=== PATIENT | female | born 1955 | race Caucasian/White ===

== ENCOUNTER 2020-02-01 14:54 | Outpatient (CLI) | payer MEDICARE, BC, SELFPAY | END 2020-02-01 14:55 | disposition home or self-care (01) | LOC: ONCMED 14:57 | PROVIDERS: Visit Provider Internal Medicine Medical Oncology | DX: Z45.2 Encounter for adjustment and management of vascular access device (principal) | CPT/HCPCS: 96523 ==

== ENCOUNTER 2020-03-21 14:15 | Outpatient (CLI) | payer MEDICARE, BC, SELFPAY | END 2020-03-21 14:16 | disposition home or self-care (01) | LOC: ONCMED 14:16 | PROVIDERS: Visit Provider Internal Medicine Medical Oncology | DX: Z45.2 Encounter for adjustment and management of vascular access device (principal); C50.112 Malignant neoplasm of central portion of left female breast; C77.0 Secondary and unspecified malignant neoplasm of lymph nodes of head, face and neck | CPT/HCPCS: 96523 ==

== ENCOUNTER 2020-06-12 13:30 | Outpatient (CLI) | payer MEDICARE, BC, SELFPAY ==
[2020-06-12] MEDS: alteplase 1 mg/mL SDV 2 mL 2 MG IV (15:53)
== END 2020-06-12 13:31 | disposition home or self-care (01) ==
LOC: ONCMED 13:34
PROVIDERS: Visit Provider Internal Medicine Medical Oncology
DX: C50.112 Malignant neoplasm of central portion of left female breast (principal); Z17.0 Estrogen receptor positive status [ER+]; C77.0 Secondary and unspecified malignant neoplasm of lymph nodes of head, face and neck; Z86.718 Personal history of other venous thrombosis and embolism
CPT/HCPCS: 36593; 96374; J2997

== ENCOUNTER 2020-07-25 12:31 | Outpatient (CLI) | payer MEDICARE, BC, SELFPAY ==
--- NOTE | 2020-07-26 06:59 | ONC FU_ITS ---
Dr. Oconnell Patient Follow-Up Note Patient: Татьяна Morris Unit #: [id number]: [id number] Dicatated By: Salvador Oconnell M.D.Date of Visit:Jul 25, 2020 Onc Med Follow-up/Prog Note Chief Complaint: Breast cancer. History of Present Illness: This is a 65 year-old woman with grade 3 infiltrating ductal carcinoma of the left breast, ER positive/IA negative and HER-2/mary positive, by clinical evaluation stage IIB (T2, N1, M0) at initial diagnosis in October 2016. She had subsequent progression to stage IV (M1), with biopsy-proven recurrence in left supraclavicular lymph nodes. She had presented in September 2016 with palpable mass in the left breast. Mammogram showed a 2.7 cm mass in the deep central portion of the left breast with questionable left axillary lymphadenopathy. Ultrasound confirmed a 2.8 cm breast mass with involved axillary lymph nodes. Biopsy of the breast mass showed grade 3 infiltrating ductal carcinoma which was ER positive/IA negative and HER-2/mary positive. Left axillary lymph node biopsy also was positive. She was then given neoadjuvant chemotherapy with 6 cycles of TCH-P from November 2016 through January 2017. 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 She underwent bilateral mastectomy with left axillary lymph node dissection on 04/01/2017. Pathology showed residual tumor in the breast measuring 0.3 cm and involvement in 1/13 lymph nodes. She was given postoperative chest wall radiation, and she then began adjuvant hormonal therapy with letrozole in July 2017. In October 2018 she was noted to have a left supraclavicular lymph node, and a subsequent PET/CT showed a large left axillary and supraclavicular lymphadenopathy. There was no evidence of other metastatic disease. Excisional biopsy of the left subclavicular lymph node showed metastatic breast cancer, ER/IA negative and HER-2/mary positive. In November 2018 she began further chemotherapy with 4 cycles of dose dense Adriamycin/cyclophosphamide followed by q3 week Taxol/Herceptin. In March 2019, following completion of her 4th cycle of Taxol/Herceptin, she began treatment with single agent Herceptin for 1 year. Her restaging PET/CT on 03/09/2019 showed decrease in size and resolution of FDG activity of the left supraclavicular and left axillary lymph nodes. There was no evidence of metabolically active disease on that study. She was seen here initially in July 2019, as she was planning to relocate to this area from [place]. However, she did opt to continue her treatment with single agent Herceptin in [place]. She completed her full year of treatment in April 2020. She has no medical illnesses other than the breast cancer. Her baseline DEXA scan in 2016 reportedly showed evidence of osteopenia. Her only other surgery was a cholecystectomy in 1971. She is a nonsmoker. She is seen for a follow-up visit. She has been feeling good generally. She has had improvement in her energy/activity tolerance, and she is continuing to get stronger. Her ECOG score is 1. Her appetite is good. Her weight is stable. She has not had fever, night sweats, or hot flashes. She occasionally wakes up feeling warm. She has no shortness of breath, cough, or chest pain. She still occasionally has nausea. Her acid reflux is not too bad. Her bowel function is been okay, though it has changed somewhat. She has no complaints. She has no significant joint or bone pain. 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 Medications: Prochlorperazine Maleate 1 Tablet (of 10 mg) Oral PRN, Zofran 1 Tablet (of 8 mg) Oral PRN Allergies: sulfa Review of Systems: Constitutional - Her energy/activity tolerance have improved, and she says she is getting stronger. Appetite is good and weight is stable. No fever, night sweats, or hot flashes. She occasionally wakes up feeling warm. ECOG score is 1, ENMT - She has sinus symptoms associated with seasonal allergies. No mouth sores. No sore throat or difficulty swallowing, Hematologic/Lymphatic - No abnormal bruising or bleeding, Respiratory - No shortness of breath. No cough. No pleuritic pain or hemoptysis, Cardiovascular - No angina pain. No palpitations, Gastrointestinal - She still has occasional nausea. Her acid reflux is not too bad. Bowel function has changed somewhat but is okay. No blood in the stool or black stools, Genitourinary (F) - No dysuria or hematuria. No urinary frequency. No urgency or incontinence, Musculoskeletal - No significant joint or bone pain, Integumentary - No skin rash, Neurologic - No headache or dizziness. She has residual neuropathy in her fingers and toes, Psychiatric - No anxiety or depression. No insomnia. Vital Signs: Performed on Jul 25, 2020 12:42 Height - 64.00 in Weight - 170.4 lbs (HIGH) BSA - 1.83 sq.m BMI - 29.25 Temperature - 98.4 F Pulse - 93 /min Respiration - 22 /min BP - 137/74 mm(hg) O2 Sat - 96 % Pain - 0 Physical Examination: Constitutional - She looks good generally, Eyes - Sclerae nonicteric. Conjunctivae clear, ENMT - No lesions noted in the oral cavity, Hematologic/Lymphatic - No cervical or clavicular adenopathy, Respiratory - Lungs are clear with good air movement bilaterally, Cardiovascular - Heart rhythm is regular. There is no murmur, gallop, or rub noted, Breasts - There are no chest wall lesions noted. There is no axillary adenopathy, Abdomen - Soft. Liver and spleen are not enlarged. There is no abdominal mass or ascites noted and there is no inguinal adenopathy, Extremities - No edema. Dorsalis pedis pulses are palpable bilaterally, Integumentary - No rashes. No suspicious skin lesions noted, Neurologic - No focal neurologic deficits noted. Lab/Imaging: Test performed on May 01, 2020 08:30 Glucose 99 mg/dL BUN 10 mg/dL Creatinine 0.70 mg/dL Cr Clearance (Est) 93.93 mL/min Sodium 139 mmol/L Potassium 3.7 mmol/L Chloride 107 mmol/L CO2 23 mmol/L Calcium 9.8 mg/dL Protein, Total 7.3 g/dL Albumin 4.4 g/dL Bilirubin, Total 0.6 mg/dL Alkaline Phosphatase 90 IU/L AST (SGOT) 28 IU/L ALT (SGPT) 25 IU/L WBC 6.0 10^9/L RBC 4.67 10^12/L HGB 14.5 g/dL HCT 43.0 % MCV 92.1 fl MCH 31.0 pg MCHC 33.7 g/dL RDW 12.4 % Platelet Count 394 10^9/L MPV 10.5 fL Neutrophils (Gran) 3.2 10^9/L Lymphocytes 1.9 10^9/L Monocytes 0.7 10^9/L Eosinophils 0.2 10^9/L Basophils 0.1 10^9/L Manual Lymphocytes 31.3 % Manual Monocytes 10.8 % Manual Eosinophils 3.2 % Manual Basophils 1.2 % Impression: 1. Patient with grade 3 infiltrating ductal carcinoma of the left breast, ER positive/IA negative and HER-2/mary positive at initial diagnosis in October 2018. By clinical evaluation her disease was stage IIB (T2, N1, M0). 2. Her treatment included neoadjuvant chemotherapy with 6 cycles of TCH-P followed by bilateral mastectomy/left axillary lymph node dissection and postop chest wall radiation. 3. She began adjuvant hormonal therapy with letrozole in July 2017. 4. In October 2018 she had progression to stage IV (M1) with FDG avid left supraclavicular and left axillary lymph nodes by PET/CT and with biopsy-proven left supraclavicular lymph node involvement, deemed unresectable. Pathology showed metastatic breast cancer, ER/IA negative and HER-2/mary postive. 5. She was then given further chemotherapy with 4 cycles of dose dense Adriamycin/cyclophosphamide followed by 4 cycles of q3 week Taxol/Herceptin, completed in March 2019. 6. Restaging PET/CT on 03/09/2019 showed no evidence of metabolically active metastatic disease. She then began treatment with single agent Herceptin. As of April 2020 she had completed a full year of treatment. She has been showing gradual improvement in her performance status since completing treatment. Overall, she appears to be doing well clinically, thus far with no evidence of recurrence of the breast cancer. Plan: She will continue on observation/expectant management. She will come in for monthly port flushes. She will be scheduled for a follow-up visit in 3 months. Signed By: Salvador Oconnell M.D. <<Signature on File>>
== END 2020-07-25 12:32 | disposition home or self-care (01) ==
PROVIDERS: Visit Provider Internal Medicine Medical Oncology
DX: Z08 Encounter for follow-up examination after completed treatment for malignant neoplasm (principal); Z85.3 Personal history of malignant neoplasm of breast; Z45.2 Encounter for adjustment and management of vascular access device; Z92.22 Personal history of monoclonal drug therapy; Z92.23 Personal history of estrogen therapy; Z92.3 Personal history of irradiation; Z90.13 Acquired absence of bilateral breasts and nipples
CPT/HCPCS: 96523; G0463

== ENCOUNTER → 2020-08-20 12:21 | Outpatient (BNVA) | payer MEDICARE, BC, SELFPAY | PROVIDERS: PCP Family Medicine; Visit Provider Surgery | DX: Z20.828 Contact with and (suspected) exposure to other viral communicable diseases (principal) | CPT/HCPCS: 87635 ==

== ENCOUNTER 2020-08-23 07:29 | Day surgery (SDC) | payer MEDICARE, BC, SELFPAY ==
[2020-08-21 12:00] VITALS: BMI 28.3
[2020-08-23 07:43] VITALS: BP 116/77; PULSE 91; RESP 18; TEMP 36.1; O2SAT 97
[2020-08-23] MEDS: sodium chloride 0.9% 1,000 ML 30 ML IV (08:14)
--- NOTE | 2020-08-23 08:15 | ANES.PREANE2 ---
Pre-Anesthetic Assessment Pre-Anesthetic Assessment: Height/Weight: Height 1.63 m Weight 74.843 kg Temp Pulse Resp BP Pulse Ox 96.9 F L 91 18 116/77 97 08/23/20 07:43 08/23/20 07:43 08/23/20 07:43 08/23/20 07:43 08/23/20 07:43 Preop Diagnosis: screening Proposed Procedure: Operation Date: 08/23/20 08:30 Proposed Procedures p Colonoscopy 94415 Z12.11(Not Applicable) - Gennaro Wu MD Was Beta Dhruv taken within 24 hours: N/A Last intake: Intake Last Liquid Date 08/22/20 Last Liquid Time 21:00 Last Solid Date 08/20/20 Last Solid Time 18:00 Social: Social History: Alcohol and No tobacco Exam: Pre-Anes Outpt Exam: alert, oriented x 3, clear to auscultation bilaterally and regular rate & rhythm History/ROS: No significant history except as noted and No significant complaints Pulmonary: Pulmonary: None reported CV/HEM: CV/HEM: None reported : : None reported Hepatic: Hepatic: None reported GI: GI: None reported Metabolic: Metabolic: None reported Musc/skel: Musc/skel: None reported Neuropsych: Neuropsych: None reported Anesthetic Plan: ASA status: 2 Anesthesia: MAC Risk of > 500 ml blood loss (7ml/kg in children): No Meds/Allergies Current Medications: Current Medications Generic Name Dose Route Start Last Admin Trade Name Freq PRN Reason Stop Dose Admin Sodium Chloride 1,000 mls @ 30 ml s/hr 08/23/20 07:45 08/23/20 08:14 Sodium Chloride 0.9% IV 30 mls/hr .Q24H LI Administration PFSH Anesthesia PFSH: Medical History (Updated 08/02/20 @ 09:21 by Татьяна Gomez DO) History of breast cancer in adulthood Surgical History (Updated 08/02/20 @ 09:10 by Татьяна Gomez DO) History of cholecystectomy S/P mastectomy, bilateral Family History Other Atrial fibrillation Hypertension Social History Smoking and tobacco status: never smoked Alcohol intake: current Alcohol intake frequency: holidays/special occasions only Data Anesthesia Cardiac Studies: No Data to Display
--- NOTE | 2020-08-23 08:49 | P.HP_ITS ---
Same Day Surgery H&P Indication for Procedure/HPI DATE OF PROCEDURE: August 23, 2020 CHIEF COMPLAINT/INDICATIONFOR SURGICAL PROCEDURE: screening PREOP DIAGNOSIS: screening PLANNED PROCEDRUE: Operation Date: 08/23/20 08:30 Proposed Procedures p Colonoscopy 36795 Z12.11(Not Applicable) - Gennaro Wu MD Medications/Allergies* Home Medications Medication Instructions Recorded Confirmed Type No Known Home Medications 08/02/20 08/23/20 History Allergies/Adverse Reactions Allergy/AdvReac Type Severity Reaction Status Date / Time Sulfa (Sulfonamide AdvReac Mild vomiting Verified 08/23/20 07:40 Antibiotics) Current Medications: Generic Name Dose Route Start Last Admin Trade Name Freq PRN Reason Stop Dose Admin Sodium Chloride 1,000 mls @ 30 mls/hr 08/23/20 07:45 08/23/20 08:14 Sodium Chloride 0.9% IV 30 mls/hr .Q24H LI Administration Pertinent History/Comorbid Conditions* Medical History (Updated 08/02/20 @ 09:21 by Татьяна Gomez DO) History of breast cancer in adulthood Surgical History (Updated 08/02/20 @ 09:10 by Татьяна Gomez DO) History of cholecystectomy S/P mastectomy, bilateral Family History (Updated 08/02/20 @ 09:04 by Charmaine Rodriguez LPN) Atrial fibrillation Hypertension Social History Smoking and tobacco status: never smoked Alcohol intake: current Alcohol intake frequency: holidays/special occasions only Pertinent Exam Findings alert, oriented x 3 and regular rate & rhythm Recommendations Surgery/Procedure today Coding Level of Care Code Acute Junior Financial Analyst for Reggie Gonzalez
[2020-08-23 09:31] VITALS: BP 110/63; PULSE 68; RESP 18; TEMP 36.2; O2SAT 96
[2020-08-23 09:46] VITALS: BP 107/67; PULSE 56; RESP 18; O2SAT 99
--- NOTE | 2020-08-23 09:47 | SUR.PHASEII ---
0947 Port to left chest flushed per protocol and de-accessed. Site clear. Pt tolerated well.
--- NOTE | 2020-08-23 09:55 | ANE.PACU2 ---
Inpatient post-anesthesia follow up: Airway intact: Yes Vital signs: Temperature 97.1 F Pulse Rate 56 Respiratory Rate 18 Blood Pressure 107/67 Pulse Oximetry 99 Oxygen Delivery Me thod Room Air Oxygen Flow Rate 2 Fraction of Inspir ed Oxygen Hydration adequate: Yes Nausea and vomiting: No Pain level: 1 Mental status: Baseline
== END 2020-08-23 09:55 | disposition home or self-care (01) ==
PROVIDERS: PCP Family Medicine; Visit Provider Surgery
PROC: 0DJD8ZZ Inspection of Lower Intestinal Tract, Via Natural or Artificial Opening Endoscopic (ICD-10-PCS; CPT 45378; principal; 2020-08-23 08:30)
DX: Z12.11 Encounter for screening for malignant neoplasm of colon (principal); D12.2 Benign neoplasm of ascending colon; K62.1 Rectal polyp; K57.30 Diverticulosis of large intestine without perforation or abscess without bleeding; Z85.3 Personal history of malignant neoplasm of breast
CPT/HCPCS: 12345; 45385; 88305; G0121; J2704; J7030

== ENCOUNTER → 2020-09-04 09:21 | Outpatient (BNVA) | payer MEDICARE, BC, SELFPAY | PROVIDERS: PCP Family Medicine; Visit Provider Family Medicine | DX: Z13.6 Encounter for screening for cardiovascular disorders (principal); E55.9 Vitamin D deficiency, unspecified; Z78.0 Asymptomatic menopausal state; Z23 Encounter for immunization; Z01.419 Encounter for gynecological examination (general) (routine) without abnormal findings | CPT/HCPCS: 80061; 82306; 88175 ==

== ENCOUNTER 2020-09-19 09:44 | Outpatient (CLI) | payer MEDICARE, BC, SELFPAY | END 2020-09-19 09:45 | disposition home or self-care (01) | LOC: ONCMED 09:47 | PROVIDERS: PCP Family Medicine; Visit Provider Internal Medicine Medical Oncology | DX: Z45.2 Encounter for adjustment and management of vascular access device (principal) | CPT/HCPCS: 96523 ==

== ENCOUNTER 2020-10-22 11:32 | Outpatient (CLI) | payer MEDICARE, BC, SELFPAY | END 2020-10-22 11:33 | disposition home or self-care (01) | LOC: ONCMED 11:36 | PROVIDERS: PCP Family Medicine; Visit Provider Internal Medicine Medical Oncology | DX: Z45.2 Encounter for adjustment and management of vascular access device (principal) | CPT/HCPCS: 96523 ==

== ENCOUNTER 2020-12-28 08:22 | Outpatient (CLI) | payer MEDICARE, BC, SELFPAY ==
[2020-12-28 09:25] LABS: Basophils # 0.1 10^3/uL (0.0-0.1); Basophils % 0.9 %; Eosinophils # 0.2 10^3/uL (0.0-0.8); Eosinophils % 3.5 %; Hematocrit 41.5 % (37.0-47.0); Hemoglobin 13.4 g/dL (11.5-15.3); Lymphocytes # 1.9 10^3/uL (0.8-4.8); Lymphocytes % 27.4 %; Mean Corpuscular HGB Conc 32.3 g/dL (30.0-36.0); Mean Corpuscular Hemoglobin 30.9 pg (28.0-34.0); Mean Corpuscular Volume 95.8 fL (81-99); Mean Platelet Volume 11.2 fL (7.4-10.4); Monocytes # 0.7 10^3/uL (0.2-0.9); Monocytes % 9.7 %; Neutrophils # 4.04 10^3/uL (1.8-7.7); Neutrophils % 58.2 %; Nucleated Red Blood Cells % 0 %; Platelet Count 368 10^3/cmm (130-400); Red Blood Count 4.33 10^6/uL (4.1-5.3); Red Cell Distribution Width 12.4 % (12.1-15.1); White Blood Count 6.9 10^3/uL (4.0-10.0)
[2020-12-28 09:38] LABS: Alanine Aminotransferase 19 U/L (0-33); Albumin Level 4.3 g/dL (3.5-5.2); Alkaline Phosphatase 72 IU/L (35-105); Anion Gap 11.9 (5-19); Aspartate Amino Transferase 19 U/L (0-32); Blood Urea Nitrogen 13 mg/dL (8-23); Calcium 9.7 mg/dL (8.5-10.5); Carbon Dioxide 29 mmol/L (22-29); Chloride 103 mmol/L (98-107); Globulin 2.8 g/dL (1.3-4.6); Glomerular Filtration Rate 83.5 mL/min (90-130); Glucose 96 mg/dL (65-115); Osmolality Calculated 290 mOsm/kg (285-295); Potassium 3.9 mmol/L (3.5-5.1); Sodium 140 mmol/L (136-145); Total Bilirubin 0.3 mg/dL (0.15-1.2); Total Protein 7.1 g/dL (6.6-8.7)
== END 2020-12-28 08:23 | disposition home or self-care (01) ==
LOC: ONCMED 08:25
PROVIDERS: PCP Family Medicine; Visit Provider Internal Medicine Medical Oncology
DX: C50.112 Malignant neoplasm of central portion of left female breast (principal)
CPT/HCPCS: 36591; 80053; 85025

== ENCOUNTER 2020-12-31 05:42 | Outpatient (CLI) | payer MEDICARE, BC, SELFPAY ==
[2020-12-31] MEDS: diphenhydrAMINE 25 mg Capsule PO (12:55)
[2020-12-31] MEDS: acetaminophen 325 mg Tablet 650 MG PO (12:55)
[2020-12-31] MEDS: sodium chloride 0.9% 250 ML 75 ML IV (13:12)
--- NOTE | 2020-12-31 19:31 | ONC FU_ITS ---
Dr. Oconnell Patient Follow-Up Note Patient: Татьяна Morris Unit #: [id number]: 1955 Dicatated By: Salvador Oconnell M.D.Date of Visit:Dec 31, 2020 Onc Med Follow-up/Prog Note Chief Complaint: Breast cancer. History of Present Illness: This is a 65 year-old woman with grade 3 infiltrating ductal carcinoma of the left breast, ER positive/RI negative and HER-2/mary positive, by clinical evaluation stage IIB (T2, N1, M0) at initial diagnosis in October 2016. She had subsequent progression to stage IV (M1), with biopsy-proven recurrence in left supraclavicular lymph nodes. She had presented in September 2016 with palpable mass in the left breast. Mammogram showed a 2.7 cm mass in the deep central portion of the left breast with questionable left axillary lymphadenopathy. Ultrasound confirmed a 2.8 cm breast mass with involved axillary lymph nodes. Biopsy of the breast mass showed grade 3 infiltrating ductal carcinoma which was ER positive/RI negative and HER-2/mary positive. Left axillary lymph node biopsy also was positive. She was then given neoadjuvant chemotherapy with 6 cycles of TCH-P from November 2016 through January 2017. 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 She underwent bilateral mastectomy with left axillary lymph node dissection on 04/01/2017. Pathology showed residual tumor in the breast measuring 0.3 cm and involvement in 1/13 lymph nodes. She was given postoperative chest wall radiation, and she then began adjuvant hormonal therapy with letrozole in July 2017. In October 2018 she was noted to have a left supraclavicular lymph node, and a subsequent PET/CT showed a large left axillary and supraclavicular lymphadenopathy. There was no evidence of other metastatic disease. Excisional biopsy of the left subclavicular lymph node showed metastatic breast cancer, ER/RI negative and HER-2/mary positive. In November 2018 she began further chemotherapy with 4 cycles of dose dense Adriamycin/cyclophosphamide followed by q3 week Taxol/Herceptin. In March 2019, following completion of her 4th cycle of Taxol/Herceptin, she began treatment with single agent Herceptin for 1 year. Her restaging PET/CT on 03/09/2019 showed decrease in size and resolution of FDG activity of the left supraclavicular and left axillary lymph nodes. There was no evidence of metabolically active disease on that study. She was seen here initially in July 2019, as she was planning to relocate to this area from [place]. However, she did opt to continue her treatment with single agent Herceptin in [place]. She completed her full year of treatment in December 2019. Her restaging PET/CT on 04/26/2020 showed a small focus of hyper metabolic activity in the soft tissues along the lateral margin of the left scapula, maximum SUV 2. Her repeat PET/CT on 11/15/2020 again showed mild hypermetabolic activity adjacent to the left subscapularis muscle. Further evaluation with MRI on 11/28/2020 showed an ill-defined high T2 signal and enhancement involving the superficial fascia and adjacent muscle belly at the site of previously identified hypermetabolic activity along the superficial fascia of the subscapularis. It measured 18 x 15 x 17 mm. An additional focus of hyperenhancement and high T2 signal was noted at the lower margin of the scapula measuring 9 x 20 x 18 mm. This appeared consistent with soft tissue metastasis. In the supraclavicular region there were sites of nodularity likely representing lymph nodes or soft tissue implants which were noted to show enhancement and high T2 signal. These measured in the range of 8 to 9 mm. An additional nonspecific focus of nodularity was noted along the anterior margin of the deltoid muscle belly measuring 8 mm. With evidence of recurrent disease, she began on treatment with Herceptin at a 3-week dosing interval together with letrozole 2.5 mg daily. She received her initial infusion of Herceptin 3 weeks ago. She tolerated it without acute toxicity. She has now returned to this area and she will continue her further treatment locally. The plan is to repeat her PET/CT after 3 months of treatment. She has no medical illnesses other than the breast cancer. Her baseline DEXA scan in 2016 reportedly showed evidence of osteopenia. Her only other surgery was a cholecystectomy in 1971. She is a nonsmoker. She is seen for a follow-up visit. She has been feeling good generally. When she first started the letrozole, it was interfering with her sleep, but that improved after she started taking it at bedtime. She has had some nausea, which he manages adequately with either Compazine or Zofran. She says her energy is not bad. She has normal activity. ECOG score is 0. Her appetite is good. She has not had fever or night sweats. She generally has felt warmer, particularly at night, but she does not have actual hot flashes. She does not complain of shortness of breath, cough, or chest pain. She has a little bit of acid reflux, which she manages with cimetidine as needed. Bowel and bladder function have been okay. She has no significant joint or bone pain. She does not complain of headache or dizziness. 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 Medications: Letrozole (2.5 mg) Tablet Oral daily, Prochlorperazine Maleate 1 Tablet (of 10 mg) Oral PRN, Zofran 1 Tablet (of 8 mg) Oral PRN Allergies: sulfa Vital Signs: Performed on Dec 31, 2020 08:21 Height - 64.00 in Weight - 176.4 lbs (HIGH) BSA - 1.85 sq.m BMI - 30.28 (HIGH) Temperature - 97.2 F (LOW) Pulse - 74 /min Respiration - 18 /min BP - 123/77 mm(hg) O2 Sat - 95 % (LOW) Pain - 0 Fatigue - 0 Physical Examination: Constitutional - She looks good generally, Eyes - Sclerae nonicteric. Conjunctivae clear, ENMT - No lesions noted in the oral cavity, Hematologic/Lymphatic - No cervical or clavicular adenopathy, Respiratory - Lungs are clear with good air movement bilaterally, Cardiovascular - Heart rhythm is regular. There is no murmur, gallop, or rub noted, Breasts - There are no chest wall lesions noted. There is no axillary adenopathy, Abdomen - Soft. Liver and spleen are not enlarged. There is no abdominal mass or ascites noted and there is no inguinal adenopathy, Extremities - No edema, Neurologic - No focal neurologic deficits noted. Lab/Imaging: Test performed on Dec 28, 2020 08:53 Sodium 140 mmol/L Potassium 3.9 mmol/L Chloride 103 mmol/L CO2 29 mmol/L Anion Gap 11.9 BUN 13 mg/dL Creatinine 0.7 mg/dL Cr Clearance (Est) 95.1600 mL/min eGFR 83.5 mL/min Glucose 96 mg/dL Osmolality - Calculated 290 mOsm/kg Calcium 9.7 mg/dL Protein, Total 7.1 g/dL Albumin 4.3 g/dL Globulin 2.8 g/dL Bilirubin, Total 0.3 mg/dL ALT (SGPT) 19 U/L AST (SGOT) 19 U/L Alkaline Phosphatase 72 IU/L WBC 6.9 10 3/uL RBC 4.33 10 6/uL HGB 13.4 g/dL HCT 41.5 % MCV 95.8 fL MCH 30.9 pg MCHC 32.3 g/dL RDW 12.4 % Platelet Count 368 10 3/cmm MPV 11.2 fL Neutrophils 4.04 10 3/uL Lymphocytes 1.9 10 3/uL Monocytes 0.7 10 3/uL Eosinophils 0.2 10 3/uL Basophils 0.1 10 3/uL Neutrophil % 58.2 % Lymphocyte % 27.4 % Monocyte % 9.7 % Eosinophil % 3.5 % Basophils % 0.9 % NRBC % 0 % Problem List: 1. Patient with grade 3 infiltrating ductal carcinoma of the left breast, ER positive/RI negative and HER-2/mary positive at initial diagnosis in October 2018. By clinical evaluation her disease was stage IIB (T2, N1, M0). Her initial treatment included neoadjuvant chemotherapy with 6 cycles of TCH-P followed by bilateral mastectomy/left axillary lymph node dissection and postop chest wall radiation and adjuvant hormonal therapy with letrozole in July 2017. 2. In October 2018 she had progression to stage IV (M1) with FDG avid left supraclavicular and left axillary lymph nodes by PET/CT and with biopsy-proven left supraclavicular lymph node involvement, deemed unresectable. Pathology showed metastatic breast cancer, ER/RI negative and HER-2/mary postive. Problems Addressed with this Encounter and Plan: Patient with grade 3 infiltrating ductal carcinoma of the left breast, ER positive/RI negative and HER-2/mary positive at initial diagnosis in October 2018. By clinical evaluation her disease was stage IIB (T2, N1, M0). Her treatment included neoadjuvant chemotherapy with 6 cycles of TCH-P followed by bilateral mastectomy/left axillary lymph node dissection and postop chest wall radiation. She began adjuvant hormonal therapy with letrozole in July 2017. In October 2018 she had progression to stage IV (M1) with FDG avid left supraclavicular and left axillary lymph nodes by PET/CT and with biopsy-proven left supraclavicular lymph node involvement, deemed unresectable. Pathology showed metastatic breast cancer, ER/RI negative and HER-2/mary postive. She was then given further chemotherapy with 4 cycles of dose dense Adriamycin/cyclophosphamide followed by 4 cycles of q3 week Taxol/Herceptin, completed in March 2019. Restaging PET/CT on 03/09/2019 showed no evidence of metabolically active metastatic disease. She then began treatment with single agent Herceptin. As of December 2019 she had completed a full year of treatment. In November 2020 she was found on PET/CT and MRI to have further recurrence in the form of soft tissue metastatic lesions in the area of the left shoulder/scapula. With those findings she began treatment with Herceptin and a 3-week dosing interval together with letrozole 2.5 mg daily. Thus far she has tolerated the treatment well. She is due now for her second dose of Herceptin. It will be administered as soon as we have the medication available. She will then return for treatment again in 3 weeks and for a follow-up visit in 6 weeks. Signed By: Salvador Oconnell M.D. <<Signature on File>>
== END 2020-12-31 05:43 | disposition home or self-care (01) ==
LOC: ONCMED 05:44
PROVIDERS: PCP Family Medicine; Visit Provider Internal Medicine Medical Oncology
DX: Z51.11 Encounter for antineoplastic chemotherapy (principal); C50.112 Malignant neoplasm of central portion of left female breast; Z17.1 Estrogen receptor negative status [ER-]; C77.0 Secondary and unspecified malignant neoplasm of lymph nodes of head, face and neck; C79.89 Secondary malignant neoplasm of other specified sites; Z79.899 Other long term (current) drug therapy
CPT/HCPCS: 96413; 99214; J7050; J9355

== ENCOUNTER 2021-01-21 06:19 | Outpatient (CLI) | payer MEDICARE, BC, SELFPAY ==
[2021-01-21] MEDS: diphenhydrAMINE 25 mg Capsule PO (11:15)
[2021-01-21] MEDS: acetaminophen 325 mg Tablet 650 MG PO (11:15)
[2021-01-21] MEDS: sodium chloride 0.9% 250 ML 75 ML IV (11:25)
== END 2021-01-21 06:20 | disposition home or self-care (01) ==
LOC: ONCMED 06:21
PROVIDERS: PCP Family Medicine; Visit Provider Internal Medicine Medical Oncology
DX: Z51.12 Encounter for antineoplastic immunotherapy (principal); C50.112 Malignant neoplasm of central portion of left female breast; Z17.0 Estrogen receptor positive status [ER+]; C79.89 Secondary malignant neoplasm of other specified sites; C77.0 Secondary and unspecified malignant neoplasm of lymph nodes of head, face and neck
CPT/HCPCS: 96413; J7050; J9355

== ENCOUNTER 2021-02-11 09:37 | Outpatient (CLI) | payer MEDICARE, BC, SELFPAY ==
[2021-02-11 11:02] LABS: Basophils # 0.1 10^3/uL (0.0-0.1); Basophils % 1.3 %; Eosinophils # 0.3 10^3/uL (0.0-0.8); Eosinophils % 3.7 %; Hematocrit 42.4 % (37.0-47.0); Hemoglobin 13.7 g/dL (11.5-15.3); Lymphocytes % 28.7 %; Mean Corpuscular HGB Conc 32.3 g/dL (30.0-36.0); Mean Corpuscular Hemoglobin 30.3 pg (28.0-34.0); Mean Corpuscular Volume 93.8 fL (81-99); Mean Platelet Volume 11.4 fL (7.4-10.4); Monocytes # 0.7 10^3/uL (0.2-0.9); Monocytes % 10.3 %; Neutrophils % 55.9 %; Nucleated Red Blood Cells % 0 %; Platelet Count 411 10^3/cmm (130-400); Red Blood Count 4.52 10^6/uL (4.1-5.3); Red Cell Distribution Width 12.5 % (12.1-15.1)
[2021-02-11 11:15] LABS: Alanine Aminotransferase 27 U/L (0-33); Albumin Level 4.3 g/dL (3.5-5.2); Alkaline Phosphatase 74 IU/L (35-105); Anion Gap 13.7 (5-19); Aspartate Amino Transferase 24 U/L (0-32); Blood Urea Nitrogen 12 mg/dL (8-23); Calcium 9.5 mg/dL (8.5-10.5); Carbon Dioxide 27 mmol/L (22-29); Chloride 103 mmol/L (98-107); Globulin 2.3 g/dL (1.3-4.6); Glomerular Filtration Rate 99.7 mL/min (90-130); Glucose 127 mg/dL (65-115); Osmolality Calculated 291 mOsm/kg (285-295); Potassium 3.7 mmol/L (3.5-5.1); Sodium 140 mmol/L (136-145); Total Bilirubin 0.4 mg/dL (0.15-1.2); Total Protein 6.6 g/dL (6.6-8.7)
[2021-02-11] MEDS: acetaminophen 325 mg Tablet 650 MG PO (11:40)
[2021-02-11] MEDS: diphenhydrAMINE 25 mg Capsule PO (11:40)
[2021-02-11] MEDS: sodium chloride 0.9% 250 ML 75 ML IV (12:30)
--- NOTE | 2021-02-25 22:02 | ONC FU_ITS ---
Joaquín Diaz Patient Note Patient: Татьяна Morris Unit #: [id number]: 1955 Dictated By: Jennifer LorenzDate of Visit: Feb 11, 2021 Onc MED Follow-Up/Prog Note Chief Complaint: Breast cancer. History of Present Illness: Ms Morris is a 65 year-old woman with grade 3 infiltrating ductal carcinoma of the left breast, ER positive/NC negative and HER-2/mary positive, by clinical evaluation stage IIB (T2, N1, M0) at initial diagnosis in October 2016. She had subsequent progression to stage IV (M1), with biopsy-proven recurrence in left supraclavicular lymph nodes. She had presented in September 2016 with palpable mass in the left breast. Mammogram showed a 2.7 cm mass in the deep central portion of the left breast with questionable left axillary lymphadenopathy. Ultrasound confirmed a 2.8 cm breast mass with involved axillary lymph nodes. Biopsy of the breast mass showed grade 3 infiltrating ductal carcinoma which was ER positive/NC negative and HER-2/mary positive. Left axillary lymph node biopsy also was positive. She was then given neoadjuvant chemotherapy with 6 cycles of TCH-P from November 2016 through January 2017. 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 She underwent bilateral mastectomy with left axillary lymph node dissection on 04/01/2017. Pathology showed residual tumor in the breast measuring 0.3 cm and involvement in 1/13 lymph nodes. She was given postoperative chest wall radiation, and she then began adjuvant hormonal therapy with letrozole in July 2017. In October 2018 she was noted to have a left supraclavicular lymph node, and a subsequent PET/CT showed a large left axillary and supraclavicular lymphadenopathy. There was no evidence of other metastatic disease. Excisional biopsy of the left subclavicular lymph node showed metastatic breast cancer, ER/NC negative and HER-2/mary positive. In November 2018 she began further chemotherapy with 4 cycles of dose dense Adriamycin/cyclophosphamide followed by q3 week Taxol/Herceptin. In March 2019, following completion of her 4th cycle of Taxol/Herceptin, she began treatment with single agent Herceptin for 1 year. Her restaging PET/CT on 03/09/2019 showed decrease in size and resolution of FDG activity of the left supraclavicular and left axillary lymph nodes. There was no evidence of metabolically active disease on that study. She was seen here initially in July 2019, as she was planning to relocate to this area from [place]. However, she did opt to continue her treatment with single agent Herceptin in [place]. She completed her full year of treatment in April 2020. She has no medical illnesses other than the breast cancer. Her baseline DEXA scan in 2016 reportedly showed evidence of osteopenia. Her only other surgery was a cholecystectomy in 1971. She is a nonsmoker. Ms Morris is here today for followup. Her last dose of transtuzumab was on January 21, 2021. She continues to tolerate it well. She states she has been doing some exercise at home and is tolerating this well. She states she has occasional heart pounding but has checked her oximeter during this time and her oxygen is okay during the palpitations . She states she is due for follow-up PET CT and echocardiogram on March 25 at [place]. She continues to follow with her oncologist at [place], [place]. She has no other concerns today. She denies any orthopnea. She is had no lower extremity edema. She denies any chest pain. She denies nausea or vomiting. She has had no diarrhea or constipation. Her neuropathy is stable. She denies any adenopathy. She states she has not had any mouth sores or sore throat. She is had no difficulty swallowing. She continues with the letrozole and is tolerating it well. She denies any joint pain. She has had some intermittent hot flashes but states they are stable as well. Her ECOG is 0. Past Medical History: She has had no other medical illnesses. Past Surgical History: Covid vaccine #2 in 2020 Covid vaccine #1 in 2020 Excisional biopsy of left supraclavicular lymph node in 2018 Bilateral mastectomy and left axillary lymph node dissection in 2017 Biopsies of left breast mass and left axillary lymph node in 2016 Cholecystectomy in 1972 Allergies: sulfa Medications: Letrozole (2.5 mg) Tablet Oral daily Prochlorperazine Maleate 1 Tablet (of 10 mg) Oral PRN Zofran 1 Tablet (of 8 mg) Oral PRN Family History: Ms. Morris's mother at age 94: old age. Ms. Morris's father at age 80. Ms. Morris has 4 brothers: 4 alive. Her father at age 80 with complications of atrial fibrillation. He had been treated for prostate cancer. Mother at 94 of old age. Four brothers are in good health. Social History: Ms. Morris is and she is retired. Ms. Morris has never smoked. She drinks occasionally. 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 She is a nonsmoker. Alcohol use is estimated at 4 drinks per month. Review Of Symptoms: see above Vital Signs: Performed on Feb 11, 2021 11:09 Height - 64.00 in Weight - 175.8 lbs (LOW) BSA - 1.85 sq.m BMI - 30.18 (HIGH) Temperature - 97.3 F (LOW) Pulse - 92 /min Respiration - 18 /min BP - 118/74 mm(hg) O2 Sat - 93 % (LOW) Pain - 0 Fatigue - 0,0 - Fully active, able to carry on all predisease activities without restrictions. (ECOG) Physical Examination: Constitutional Alert, oriented, no acute distress. Skin pink, warm and dry. Head Normocephalic; atraumatic. Eyes Conjunctivae and sclerae are clear and without icterus. Pupils are reactive and equal. Neck Supple without masses or thyromegaly. No jugular venous distension. Hematologic/Lymphatic No petechiae or purpura. No tender or palpable lymph nodes in the cervical or supraclavicular areas. Respiratory Lungs are clear to auscultation without rhonchi or wheezing. Cardiovascular Regular rate and rhythm of heart without murmurs,clicks, gallops or rubs. Chest left chest wall port unremarkable Back/Spine Non-tender to palpation. Extremities No visible deformities, no cyanosis, clubbing or edema. Musculoskeletal No tenderness or swelling, normal range of motion without obvious weakness. Integumentary No rashes or lesions. Neurologic No sensory or motor deficits, normal cerebellar function, normal gait. Psychiatric Alert and oriented times three. Coherent speech. Verbalizes understanding of our discussions today. Laboratory:Test performed on Feb 11, 2021 09:57 Sodium 140 mmol/L Potassium 3.7 mmol/L Chloride 103 mmol/L CO2 27 mmol/L Anion Gap 13.7 BUN 12 mg/dL Creatinine 0.6 mg/dL Cr Clearance (Est) 111.0200 mL/min eGFR 99.7 mL/min Glucose 127 mg/dL Osmolality - Calculated 291 mOsm/kg Calcium 9.5 mg/dL Protein, Total 6.6 g/dL Albumin 4.3 g/dL Globulin 2.3 g/dL Bilirubin, Total 0.4 mg/dL ALT (SGPT) 27 U/L AST (SGOT) 24 U/L Alkaline Phosphatase 74 IU/L WBC 7.0 10 3/uL RBC 4.52 10 6/uL HGB 13.7 g/dL HCT 42.4 % MCV 93.8 fL MCH 30.3 pg MCHC 32.3 g/dL RDW 12.5 % Platelet Count 411 10 3/cmm MPV 11.4 fL Neutrophils 3.90 10 3/uL Lymphocytes 2.0 10 3/uL Monocytes 0.7 10 3/uL Eosinophils 0.3 10 3/uL Basophils 0.1 10 3/uL Neutrophil % 55.9 % Lymphocyte % 28.7 % Monocyte % 10.3 % Eosinophil % 3.7 % Basophils % 1.3 % NRBC % 0 % Impression: 1. Patient with grade 3 infiltrating ductal carcinoma of the left breast, ER positive/NC negative and HER-2/mary positive at initial diagnosis in October 2018. By clinical evaluation her disease was stage IIB (T2, N1, M0). Her initial treatment included neoadjuvant chemotherapy with 6 cycles of TCH-P followed by bilateral mastectomy/left axillary lymph node dissection and postop chest wall radiation and adjuvant hormonal therapy with letrozole in July 2017. 2. In October 2018 she had progression to stage IV (M1) with FDG avid left supraclavicular and left axillary lymph nodes by PET/CT and with biopsy-proven left supraclavicular lymph node involvement, deemed unresectable. Pathology showed metastatic breast cancer, ER/NC negative and HER-2/mary positive. Plan: PROBLEMS ADDRESSED TODAY 1. grade 3 infiltrating ductal carcinoma of the left breast, ER positive/NC negative and HER-2/mary positive at initial diagnosis in October 2018. By clinical evaluation her disease was stage IIB (T2, N1, M0). Her treatment included neoadjuvant chemotherapy with 6 cycles of TCH-P followed by bilateral mastectomy/left axillary lymph node dissection and postop chest wall radiation. She began adjuvant hormonal therapy with letrozole in July 2017. In October 2018 she had progression to stage IV (M1) with FDG avid left supraclavicular and left axillary lymph nodes by PET/CT and with biopsy-proven left supraclavicular lymph node involvement, deemed unresectable. Pathology showed metastatic breast cancer, ER/NC negative and HER-2/mary positive. She was then given further chemotherapy with 4 cycles of dose dense Adriamycin/cyclophosphamide followed by 4 cycles of q 3 week Taxol/Herceptin, completed in March 2019. Restaging PET/CT on 03/09/2019 showed no evidence of metabolically active metastatic disease. She then began treatment with single agent Herceptin. As of December 2019 she had completed a full year of treatment. In November 2020 she was found on PET/CT and MRI to have further recurrence in the form of soft tissue metastatic lesions in the area of the left shoulder/scapula. With those findings she began treatment with Herceptin and a 3-week dosing interval together with letrozole 2.5 mg daily. Thus far she has tolerated the treatment well. A. Proceed with Herceptin today as scheduled. She continues the 3-week dosing. B. Continue letrozole 2.5 mg daily C. Today's labs reviewed in detail and discussed with Ms. Morris and a copy was given to her. WBC 7.0, hemoglobin 13.7, platelets 411,000 ANC is 3900. Potassium 3.7 random glucose 127 creatinine 0.6 LFTs are. D. The last PET/CT on our chart from [facility] was April 26, 2020 and there was no hypermetabolic lymphadenopathy or convincing evidence of metastatic disease at that time. There was a small focus of mild FDG uptake in the soft tissues along the lateral margin of the left scapula which was favored to be inflammatory. She had MRI of the shoulder with and without contrast on November 28, 2020 at which time there was abnormality along the superficial fossa and/or muscle belly of this subscapularis, compatible with soft tissue metastasis. There was a second focus of presumed metastatic disease along the lower margin of the scapula corresponding to hypermetabolic activity on the prior CT PET and interposed between the lower margin of the subscapularis and teres minor. Additional small sites of nodularity along the anterior deltoid and supraclavicular region. Metastatic lymph nodes or soft tissue implants are suspected however these are relatively small and difficult to characterize. Degenerative and/or rotator cuff pathology was reported with probable high-grade partial-thickness tearing or small full-thickness tear at the anterior footplate of the supraspinatus measuring 9 mm in greatest dimension. There was moderate acromioclavicular and glenohumeral joint osteoarthritis present. E. The last echocardiogram I have on record is from November 03, 2019 from [facility] which at that time reported an LVEF of 55% ???3%. The left atrium was normal in size no pericardial effusion noted. Compared to the echo from 07/21/2019 there was no significant change. 2. Aromatase inhibitor therapy. A. Have asked her to verify if she has had a bone density study when she returns to [facility] cancer clinic. If she has not had one recent we can do that here or asked that it be done there for baseline study as she has resumed the letrozole at 2.5 mg daily. B. She is exercising at home which does include some walking which will help protect against osteoporosis. C. We did discuss that she is high risk due to the remote SANDEEP inhibitor therapy. She did recall this from taking it previously. 3. Follow-up plan A. She will return for follow-up Herceptin in 3 weeks. B. We will repeat her CBC CMP at that time. C. We have asked that she return after her follow-up in [place] as per her oncologist's direction. I have requested that she call us after her appointment there to schedule her follow-up appointments. D. I have requested a TSH to be added to the blood in the lab for evaluation of possible palpitations. E. Of also requested a vitamin D level be added to the blood in lab if possible due to a history of vitamin D deficiency. F. Mrs Morris was encouraged to contact us in interim should questions or problems arise. Signed By: Jennifer Lorenz-, [facility] Salvador Oconnell MD <<Signature on File>>
== END 2021-02-11 09:38 | disposition home or self-care (01) ==
PROVIDERS: PCP Family Medicine; Visit Provider Nurse Practitioner
DX: Z51.11 Encounter for antineoplastic chemotherapy (principal); C50.112 Malignant neoplasm of central portion of left female breast; Z17.0 Estrogen receptor positive status [ER+]; C77.0 Secondary and unspecified malignant neoplasm of lymph nodes of head, face and neck; C79.89 Secondary malignant neoplasm of other specified sites; Z79.811 Long term (current) use of aromatase inhibitors
CPT/HCPCS: 80053; 85025; 96413; 99214; J7050; J9355

== ENCOUNTER 2021-03-04 08:15 | Outpatient (CLI) | payer MEDICARE, BC, SELFPAY ==
[2021-03-04 09:06] LABS: Basophils # 0.1 10^3/uL (0.0-0.1); Basophils % 1.7 %; Eosinophils # 0.3 10^3/uL (0.0-0.8); Eosinophils % 4.5 %; Hematocrit 41.7 % (37.0-47.0); Hemoglobin 13.6 g/dL (11.5-15.3); Mean Corpuscular HGB Conc 32.6 g/dL (30.0-36.0); Mean Corpuscular Hemoglobin 30.5 pg (28.0-34.0); Mean Corpuscular Volume 93.5 fL (81-99); Mean Platelet Volume 11.4 fL (7.4-10.4); Monocytes # 0.6 10^3/uL (0.2-0.9); Monocytes % 9.2 %; Neutrophils % 54.4 %; Nucleated Red Blood Cells % 0 %; Red Blood Count 4.46 10^6/uL (4.1-5.3); Red Cell Distribution Width 12.4 % (12.1-15.1); White Blood Count 6.6 10^3/uL (4.0-10.0)
[2021-03-04 09:40] LABS: Alanine Aminotransferase 24 U/L (0-33); Albumin Level 4.2 g/dL (3.5-5.2); Alkaline Phosphatase 73 IU/L (35-105); Anion Gap 14.8 (5-19); Aspartate Amino Transferase 24 U/L (0-32); Blood Urea Nitrogen 14 mg/dL (8-23); Calcium 9.3 mg/dL (8.5-10.5); Carbon Dioxide 24 mmol/L (22-29); Chloride 105 mmol/L (98-107); Globulin 2.5 g/dL (1.3-4.6); Glomerular Filtration Rate 83.2 mL/min (90-130); Glucose 91 mg/dL (65-115); Osmolality Calculated 290 mOsm/kg (285-295); Potassium 3.8 mmol/L (3.5-5.1); Sodium 140 mmol/L (136-145); Thyroid Stimulating Hormone 1.75 uIU/mL (0.27-4.20); Total Bilirubin 0.5 mg/dL (0.15-1.2); Total Protein 6.7 g/dL (6.6-8.7)
[2021-03-04 09:47] LABS: Platelet Count 375 10^3/cmm (130-400)
[2021-03-04 09:48] LABS: Slide Review Slide Review Perform
[2021-03-04] MEDS: acetaminophen 325 mg Tablet 650 MG PO (10:06)
[2021-03-04] MEDS: sodium chloride 0.9% 250 ML 75 ML IV (10:06)
[2021-03-04] MEDS: diphenhydrAMINE 25 mg Capsule PO (10:06)
[2021-03-04 10:15] LABS: 25 Hydroxy Vitamin D 29 ng/mL (30-100)
== END 2021-03-04 08:16 | disposition home or self-care (01) ==
LOC: ONCMED 08:17
PROVIDERS: PCP Family Medicine; Visit Provider Internal Medicine Medical Oncology
DX: Z51.11 Encounter for antineoplastic chemotherapy (principal); C50.812 Malignant neoplasm of overlapping sites of left female breast; Z17.0 Estrogen receptor positive status [ER+]; E55.9 Vitamin D deficiency, unspecified; E03.9 Hypothyroidism, unspecified; Z79.899 Other long term (current) drug therapy
CPT/HCPCS: 80053; 82306; 84443; 85025; 96413; J7050; J9355

== ENCOUNTER 2021-04-29 09:04 | Outpatient (CLI) | payer MEDICARE, BC, SELFPAY ==
[2021-04-29] MEDS: alteplase 1 mg/mL SDV 2 mL 2 MG IV (09:30)
[2021-04-29 09:56] LABS: Basophils # 0.1 10^3/uL (0.0-0.1); Basophils % 0.5 %; Eosinophils % 0.1 %; Hematocrit 40.9 % (37.0-47.0); Hemoglobin 13.5 g/dL (11.5-15.3); Lymphocytes # 1.6 10^3/uL (0.8-4.8); Lymphocytes % 12.2 %; Mean Corpuscular Hemoglobin 30.6 pg (28.0-34.0); Mean Corpuscular Volume 92.7 fL (81-99); Mean Platelet Volume 10.6 fL (7.4-10.4); Monocytes # 0.1 10^3/uL (0.2-0.9); Monocytes % 0.8 %; Neutrophils # 11.07 10^3/uL (1.8-7.7); Neutrophils % 84.7 %; Nucleated Red Blood Cells % 0 %; Platelet Count 463 10^3/cmm (130-400); Red Blood Count 4.41 10^6/uL (4.1-5.3); Red Cell Distribution Width 12.5 % (12.1-15.1); White Blood Count 13.1 10^3/uL (4.0-10.0)
[2021-04-29 10:14] LABS: Alanine Aminotransferase 44 U/L (0-33); Albumin Level 4.1 g/dL (3.5-5.2); Alkaline Phosphatase 88 IU/L (35-105); Aspartate Amino Transferase 40 U/L (0-32); Blood Urea Nitrogen 11 mg/dL (8-23); Calcium 10.3 mg/dL (8.5-10.5); Carbon Dioxide 21 mmol/L (22-29); Chloride 100 mmol/L (98-107); Globulin 2.9 g/dL (1.3-4.6); Glomerular Filtration Rate 83.2 mL/min (90-130); Glucose 272 mg/dL (65-115); Osmolality Calculated 289 mOsm/kg (285-295); Sodium 135 mmol/L (136-145); Total Bilirubin 0.3 mg/dL (0.15-1.2)
[2021-04-29 10:15] LABS: Anion Gap 18.6 (5-19); Potassium 4.6 mmol/L (3.5-5.1)
[2021-04-29] MEDS: sodium chloride 0.9% 250 ML 75 ML IV (12:25)
[2021-04-29] MEDS: palonosetron 0.25 mg/5 mL SDV IV (12:25)
[2021-04-29] MEDS: famotidine 20 mg/2 mL INJ IVP (12:26)
[2021-04-29] MEDS: acetaminophen 325 mg Tablet 650 MG PO (12:33)
[2021-04-29] MEDS: diphenhydrAMINE 50 mg/mL SDV 1mL 25 MG IV (12:38)
[2021-04-29] MEDS: sodium chloride 0.9% 500 ML 999 ML IV (13:05)
[2021-04-29] MEDS: EPINEPHrine 1 mg/mL INJ IV ×2 (13:05→13:14)
--- NOTE | 2021-04-30 07:01 | ONC FU_ITS ---
Dr. Oconnell Patient Follow-Up Note Patient: Татьяна Morris Unit #: [id number]: [id number] Dicatated By: Salvador Oconnell M.D.Date of Visit:Apr 29, 2021 Onc Med Follow-up/Prog Note Chief Complaint: Breast cancer. History of Present Illness: This is a 66 year-old woman with grade 3 infiltrating ductal carcinoma of the left breast, ER positive/AK negative and HER-2/mary positive, by clinical evaluation stage IIB (T2, N1, M0) at initial diagnosis in October 2016. She had subsequent progression to stage IV (M1), with biopsy-proven recurrence in left supraclavicular lymph nodes. She had presented in September 2016 with palpable mass in the left breast. Mammogram showed a 2.7 cm mass in the deep central portion of the left breast with questionable left axillary lymphadenopathy. Ultrasound confirmed a 2.8 cm breast mass with involved axillary lymph nodes. Biopsy of the breast mass showed grade 3 infiltrating ductal carcinoma which was ER positive/AK negative and HER-2/mary positive. Left axillary lymph node biopsy also was positive. She was then given neoadjuvant chemotherapy with 6 cycles of TCH-P from November 2016 through January 2017. 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 She underwent bilateral mastectomy with left axillary lymph node dissection on 04/01/2017. Pathology showed residual tumor in the breast measuring 0.3 cm and involvement in 1/13 lymph nodes. She was given postoperative chest wall radiation, and she then began adjuvant hormonal therapy with letrozole in July 2017. In October 2018 she was noted to have a left supraclavicular lymph node, and a subsequent PET/CT showed a large left axillary and supraclavicular lymphadenopathy. There was no evidence of other metastatic disease. Excisional biopsy of the left subclavicular lymph node showed metastatic breast cancer, ER/AK negative and HER-2/mary positive. In November 2018 she began further chemotherapy with 4 cycles of dose dense Adriamycin/cyclophosphamide followed by q3 week Taxol/Herceptin. In March 2019, following completion of her 4th cycle of Taxol/Herceptin, she began treatment with single agent Herceptin for 1 year. Her restaging PET/CT on 03/09/2019 showed decrease in size and resolution of FDG activity of the left supraclavicular and left axillary lymph nodes. There was no evidence of metabolically active disease on that study. She was seen here initially in July 2019, as she was planning to relocate to this area from [place]. However, she did opt to continue her treatment with single agent Herceptin in [place]. She completed her full year of treatment in December 2019. Her restaging PET/CT on 04/26/2020 showed a small focus of hyper metabolic activity in the soft tissues along the lateral margin of the left scapula, maximum SUV 2. Her repeat PET/CT on 11/15/2020 again showed mild hypermetabolic activity adjacent to the left subscapularis muscle. Further evaluation with MRI on 11/28/2020 showed an ill-defined high T2 signal and enhancement involving the superficial fascia and adjacent muscle belly at the site of previously identified hypermetabolic activity along the superficial fascia of the subscapularis. It measured 18 x 15 x 17 mm. An additional focus of hyperenhancement and high T2 signal was noted at the lower margin of the scapula measuring 9 x 20 x 18 mm. This appeared consistent with soft tissue metastasis. In the supraclavicular region there were sites of nodularity likely representing lymph nodes or soft tissue implants which were noted to show enhancement and high T2 signal. These measured in the range of 8 to 9 mm. An additional nonspecific focus of nodularity was noted along the anterior margin of the deltoid muscle belly measuring 8 mm. In December 2020 she began on treatment with Herceptin at a 3-week dosing interval together with letrozole 2.5 mg daily. As of 03/04/2020 when she had completed her 5th cycle of Herceptin on a 3-week dosing schedule. Her restaging PET/CT on 03/21/2021 showed small hypermetabolic nodular foci around the left shoulder girdle musculature including a lesion along the deep margin of the subscapularis muscle, maximum SUV 3.6, presumed to be metastatic foci. Minimal peripheral nodularity involving the upper lobe lungs bilaterally were too small to characterize by PET. A subtle small focus of relative hypermetabolic activity was noted along the inferior endplate of the T2 vertebral body to the left of the midline, maximum SUV 3.1. Left upper chest punch biopsy on 03/27/2021 showed invasive carcinoma with morphologic and immunophenotypic profile compatible with breast primary. On 04/02/2021 she began further palliative treatment with cycle 1 of Taxol/Herceptin/Perjeta administered at a 3-week dosing interval. She has no medical illnesses other than the breast cancer. Her baseline DEXA scan in 2016 reportedly showed evidence of osteopenia. Her only other surgery was a cholecystectomy in 1971. She is a nonsmoker. She has now returned to [place] and she is due for cycle 2 of Taxol/Herceptin/Perjeta. She indicates that overall her first cycle went pretty bad. She had significant musculoskeletal pain during the first week and she also had nausea and fatigue. During the second week the pain let up but the fatigue worsened, and during week 3 she continued to have fatigue and nausea. At this point she is still doing light work. ECOG score is 1. Her appetite has been okay and her weight is stable. She had low-grade fever for couple days, but that went away. She is still having some hot flashes intermittently. She has allergy related sinus symptoms. Her mouth felt a little different, but she did not develop any actual sores in her mouth. She has not had shortness of breath, cough, or chest pain. She has having acid reflux, for which she has been taking cimetidine once a day. Bowel and bladder function have been okay. Her pain was mostly in the joints, and also to some extent in her muscles. She also is having significant neuropathy in her hands and feet. She does not complain of headache. She has just occasional orthostatic lightheadedness. Medications: Cimetidine (200 mg) Tablet Oral daily, Letrozole (2.5 mg) Tablet Oral daily, Magnesium (250 mg) Tablet Oral daily, Potassium Chloride Crystals daily, Prochlorperazine Maleate 1 Tablet (of 10 mg) Oral PRN, Zofran 1 Tablet (of 8 mg) Oral PRN Allergies: Perjeta and sulfa. Vital Signs: Performed on Apr 29, 2021 11:30 Height - 64.00 in Weight - 177.4 lbs (HIGH) BSA - 1.86 sq.m BMI - 30.45 (HIGH) Temperature - 98.5 F Pulse - 108 /min (HIGH) Respiration - 18 /min BP - 143/78 mm(hg) (HIGH) O2 Sat - 96 % Pain - 0 Fatigue - 5 Physical Examination: Constitutional - She looks good generally, Eyes - Sclerae nonicteric. Conjunctivae clear, ENMT - No lesions noted in the oral cavity, Hematologic/Lymphatic - No cervical, clavicular, or axillary adenopathy, Respiratory - Lungs are clear with good air movement bilaterally, Cardiovascular - Heart rhythm is regular. There is no murmur, gallop, or rub noted, Abdomen - Soft. Liver and spleen are not enlarged. There is no abdominal mass or ascites noted and there is no inguinal adenopathy, Extremities - No edema, Neurologic - No focal neurologic deficits noted. Lab/Imaging: Test performed on Apr 29, 2021 09:25 Sodium 135 mmol/L Potassium 4.6 mmol/L Chloride 100 mmol/L CO2 21 mmol/L Anion Gap 18.6 BUN 11 mg/dL Creatinine 0.7 mg/dL Cr Clearance (Est) 97.71 mL/min eGFR 83.2 mL/min Glucose 272 mg/dL Osmolality - Calculated 289 mOsm/kg Calcium 10.3 mg/dL Protein, Total 7.0 g/dL Albumin 4.1 g/dL Globulin 2.9 g/dL Bilirubin, Total 0.3 mg/dL ALT (SGPT) 44 U/L AST (SGOT) 40 U/L Alkaline Phosphatase 88 IU/L WBC 13.1 10 3/uL RBC 4.41 10 6/uL HGB 13.5 g/dL HCT 40.9 % MCV 92.7 fL MCH 30.6 pg MCHC 33.0 g/dL RDW 12.5 % Platelet Count 463 10 3/cmm MPV 10.6 fL Neutrophils 11.07 10 3/uL Lymphocytes 1.6 10 3/uL Monocytes 0.1 10 3/uL Eosinophils 0.0 10 3/uL Basophils 0.1 10 3/uL Neutrophil % 84.7 % Lymphocyte % 12.2 % Monocyte % 0.8 % Eosinophil % 0.1 % Basophils % 0.5 % NRBC % 0 % Problem List: 1. Grade 3 infiltrating ductal carcinoma of the left breast, ER positive/AK negative and HER-2/mary positive at initial diagnosis in October 2018. By clinical evaluation her disease was stage IIB (T2, N1, M0). Her initial treatment included neoadjuvant chemotherapy with 6 cycles of TCH-P followed by bilateral mastectomy/left axillary lymph node dissection and postop chest wall radiation and adjuvant hormonal therapy with letrozole in July 2017. 2. In October 2018 she had progression to stage IV (M1) with FDG avid left supraclavicular and left axillary lymph nodes by PET/CT and with biopsy-proven left supraclavicular lymph node involvement, deemed unresectable. Pathology showed metastatic breast cancer, ER/AK negative and HER-2/mary postive. Problems Addressed with this Encounter and Plan: 1. Patient with grade 3 infiltrating ductal carcinoma of the left breast, ER positive/AK negative and HER-2/mary positive at initial diagnosis in October 2018. By clinical evaluation her disease was stage IIB (T2, N1, M0). Her treatment included neoadjuvant chemotherapy with 6 cycles of TCH-P followed by bilateral mastectomy/left axillary lymph node dissection and postop chest wall radiation. She began adjuvant hormonal therapy with letrozole in July 2017. In October 2018 she had progression to stage IV (M1) with FDG avid left supraclavicular and left axillary lymph nodes by PET/CT and with biopsy-proven left supraclavicular lymph node involvement, deemed unresectable. Pathology showed metastatic breast cancer, ER/AK negative and HER-2/mary postive. She was then given further chemotherapy with 4 cycles of dose dense Adriamycin/cyclophosphamide followed by 4 cycles of q3 week Taxol/Herceptin, completed in March 2019. Restaging PET/CT on 03/09/2019 showed no evidence of metabolically active metastatic disease. She then began treatment with single agent Herceptin. As of December 2019 she had completed a full year of treatment. In November 2020 she was found on PET/CT and MRI to have further recurrence in the form of soft tissue metastatic lesions in the area of the left shoulder/scapula. With those findings she began treatment with Herceptin and a 3-week dosing interval together with letrozole 2.5 mg daily. As of 03/04/2021 she had completed her 5th cycle of Herceptin. Restaging PET/CT on 03/21/2021 showed hypermetabolic soft tissue nodularity in the left shoulder area, suspicious for metastatic involvement. Tiny peripheral nodules involving the upper lobes bilaterally were too small to characterize. A subtle focus of mild uptake was noted in the inferior endplate of the T2 vertebral body. Left upper chest punch biopsy on 03/27/2021 showed invasive carcinoma with morphologic and immunophenotypic profile compatible with breast primary. On 04/02/2021 she continue further palliative therapy with cycle 1 Taxol/Herceptin/Perjeta administered on a 3-week dosing schedule. Toxicities included musculoskeletal pain, fatigue, nausea, and peripheral neuropathy. Her blood counts have remained adequate. As such, she will proceed now with her second cycle of treatment. Given the toxicities with cycle 1, I talked her about the possibility of changing the Taxol/Herceptin to weekly dosing, but with the Perjeta administered at the same dosage every 3 weeks. She is interested in trying that, so those adjustments will be made with cycle 2, which she will start today. I will see her for a follow-up visit in 1 week. She will continue ondansetron and Compazine for nausea and hydrocodone/APAP for pain as needed. 2. She is having ongoing GERD symptoms, and she is advised to increase cimetidine to 800 mg twice daily. Signed By: Salvador Oconnell M.D. <<Signature on File>>
== END 2021-04-29 09:05 | disposition home or self-care (01) ==
LOC: ONCMED 09:07
PROVIDERS: PCP Family Medicine; Visit Provider Internal Medicine Medical Oncology
DX: Z51.11 Encounter for antineoplastic chemotherapy (principal); C50.112 Malignant neoplasm of central portion of left female breast; Z17.0 Estrogen receptor positive status [ER+]; C77.0 Secondary and unspecified malignant neoplasm of lymph nodes of head, face and neck; C79.89 Secondary malignant neoplasm of other specified sites; K21.9 Gastro-esophageal reflux disease without esophagitis; Z79.811 Long term (current) use of aromatase inhibitors
CPT/HCPCS: 36415; 36593; 80053; 85025; 96361; 96367; 96372; 96375; 96409; 99215; J0171; J1100; J1200; J2469; J2997; J3490; J7040; J7050; J9267; J9306

== ENCOUNTER 2021-04-29 13:28 | Emergency (ER) | payer MEDICARE, BC, SELFPAY ==
[2021-04-29 13:35] VITALS: BP 114/74; PULSE 120; RESP 18; TEMP 36.6; O2SAT 95; BMI 30.4
--- NOTE | 2021-04-29 13:46 | ECG_ITS ---
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 Measurements Intervals [place] Rate: 120 P: 62 MT: 162 QRS: 33 QRSD: 89 T: 61 QT: 388 QTc: 549 Interpretive Statements SINUS TACHYCARDIA PROBABLE INFERIOR MYOCARDIAL INFARCTION [35 ms Q WAVE IN II/aVF], PROBABLY OLD No previous ECG available for comparison Electronically Signed On 04-29-2021 21:17:08 CDT by Roldan Sierra M.D. [id number]
[2021-04-29 14:06] LABS: Basophils # 0.2 10^3/uL (0.0-0.1); Basophils % 0.5 %; Eosinophils # 0.1 10^3/uL (0.0-0.8); Eosinophils % 0.4 %; Hematocrit 45.5 % (37.0-47.0); Hemoglobin 14.7 g/dL (11.5-15.3); Lymphocytes % 14.3 %; Mean Corpuscular HGB Conc 32.3 g/dL (30.0-36.0); Mean Corpuscular Hemoglobin 31.1 pg (28.0-34.0); Mean Corpuscular Volume 96.2 fL (81-99); Mean Platelet Volume 10.5 fL (7.4-10.4); Neutrophils # 26.09 10^3/uL (1.8-7.7); Nucleated Red Blood Cells % 0.1 %; Platelet Count 501 10^3/cmm (130-400); Red Blood Count 4.73 10^6/uL (4.1-5.3); Red Cell Distribution Width 12.7 % (12.1-15.1)
[2021-04-29 14:15] LABS: White Blood Count 34.7 10^3/uL (4.0-10.0)
[2021-04-29 14:23] VITALS: BP 106/55; PULSE 120; RESP 21; O2SAT 96
[2021-04-29 14:23] LABS: Alanine Aminotransferase 41 U/L (0-33); Albumin Level 3.8 g/dL (3.5-5.2); Alkaline Phosphatase 106 IU/L (35-105); Anion Gap 19.1 (5-19); Aspartate Amino Transferase 35 U/L (0-32); Blood Urea Nitrogen 11 mg/dL (8-23); Calcium 9.1 mg/dL (8.5-10.5); Carbon Dioxide 19 mmol/L (22-29); Chloride 102 mmol/L (98-107); Creatinine Clr Calc Pharmacy 68.9928; Globulin 2.7 g/dL (1.3-4.6); Glomerular Filtration Rate 71.3 mL/min (90-130); Glucose 251 mg/dL (65-115); Osmolality Calculated 292 mOsm/kg (285-295); Potassium 3.1 mmol/L (3.5-5.1); Sodium 137 mmol/L (136-145); Total Bilirubin 0.2 mg/dL (0.15-1.2); Total Protein 6.5 g/dL (6.6-8.7)
--- NOTE | 2021-04-29 14:36 | W.ED.ALLEREA ---
HPI - Allergic Reaction General: Chief complaint: Allergic Reaction Stated complaint: ALLERGIC REACTION Time Seen by Provider: 04/29/21 13:46 History of Present Illness: HPI narrative: 66-year-old female presents emergency room with complaints of allergic reaction. Patient has a history of ER positive HER-2 positive breast CA. She was undergoing treatment for recurrence in the chest wall. She received a partial dose of Perjeta and began to felt get a lightheaded/feeling she was given epinephrine complaint: allergic reaction Onset (ago): minute(s) Exposure: medication (ProJetta) Associated symptoms: Reports other (Tachycardia, tremor after administration of epinephrine at the rust); Deny abdominal pain, difficulty breathing, dysphagia, dizziness, facial swelling, hoarseness, itching, lip swelling, nausea, rash, tongue swelling or vomiting Severity: mild Treatment prior to arrival: benadryl, epinephrine, bronchodilator, oxygen, steroids and other (Famotidine) Previous Allergic Reaction History: none Review of Systems Const: Denies: fever(s), chills, body aches, change in appetite, fatigue or malaise ENMT: Denies: hoarseness Card: Denies: chest pain, edema, dyspnea on exertion or orthopnea Resp: Denies: dyspnea, productive cough or non-productive cough GI: Denies: abdominal pain, nausea, vomiting or dysphagia : Denies: flank pain, difficulty voiding, dysuria, urinary frequency or urinary urgency Skin/Breast: Denies: rash or pruritus Neuro: Denies: dizziness All/Imm: Denies: tongue swelling or facial swelling [facility] ED PFSH: Medical History (Updated 05/07/21 @ 00:01 by ) History of breast cancer in adulthood History of colon polyps Surgical History History of cholecystectomy S/P mastectomy, bilateral Status post colonoscopy with polypectomy (08/23/20) Family History Other Atrial fibrillation Hypertension Social History Smoking and tobacco status: never smoked Alcohol intake: current Alcohol intake frequency: holidays/special occasions only Physical Exam Const: COMMON NORMALS: no acute distress GENERAL APPEARANCE: cooperative and comfortable ORIENTATION/CONSCIOUSNESS: Yes awake, Yes oriented to person, Yes oriented to place and Yes oriented to time HENMT: COMMON NORMALS: normocephalic, atraumatic and hearing grossly normal bilaterally HEAD & SCALP: normocephalic and atraumatic Eye: COMMON NORMALS: Equal, round and reactive pupils present, EOMs intact bilaterally, conjunctivae normal and no scleral icterus CONJUNCTIVA: Yes conjunctivae normal PUPIL: Yes Equal, round and reactive pupils present Neck/C-Spine: COMMON NORMALS: full ROM, no lymphadenopathy, supple and no JVD Lymph: LYMPHATIC: no lymphadenopathy noted and no lymphedema noted Resp: COMMON NORMALS: normal respiratory effort, No retractions, No use of accessory muscles and clear to auscultation bilaterally AUSCULTATION: clear to auscultation bilaterally Cardio: COMMON NORMALS: no JVD, regular rate, regular rhythm and No murmurs present (Cardio) RATE: regular rate RHYTHM: regular rhythm GI: COMMON NORMALS: Soft to palpation and No hepatosplenomegaly present AUSCULTATION: Yes normoactive bowel sounds PALPATION: Yes Soft to palpation, No Tenderness to palpation present (GI), No Guarding due to palpation present (GI) and Yes No hepatosplenomegaly present Extremity: COMMON NORMALS: normal to inspection, capillary refill normal, no clubbing, cyanosis or edema, no calf tenderness and no pedal edema Neuro: SENSORIUM/ORIENTATION: Yes oriented to person, Yes oriented to place and Yes oriented to time Skin: COMMON NORMALS: no rashes or lesions noted GENERAL SKIN EXAM: no rashes or lesions noted Course Vital Signs: Vital signs: Vital Signs Temperature 97.9 F 04/29/21 13:35 Pulse Rate 123 H 04/29/21 15:50 Respiratory Rate 19 H 04/29/21 15:50 Blood Pressure 108/66 04/29/21 15:50 Pulse Oximetry 94 04/29/21 15:50 MDM - Allergic Reaction MDM Narrative: Medical decision making narrative: Viewed findings the patient she is feeling much better and prefer to go home we will discharge her home can use [id number] Benadryl her symptoms have completely resolved. Notified oncology clinic as well. Lab Data: Labs: Lab Results 04/29/21 04/29/21 Range/Units 13:40 13:40 WBC 34.7 H* (4.0-10.0) 10^3/ uL RBC 4.73 (4.1-5.3) 10^6/u L Hgb 14.7 (11.5-15.3) g/dL Hct 45.5 (37.0-47.0) % MCV 96.2 (81-99) fL MCH 31.1 (28.0-34.0) pg MCHC 32.3 (30.0-36.0) g/dL RDW 12.7 (12.1-15.1) % Plt Count 501 H (130-400) 10^3/c mm MPV 10.5 H (7.4-10.4) fL Neut % (Auto) 82.0 % Lymph % (Auto) 14.3 % [place] % (Auto) 3.0 % Eos % (Auto) 0.4 % Baso % (Auto) 0.5 % Neut # (Auto) 26.09 H (1.8-7.7) 10^3/u L Lymph # (Auto) 5.0 H (0.8-4.8) 10^3/u L [place] # (Auto) 1.0 H (0.2-0.9) 10^3/u L Eos # (Auto) 0.1 (0.0-0.8) 10^3/u L Baso # (Auto) 0.2 H (0.0-0.1) 10^3/u L Nucleated RBC % (a uto) 0.1 % Nucleated RBCs # 0.0 /100WBC Sodium 137 (136-145) mmol/L Potassium 3.1 L (3.5-5.1) mmol/L Chloride 102 (98-107) mmol/L Carbon Dioxide 19 L (22-29) mmol/L Anion Gap 19.1 H (5-19) BUN 11 (8-23) mg/dL Creatinine 0.8 (0.5-0.9) mg/dL GFR Calculation 71.3 L (90-130) mL/min Glucose 251 H (65-115) mg/dL Calculated Osmolal ity 292 (285-295) mOsm/k g Calcium 9.1 (8.5-10.5) mg/dL Total Bilirubin 0.2 (0.15-1.2) mg/dL AST 35 H (0-32) U/L ALT 41 H (0-33) U/L Alkaline Phosphata se 106 H (35-105) IU/L Total Protein 6.5 L (6.6-8.7) g/dL Albumin 3.8 (3.5-5.2) g/dL Globulin 2.7 (1.3-4.6) g/dL Discharge Plan Discharge Patient Disposition: Home Clinical Impression: Allergic reaction to drug Condition: Stable Prescriptions: No Action cholecalciferol (vitamin D3) 1,250 mcg (50,000 unit) capsule 50,000 unit PO .once weekly Qty: 12 RF: 0 Discharge Orders: Discharge ED (Routine); Ordered 04/29/21 Ordered By: Terrence Muñoz Referrals: Татьяна Gomez DO [Primary Care Provider] - Discharge Diet: Usual diet Discharge Activity: Resume usual activity Patient Instructions: Opioid Safety Coding Level of Care Code ED 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
[2021-04-29] MEDS: sodium chloride 0.9% 500 ML 999 ML IV (14:42)
[2021-04-29 15:15] VITALS: BP 119/61; PULSE 114; RESP 19; O2SAT 94
[2021-04-29 15:50] VITALS: BP 108/66; PULSE 123; RESP 19; O2SAT 94
== END 2021-04-29 15:57 | disposition home or self-care (01) ==
PROVIDERS: Emergency Provider Family Medicine; PCP Family Medicine
DX: T78.40XA Allergy, unspecified, initial encounter (principal); T50.905A Adverse effect of unspecified drugs, medicaments and biological substances, initial encounter; Z85.3 Personal history of malignant neoplasm of breast
CPT/HCPCS: 80053; 85025; 93005; 96360; 99284; J7040

== ENCOUNTER 2021-04-30 09:56 | Outpatient (CLI) | payer MEDICARE, BC, SELFPAY ==
[2021-04-30] MEDS: acetaminophen 325 mg Tablet 650 MG PO (11:00)
[2021-04-30] MEDS: famotidine 20 mg/2 mL INJ IVP (11:05)
[2021-04-30] MEDS: diphenhydrAMINE 50 mg/mL SDV 1mL 25 MG IV (11:06)
[2021-04-30] MEDS: sodium chloride 0.9% 250 ML 75 ML IV (11:07)
[2021-04-30] MEDS: palonosetron 0.25 mg/5 mL SDV IV (11:07)
== END 2021-04-30 09:57 | disposition home or self-care (01) ==
LOC: ONCMED 09:59
PROVIDERS: PCP Family Medicine; Visit Provider Internal Medicine Medical Oncology
DX: Z51.11 Encounter for antineoplastic chemotherapy (principal); C50.812 Malignant neoplasm of overlapping sites of left female breast; Z17.0 Estrogen receptor positive status [ER+]
CPT/HCPCS: 96367; 96375; 96413; 96417; J1100; J1200; J2469; J3490; J7030; J7050; J9267; J9355

== ENCOUNTER 2021-05-07 06:05 | Outpatient (CLI) | payer MEDICARE, BC, SELFPAY ==
[2021-05-07 08:46] LABS: Basophils % 0.3 %; Hemoglobin 12.7 g/dL (11.5-15.3); Lymphocytes # 0.6 10^3/uL (0.8-4.8); Mean Corpuscular HGB Conc 33.4 g/dL (30.0-36.0); Mean Corpuscular Hemoglobin 31.1 pg (28.0-34.0); Mean Corpuscular Volume 93.1 fL (81-99); Neutrophils # 2.37 10^3/uL (1.8-7.7); Neutrophils % 77.7 %; Nucleated Red Blood Cells % 0 %; Platelet Count 432 10^3/cmm (130-400); Red Blood Count 4.08 10^6/uL (4.1-5.3); Red Cell Distribution Width 12.5 % (12.1-15.1); White Blood Count 3.1 10^3/uL (4.0-10.0)
[2021-05-07 09:28] LABS: Alanine Aminotransferase 57 U/L (0-33); Albumin Level 4.1 g/dL (3.5-5.2); Alkaline Phosphatase 71 IU/L (35-105); Anion Gap 15.3 (5-19); Aspartate Amino Transferase 34 U/L (0-32); Blood Urea Nitrogen 10 mg/dL (8-23); Calcium 9.8 mg/dL (8.5-10.5); Carbon Dioxide 24 mmol/L (22-29); Chloride 101 mmol/L (98-107); Globulin 2.7 g/dL (1.3-4.6); Glomerular Filtration Rate 99.4 mL/min (90-130); Glucose 185 mg/dL (65-115); Osmolality Calculated 286 mOsm/kg (285-295); Potassium 4.3 mmol/L (3.5-5.1); Sodium 136 mmol/L (136-145); Total Bilirubin 0.4 mg/dL (0.15-1.2); Total Protein 6.8 g/dL (6.6-8.7)
[2021-05-07 09:42] LABS: Slide Review Slide Review Perform
[2021-05-07] MEDS: sodium chloride 0.9% 250 ML 75 ML IV (10:20)
[2021-05-07] MEDS: palonosetron 0.25 mg/5 mL SDV IV (10:20)
[2021-05-07] MEDS: famotidine 20 mg/2 mL INJ IVP (10:21)
[2021-05-07] MEDS: diphenhydrAMINE 50 mg/mL SDV 1mL 25 MG IV (10:23)
[2021-05-07] MEDS: acetaminophen 325 mg Tablet 650 MG PO (10:25)
--- NOTE | 2021-05-08 06:15 | ONC FU_ITS ---
Dr. Oconnell Patient Follow-Up Note Patient: Татьяна Morris Unit #: [id number]: [id number] Dicatated By: Salvador Oconnell M.D.Date of Visit:May 07, 2021 Onc Med Follow-up/Prog Note Chief Complaint: Breast cancer. History of Present Illness: This is a 66 year-old woman with grade 3 infiltrating ductal carcinoma of the left breast, ER positive/GA negative and HER-2/mary positive, by clinical evaluation stage IIB (T2, N1, M0) at initial diagnosis in October 2016. She had subsequent progression to stage IV (M1), with biopsy-proven recurrence in left supraclavicular lymph nodes. She had presented in September 2016 with palpable mass in the left breast. Mammogram showed a 2.7 cm mass in the deep central portion of the left breast with questionable left axillary lymphadenopathy. Ultrasound confirmed a 2.8 cm breast mass with involved axillary lymph nodes. Biopsy of the breast mass showed grade 3 infiltrating ductal carcinoma which was ER positive/GA negative and HER-2/mary positive. Left axillary lymph node biopsy also was positive. She was then given neoadjuvant chemotherapy with 6 cycles of TCH-P from November 2016 through January 2017. 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 She underwent bilateral mastectomy with left axillary lymph node dissection on 04/01/2017. Pathology showed residual tumor in the breast measuring 0.3 cm and involvement in 1/13 lymph nodes. She was given postoperative chest wall radiation, and she then began adjuvant hormonal therapy with letrozole in July 2017. In October 2018 she was noted to have a left supraclavicular lymph node, and a subsequent PET/CT showed a large left axillary and supraclavicular lymphadenopathy. There was no evidence of other metastatic disease. Excisional biopsy of the left subclavicular lymph node showed metastatic breast cancer, ER/GA negative and HER-2/mary positive. In November 2018 she began further chemotherapy with 4 cycles of dose dense Adriamycin/cyclophosphamide followed by q3 week Taxol/Herceptin. In March 2019, following completion of her 4th cycle of Taxol/Herceptin, she began treatment with single agent Herceptin for 1 year. Her restaging PET/CT on 03/09/2019 showed decrease in size and resolution of FDG activity of the left supraclavicular and left axillary lymph nodes. There was no evidence of metabolically active disease on that study. She was seen here initially in July 2019, as she was planning to relocate to this area from [place]. However, she did opt to continue her treatment with single agent Herceptin in [place]. She completed her full year of treatment in December 2019. Her restaging PET/CT on 04/26/2020 showed a small focus of hyper metabolic activity in the soft tissues along the lateral margin of the left scapula, maximum SUV 2. Her repeat PET/CT on 11/15/2020 again showed mild hypermetabolic activity adjacent to the left subscapularis muscle. Further evaluation with MRI on 11/28/2020 showed an ill-defined high T2 signal and enhancement involving the superficial fascia and adjacent muscle belly at the site of previously identified hypermetabolic activity along the superficial fascia of the subscapularis. It measured 18 x 15 x 17 mm. An additional focus of hyperenhancement and high T2 signal was noted at the lower margin of the scapula measuring 9 x 20 x 18 mm. This appeared consistent with soft tissue metastasis. In the supraclavicular region there were sites of nodularity likely representing lymph nodes or soft tissue implants which were noted to show enhancement and high T2 signal. These measured in the range of 8 to 9 mm. An additional nonspecific focus of nodularity was noted along the anterior margin of the deltoid muscle belly measuring 8 mm. In December 2020 she began on treatment with Herceptin at a 3-week dosing interval together with letrozole 2.5 mg daily. As of 03/04/2020 when she had completed her 5th cycle of Herceptin on a 3-week dosing schedule. Her restaging PET/CT on 03/21/2021 showed small hypermetabolic nodular foci around the left shoulder girdle musculature including a lesion along the deep margin of the subscapularis muscle, maximum SUV 3.6, presumed to be metastatic foci. Minimal peripheral nodularity involving the upper lobe lungs bilaterally were too small to characterize by PET. A subtle small focus of relative hypermetabolic activity was noted along the inferior endplate of the T2 vertebral body to the left of the midline, maximum SUV 3.1. Left upper chest punch biopsy on 03/27/2021 showed invasive carcinoma with morphologic and immunophenotypic profile compatible with breast primary. On 04/02/2021 she began further palliative treatment with cycle 1 of Taxol/Herceptin/Perjeta administered at a 3-week dosing interval. She has no medical illnesses other than the breast cancer. Her baseline DEXA scan in 2016 reportedly showed evidence of osteopenia. Her only other surgery was a cholecystectomy in 1971. She is a nonsmoker. INTERIM HISTORY: On she returned here for cycle 2 of Taxol/Herceptin/Perjeta. She has experienced significant side effects with the 1st cycle, including nausea, fatigue, musculoskeletal pain, and neuropathy. As such, I opted to try administering the Taxol weekly. That treatment was complicated by severe anaphylactic type reaction to the Perjeta. She recovered with appropriate treatment measures, and the following day she returned to continue her treatment with Taxol/Herceptin on a weekly dosing schedule. She is seen now for a follow-up visit. She did experience some pain after the Taxol infusion last week, but it was not as severe, and it began to subside after 3 days. She is now managing it adequately with her pain medication, which she is mostly just taking at bedtime. She had just mild nausea. Her energy comes and goes, she remains very active. ECOG score is 1. Her appetite is not as good. She has not had fever. She had one episode of night sweating. She otherwise alternates between feeling cold and hot. She has had some sinus drainage. She had transient soreness in her mouth. She does not complain of shortness of breath or cough, and she has not been having chest pain. She has no other GI or complaints. Her acid reflux is being managed adequately taking the cimetidine twice a day. She does not complain of headache. She occasionally feels unsteady. Her neuropathy is no worse. Medications: Cimetidine (200 mg) Tablet Oral daily, Letrozole (2.5 mg) Tablet Oral daily, Magnesium (250 mg) Tablet Oral daily, Potassium Chloride Crystals daily, Prochlorperazine Maleate 1 Tablet (of 10 mg) Oral PRN, Zofran 1 Tablet (of 8 mg) Oral PRN Allergies: Perjeta and sulfa. Vital Signs: Performed on May 07, 2021 10:17 Height - 64.00 in Weight - 174.6 lbs (LOW) BSA - 1.85 sq.m BMI - 29.97 Temperature - 97.6 F (LOW) Pulse - 108 /min (HIGH) Respiration - 18 /min BP - 144/80 mm(hg) (HIGH) O2 Sat - 97 % Pain - 0 Fatigue - 6 Physical Examination: Constitutional - She looks good generally, Eyes - Sclerae nonicteric. Conjunctivae clear, ENMT - No lesions noted in the oral cavity, Hematologic/Lymphatic - No cervical or clavicular adenopathy noted, Respiratory - Lungs are clear with good air movement bilaterally, Cardiovascular - Heart rhythm is regular. There is no murmur, gallop, or rub noted, Breasts - There are no lesions palpable in the left chest wall. There is no axillary adenopathy noted, Abdomen - Soft. Liver and spleen are not enlarged. There is no abdominal mass or ascites noted and there is no inguinal adenopathy, Extremities - No edema, Neurologic - No focal neurologic deficits noted. Lab/Imaging: Test performed on May 07, 2021 08:20 Sodium 136 mmol/L Potassium 4.3 mmol/L Chloride 101 mmol/L CO2 24 mmol/L Anion Gap 15.3 BUN 10 mg/dL Creatinine 0.6 mg/dL Cr Clearance (Est) 114.0000 mL/min eGFR 99.4 mL/min Glucose 185 mg/dL Osmolality - Calculated 286 mOsm/kg Calcium 9.8 mg/dL Protein, Total 6.8 g/dL Albumin 4.1 g/dL Globulin 2.7 g/dL Bilirubin, Total 0.4 mg/dL ALT (SGPT) 57 U/L AST (SGOT) 34 U/L Alkaline Phosphatase 71 IU/L WBC 3.1 10 3/uL RBC 4.08 10 6/uL HGB 12.7 g/dL HCT 38.0 % MCV 93.1 fL MCH 31.1 pg MCHC 33.4 g/dL RDW 12.5 % Platelet Count 432 10 3/cmm MPV 11.0 fL Neutrophils 2.37 10 3/uL Lymphocytes 0.6 10 3/uL Monocytes 0.0 10 3/uL Eosinophils 0.0 10 3/uL Basophils 0.0 10 3/uL Neutrophil % 77.7 % Lymphocyte % 20.0 % Monocyte % 1.0 % Eosinophil % 0.0 % Basophils % 0.3 % NRBC % 0 % CBC Slide Review Slide Review Perform Problem List: 1. Grade 3 infiltrating ductal carcinoma of the left breast, ER positive/GA negative and HER-2/mary positive at initial diagnosis in October 2018. By clinical evaluation her disease was stage IIB (T2, N1, M0). Her initial treatment included neoadjuvant chemotherapy with 6 cycles of TCH-P followed by bilateral mastectomy/left axillary lymph node dissection and postop chest wall radiation and adjuvant hormonal therapy with letrozole in July 2017. 2. In October 2018 she had progression to stage IV (M1) with FDG avid left supraclavicular and left axillary lymph nodes by PET/CT and with biopsy-proven left supraclavicular lymph node involvement, deemed unresectable. Pathology showed metastatic breast cancer, ER/GA negative and HER-2/mary postive. Problems Addressed with this Encounter and Plan: Patient with grade 3 infiltrating ductal carcinoma of the left breast, ER positive/GA negative and HER-2/mary positive at initial diagnosis in October 2018. By clinical evaluation her disease was stage IIB (T2, N1, M0). Her treatment included neoadjuvant chemotherapy with 6 cycles of TCH-P followed by bilateral mastectomy/left axillary lymph node dissection and postop chest wall radiation. She began adjuvant hormonal therapy with letrozole in July 2017. In October 2018 she had progression to stage IV (M1) with FDG avid left supraclavicular and left axillary lymph nodes by PET/CT and with biopsy-proven left supraclavicular lymph node involvement, deemed unresectable. Pathology showed metastatic breast cancer, ER/GA negative and HER-2/mary postive. She was then given further chemotherapy with 4 cycles of dose dense Adriamycin/cyclophosphamide followed by 4 cycles of q3 week Taxol/Herceptin, completed in March 2019. Restaging PET/CT on 03/09/2019 showed no evidence of metabolically active metastatic disease. She then began treatment with single agent Herceptin. As of December 2019 she had completed a full year of treatment. In November 2020 she was found on PET/CT and MRI to have further recurrence in the form of soft tissue metastatic lesions in the area of the left shoulder/scapula. With those findings she began treatment with Herceptin and a 3-week dosing interval together with letrozole 2.5 mg daily. As of 03/04/2021 she had completed her 5th cycle of Herceptin. Restaging PET/CT on 03/21/2021 showed hypermetabolic soft tissue nodularity in the left shoulder area, suspicious for metastatic involvement. Tiny peripheral nodules involving the upper lobes bilaterally were too small to characterize. A subtle focus of mild uptake was noted in the inferior endplate of the T2 vertebral body. Left upper chest punch biopsy on 03/27/2021 showed invasive carcinoma with morphologic and immunophenotypic profile compatible with breast primary. On 04/02/2021 she continue further palliative therapy with cycle 1 Taxol/Herceptin/Perjeta administered on a 3-week dosing schedule. Toxicities included musculoskeletal pain, fatigue, nausea, and peripheral neuropathy. She returned here for cycle 2 on 04/29/2021. Given the side effects she had experienced, I opted to change to Taxol to weekly administration schedule. She had a severe anaphylactic type reaction to the Perjeta. She recovered with appropriate treatment measures. She returned the following day to continue her treatment with Taxol/Herceptin administered on the weekly dosing schedule. She continues to have significant musculoskeletal pain with the Taxol, but not as severe, and it is being managed adequately with medication. There has been a drop in her neutrophil count, but blood counts thus far remain adequate. She will continue with her cycle 2-week 2 Taxol/Herceptin at the same dosages. She returns in 1 week. Signed By: Salvador Oconnell M.D. <<Signature on File>>
== END 2021-05-07 06:06 | disposition home or self-care (01) ==
LOC: ONCMED 06:08
PROVIDERS: PCP Family Medicine; Visit Provider Internal Medicine Medical Oncology
DX: Z51.11 Encounter for antineoplastic chemotherapy (principal); C50.812 Malignant neoplasm of overlapping sites of left female breast; Z17.0 Estrogen receptor positive status [ER+]; Z90.12 Acquired absence of left breast and nipple; Z90.11 Acquired absence of right breast and nipple; Z79.811 Long term (current) use of aromatase inhibitors; Z92.21 Personal history of antineoplastic chemotherapy
CPT/HCPCS: 36415; 80053; 85025; 96367; 96375; 96413; 96417; 99214; J1100; J1200; J2469; J3490; J7030; J7050; J9267; J9355

== ENCOUNTER 2021-05-13 05:53 | Outpatient (CLI) | payer MEDICARE, BC, SELFPAY ==
[2021-05-13 08:36] LABS: Basophils % 1.6 %; Hematocrit 40.1 % (37.0-47.0); Hemoglobin 13.1 g/dL (11.5-15.3); Lymphocytes # 0.5 10^3/uL (0.8-4.8); Lymphocytes % 42.5 %; Mean Corpuscular HGB Conc 32.7 g/dL (30.0-36.0); Mean Corpuscular Hemoglobin 30.8 pg (28.0-34.0); Mean Corpuscular Volume 94.1 fL (81-99); Mean Platelet Volume 10.5 fL (7.4-10.4); Monocytes % 0.8 %; Neutrophils % 53.5 %; Nucleated Red Blood Cells % 0 %; Platelet Count 410 10^3/cmm (130-400); Positive M 1; Red Blood Count 4.26 10^6/uL (4.1-5.3); Red Cell Distribution Width 12.8 % (12.1-15.1); White Blood Count 1.3 10^3/uL (4.0-10.0)
[2021-05-13 08:59] LABS: Alanine Aminotransferase 60 U/L (0-33); Albumin Level 4.2 g/dL (3.5-5.2); Alkaline Phosphatase 62 IU/L (35-105); Anion Gap 17.4 (5-19); Aspartate Amino Transferase 31 U/L (0-32); Blood Urea Nitrogen 11 mg/dL (8-23); Calcium 9.1 mg/dL (8.5-10.5); Carbon Dioxide 24 mmol/L (22-29); Chloride 100 mmol/L (98-107); Globulin 2.7 g/dL (1.3-4.6); Glomerular Filtration Rate 83.2 mL/min (90-130); Glucose 169 mg/dL (65-115); Osmolality Calculated 287 mOsm/kg (285-295); Potassium 4.4 mmol/L (3.5-5.1); Sodium 137 mmol/L (136-145); Total Bilirubin 0.4 mg/dL (0.15-1.2); Total Protein 6.9 g/dL (6.6-8.7)
[2021-05-13 09:10] LABS: Slide Review Slide Review Perform
[2021-05-13 09:14] LABS: Neutrophils # 0.68 10^3/uL (1.8-7.7)
--- NOTE | 2021-05-13 19:58 | ONC FU_ITS ---
Dr. Oconnell Patient Follow-Up Note Patient: Татьяна Morris Unit #: [id number]: [id number] Dicatated By: Salvador Oconnell M.D.Date of Visit:May 13, 2021 Onc Med Follow-up/Prog Note Chief Complaint: Breast cancer. History of Present Illness: This is a 66 year-old woman with grade 3 infiltrating ductal carcinoma of the left breast, ER positive/AZ negative and HER-2/mary positive, by clinical evaluation stage IIB (T2, N1, M0) at initial diagnosis in October 2016. She had subsequent progression to stage IV (M1), with biopsy-proven recurrence in left supraclavicular lymph nodes. She had presented in September 2016 with palpable mass in the left breast. Mammogram showed a 2.7 cm mass in the deep central portion of the left breast with questionable left axillary lymphadenopathy. Ultrasound confirmed a 2.8 cm breast mass with involved axillary lymph nodes. Biopsy of the breast mass showed grade 3 infiltrating ductal carcinoma which was ER positive/AZ negative and HER-2/mary positive. Left axillary lymph node biopsy also was positive. She was then given neoadjuvant chemotherapy with 6 cycles of TCH-P from November 2016 through January 2017. 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 She underwent bilateral mastectomy with left axillary lymph node dissection on 04/01/2017. Pathology showed residual tumor in the breast measuring 0.3 cm and involvement in 1/13 lymph nodes. She was given postoperative chest wall radiation, and she then began adjuvant hormonal therapy with letrozole in July 2017. In October 2018 she was noted to have a left supraclavicular lymph node, and a subsequent PET/CT showed a large left axillary and supraclavicular lymphadenopathy. There was no evidence of other metastatic disease. Excisional biopsy of the left subclavicular lymph node showed metastatic breast cancer, ER/AZ negative and HER-2/mary positive. In November 2018 she began further chemotherapy with 4 cycles of dose dense Adriamycin/cyclophosphamide followed by q3 week Taxol/Herceptin. In March 2019, following completion of her 4th cycle of Taxol/Herceptin, she began treatment with single agent Herceptin for 1 year. Her restaging PET/CT on 03/09/2019 showed decrease in size and resolution of FDG activity of the left supraclavicular and left axillary lymph nodes. There was no evidence of metabolically active disease on that study. She was seen here initially in July 2019, as she was planning to relocate to this area from [place]. However, she did opt to continue her treatment with single agent Herceptin in [place]. She completed her full year of treatment in December 2019. Her restaging PET/CT on 04/26/2020 showed a small focus of hyper metabolic activity in the soft tissues along the lateral margin of the left scapula, maximum SUV 2. Her repeat PET/CT on 11/15/2020 again showed mild hypermetabolic activity adjacent to the left subscapularis muscle. Further evaluation with MRI on 11/28/2020 showed an ill-defined high T2 signal and enhancement involving the superficial fascia and adjacent muscle belly at the site of previously identified hypermetabolic activity along the superficial fascia of the subscapularis. It measured 18 x 15 x 17 mm. An additional focus of hyperenhancement and high T2 signal was noted at the lower margin of the scapula measuring 9 x 20 x 18 mm. This appeared consistent with soft tissue metastasis. In the supraclavicular region there were sites of nodularity likely representing lymph nodes or soft tissue implants which were noted to show enhancement and high T2 signal. These measured in the range of 8 to 9 mm. An additional nonspecific focus of nodularity was noted along the anterior margin of the deltoid muscle belly measuring 8 mm. In December 2020 she began on treatment with Herceptin at a 3-week dosing interval together with letrozole 2.5 mg daily. As of 03/04/2020 when she had completed her 5th cycle of Herceptin on a 3-week dosing schedule. Her restaging PET/CT on 03/21/2021 showed small hypermetabolic nodular foci around the left shoulder girdle musculature including a lesion along the deep margin of the subscapularis muscle, maximum SUV 3.6, presumed to be metastatic foci. Minimal peripheral nodularity involving the upper lobe lungs bilaterally were too small to characterize by PET. A subtle small focus of relative hypermetabolic activity was noted along the inferior endplate of the T2 vertebral body to the left of the midline, maximum SUV 3.1. Left upper chest punch biopsy on 03/27/2021 showed invasive carcinoma with morphologic and immunophenotypic profile compatible with breast primary. On 04/02/2021 she began further palliative treatment with cycle 1 of Taxol/Herceptin/Perjeta administered at a 3-week dosing interval. She has no medical illnesses other than the breast cancer. Her baseline DEXA scan in 2016 reportedly showed evidence of osteopenia. Her only other surgery was a cholecystectomy in 1971. She is a nonsmoker. INTERIM HISTORY: On she returned here for cycle 2 of Taxol/Herceptin/Perjeta. She has experienced significant side effects with the 1st cycle, including nausea, fatigue, musculoskeletal pain, and neuropathy. As such, I opted to try administering the Taxol weekly. That treatment was complicated by severe anaphylactic type reaction to the Perjeta. She recovered with appropriate treatment measures, and the following day she returned to begin weekly Taxol/Herceptin. She tolerated it well, and she continued with her week 2 treatment on 05/07/2021. She is seen for a scheduled visit. She has been feeling pretty good generally. She treatment last week went pretty well. She had less pain compared to previous treatments. She had some nausea, but it was controllable. Her neuropathy seem to be no worse. She does have some fatigue, but she has continued normal activities. Her ECOG score is 0. Her appetite is down a little, as food just does not taste right. She has not had fever or night sweats. She occasionally feels chilled. Her mouth gets a little sore, but she is managing it adequately with oral rinses. She occasionally gets short of breath with activity. Overall her breathing has been okay. She does not have cough and she does not complain of chest pain. Her acid reflux is adequately managed taking cimetidine twice daily. Bowel and bladder function have been okay. She does not complain of headache or dizziness. Medications: Cimetidine (200 mg) Tablet Oral daily, Letrozole (2.5 mg) Tablet Oral daily, Magnesium (250 mg) Tablet Oral daily, Potassium Chloride Crystals daily, Prochlorperazine Maleate 1 Tablet (of 10 mg) Oral PRN, Zofran 1 Tablet (of 8 mg) Oral PRN Allergies: Perjeta and sulfa. Vital Signs: Performed on May 13, 2021 10:43 Height - 64.00 in Weight - 174.2 lbs (LOW) BSA - 1.84 sq.m BMI - 29.90 Temperature - 98.1 F (LOW) Pulse - 108 /min (HIGH) Respiration - 18 /min BP - 121/74 mm(hg) O2 Sat - 96 % Pain - 0 Fatigue - 5 Physical Examination: Constitutional - She looks good generally, Eyes - Sclerae nonicteric. Conjunctivae clear, ENMT - No lesions noted in the oral cavity, Hematologic/Lymphatic - There is minimal nodularity in the left supraclavicular fossa.There is no cervical, clavicular, or axillary adenopathy noted, Respiratory - Lungs are clear with good air movement bilaterally, Cardiovascular - Heart rhythm is regular with a mild tachycardia. There is no murmur, gallop, or rub noted, Abdomen - Soft. Liver and spleen are not enlarged. There is no abdominal mass or ascites noted and there is no inguinal adenopathy, Extremities - No edema, Neurologic - No focal neurologic deficits noted. Lab/Imaging: Test performed on May 13, 2021 08:16 Sodium 137 mmol/L Potassium 4.4 mmol/L Chloride 100 mmol/L CO2 24 mmol/L Anion Gap 17.4 BUN 11 mg/dL Creatinine 0.7 mg/dL Cr Clearance (Est) 97.7100 mL/min eGFR 83.2 mL/min Glucose 169 mg/dL Osmolality - Calculated 287 mOsm/kg Calcium 9.1 mg/dL Protein, Total 6.9 g/dL Albumin 4.2 g/dL Globulin 2.7 g/dL Bilirubin, Total 0.4 mg/dL ALT (SGPT) 60 U/L AST (SGOT) 31 U/L Alkaline Phosphatase 62 IU/L WBC 1.3 10 3/uL RBC 4.26 10 6/uL HGB 13.1 g/dL HCT 40.1 % MCV 94.1 fL MCH 30.8 pg MCHC 32.7 g/dL RDW 12.8 % Platelet Count 410 10 3/cmm MPV 10.5 fL Neutrophils 0.68 10 3/uL Lymphocytes 0.5 10 3/uL Monocytes 0.0 10 3/uL Eosinophils 0.0 10 3/uL Basophils 0.0 10 3/uL Neutrophil % 53.5 % Lymphocyte % 42.5 % Monocyte % 0.8 % Eosinophil % 0.0 % Basophils % 1.6 % NRBC % 0 % CBC Slide Review Slide Review Perform Problem List: 1. Grade 3 infiltrating ductal carcinoma of the left breast, ER positive/AZ negative and HER-2/mary positive at initial diagnosis in October 2018. By clinical evaluation her disease was stage IIB (T2, N1, M0). Her initial treatment included neoadjuvant chemotherapy with 6 cycles of TCH-P followed by bilateral mastectomy/left axillary lymph node dissection and postop chest wall radiation and adjuvant hormonal therapy with letrozole in July 2017. 2. In October 2018 she had progression to stage IV (M1) with FDG avid left supraclavicular and left axillary lymph nodes by PET/CT and with biopsy-proven left supraclavicular lymph node involvement, deemed unresectable. Pathology showed metastatic breast cancer, ER/AZ negative and HER-2/mary postive. Problems Addressed with this Encounter and Plan: Patient with grade 3 infiltrating ductal carcinoma of the left breast, ER positive/AZ negative and HER-2/mary positive at initial diagnosis in October 2018. By clinical evaluation her disease was stage IIB (T2, N1, M0). Her treatment included neoadjuvant chemotherapy with 6 cycles of TCH-P followed by bilateral mastectomy/left axillary lymph node dissection and postop chest wall radiation. She began adjuvant hormonal therapy with letrozole in July 2017. In October 2018 she had progression to stage IV (M1) with FDG avid left supraclavicular and left axillary lymph nodes by PET/CT and with biopsy-proven left supraclavicular lymph node involvement, deemed unresectable. Pathology showed metastatic breast cancer, ER/AZ negative and HER-2/mary postive. She was then given further chemotherapy with 4 cycles of dose dense Adriamycin/cyclophosphamide followed by 4 cycles of q3 week Taxol/Herceptin, completed in March 2019. Restaging PET/CT on 03/09/2019 showed no evidence of metabolically active metastatic disease. She then began treatment with single agent Herceptin. As of December 2019 she had completed a full year of treatment. In November 2020 she was found on PET/CT and MRI to have further recurrence in the form of soft tissue metastatic lesions in the area of the left shoulder/scapula. With those findings she began treatment with Herceptin and a 3-week dosing interval together with letrozole 2.5 mg daily. As of 03/04/2021 she had completed her 5th cycle of Herceptin. Restaging PET/CT on 03/21/2021 showed hypermetabolic soft tissue nodularity in the left shoulder area, suspicious for metastatic involvement. Tiny peripheral nodules involving the upper lobes bilaterally were too small to characterize. A subtle focus of mild uptake was noted in the inferior endplate of the T2 vertebral body. Left upper chest punch biopsy on 03/27/2021 showed invasive carcinoma with morphologic and immunophenotypic profile compatible with breast primary. On 04/02/2021 she continue further palliative therapy with cycle 1 Taxol/Herceptin/Perjeta administered on a 3-week dosing schedule. Toxicities included musculoskeletal pain, fatigue, nausea, and peripheral neuropathy. She returned here for cycle 2 on 04/29/2021. Given the side effects she had experienced, I had opted to change to Taxol to weekly administration schedule. She had a severe anaphylactic type reaction to the Perjeta. She recovered with appropriate treatment measures. She returned the following day to begin treatment with Taxol/Herceptin administered on a weekly dosing schedule. She has now completed 2 weekly treatments. She has been able to tolerated much better on the weekly schedule, but she now has severe neutropenia. As such, her treatment will be put on hold. She will be given Neupogen daily until recovery. She will then restart treatment with a 20% reduction in the paclitaxel dosage. I hope to eventually get her on a 3-week on/1-week off schedule. Signed By: Salvador Oconnell M.D. <<Signature on File>>
== END 2021-05-13 05:54 | disposition home or self-care (01) ==
LOC: ONCMED 05:59
PROVIDERS: PCP Family Medicine; Visit Provider Internal Medicine Medical Oncology
DX: C50.812 Malignant neoplasm of overlapping sites of left female breast (principal); C77.8 Secondary and unspecified malignant neoplasm of lymph nodes of multiple regions; Z17.0 Estrogen receptor positive status [ER+]; Z90.13 Acquired absence of bilateral breasts and nipples; Z92.21 Personal history of antineoplastic chemotherapy; Z79.899 Other long term (current) drug therapy
CPT/HCPCS: 36415; 36591; 80053; 85025; 96372; 99214; Q5101

== ENCOUNTER 2021-05-27 05:50 | Outpatient (RCR) | payer MEDICARE, BC, SELFPAY ==
[2021-05-15 10:43] LABS: Basophils % 0.3 %; Eosinophils # 0.2 10^3/uL (0.0-0.8); Eosinophils % 1.6 %; Hematocrit 38.2 % (37.0-47.0); Hemoglobin 12.2 g/dL (11.5-15.3); Lymphocytes # 2.6 10^3/uL (0.8-4.8); Lymphocytes % 21.2 %; Mean Corpuscular HGB Conc 31.9 g/dL (30.0-36.0); Mean Corpuscular Hemoglobin 31.1 pg (28.0-34.0); Mean Corpuscular Volume 97.4 fL (81-99); Mean Platelet Volume 10.3 fL (7.4-10.4); Monocytes # 1.6 10^3/uL (0.2-0.9); Monocytes % 13.1 %; Neutrophils # 6.55 10^3/uL (1.8-7.7); Neutrophils % 53.4 %; Nucleated Red Blood Cells # 0.1 /100WBC; Nucleated Red Blood Cells % 0.9 %; Platelet Count 321 10^3/cmm (130-400); Positive C 1; Positive M 1; Red Blood Count 3.92 10^6/uL (4.1-5.3); Red Cell Distribution Width 13.8 % (12.1-15.1); White Blood Count 12.3 10^3/uL (4.0-10.0)
[2021-05-15 11:09] LABS: Slide Review Slide Review Perform
[2021-05-20 09:19] LABS: Hematocrit 38.7 % (37.0-47.0); Hemoglobin 12.6 g/dL (11.5-15.3); Mean Corpuscular HGB Conc 32.6 g/dL (30.0-36.0); Mean Corpuscular Hemoglobin 30.9 pg (28.0-34.0); Mean Corpuscular Volume 94.9 fL (81-99); Mean Platelet Volume 10.3 fL (7.4-10.4); Platelet Count 217 10^3/cmm (130-400); Red Blood Count 4.08 10^6/uL (4.1-5.3); Red Cell Distribution Width 13.9 % (12.1-15.1); White Blood Count 21.5 10^3/uL (4.0-10.0)
[2021-05-20 09:36] LABS: Alanine Aminotransferase 44 U/L (0-33); Albumin Level 4.1 g/dL (3.5-5.2); Alkaline Phosphatase 96 IU/L (35-105); Anion Gap 16.3 (5-19); Aspartate Amino Transferase 27 U/L (0-32); Blood Urea Nitrogen 9 mg/dL (8-23); Calcium 9.4 mg/dL (8.5-10.5); Carbon Dioxide 24 mmol/L (22-29); Chloride 99 mmol/L (98-107); Globulin 2.6 g/dL (1.3-4.6); Glomerular Filtration Rate 71.3 mL/min (90-130); Glucose 173 mg/dL (65-115); Osmolality Calculated 283 mOsm/kg (285-295); Potassium 4.3 mmol/L (3.5-5.1); Sodium 135 mmol/L (136-145); Total Bilirubin 0.3 mg/dL (0.15-1.2); Total Protein 6.7 g/dL (6.6-8.7)
[2021-05-20 10:15] LABS: Slide Review Slide Review Perform
[2021-05-20 10:17] LABS: Absolute Neutrophil 17.8 10^3/cmm (1.4-6.5); Absolute Segmented Neutrophil 9.9 10/cmm (1.6-7.1); Eosinophils 0 %; Lymphocytes 12 %; Lymphocytes Absolute 2.6 10^3/cmm (1.2-3.4); Monocytes Absolute 0.2 10^3/cmm (0.1-0.6); Platelet Estimate Normal (Normal); Segmented Neutrophils 46 %; Total Cells Counted 100 (0-100)
[2021-05-20] MEDS: sodium chloride 0.9% 250 ML 75 ML IV (10:55)
[2021-05-20] MEDS: famotidine 20 mg/2 mL INJ IVP (10:55)
--- NOTE | 2021-05-20 10:59 | PC.PHAR ---
RATE FOR 21 DAY TAXOL INCORRECT IN [place]. SPOKE WITH NURSE AND ADVISED TO GIVE OVER 3 HOURS. AMENDED THE REGIMEN IN [place] AND ASKED KARINA TO APPLY NEWEST VERSION FOR NEXT CYCLE.
[2021-05-20] MEDS: palonosetron 0.25 mg/5 mL SDV IV (11:00)
[2021-05-20] MEDS: acetaminophen 325 mg Tablet 650 MG PO (11:00)
[2021-05-20] MEDS: fosaprepitant 150 MG in sodium chloride 0.9% 150 ML 300 MG IV (11:15)
[2021-05-20] MEDS: diphenhydrAMINE 50 mg/mL SDV 1mL 25 MG IV (11:42)
--- NOTE | 2021-05-21 17:41 | ONC FU_ITS ---
Dr. Oconnell Patient Follow-Up Note Patient: Ттаьяна Morris Unit #: [id number]: [id number] Dicatated By: Salvador Oconnell M.D.Date of Visit:May 20, 2021 Onc Med Follow-up/Prog Note Chief Complaint: Breast cancer. History of Present Illness: This is a 66 year-old woman with grade 3 infiltrating ductal carcinoma of the left breast, ER positive/MI negative and HER-2/mary positive, by clinical evaluation stage IIB (T2, N1, M0) at initial diagnosis in October 2016. She had subsequent progression to stage IV (M1), with biopsy-proven recurrence in left supraclavicular lymph nodes. She had presented in September 2016 with palpable mass in the left breast. Mammogram showed a 2.7 cm mass in the deep central portion of the left breast with questionable left axillary lymphadenopathy. Ultrasound confirmed a 2.8 cm breast mass with involved axillary lymph nodes. Biopsy of the breast mass showed grade 3 infiltrating ductal carcinoma which was ER positive/MI negative and HER-2/mary positive. Left axillary lymph node biopsy also was positive. She was then given neoadjuvant chemotherapy with 6 cycles of TCH-P from November 2016 through January 2017. 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 She underwent bilateral mastectomy with left axillary lymph node dissection on 04/01/2017. Pathology showed residual tumor in the breast measuring 0.3 cm and involvement in 1/13 lymph nodes. She was given postoperative chest wall radiation, and she then began adjuvant hormonal therapy with letrozole in July 2017. In October 2018 she was noted to have a left supraclavicular lymph node, and a subsequent PET/CT showed a large left axillary and supraclavicular lymphadenopathy. There was no evidence of other metastatic disease. Excisional biopsy of the left subclavicular lymph node showed metastatic breast cancer, ER/MI negative and HER-2/mary positive. In November 2018 she began further chemotherapy with 4 cycles of dose dense Adriamycin/cyclophosphamide followed by q3 week Taxol/Herceptin. In March 2019, following completion of her 4th cycle of Taxol/Herceptin, she began treatment with single agent Herceptin for 1 year. Her restaging PET/CT on 03/09/2019 showed decrease in size and resolution of FDG activity of the left supraclavicular and left axillary lymph nodes. There was no evidence of metabolically active disease on that study. She was seen here initially in July 2019, as she was planning to relocate to this area from [place]. However, she did opt to continue her treatment with single agent Herceptin in [place]. She completed her full year of treatment in December 2019. Her restaging PET/CT on 04/26/2020 showed a small focus of hyper metabolic activity in the soft tissues along the lateral margin of the left scapula, maximum SUV 2. Her repeat PET/CT on 11/15/2020 again showed mild hypermetabolic activity adjacent to the left subscapularis muscle. Further evaluation with MRI on 11/28/2020 showed an ill-defined high T2 signal and enhancement involving the superficial fascia and adjacent muscle belly at the site of previously identified hypermetabolic activity along the superficial fascia of the subscapularis. It measured 18 x 15 x 17 mm. An additional focus of hyperenhancement and high T2 signal was noted at the lower margin of the scapula measuring 9 x 20 x 18 mm. This appeared consistent with soft tissue metastasis. In the supraclavicular region there were sites of nodularity likely representing lymph nodes or soft tissue implants which were noted to show enhancement and high T2 signal. These measured in the range of 8 to 9 mm. An additional nonspecific focus of nodularity was noted along the anterior margin of the deltoid muscle belly measuring 8 mm. In December 2020 she began on treatment with Herceptin at a 3-week dosing interval together with letrozole 2.5 mg daily. As of 03/04/2020 when she had completed her 5th cycle of Herceptin on a 3-week dosing schedule. Her restaging PET/CT on 03/21/2021 showed small hypermetabolic nodular foci around the left shoulder girdle musculature including a lesion along the deep margin of the subscapularis muscle, maximum SUV 3.6, presumed to be metastatic foci. Minimal peripheral nodularity involving the upper lobe lungs bilaterally were too small to characterize by PET. A subtle small focus of relative hypermetabolic activity was noted along the inferior endplate of the T2 vertebral body to the left of the midline, maximum SUV 3.1. Left upper chest punch biopsy on 03/27/2021 showed invasive carcinoma with morphologic and immunophenotypic profile compatible with breast primary. On 04/02/2021 she began further palliative treatment with cycle 1 of Taxol/Herceptin/Perjeta administered at a 3-week dosing interval. She has no medical illnesses other than the breast cancer. Her baseline DEXA scan in 2016 reportedly showed evidence of osteopenia. Her only other surgery was a cholecystectomy in 1971. She is a nonsmoker. INTERIM HISTORY: On she returned here for cycle 2 of Taxol/Herceptin/Perjeta. She has experienced significant side effects with the 1st cycle, including nausea, fatigue, musculoskeletal pain, and neuropathy. As such, I opted to try administering the Taxol weekly. That treatment was complicated by severe anaphylactic type reaction to the Perjeta. She recovered with appropriate treatment measures, and the following day she returned to begin weekly Taxol/Herceptin. She tolerated it well, and she continued with her week 2 treatment on 05/07/2021. Her week 3 treatment was then deferred due to neutropenia, ANC 700. She recovered uneventfully with Neupogen. She is seen for a scheduled visit. She has been feeling very tired and she has not had a whole lot of activity, despite having had no treatment last week. Her ECOG score is 2. She says her appetite is not great, but she is eating. She does not have fever or night sweats. She reports having some nasal dripping. She has some soreness in her mouth, but that is managed adequately with a mouth rinse. She sometimes has hard breathing. She does not complain of cough and she has not been having chest pain. She has had just a little bit of nausea. Her acid reflux is adequately managed with cimetidine. Bowel and bladder function have been okay. She has had some musculoskeletal pain with the Neupogen, but not bad. She does not complain of headache. She has a little bit of dizziness. Her neuropathy has not gotten any worse. Medications: Cimetidine (200 mg) Tablet Oral daily, Letrozole (2.5 mg) Tablet Oral daily, Magnesium (250 mg) Tablet Oral daily, Potassium Chloride Crystals daily, Prochlorperazine Maleate 1 Tablet (of 10 mg) Oral PRN, Zofran 1 Tablet (of 8 mg) Oral PRN Allergies: Perjeta and sulfa. Vital Signs: Performed on May 20, 2021 15:30 Height - 64.00 in Temperature - 97.8 F (LOW) Pulse - 91 /min Respiration - 18 /min BP - 120/70 mm(hg) O2 Sat - 95 % (LOW) Pain - 0 Fatigue - 0 Performed on May 20, 2021 10:52 Height - 64.00 in Weight - 175.6 lbs (HIGH) BSA - 1.85 sq.m BMI - 30.14 (HIGH) Temperature - 98.2 F (LOW) Pulse - 97 /min Respiration - 18 /min BP - 135/69 mm(hg) O2 Sat - 98 % Pain - 0 Fatigue - 8 Physical Examination: Constitutional - She looks pretty good generally, Eyes - Sclerae nonicteric. Conjunctivae clear, ENMT - No lesions noted in the oral cavity, Hematologic/Lymphatic - There is residual nodularity in the left supraclavicular fossa.There is no cervical, clavicular, or axillary adenopathy noted, Respiratory - Lungs are clear with good air movement bilaterally, Cardiovascular - Heart rhythm is regular. There is no murmur, gallop, or rub noted, Abdomen - Soft. Liver and spleen are not enlarged. There is no abdominal mass or ascites noted and there is no inguinal adenopathy, Extremities - No edema, Neurologic - No focal neurologic deficits noted. Lab/Imaging: Test performed on May 20, 2021 08:37 Sodium 135 mmol/L Potassium 4.3 mmol/L Chloride 99 mmol/L CO2 24 mmol/L Anion Gap 16.3 BUN 9 mg/dL Creatinine 0.8 mg/dL Cr Clearance (Est) 83.96 mL/min eGFR 71.3 mL/min Glucose 173 mg/dL Osmolality - Calculated 283 mOsm/kg Calcium 9.4 mg/dL Protein, Total 6.7 g/dL Albumin 4.1 g/dL Globulin 2.6 g/dL Bilirubin, Total 0.3 mg/dL ALT (SGPT) 44 U/L AST (SGOT) 27 U/L Alkaline Phosphatase 96 IU/L WBC 21.5 10 3/uL Manual Segs % 46 % Manual Bands % 37.0 % RBC 4.08 10 6/uL HGB 12.6 g/dL Manual Lymphs % 12 % Atypical Lymphs % 0.0 % HCT 38.7 % MCV 94.9 fL Total Cells Counted 100 Manual Monos % 1.0 % MCH 30.9 pg Manual Eos % 0 % MCHC 32.6 g/dL Manual Basos % 0.0 % RDW 13.9 % Metamyelocytes % 4.0 % Platelet Count 217 10 3/cmm MPV 10.3 fL CBC Slide Review Slide Review Perform Platelet Estimate Normal Manual Segs Abs 9.9 10/cmm Manual Bands Abs 8.0 10 3/cmm Manual Neutrophils Abs 17.8 10 3/cmm Manual Lymphocytes Abs 2.6 10 3/cmm Manual Monocytes Abs 0.2 10 3/cmm Manual Eosinophils Abs 0.0 10 3/cmm Manual Basophils Abs 0.0 10 3/cmm Problem List: 1. Grade 3 infiltrating ductal carcinoma of the left breast, ER positive/MI negative and HER-2/mary positive at initial diagnosis in October 2018. By clinical evaluation her disease was stage IIB (T2, N1, M0). Her initial treatment included neoadjuvant chemotherapy with 6 cycles of TCH-P followed by bilateral mastectomy/left axillary lymph node dissection and postop chest wall radiation and adjuvant hormonal therapy with letrozole in July 2017. 2. In October 2018 she had progression to stage IV (M1) with FDG avid left supraclavicular and left axillary lymph nodes by PET/CT and with biopsy-proven left supraclavicular lymph node involvement, deemed unresectable. Pathology showed metastatic breast cancer, ER/MI negative and HER-2/mary postive. Problems Addressed with this Encounter and Plan: Patient with grade 3 infiltrating ductal carcinoma of the left breast, ER positive/MI negative and HER-2/mary positive at initial diagnosis in October 2018. By clinical evaluation her disease was stage IIB (T2, N1, M0). Her treatment included neoadjuvant chemotherapy with 6 cycles of TCH-P followed by bilateral mastectomy/left axillary lymph node dissection and postop chest wall radiation. She began adjuvant hormonal therapy with letrozole in July 2017. In October 2018 she had progression to stage IV (M1) with FDG avid left supraclavicular and left axillary lymph nodes by PET/CT and with biopsy-proven left supraclavicular lymph node involvement, deemed unresectable. Pathology showed metastatic breast cancer, ER/MI negative and HER-2/mary postive. She was then given further chemotherapy with 4 cycles of dose dense Adriamycin/cyclophosphamide followed by 4 cycles of q3 week Taxol/Herceptin, completed in March 2019. Restaging PET/CT on 03/09/2019 showed no evidence of metabolically active metastatic disease. She then began treatment with single agent Herceptin. As of December 2019 she had completed a full year of treatment. In November 2020 she was found on PET/CT and MRI to have further recurrence in the form of soft tissue metastatic lesions in the area of the left shoulder/scapula. With those findings she began treatment with Herceptin and a 3-week dosing interval together with letrozole 2.5 mg daily. As of 03/04/2021 she had completed her 5th cycle of Herceptin. Restaging PET/CT on 03/21/2021 showed hypermetabolic soft tissue nodularity in the left shoulder area, suspicious for metastatic involvement. Tiny peripheral nodules involving the upper lobes bilaterally were too small to characterize. A subtle focus of mild uptake was noted in the inferior endplate of the T2 vertebral body. Left upper chest punch biopsy on 03/27/2021 showed invasive carcinoma with morphologic and immunophenotypic profile compatible with breast primary. On 04/02/2021 she continue further palliative therapy with cycle 1 Taxol/Herceptin/Perjeta administered on a 3-week dosing schedule. Toxicities included musculoskeletal pain, fatigue, nausea, and peripheral neuropathy. She returned here for cycle 2 on 04/29/2021. Given the side effects she had experienced, I had opted to change to Taxol to weekly administration schedule. She had a severe anaphylactic type reaction to the Perjeta. She recovered with appropriate treatment measures. She returned the following day to begin treatment with Taxol/Herceptin administered on a weekly dosing schedule. As of 05/07/2021 she had completed 2 weekly treatments, which she tolerated pretty well. Her week 3 treatment was deferred due to neutropenia, ANC 700. She recovered uneventfully with Neupogen. Despite the delay in her treatment, she continues to have significant fatigue. She is otherwise stable clinically. Her blood counts now are adequate and she is going to resume chemotherapy. She prefers to go back to a 3-week dosing schedule which will include paclitaxel at 175 mg/m??? by IV infusion together with Herceptin at 6 mg/kg by IV infusion. Blood counts will be monitored weekly. She returns in 3 weeks. Signed By: Salvador Oconnell M.D. <<Signature on File>>
[2021-05-27 13:40] LABS: Basophils # 0.1 10^3/uL (0.0-0.1); Eosinophils # 0.1 10^3/uL (0.0-0.8); Eosinophils % 1.6 %; Hematocrit 37.4 % (37.0-47.0); Hemoglobin 12.3 g/dL (11.5-15.3); Lymphocytes % 40.8 %; Mean Corpuscular HGB Conc 32.9 g/dL (30.0-36.0); Mean Corpuscular Hemoglobin 31.2 pg (28.0-34.0); Mean Corpuscular Volume 94.9 fL (81-99); Mean Platelet Volume 10.5 fL (7.4-10.4); Monocytes # 0.1 10^3/uL (0.2-0.9); Monocytes % 1.6 %; Neutrophils # 2.59 10^3/uL (1.8-7.7); Neutrophils % 52.6 %; Nucleated Red Blood Cells % 0 %; Platelet Count 402 10^3/cmm (130-400); Red Blood Count 3.94 10^6/uL (4.1-5.3); Red Cell Distribution Width 13.5 % (12.1-15.1); White Blood Count 4.9 10^3/uL (4.0-10.0)
[2021-05-27 15:02] LABS: Slide Review Slide Review Perform
== END 2021-06-01 23:59 | disposition home or self-care (01) ==
LOC: ONCMED 05:50
PROVIDERS: PCP Family Medicine; Visit Provider Internal Medicine Medical Oncology
DX: Z51.11 Encounter for antineoplastic chemotherapy (principal); C50.112 Malignant neoplasm of central portion of left female breast; Z17.1 Estrogen receptor negative status [ER-]; C77.0 Secondary and unspecified malignant neoplasm of lymph nodes of head, face and neck; C79.89 Secondary malignant neoplasm of other specified sites; Z79.811 Long term (current) use of aromatase inhibitors; Z79.899 Other long term (current) drug therapy
CPT/HCPCS: 36415; 36591; 80053; 85007; 85025; 96367; 96372; 96375; 96413; 96415; 96417; 99214; J1100; J1200; J1453; J2469; J3490; J7050; J9267; J9355; Q5101

== ENCOUNTER 2021-07-01 05:28 | Outpatient (RCR) | payer MEDICARE, BC, SELFPAY ==
[2021-06-03 14:20] LABS: Basophils # 0.2 10^3/uL (0.0-0.1); Basophils % 3.5 %; Eosinophils # 0.4 10^3/uL (0.0-0.8); Eosinophils % 8.3 %; Hematocrit 36.1 % (37.0-47.0); Hemoglobin 11.7 g/dL (11.5-15.3); Lymphocytes # 2.5 10^3/uL (0.8-4.8); Lymphocytes % 50.9 %; Mean Corpuscular HGB Conc 32.4 g/dL (30.0-36.0); Mean Corpuscular Hemoglobin 31.1 pg (28.0-34.0); Mean Platelet Volume 9.7 fL (7.4-10.4); Monocytes # 1.1 10^3/uL (0.2-0.9); Monocytes % 21.8 %; Neutrophils % 14.3 %; Nucleated Red Blood Cells % 0 %; Platelet Count 490 10^3/cmm (130-400); Red Blood Count 3.76 10^6/uL (4.1-5.3); Red Cell Distribution Width 14.1 % (12.1-15.1); White Blood Count 4.8 10^3/uL (4.0-10.0)
[2021-06-03 14:21] LABS: Neutrophils # 0.68 10^3/uL (1.8-7.7)
[2021-06-03 14:22] LABS: Slide Review Slide Review Perform
[2021-06-10] MEDS: alteplase 1 mg/mL SDV 2 mL 2 MG IV (10:02)
[2021-06-10 10:21] LABS: Basophils # 0.1 10^3/uL (0.0-0.1); Basophils % 0.9 %; Hematocrit 37.4 % (37.0-47.0); Hemoglobin 12.4 g/dL (11.5-15.3); Lymphocytes % 14.1 %; Mean Corpuscular HGB Conc 33.2 g/dL (30.0-36.0); Mean Corpuscular Hemoglobin 31.2 pg (28.0-34.0); Mean Platelet Volume 10.2 fL (7.4-10.4); Monocytes # 0.3 10^3/uL (0.2-0.9); Monocytes % 2.2 %; Neutrophils # 10.68 10^3/uL (1.8-7.7); Nucleated Red Blood Cells % 0.1 %; Platelet Count 344 10^3/cmm (130-400); Red Blood Count 3.98 10^6/uL (4.1-5.3); Red Cell Distribution Width 14.2 % (12.1-15.1); White Blood Count 14.1 10^3/uL (4.0-10.0)
[2021-06-10 10:24] LABS: Neutrophils % 82.8 %
[2021-06-10 10:46] LABS: Alanine Aminotransferase 38 U/L (0-33); Albumin Level 4.2 g/dL (3.5-5.2); Alkaline Phosphatase 102 IU/L (35-105); Anion Gap 20.9 (5-19); Aspartate Amino Transferase 30 U/L (0-32); Blood Urea Nitrogen 8 mg/dL (8-23); Calcium 9.4 mg/dL (8.5-10.5); Carbon Dioxide 21 mmol/L (22-29); Chloride 100 mmol/L (98-107); Globulin 2.7 g/dL (1.3-4.6); Glomerular Filtration Rate 99.4 mL/min (90-130); Glucose 205 mg/dL (65-115); Osmolality Calculated 290 mOsm/kg (285-295); Potassium 3.9 mmol/L (3.5-5.1); Sodium 138 mmol/L (136-145); Total Bilirubin 0.3 mg/dL (0.15-1.2); Total Protein 6.9 g/dL (6.6-8.7)
[2021-06-10] MEDS: palonosetron 0.25 mg/5 mL SDV IV (12:05)
[2021-06-10] MEDS: sodium chloride 0.9% 250 ML 75 ML IV (12:05)
[2021-06-10] MEDS: famotidine 20 mg/2 mL INJ IVP (12:06)
[2021-06-10] MEDS: diphenhydrAMINE 50 mg/mL SDV 1mL 25 MG IV (12:08)
[2021-06-10] MEDS: acetaminophen 325 mg Tablet 650 MG PO (12:15)
[2021-06-10] MEDS: fosaprepitant 150 MG in sodium chloride 0.9% 150 ML 300 MG IV (12:31)
[2021-06-10] MEDS: sodium chloride 0.9% (100 ml) 100 ML 30 ML (15:35)
[2021-06-10] MEDS: pegfilgrastim 6 mg/0.6 mL Kit (onpro) SUBCUT (16:40)
--- NOTE | 2021-06-10 19:58 | ONC FU_ITS ---
Dr. Oconnell Patient Follow-Up Note Patient: Татьяна Morris Unit #: [id number]: [id number] Dicatated By: Salvador Oconnell M.D.Date of Visit:Jun 10, 2021 Onc Med Follow-up/Prog Note Chief Complaint: Breast cancer. History of Present Illness: This is a 66 year-old woman with grade 3 infiltrating ductal carcinoma of the left breast, ER positive/PA negative and HER-2/mary positive, by clinical evaluation stage IIB (T2, N1, M0) at initial diagnosis in October 2016. She had subsequent progression to stage IV (M1), with biopsy-proven recurrence in left supraclavicular lymph nodes. She had presented in September 2016 with palpable mass in the left breast. Mammogram showed a 2.7 cm mass in the deep central portion of the left breast with questionable left axillary lymphadenopathy. Ultrasound confirmed a 2.8 cm breast mass with involved axillary lymph nodes. Biopsy of the breast mass showed grade 3 infiltrating ductal carcinoma which was ER positive/PA negative and HER-2/mary positive. Left axillary lymph node biopsy also was positive. She was then given neoadjuvant chemotherapy with 6 cycles of TCH-P from November 2016 through January 2017. 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 She underwent bilateral mastectomy with left axillary lymph node dissection on 04/01/2017. Pathology showed residual tumor in the breast measuring 0.3 cm and involvement in 1/13 lymph nodes. She was given postoperative chest wall radiation, and she then began adjuvant hormonal therapy with letrozole in July 2017. In October 2018 she was noted to have a left supraclavicular lymph node, and a subsequent PET/CT showed a large left axillary and supraclavicular lymphadenopathy. There was no evidence of other metastatic disease. Excisional biopsy of the left subclavicular lymph node showed metastatic breast cancer, ER/PA negative and HER-2/mary positive. In November 2018 she began further chemotherapy with 4 cycles of dose dense Adriamycin/cyclophosphamide followed by q3 week Taxol/Herceptin. In March 2019, following completion of her 4th cycle of Taxol/Herceptin, she began treatment with single agent Herceptin for 1 year. Her restaging PET/CT on 03/09/2019 showed decrease in size and resolution of FDG activity of the left supraclavicular and left axillary lymph nodes. There was no evidence of metabolically active disease on that study. She was seen here initially in July 2019, as she was planning to relocate to this area from [place]. However, she did opt to continue her treatment with single agent Herceptin in [place]. She completed her full year of treatment in December 2019. Her restaging PET/CT on 04/26/2020 showed a small focus of hyper metabolic activity in the soft tissues along the lateral margin of the left scapula, maximum SUV 2. Her repeat PET/CT on 11/15/2020 again showed mild hypermetabolic activity adjacent to the left subscapularis muscle. Further evaluation with MRI on 11/28/2020 showed an ill-defined high T2 signal and enhancement involving the superficial fascia and adjacent muscle belly at the site of previously identified hypermetabolic activity along the superficial fascia of the subscapularis. It measured 18 x 15 x 17 mm. An additional focus of hyperenhancement and high T2 signal was noted at the lower margin of the scapula measuring 9 x 20 x 18 mm. This appeared consistent with soft tissue metastasis. In the supraclavicular region there were sites of nodularity likely representing lymph nodes or soft tissue implants which were noted to show enhancement and high T2 signal. These measured in the range of 8 to 9 mm. An additional nonspecific focus of nodularity was noted along the anterior margin of the deltoid muscle belly measuring 8 mm. In December 2020 she began on treatment with Herceptin at a 3-week dosing interval together with letrozole 2.5 mg daily. As of 03/04/2020 when she had completed her 5th cycle of Herceptin on a 3-week dosing schedule. Her restaging PET/CT on 03/21/2021 showed small hypermetabolic nodular foci around the left shoulder girdle musculature including a lesion along the deep margin of the subscapularis muscle, maximum SUV 3.6, presumed to be metastatic foci. Minimal peripheral nodularity involving the upper lobe lungs bilaterally were too small to characterize by PET. A subtle small focus of relative hypermetabolic activity was noted along the inferior endplate of the T2 vertebral body to the left of the midline, maximum SUV 3.1. Left upper chest punch biopsy on 03/27/2021 showed invasive carcinoma with morphologic and immunophenotypic profile compatible with breast primary. On 04/02/2021 she began further palliative treatment with cycle 1 of Taxol/Herceptin/Perjeta administered at a 3-week dosing interval. She has no medical illnesses other than the breast cancer. Her baseline DEXA scan in 2016 reportedly showed evidence of osteopenia. Her only other surgery was a cholecystectomy in 1971. She is a nonsmoker. INTERIM HISTORY: On she returned here for cycle 2 of Taxol/Herceptin/Perjeta. She has experienced significant side effects with the 1st cycle, including nausea, fatigue, musculoskeletal pain, and neuropathy. As such, I opted to try administering the Taxol weekly. That treatment was complicated by severe anaphylactic type reaction to the Perjeta. She recovered with appropriate treatment measures, and the following day she returned to begin weekly Taxol/Herceptin. She tolerated it well, and she continued with her week 2 treatment on 05/07/2021. Her week 3 treatment was then deferred due to neutropenia, ANC 700. She recovered uneventfully with Neupogen. She was then seen for follow-up on 05/20/2021. At that point she proceeded with cycle 3 of Taxol/Herceptin. She opted to go back to the 3-week dosing schedule. She was neutropenic at day 15 with ANC 680. She again recovered uneventfully with Neupogen. She is seen for a scheduled visit. She actually tolerated her 3rd cycle of treatment quite well. She did have some pain after the chemotherapy, but it was manageable with her medication. Her energy has been pretty good. ECOG score is 1. Her appetite lately has been better. She did run a slight fever with the Neupogen. It resolved with Tylenol. She has not had hot flashes or night sweating. She has had no mouth sores. She has some shortness of breath with activity. She does not have cough and she does not complain of chest pain. She has had just mild nausea. Her acid reflux is adequately managed with cimetidine. Bowel and bladder function have been okay. She does not complain of headache or dizziness. She does have neuropathy, but it has not been getting any worse. Medications: Cimetidine (200 mg) Tablet Oral daily, Letrozole (2.5 mg) Tablet Oral daily, Magnesium (250 mg) Tablet Oral daily, Potassium Chloride Crystals daily, Prochlorperazine Maleate 1 Tablet (of 10 mg) Oral PRN, Zofran 1 Tablet (of 8 mg) Oral PRN Allergies: Perjeta and sulfa. Vital Signs: Performed on Jun 10, 2021 11:46 Height - 64.00 in Weight - 178.2 lbs (HIGH) BSA - 1.86 sq.m BMI - 30.59 (HIGH) Temperature - 98.6 F Pulse - 108 /min (HIGH) Respiration - 18 /min BP - 144/75 mm(hg) (HIGH) O2 Sat - 96 % Pain - 0 Fatigue - 0 Physical Examination: Constitutional - She looks pretty good generally, Eyes - Sclerae nonicteric. Conjunctivae clear, ENMT - No lesions noted in the oral cavity, Hematologic/Lymphatic - There is no cervical or clavicular adenopathy noted, Respiratory - Lungs are clear with good air movement bilaterally, Cardiovascular - Heart rhythm is regular. There is no murmur, gallop, or rub noted, Breasts - There are no lesions palpable in the left chest wall. There is no axillary adenopathy noted, Abdomen - Soft. Liver and spleen are not enlarged. There is no abdominal mass or ascites noted and there is no inguinal adenopathy, Extremities - No lower extremity edema, Neurologic - No focal neurologic deficits noted. Lab/Imaging: CBC shows hemoglobin 12.4 g, white blood cell count 14,100, and platelet count 344,000. Comprehensive metabolic profile shows normal renal function with BUN 8 and creatinine 0.6 mg/dL. The SG PT is slightly elevated at 38/33 U/L. The bilirubin and the other liver enzymes are normal. Problem List: 1. Grade 3 infiltrating ductal carcinoma of the left breast, ER positive/PA negative and HER-2/mary positive at initial diagnosis in October 2018. By clinical evaluation her disease was stage IIB (T2, N1, M0). Her initial treatment included neoadjuvant chemotherapy with 6 cycles of TCH-P followed by bilateral mastectomy/left axillary lymph node dissection and postop chest wall radiation and adjuvant hormonal therapy with letrozole in July 2017. 2. In October 2018 she had progression to stage IV (M1) with FDG avid left supraclavicular and left axillary lymph nodes by PET/CT and with biopsy-proven left supraclavicular lymph node involvement, deemed unresectable. Pathology showed metastatic breast cancer, ER/PA negative and HER-2/mary postive. Problems Addressed with this Encounter and Plan: Patient with grade 3 infiltrating ductal carcinoma of the left breast, ER positive/PA negative and HER-2/mary positive at initial diagnosis in October 2018. By clinical evaluation her disease was stage IIB (T2, N1, M0). Her treatment included neoadjuvant chemotherapy with 6 cycles of TCH-P followed by bilateral mastectomy/left axillary lymph node dissection and postop chest wall radiation. She began adjuvant hormonal therapy with letrozole in July 2017. In October 2018 she had progression to stage IV (M1) with FDG avid left supraclavicular and left axillary lymph nodes by PET/CT and with biopsy-proven left supraclavicular lymph node involvement, deemed unresectable. Pathology showed metastatic breast cancer, ER/PA negative and HER-2/mary postive. She was then given further chemotherapy with 4 cycles of dose dense Adriamycin/cyclophosphamide followed by 4 cycles of q3 week Taxol/Herceptin, completed in March 2019. Restaging PET/CT on 03/09/2019 showed no evidence of metabolically active metastatic disease. She then began treatment with single agent Herceptin. As of December 2019 she had completed a full year of treatment. In November 2020 she was found on PET/CT and MRI to have further recurrence in the form of soft tissue metastatic lesions in the area of the left shoulder/scapula. With those findings she began treatment with Herceptin and a 3-week dosing interval together with letrozole 2.5 mg daily. As of 03/04/2021 she had completed her 5th cycle of Herceptin. Restaging PET/CT on 03/21/2021 showed hypermetabolic soft tissue nodularity in the left shoulder area, suspicious for metastatic involvement. Tiny peripheral nodules involving the upper lobes bilaterally were too small to characterize. A subtle focus of mild uptake was noted in the inferior endplate of the T2 vertebral body. Left upper chest punch biopsy on 03/27/2021 showed invasive carcinoma with morphologic and immunophenotypic profile compatible with breast primary. On 04/02/2021 she continue further palliative therapy with cycle 1 Taxol/Herceptin/Perjeta administered on a 3-week dosing schedule. Toxicities included musculoskeletal pain, fatigue, nausea, and peripheral neuropathy. She returned here for cycle 2 on 04/29/2021. Given the side effects she had experienced, I had opted to change to Taxol to weekly administration schedule. She had a severe anaphylactic type reaction to the Perjeta. She recovered with appropriate treatment measures. She went on to complete her 2nd cycle with Taxol/Herceptin administered weekly. She did require growth factor support with Neupogen. She then continued with cycle 3 on 05/22/2021. At that point she preferred to go back to the 3-week dosing, and she tolerated that treatment well, though she again required growth factor support with Neupogen. She has now had adequate recovery, and she appears to be doing well clinically. She will proceed with cycle 4 of Taxol/Herceptin. The dosages will remain the same, but she will now be given Neulasta prophylactically. She returns in 3 weeks. Signed By: Salvador Oconnell M.D. <<Signature on File>>
[2021-07-01 10:45] LABS: Basophils % 0.7 %; Eosinophils % 0.7 %; Hematocrit 34.6 % (37.0-47.0); Hemoglobin 11.7 g/dL (11.5-15.3); Lymphocytes # 1.2 10^3/uL (0.8-4.8); Lymphocytes % 20.6 %; Mean Corpuscular HGB Conc 33.8 g/dL (30.0-36.0); Mean Corpuscular Hemoglobin 32.5 pg (28.0-34.0); Mean Corpuscular Volume 96.1 fl (81-99); Mean Platelet Volume 10.2 fL (7.4-10.4); Monocytes % 0.7 %; Neutrophils # 4.37 10^3/uL (1.8-7.7); Neutrophils % 76.8 %; Nucleated Red Blood Cells % 0 %; Platelet Count 564 10^3/cmm (130-400); Red Cell Distribution Width 16.2 % (12.1-15.1); White Blood Count 5.7 10^3/uL (4.0-10.0)
[2021-07-01 11:03] LABS: Alanine Aminotransferase 38 U/L (0-33); Albumin Level 4.2 g/dL (3.5-5.2); Alkaline Phosphatase 98 IU/L (35-105); Anion Gap 17.8 (5-19); Aspartate Amino Transferase 33 U/L (0-32); Blood Urea Nitrogen 4 mg/dL (8-23); Calcium 9.5 mg/dL (8.5-10.5); Carbon Dioxide 22 mmol/L (22-29); Chloride 98 mmol/L (98-107); Globulin 2.9 g/dL (1.3-4.6); Glomerular Filtration Rate 122.7 mL/min (90-130); Glucose 185 mg/dL (65-115); Osmolality Calculated 280 mOsm/kg (285-295); Potassium 3.8 mmol/L (3.5-5.1); Sodium 134 mmol/L (136-145); Total Bilirubin 0.4 mg/dL (0.15-1.2); Total Protein 7.1 g/dL (6.6-8.7)
[2021-07-01 11:31] LABS: Slide Review Slide Review Perform
[2021-07-01] MEDS: palonosetron 0.25 mg/5 mL SDV IV (12:10)
[2021-07-01] MEDS: sodium chloride 0.9% 250 ML 75 ML IV (12:10)
[2021-07-01] MEDS: famotidine 20 mg/2 mL INJ IVP (12:11)
[2021-07-01] MEDS: diphenhydrAMINE 50 mg/mL SDV 1mL 25 MG IV (12:13)
[2021-07-01] MEDS: acetaminophen 325 mg Tablet 650 MG PO (12:17)
[2021-07-01] MEDS: fosaprepitant 150 MG in sodium chloride 0.9% 150 ML 300 MG IV (12:35)
[2021-07-01] MEDS: pegfilgrastim 6 mg/0.6 mL Kit (onpro) SUBCUT (16:00)
--- NOTE | 2021-07-05 15:54 | ONC FU_ITS ---
Dr. Oconnell Patient Follow-Up Note Patient: Татьяна Morris Unit #: [id number]: [id number] Dicatated By: Salvador Oconnell M.D.Date of Visit:Jul 01, 2021 Onc Med Follow-up/Prog Note Chief Complaint: Breast cancer. History of Present Illness: This is a 66 year-old woman with grade 3 infiltrating ductal carcinoma of the left breast, ER positive/AL negative and HER-2/mary positive, by clinical evaluation stage IIB (T2, N1, M0) at initial diagnosis in October 2016. She had subsequent progression to stage IV (M1), with biopsy-proven recurrence in left supraclavicular lymph nodes. She had presented in September 2016 with palpable mass in the left breast. Mammogram showed a 2.7 cm mass in the deep central portion of the left breast with questionable left axillary lymphadenopathy. Ultrasound confirmed a 2.8 cm breast mass with involved axillary lymph nodes. Biopsy of the breast mass showed grade 3 infiltrating ductal carcinoma which was ER positive/AL negative and HER-2/mary positive. Left axillary lymph node biopsy also was positive. She was then given neoadjuvant chemotherapy with 6 cycles of TCH-P from November 2016 through January 2017. 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 She underwent bilateral mastectomy with left axillary lymph node dissection on 04/01/2017. Pathology showed residual tumor in the breast measuring 0.3 cm and involvement in 1/13 lymph nodes. She was given postoperative chest wall radiation, and she then began adjuvant hormonal therapy with letrozole in July 2017. In October 2018 she was noted to have a left supraclavicular lymph node, and a subsequent PET/CT showed a large left axillary and supraclavicular lymphadenopathy. There was no evidence of other metastatic disease. Excisional biopsy of the left subclavicular lymph node showed metastatic breast cancer, ER/AL negative and HER-2/mary positive. In November 2018 she began further chemotherapy with 4 cycles of dose dense Adriamycin/cyclophosphamide followed by q3 week Taxol/Herceptin. In March 2019, following completion of her 4th cycle of Taxol/Herceptin, she began treatment with single agent Herceptin for 1 year. Her restaging PET/CT on 03/09/2019 showed decrease in size and resolution of FDG activity of the left supraclavicular and left axillary lymph nodes. There was no evidence of metabolically active disease on that study. She was seen here initially in July 2019, as she was planning to relocate to this area from [place]. However, she did opt to continue her treatment with single agent Herceptin in [place]. She completed her full year of treatment in December 2019. Her restaging PET/CT on 04/26/2020 showed a small focus of hyper metabolic activity in the soft tissues along the lateral margin of the left scapula, maximum SUV 2. Her repeat PET/CT on 11/15/2020 again showed mild hypermetabolic activity adjacent to the left subscapularis muscle. Further evaluation with MRI on 11/28/2020 showed an ill-defined high T2 signal and enhancement involving the superficial fascia and adjacent muscle belly at the site of previously identified hypermetabolic activity along the superficial fascia of the subscapularis. It measured 18 x 15 x 17 mm. An additional focus of hyperenhancement and high T2 signal was noted at the lower margin of the scapula measuring 9 x 20 x 18 mm. This appeared consistent with soft tissue metastasis. In the supraclavicular region there were sites of nodularity likely representing lymph nodes or soft tissue implants which were noted to show enhancement and high T2 signal. These measured in the range of 8 to 9 mm. An additional nonspecific focus of nodularity was noted along the anterior margin of the deltoid muscle belly measuring 8 mm. In December 2020 she began on treatment with Herceptin at a 3-week dosing interval together with letrozole 2.5 mg daily. As of 03/04/2020 when she had completed her 5th cycle of Herceptin on a 3-week dosing schedule. Her restaging PET/CT on 03/21/2021 showed small hypermetabolic nodular foci around the left shoulder girdle musculature including a lesion along the deep margin of the subscapularis muscle, maximum SUV 3.6, presumed to be metastatic foci. Minimal peripheral nodularity involving the upper lobe lungs bilaterally were too small to characterize by PET. A subtle small focus of relative hypermetabolic activity was noted along the inferior endplate of the T2 vertebral body to the left of the midline, maximum SUV 3.1. Left upper chest punch biopsy on 03/27/2021 showed invasive carcinoma with morphologic and immunophenotypic profile compatible with breast primary. On 04/02/2021 she began further palliative treatment with cycle 1 of Taxol/Herceptin/Perjeta administered at a 3-week dosing interval. She has no medical illnesses other than the breast cancer. Her baseline DEXA scan in 2016 reportedly showed evidence of osteopenia. Her only other surgery was a cholecystectomy in 1971. She is a nonsmoker. INTERIM HISTORY: On she returned here for cycle 2 of Taxol/Herceptin/Perjeta. She has experienced significant side effects with the 1st cycle, including nausea, fatigue, musculoskeletal pain, and neuropathy. As such, I opted to try administering the Taxol weekly. That treatment was complicated by severe anaphylactic type reaction to the Perjeta. She recovered with appropriate treatment measures, and the following day she returned to begin weekly Taxol/Herceptin. She tolerated it well, and she continued with her week 2 treatment on 05/07/2021. Her week 3 treatment was then deferred due to neutropenia, ANC 700. She recovered uneventfully with Neupogen. She was then seen for follow-up on 05/20/2021. At that point she proceeded with cycle 3 of Taxol/Herceptin. She opted to go back to the 3-week dosing schedule. She was neutropenic at day 15 with ANC 680. She again recovered uneventfully with Neupogen, and she continued with cycle 4 on 06/10/2021, administered with Neulasta prophylactically. Her further clinical course was complicated by development of a herpes zoster skin eruption on her right lower back, treated with acyclovir. She is seen for a follow-up visit. The skin rash and pain with the herpes zoster has improved significantly. She continues to have some fatigue, but overall her energy has been okay. ECOG score is 1. Her appetite has been down a little. She does not have fever or night sweats. She has had no mouth sores. She has no shortness of breath, cough, or chest pain. She has been having some tachycardia, but her heart rate comes down with rest. She continues to have some nausea, adequately managed with Zofran or Compazine. Her acid reflux is adequately managed with cimetidine. Bowel and bladder function have been okay, though she sometimes has urgency with urination. She is not having any significant joint or bone pain now. She does not complain of headache or dizziness. She continues to have some neuropathy, but it is not getting any worse. Medications: Cimetidine (200 mg) Tablet Oral daily, Letrozole (2.5 mg) Tablet Oral daily, Magnesium (250 mg) Tablet Oral daily, Potassium Chloride Crystals daily, Prochlorperazine Maleate 1 Tablet (of 10 mg) Oral PRN, Zofran 1 Tablet (of 8 mg) Oral PRN Allergies: Perjeta and sulfa. Vital Signs: Performed on Jul 01, 2021 11:33 Height - 64.00 in Weight - 178.2 lbs BSA - 1.86 sq.m BMI - 30.59 (HIGH) Temperature - 96 F (LOW) Pulse - 113 /min (HIGH) Respiration - 20 /min BP - 162/78 mm(hg) (HIGH) O2 Sat - 96 % Pain - 0 Fatigue - 5 Physical Examination: Constitutional - She looks pretty good generally, Eyes - Sclerae nonicteric. Conjunctivae clear, ENMT - No lesions noted in the oral cavity, Hematologic/Lymphatic - There is no cervical or clavicular adenopathy noted, Respiratory - Lungs are clear with good air movement bilaterally, Cardiovascular - Heart rhythm is regular. There is no murmur, gallop, or rub noted, Breasts - There are no lesions palpable in the left chest wall. There is no axillary adenopathy noted, Abdomen - Soft. Liver and spleen are not enlarged. There is no abdominal mass or ascites noted and there is no inguinal adenopathy, Extremities - No lower extremity edema, Integumentary - There is a resolving herpetic skin eruption in the lower thoracic/upper lumbar distribution on the right side, Neurologic - No focal neurologic deficits noted. Lab/Imaging: Test performed on Jul 01, 2021 10:24 Sodium 134 mmol/L Potassium 3.8 mmol/L Chloride 98 mmol/L CO2 22 mmol/L Anion Gap 17.8 BUN 4 mg/dL Creatinine 0.5 mg/dL Cr Clearance (Est) 134.3300 mL/min eGFR 122.7 mL/min Glucose 185 mg/dL Osmolality - Calculated 280 mOsm/kg Calcium 9.5 mg/dL Protein, Total 7.1 g/dL Albumin 4.2 g/dL Globulin 2.9 g/dL Bilirubin, Total 0.4 mg/dL ALT (SGPT) 38 U/L AST (SGOT) 33 U/L Alkaline Phosphatase 98 IU/L WBC 5.7 10 3/uL RBC 3.60 10 6/uL HGB 11.7 g/dL HCT 34.6 % MCV 96.1 fl MCH 32.5 pg MCHC 33.8 g/dL RDW 16.2 % Platelet Count 564 10 3/cmm MPV 10.2 fL Neutrophils 4.37 10 3/uL Lymphocytes 1.2 10 3/uL Monocytes 0.0 10 3/uL Eosinophils 0.0 10 3/uL Basophils 0.0 10 3/uL Neutrophil % 76.8 % Lymphocyte % 20.6 % Monocyte % 0.7 % Eosinophil % 0.7 % Basophils % 0.7 % NRBC % 0 % CBC Slide Review Slide Review Perform SLIDE REVIEW AGREES WITH AUTOMATED RESULTS Problem List: 1. Grade 3 infiltrating ductal carcinoma of the left breast, ER positive/AL negative and HER-2/mary positive at initial diagnosis in October 2018. By clinical evaluation her disease was stage IIB (T2, N1, M0). Her initial treatment included neoadjuvant chemotherapy with 6 cycles of TCH-P followed by bilateral mastectomy/left axillary lymph node dissection and postop chest wall radiation and adjuvant hormonal therapy with letrozole in July 2017. 2. In October 2018 she had progression to stage IV (M1) with FDG avid left supraclavicular and left axillary lymph nodes by PET/CT and with biopsy-proven left supraclavicular lymph node involvement, deemed unresectable. Pathology showed metastatic breast cancer, ER/AL negative and HER-2/mary postive. Problems Addressed with this Encounter and Plan: Patient with grade 3 infiltrating ductal carcinoma of the left breast, ER positive/AL negative and HER-2/mary positive at initial diagnosis in October 2018. By clinical evaluation her disease was stage IIB (T2, N1, M0). Her treatment included neoadjuvant chemotherapy with 6 cycles of TCH-P followed by bilateral mastectomy/left axillary lymph node dissection and postop chest wall radiation. She began adjuvant hormonal therapy with letrozole in July 2017. In October 2018 she had progression to stage IV (M1) with FDG avid left supraclavicular and left axillary lymph nodes by PET/CT and with biopsy-proven left supraclavicular lymph node involvement, deemed unresectable. Pathology showed metastatic breast cancer, ER/AL negative and HER-2/amry postive. She was then given further chemotherapy with 4 cycles of dose dense Adriamycin/cyclophosphamide followed by 4 cycles of q3 week Taxol/Herceptin, completed in March 2019. Restaging PET/CT on 03/09/2019 showed no evidence of metabolically active metastatic disease. She then began treatment with single agent Herceptin. As of December 2019 she had completed a full year of treatment. In November 2020 she was found on PET/CT and MRI to have further recurrence in the form of soft tissue metastatic lesions in the area of the left shoulder/scapula. With those findings she began treatment with Herceptin and a 3-week dosing interval together with letrozole 2.5 mg daily. As of 03/04/2021 she had completed her 5th cycle of Herceptin. Restaging PET/CT on 03/21/2021 showed hypermetabolic soft tissue nodularity in the left shoulder area, suspicious for metastatic involvement. Tiny peripheral nodules involving the upper lobes bilaterally were too small to characterize. A subtle focus of mild uptake was noted in the inferior endplate of the T2 vertebral body. Left upper chest punch biopsy on 03/27/2021 showed invasive carcinoma with morphologic and immunophenotypic profile compatible with breast primary. On 04/02/2021 she continue further palliative therapy with cycle 1 Taxol/Herceptin/Perjeta administered on a 3-week dosing schedule. Toxicities included musculoskeletal pain, fatigue, nausea, and peripheral neuropathy. She returned here for cycle 2 on 04/29/2021. Given the side effects she had experienced, I had opted to change to Taxol to weekly administration schedule. She had a severe anaphylactic type reaction to the Perjeta. She recovered with appropriate treatment measures. She went on to complete her 2nd cycle with Taxol/Herceptin administered weekly. She did require growth factor support with Neupogen. She then continued with cycle 3 on 05/22/2021, administered at a 3-week dosing schedule, and she tolerated it well, though she again required growth factor support with Neupogen. She continued with cycle 4 of Taxol/Herceptin on 06/10/2021, administered with Neulasta prophylactically. She again tolerated the treatment well, though she did require treatment with acyclovir for herpes zoster skin eruption in the lower thoracic/upper lumbar distribution on the right side. She will proceed now with cycle 5 of Taxol/Herceptin. The dosages remain the same. It will be administered with Neulasta prophylactically. She returns in 3 weeks. She is tentatively scheduled to have a restaging PET/CT on 08/08/2021. Signed By: Salvador Oconnell M.D. <<Signature on File>>
== END 2021-07-02 23:59 | disposition home or self-care (01) ==
LOC: ONCMED 05:28
PROVIDERS: PCP Family Medicine; Visit Provider Internal Medicine Medical Oncology
DX: Z51.11 Encounter for antineoplastic chemotherapy (principal); C50.812 Malignant neoplasm of overlapping sites of left female breast; Z17.0 Estrogen receptor positive status [ER+]; Z90.11 Acquired absence of right breast and nipple; Z90.12 Acquired absence of left breast and nipple; Z79.811 Long term (current) use of aromatase inhibitors; Z79.899 Other long term (current) drug therapy
CPT/HCPCS: 36415; 36591; 36593; 80053; 85025; 96367; 96372; 96375; 96377; 96413; 96415; 96417; 99214; 99215; J1100; J1200; J1453; J2469; J2505; J2997; J3490; J7030; J7050; J9267; J9355; Q5101

== ENCOUNTER 2021-07-22 05:33 | Outpatient (RCR) | payer MEDICARE, BC, SELFPAY ==
[2021-07-19] MEDS: alteplase 1 mg/mL SDV 2 mL 2 MG IV (11:22)
[2021-07-19 12:03] LABS: Alanine Aminotransferase 20 U/L (0-33); Albumin Level 3.8 g/dL (3.5-5.2); Alkaline Phosphatase 103 IU/L (35-105); Anion Gap 13.9 (5-19); Aspartate Amino Transferase 23 U/L (0-32); Blood Urea Nitrogen 5 mg/dL (8-23); Calcium 8.8 mg/dL (8.5-10.5); Carbon Dioxide 25 mmol/L (22-29); Chloride 101 mmol/L (98-107); Globulin 2.5 g/dL (1.3-4.6); Glomerular Filtration Rate 158.7 mL/min (90-130); Glucose 95 mg/dL (65-115); Osmolality Calculated 279 mOsm/kg (285-295); Potassium 3.9 mmol/L (3.5-5.1); Sodium 136 mmol/L (136-145); Total Bilirubin 0.3 mg/dL (0.15-1.2); Total Protein 6.3 g/dL (6.6-8.7)
[2021-07-19 13:55] LABS: Basophils # 0.2 10^3/uL (0.0-0.1); Basophils % 1.3 %; Eosinophils # 0.2 10^3/uL (0.0-0.8); Eosinophils % 1.6 %; Hematocrit 35.5 % (37.0-47.0); Hemoglobin 11.3 g/dL (11.5-15.3); Lymphocytes # 2.8 10^3/uL (0.8-4.8); Lymphocytes % 20.6 %; Mean Corpuscular HGB Conc 31.8 g/dL (30.0-36.0); Mean Corpuscular Hemoglobin 31.7 pg (28.0-34.0); Mean Corpuscular Volume 99.7 fl (81-99); Mean Platelet Volume 10.4 fL (7.4-10.4); Monocytes # 1.3 10^3/uL (0.2-0.9); Monocytes % 9.6 %; Neutrophils # 9.03 10^3/uL (1.8-7.7); Neutrophils % 66.5 %; Nucleated Red Blood Cells % 0 %; Platelet Count 611 10^3/cmm (130-400); Red Blood Count 3.56 10^6/uL (4.1-5.3); Red Cell Distribution Width 16.7 % (12.1-15.1); White Blood Count 13.6 10^3/uL (4.0-10.0)
[2021-07-22] MEDS: sodium chloride 0.9% 250 ML 75 ML IV (08:32)
[2021-07-22] MEDS: acetaminophen 325 mg Tablet 650 MG PO (08:32)
[2021-07-22] MEDS: famotidine 20 mg/2 mL INJ IVP (08:36)
[2021-07-22] MEDS: diphenhydrAMINE 50 mg/mL SDV 1mL 25 MG IV (08:38)
[2021-07-22] MEDS: palonosetron 0.25 mg/5 mL SDV IV (08:40)
--- NOTE | 2021-07-22 08:40 | ONC FU_ITS ---
Dr. Oconnell Patient Follow-Up Note Patient: Татьяна Morris Unit #: [id number]: [id number] Dicatated By: Salvador Oconnell M.D.Date of Visit:Jul 22, 2021 Onc Med Follow-up/Prog Note Chief Complaint: Breast cancer. History of Present Illness: This is a 66 year-old woman with grade 3 infiltrating ductal carcinoma of the left breast, ER positive/MI negative and HER-2/mary positive, by clinical evaluation stage IIB (T2, N1, M0) at initial diagnosis in October 2016. She had subsequent progression to stage IV (M1), with biopsy-proven recurrence in left supraclavicular lymph nodes. She had presented in September 2016 with palpable mass in the left breast. Mammogram showed a 2.7 cm mass in the deep central portion of the left breast with questionable left axillary lymphadenopathy. Ultrasound confirmed a 2.8 cm breast mass with involved axillary lymph nodes. Biopsy of the breast mass showed grade 3 infiltrating ductal carcinoma which was ER positive/MI negative and HER-2/mary positive. Left axillary lymph node biopsy also was positive. She was then given neoadjuvant chemotherapy with 6 cycles of TCH-P from November 2016 through January 2017. 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 She underwent bilateral mastectomy with left axillary lymph node dissection on 04/01/2017. Pathology showed residual tumor in the breast measuring 0.3 cm and involvement in 1/13 lymph nodes. She was given postoperative chest wall radiation, and she then began adjuvant hormonal therapy with letrozole in July 2017. In October 2018 she was noted to have a left supraclavicular lymph node, and a subsequent PET/CT showed a large left axillary and supraclavicular lymphadenopathy. There was no evidence of other metastatic disease. Excisional biopsy of the left subclavicular lymph node showed metastatic breast cancer, ER/MI negative and HER-2/mary positive. In November 2018 she began further chemotherapy with 4 cycles of dose dense Adriamycin/cyclophosphamide followed by q3 week Taxol/Herceptin. In March 2019, following completion of her 4th cycle of Taxol/Herceptin, she began treatment with single agent Herceptin for 1 year. Her restaging PET/CT on 03/09/2019 showed decrease in size and resolution of FDG activity of the left supraclavicular and left axillary lymph nodes. There was no evidence of metabolically active disease on that study. She was seen here initially in July 2019, as she was planning to relocate to this area from [place]. However, she did opt to continue her treatment with single agent Herceptin in [place]. She completed her full year of treatment in December 2019. Her restaging PET/CT on 04/26/2020 showed a small focus of hyper metabolic activity in the soft tissues along the lateral margin of the left scapula, maximum SUV 2. Her repeat PET/CT on 11/15/2020 again showed mild hypermetabolic activity adjacent to the left subscapularis muscle. Further evaluation with MRI on 11/28/2020 showed an ill-defined high T2 signal and enhancement involving the superficial fascia and adjacent muscle belly at the site of previously identified hypermetabolic activity along the superficial fascia of the subscapularis. It measured 18 x 15 x 17 mm. An additional focus of hyperenhancement and high T2 signal was noted at the lower margin of the scapula measuring 9 x 20 x 18 mm. This appeared consistent with soft tissue metastasis. In the supraclavicular region there were sites of nodularity likely representing lymph nodes or soft tissue implants which were noted to show enhancement and high T2 signal. These measured in the range of 8 to 9 mm. An additional nonspecific focus of nodularity was noted along the anterior margin of the deltoid muscle belly measuring 8 mm. In December 2020 she began on treatment with Herceptin at a 3-week dosing interval together with letrozole 2.5 mg daily. As of 03/04/2020 when she had completed her 5th cycle of Herceptin on a 3-week dosing schedule. Her restaging PET/CT on 03/21/2021 showed small hypermetabolic nodular foci around the left shoulder girdle musculature including a lesion along the deep margin of the subscapularis muscle, maximum SUV 3.6, presumed to be metastatic foci. Minimal peripheral nodularity involving the upper lobe lungs bilaterally were too small to characterize by PET. A subtle small focus of relative hypermetabolic activity was noted along the inferior endplate of the T2 vertebral body to the left of the midline, maximum SUV 3.1. Left upper chest punch biopsy on 03/27/2021 showed invasive carcinoma with morphologic and immunophenotypic profile compatible with breast primary. On 04/02/2021 she began further palliative treatment with cycle 1 of Taxol/Herceptin/Perjeta administered at a 3-week dosing interval. She has no medical illnesses other than the breast cancer. Her baseline DEXA scan in 2016 reportedly showed evidence of osteopenia. Her only other surgery was a cholecystectomy in 1971. She is a nonsmoker. INTERIM HISTORY: On 04/29/2021 she returned here for cycle 2 of Taxol/Herceptin/Perjeta. She has experienced significant side effects with the 1st cycle, including nausea, fatigue, musculoskeletal pain, and neuropathy. As such, I opted to try administering the Taxol weekly. That treatment was complicated by severe anaphylactic type reaction to the Perjeta. She recovered with appropriate treatment measures, and the following day she returned to begin weekly Taxol/Herceptin. She tolerated it well, and she continued with her week 2 treatment on 05/07/2021. Her week 3 treatment was then deferred due to neutropenia, ANC 700. She recovered uneventfully with Neupogen. She was then seen for follow-up on 05/20/2021. At that point she proceeded with cycle 3 of Taxol/Herceptin. She opted to go back to the 3-week dosing schedule. She was neutropenic at day 15 with ANC 680. She again recovered uneventfully with Neupogen, and she continued with cycle 4 on 06/10/2021, administered with Neulasta prophylactically. Her further clinical course was complicated by development of a herpes zoster skin eruption on her right lower back, treated with acyclovir. She then continued with cycle 5 of Taxol/Herceptin on 07/01/2021. She is seen for a follow-up visit. She has been feeling pretty good generally. With her last chemotherapy cycle she felt tired longer. She is still doing light work at home. ECOG score is 1. She says she is not really hungry, but her weight is stable. She had a low-grade fever after her Covid booster 3 days ago. She has not had hot flashes or sweating. She complains that her nose drips. She has had no mouth sores. She says she gets winded pretty fast with activity. She does not complain of resting dyspnea, cough, or chest pain. She reports having a pervasive queasiness. She has no other GI or complaints. She has some musculoskeletal pain for a few days after treatment, but it goes away. She does not complain of headache or dizziness. Her neuropathy is unchanged. Medications: Cimetidine (200 mg) Tablet Oral daily, Letrozole (2.5 mg) Tablet Oral daily, Magnesium (250 mg) Tablet Oral daily, Potassium Chloride Crystals daily, Prochlorperazine Maleate 1 Tablet (of 10 mg) Oral PRN, Zofran 1 Tablet (of 8 mg) Oral PRN Allergies: Perjeta and sulfa. Vital Signs: Performed on Jul 22, 2021 08:08 Height - 64.00 in Weight - 172 lbs (LOW) BSA - 1.83 sq.m BMI - 29.52 Temperature - 98.2 F (LOW) Pulse - 107 /min (HIGH) Respiration - 18 /min BP - 141/78 mm(hg) (HIGH) O2 Sat - 96 % Pain - 0 Fatigue - 7 Physical Examination: Constitutional - She looks pretty good generally, Eyes - Sclerae nonicteric. Conjunctivae clear, ENMT - No lesions noted in the oral cavity, Hematologic/Lymphatic - No cervical or clavicular adenopathy noted, Respiratory - Lungs are clear with good air movement bilaterally, Cardiovascular - Heart rhythm is regular. There is no murmur, gallop, or rub noted, Breasts - There are no lesions palpable in the left chest wall. There is no axillary adenopathy noted, Abdomen - Soft. Liver and spleen are not enlarged. There is no abdominal mass or ascites noted and there is no inguinal adenopathy, Extremities - No lower extremity edema, Neurologic - No focal neurologic deficits noted. Lab/Imaging: CBC shows hemoglobin 11.3 g, white blood cell count 13,600, and platelet count 611,000. Comprehensive metabolic profile is unremarkable. Problem List: 1. Grade 3 infiltrating ductal carcinoma of the left breast, ER positive/MI negative and HER-2/mary positive at initial diagnosis in October 2018. By clinical evaluation her disease was stage IIB (T2, N1, M0). Her initial treatment included neoadjuvant chemotherapy with 6 cycles of TCH-P followed by bilateral mastectomy/left axillary lymph node dissection and postop chest wall radiation and adjuvant hormonal therapy with letrozole in July 2017. 2. In October 2018 she had progression to stage IV (M1) with FDG avid left supraclavicular and left axillary lymph nodes by PET/CT and with biopsy-proven left supraclavicular lymph node involvement, deemed unresectable. Pathology showed metastatic breast cancer, ER/MI negative and HER-2/mary postive. Problems Addressed with this Encounter and Plan: Patient with grade 3 infiltrating ductal carcinoma of the left breast, ER positive/MI negative and HER-2/mary positive at initial diagnosis in October 2018. By clinical evaluation her disease was stage IIB (T2, N1, M0). Her treatment included neoadjuvant chemotherapy with 6 cycles of TCH-P followed by bilateral mastectomy/left axillary lymph node dissection and postop chest wall radiation. She began adjuvant hormonal therapy with letrozole in July 2017. In October 2018 she had progression to stage IV (M1) with FDG avid left supraclavicular and left axillary lymph nodes by PET/CT and with biopsy-proven left supraclavicular lymph node involvement, deemed unresectable. Pathology showed metastatic breast cancer, ER/MI negative and HER-2/mary postive. She was then given further chemotherapy with 4 cycles of dose dense Adriamycin/cyclophosphamide followed by 4 cycles of q3 week Taxol/Herceptin, completed in March 2019. Restaging PET/CT on 03/09/2019 showed no evidence of metabolically active metastatic disease. She then began treatment with single agent Herceptin. As of December 2019 she had completed a full year of treatment. In November 2020 she was found on PET/CT and MRI to have further recurrence in the form of soft tissue metastatic lesions in the area of the left shoulder/scapula. With those findings she began treatment with Herceptin and a 3-week dosing interval together with letrozole 2.5 mg daily. As of 03/04/2021 she had completed her 5th cycle of Herceptin. Restaging PET/CT on 03/21/2021 showed hypermetabolic soft tissue nodularity in the left shoulder area, suspicious for metastatic involvement. Tiny peripheral nodules involving the upper lobes bilaterally were too small to characterize. A subtle focus of mild uptake was noted in the inferior endplate of the T2 vertebral body. Left upper chest punch biopsy on 03/27/2021 showed invasive carcinoma with morphologic and immunophenotypic profile compatible with breast primary. On 04/02/2021 she continue further palliative therapy with cycle 1 Taxol/Herceptin/Perjeta administered on a 3-week dosing schedule. Toxicities included musculoskeletal pain, fatigue, nausea, and peripheral neuropathy. She returned here for cycle 2 on 04/29/2021. Given the side effects she had experienced, I had opted to change to Taxol to weekly administration schedule. She had a severe anaphylactic type reaction to the Perjeta. She recovered with appropriate treatment measures. She went on to complete her 2nd cycle with Taxol/Herceptin administered weekly. She did require growth factor support with Neupogen. She then continued with cycle 3 on 05/22/2021, administered at a 3-week dosing schedule, and she tolerated it well, though she again required growth factor support with Neupogen. She continued with cycle 4 of Taxol/Herceptin on 06/10/2021, administered with Neulasta prophylactically. She again tolerated the treatment well, though she did require treatment with acyclovir for herpes zoster skin eruption in the lower thoracic/upper lumbar distribution on the right side. She then continued with cycle 5 on 07/01/2021. At this point she is tolerating treatment with acceptable toxicity. Her overall clinical status appears stable. She will proceed with cycle 6 of Taxol/Herceptin. The dosages remain the same. It will be administered with Neulasta prophylactically. She is scheduled to have a restaging PET/CT on 08/08/2021. I will tentatively plan a follow-up visit in 3 weeks. Signed By: Salvador Oconnell M.D. <<Signature on File>>
[2021-07-22] MEDS: fosaprepitant 150 MG in sodium chloride 0.9% 150 ML 300 MG IV (09:02)
[2021-07-22] MEDS: pegfilgrastim 6 mg/0.6 mL Kit (onpro) SUBCUT (13:10)
== END 2021-08-01 23:59 | disposition home or self-care (01) ==
LOC: ONCMED 05:33
PROVIDERS: PCP Family Medicine; Visit Provider Internal Medicine Medical Oncology
DX: Z51.11 Encounter for antineoplastic chemotherapy (principal); C50.812 Malignant neoplasm of overlapping sites of left female breast; Z17.0 Estrogen receptor positive status [ER+]; Z90.11 Acquired absence of right breast and nipple; Z90.12 Acquired absence of left breast and nipple; Z79.811 Long term (current) use of aromatase inhibitors; Z79.899 Other long term (current) drug therapy
CPT/HCPCS: 36415; 36593; 80053; 85025; 96367; 96372; 96374; 96375; 96377; 96413; 96415; 96417; 99215; J1100; J1200; J1453; J2469; J2505; J2997; J3490; J7050; J9267; J9355

== ENCOUNTER 2021-08-28 06:09 | Outpatient (RCR) | payer MEDICARE, BC, SELFPAY ==
[2021-08-27] MEDS: alteplase 1 mg/mL SDV 2 mL 2 MG IV (15:40)
[2021-08-27 16:21] LABS: Basophils # 0.1 10^3/uL (0.0-0.1); Basophils % 1.2 %; Eosinophils # 0.4 10^3/uL (0.0-0.8); Eosinophils % 3.7 %; Hematocrit 37.9 % (37.0-47.0); Hemoglobin 12.3 g/dL (11.5-15.3); Lymphocytes # 2.5 10^3/uL (0.8-4.8); Lymphocytes % 25.1 %; Mean Corpuscular HGB Conc 32.5 g/dL (30.0-36.0); Mean Corpuscular Hemoglobin 31.6 pg (28.0-34.0); Mean Corpuscular Volume 97.4 fl (81-99); Mean Platelet Volume 10.3 fL (7.4-10.4); Monocytes % 10.1 %; Neutrophils # 5.99 10^3/uL (1.8-7.7); Neutrophils % 59.8 %; Nucleated Red Blood Cells % 0 %; Platelet Count 361 10^3/cmm (130-400); Red Blood Count 3.89 10^6/uL (4.1-5.3)
--- NOTE | 2021-08-28 17:32 | ONC FU_ITS ---
Dr. Oconnell Patient Follow-Up Note Patient: Татьяна Morris Unit #: [id number]: [id number] Dicatated By: Salvador Oconnell M.D.Date of Visit:Aug 28, 2021 Onc Med Follow-up/Prog Note Chief Complaint: Breast cancer. History of Present Illness: This is a 66 year-old woman with grade 3 infiltrating ductal carcinoma of the left breast, ER positive/ID negative and HER-2/mary positive, by clinical evaluation stage IIB (T2, N1, M0) at initial diagnosis in October 2016. She had subsequent progression to stage IV (M1), with biopsy-proven recurrence in left supraclavicular lymph nodes. She had presented in September 2016 with palpable mass in the left breast. Mammogram showed a 2.7 cm mass in the deep central portion of the left breast with questionable left axillary lymphadenopathy. Ultrasound confirmed a 2.8 cm breast mass with involved axillary lymph nodes. Biopsy of the breast mass showed grade 3 infiltrating ductal carcinoma which was ER positive/ID negative and HER-2/mary positive. Left axillary lymph node biopsy also was positive. She was then given neoadjuvant chemotherapy with 6 cycles of TCH-P from November 2016 through January 2017. 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 She underwent bilateral mastectomy with left axillary lymph node dissection on 04/01/2017. Pathology showed residual tumor in the breast measuring 0.3 cm and involvement in 1/13 lymph nodes. She was given postoperative chest wall radiation, and she then began adjuvant hormonal therapy with letrozole in July 2017. In October 2018 she was noted to have a left supraclavicular lymph node, and a subsequent PET/CT showed a large left axillary and supraclavicular lymphadenopathy. There was no evidence of other metastatic disease. Excisional biopsy of the left subclavicular lymph node showed metastatic breast cancer, ER/ID negative and HER-2/mary positive. In November 2018 she began further chemotherapy with 4 cycles of dose dense Adriamycin/cyclophosphamide followed by q3 week Taxol/Herceptin. In March 2019, following completion of her 4th cycle of Taxol/Herceptin, she began treatment with single agent Herceptin for 1 year. Her restaging PET/CT on 03/09/2019 showed decrease in size and resolution of FDG activity of the left supraclavicular and left axillary lymph nodes. There was no evidence of metabolically active disease on that study. She was seen here initially in July 2019, as she was planning to relocate to this area from [place]. However, she did opt to continue her treatment with single agent Herceptin in [place]. She completed her full year of treatment in December 2019. Her restaging PET/CT on 04/26/2020 showed a small focus of hyper metabolic activity in the soft tissues along the lateral margin of the left scapula, maximum SUV 2. Her repeat PET/CT on 11/15/2020 again showed mild hypermetabolic activity adjacent to the left subscapularis muscle. Further evaluation with MRI on 11/28/2020 showed an ill-defined high T2 signal and enhancement involving the superficial fascia and adjacent muscle belly at the site of previously identified hypermetabolic activity along the superficial fascia of the subscapularis. It measured 18 x 15 x 17 mm. An additional focus of hyperenhancement and high T2 signal was noted at the lower margin of the scapula measuring 9 x 20 x 18 mm. This appeared consistent with soft tissue metastasis. In the supraclavicular region there were sites of nodularity likely representing lymph nodes or soft tissue implants which were noted to show enhancement and high T2 signal. These measured in the range of 8 to 9 mm. An additional nonspecific focus of nodularity was noted along the anterior margin of the deltoid muscle belly measuring 8 mm. In December 2020 she began on treatment with Herceptin at a 3-week dosing interval together with letrozole 2.5 mg daily. As of 03/04/2020 when she had completed her 5th cycle of Herceptin on a 3-week dosing schedule. Her restaging PET/CT on 03/21/2021 showed small hypermetabolic nodular foci around the left shoulder girdle musculature including a lesion along the deep margin of the subscapularis muscle, maximum SUV 3.6, presumed to be metastatic foci. Minimal peripheral nodularity involving the upper lobe lungs bilaterally were too small to characterize by PET. A subtle small focus of relative hypermetabolic activity was noted along the inferior endplate of the T2 vertebral body to the left of the midline, maximum SUV 3.1. Left upper chest punch biopsy on 03/27/2021 showed invasive carcinoma with morphologic and immunophenotypic profile compatible with breast primary. On 04/02/2021 she began further palliative treatment with cycle 1 of Taxol/Herceptin/Perjeta administered at a 3-week dosing interval. She has no medical illnesses other than the breast cancer. Her baseline DEXA scan in 2016 reportedly showed evidence of osteopenia. Her only other surgery was a cholecystectomy in 1971. She is a nonsmoker. INTERIM HISTORY: On 04/29/2021 she returned here for cycle 2 of Taxol/Herceptin/Perjeta. She has experienced significant side effects with the 1st cycle, including nausea, fatigue, musculoskeletal pain, and neuropathy. As such, I opted to try administering the Taxol weekly. That treatment was complicated by severe anaphylactic type reaction to the Perjeta. She recovered with appropriate treatment measures, and the following day she returned to begin weekly Taxol/Herceptin. She tolerated it well, and she continued with her week 2 treatment on 05/07/2021. Her week 3 treatment was then deferred due to neutropenia, ANC 700. She recovered uneventfully with Neupogen. She was then seen for follow-up on 05/20/2021. At that point she proceeded with cycle 3 of Taxol/Herceptin. She opted to go back to the 3-week dosing schedule. She was neutropenic at day 15 with ANC 680. She again recovered uneventfully with Neupogen, and she continued with cycle 4 on 06/10/2021, administered with Neulasta prophylactically. Her further clinical course was complicated by development of a herpes zoster skin eruption on her right lower back, treated with acyclovir. She then continued with cycle 5 of Taxol/Herceptin on 07/01/2021 and with cycle 6 on 07/22/2021. She then had followup with Dr. Solomon Edmonds in [facility] and her repeat PET/CT on 08/08/2021 showed no areas of abnormal uptake. There was resolution of hypermetabolic metastatic nodularity involving the left shoulder musculature and resolution of hypermetabolic uptake within the T2 vertebral body. FDG negative sclerotic focus within the T2 vertebral body appeared consistent with treated metastatic disease. Also noted was resolution of previously seen small pulmonary nodules. Her echocardiogram showed normal left ventricular systolic function with ejection fraction 56%. She was recommended to transition her further treatment to Herceptin monotherapy. She is seen for a follow-up visit. She has been feeling better generally since she has been off the chemotherapy. She still has limited activity tolerance, but her energy is getting better and she has been able to increase her activity. Her ECOG score is 1. She says her appetite is still not back, but she is eating. She does not have fever, night sweats, or hot flashes. She has some shortness of breath with more strenuous exertion. She does not have resting dyspnea, cough, or chest pain. She still has some nausea and she continues to have acid reflux, though it is managed pretty well with cimetidine. Bowel and bladder function have been okay. Her musculoskeletal pain is much better. She still has neuropathy in her hands and feet, but the pain associated with it has improved with gabapentin. She has also been sleeping better with it. Medications: Cimetidine (200 mg) Tablet Oral daily, Gabapentin 1 Tablet (of 300 mg) Capsule Oral at bedtime, Letrozole (2.5 mg) Tablet Oral daily, Magnesium (250 mg) Tablet Oral daily, Potassium Chloride Crystals daily, Prochlorperazine Maleate 1 Tablet (of 10 mg) Oral PRN, Zofran 1 Tablet (of 8 mg) Oral PRN Allergies: Perjeta and sulfa. Vital Signs: Performed on Aug 28, 2021 09:10 Height - 64.00 in Weight - 174.4 lbs (HIGH) BSA - 1.85 sq.m BMI - 29.94 Temperature - 96.7 F (LOW) Pulse - 118 /min (HIGH) Respiration - 18 /min BP - 131/75 mm(hg) O2 Sat - 97 % Pain - 0 Fatigue - 4 Physical Examination: Constitutional - She looks pretty good generally, Eyes - Sclerae nonicteric. Conjunctivae clear, ENMT - No lesions noted in the oral cavity, Hematologic/Lymphatic - No cervical, clavicular, or axillary adenopathy, Respiratory - Lungs are clear with good air movement bilaterally, Cardiovascular - Heart rhythm is regular. There is no murmur, gallop, or rub noted, Abdomen - Soft. Liver and spleen are not enlarged. There is no abdominal mass or ascites noted and there is no inguinal adenopathy, Extremities - No lower extremity edema, Neurologic - No focal neurologic deficits noted. Lab/Imaging: CBC shows hemoglobin 12.3 g, white blood cell count 10,000, and platelet count 361,000. Problem List: 1. Grade 3 infiltrating ductal carcinoma of the left breast, ER positive/ID negative and HER-2/mary positive at initial diagnosis in October 2018. By clinical evaluation her disease was stage IIB (T2, N1, M0). Her initial treatment included neoadjuvant chemotherapy with 6 cycles of TCH-P followed by bilateral mastectomy/left axillary lymph node dissection and postop chest wall radiation and adjuvant hormonal therapy with letrozole in July 2017. 2. In October 2018 she had progression to stage IV (M1) with FDG avid left supraclavicular and left axillary lymph nodes by PET/CT and with biopsy-proven left supraclavicular lymph node involvement, deemed unresectable. Pathology showed metastatic breast cancer, ER/ID negative and HER-2/mary postive. Problems Addressed with this Encounter and Plan: Patient with grade 3 infiltrating ductal carcinoma of the left breast, ER positive/ID negative and HER-2/mary positive at initial diagnosis in October 2018. By clinical evaluation her disease was stage IIB (T2, N1, M0). Her treatment included neoadjuvant chemotherapy with 6 cycles of TCH-P followed by bilateral mastectomy/left axillary lymph node dissection and postop chest wall radiation. She began adjuvant hormonal therapy with letrozole in July 2017. In October 2018 she had progression to stage IV (M1) with FDG avid left supraclavicular and left axillary lymph nodes by PET/CT and with biopsy-proven left supraclavicular lymph node involvement, deemed unresectable. Pathology showed metastatic breast cancer, ER/ID negative and HER-2/mary postive. She was then given further chemotherapy with 4 cycles of dose dense Adriamycin/cyclophosphamide followed by 4 cycles of q3 week Taxol/Herceptin, completed in March 2019. Restaging PET/CT on 03/09/2019 showed no evidence of metabolically active metastatic disease. She then began treatment with single agent Herceptin. As of December 2019 she had completed a full year of treatment. In November 2020 she was found on PET/CT and MRI to have further recurrence in the form of soft tissue metastatic lesions in the area of the left shoulder/scapula. With those findings she began treatment with Herceptin and a 3-week dosing interval together with letrozole 2.5 mg daily. As of 03/04/2021 she had completed her 5th cycle of Herceptin. Restaging PET/CT on 03/21/2021 showed hypermetabolic soft tissue nodularity in the left shoulder area, suspicious for metastatic involvement. Tiny peripheral nodules involving the upper lobes bilaterally were too small to characterize. A subtle focus of mild uptake was noted in the inferior endplate of the T2 vertebral body. Left upper chest punch biopsy on 03/27/2021 showed invasive carcinoma with morphologic and immunophenotypic profile compatible with breast primary. On 04/02/2021 she continue further palliative therapy with cycle 1 Taxol/Herceptin/Perjeta administered on a 3-week dosing schedule. Toxicities included musculoskeletal pain, fatigue, nausea, and peripheral neuropathy. She returned here for cycle 2 on 04/29/2021. Given the side effects she had experienced, I had opted to change to Taxol to weekly administration schedule. She had a severe anaphylactic type reaction to the Perjeta. She recovered with appropriate treatment measures. She went on to complete her 2nd cycle with Taxol/Herceptin administered weekly. She did require growth factor support with Neupogen. She then continued with cycle 3 on 05/22/2021, administered at a 3-week dosing schedule, and she tolerated it well, though she again required growth factor support with Neupogen. She continued with cycle 4 of Taxol/Herceptin on 06/10/2021, administered with Neulasta prophylactically. She again tolerated the treatment well, though she did require treatment with acyclovir for herpes zoster skin eruption in the lower thoracic/upper lumbar distribution on the right side. She then continued with cycle 5 on 07/01/2021 and with cycle 6 on 07/22/2021. Her restaging PET/CT on 08/08/2021 showed no areas of abnormal FDG uptake, consistent with complete response to treatment. With that finding, she was recommended to transition her further treatment to Herceptin monotherapy. In keeping with her current treatment schedule, she will return on Thursday for Herceptin 3 mg/kg by IV infusion. She will then be scheduled for treatment again at a 3-week interval and for a follow-up visit at a 6-week interval. Signed By: Salvador Oconnell M.D. <<Signature on File>>
== END 2021-09-01 23:59 | disposition home or self-care (01) ==
LOC: ONCMED 06:09
PROVIDERS: PCP Family Medicine; Visit Provider Internal Medicine Medical Oncology
DX: C50.812 Malignant neoplasm of overlapping sites of left female breast (principal); Z17.0 Estrogen receptor positive status [ER+]; Z90.11 Acquired absence of right breast and nipple; Z90.12 Acquired absence of left breast and nipple; C77.8 Secondary and unspecified malignant neoplasm of lymph nodes of multiple regions; Z79.811 Long term (current) use of aromatase inhibitors
CPT/HCPCS: 36415; 36593; 85025; 96374; 96523; 99214; J2997

== ENCOUNTER 2021-09-23 06:25 | Outpatient (RCR) | payer MEDICARE, BC, SELFPAY ==
[2021-09-02] MEDS: acetaminophen 325 mg Tablet 650 MG PO (12:05)
[2021-09-02] MEDS: diphenhydrAMINE 25 mg Capsule PO (12:05)
[2021-09-02] MEDS: sodium chloride 0.9% 250 ML 75 ML IV (12:50)
[2021-09-23] MEDS: diphenhydrAMINE 25 mg Capsule PO (10:30)
[2021-09-23] MEDS: sodium chloride 0.9% 250 ML 75 ML IV (11:30)
[2021-09-23] MEDS: acetaminophen 325 mg Tablet 650 MG PO (11:30)
== END 2021-10-01 23:59 | disposition home or self-care (01) ==
LOC: ONCMED 06:25
PROVIDERS: PCP Family Medicine; Visit Provider Internal Medicine Medical Oncology
DX: Z51.11 Encounter for antineoplastic chemotherapy (principal); C50.112 Malignant neoplasm of central portion of left female breast; Z17.0 Estrogen receptor positive status [ER+]; C77.0 Secondary and unspecified malignant neoplasm of lymph nodes of head, face and neck; C79.89 Secondary malignant neoplasm of other specified sites; Z79.899 Other long term (current) drug therapy
CPT/HCPCS: 96413; J7050; J9355

== ENCOUNTER 2021-10-14 06:33 | Outpatient (RCR) | payer MEDICARE, BC, SELFPAY ==
[2021-10-14 10:32] LABS: Basophils # 0.1 10^3/uL (0.0-0.1); Basophils % 1.1 %; Eosinophils # 0.3 10^3/uL (0.0-0.8); Eosinophils % 3.9 %; Hematocrit 44.3 % (37.0-47.0); Hemoglobin 14.5 g/dL (11.5-15.3); Lymphocytes # 2.5 10^3/uL (0.8-4.8); Lymphocytes % 31.4 %; Mean Corpuscular HGB Conc 32.7 g/dL (30.0-36.0); Mean Corpuscular Hemoglobin 30.4 pg (28.0-34.0); Mean Corpuscular Volume 92.9 fl (81-99); Mean Platelet Volume 10.6 fL (7.4-10.4); Monocytes # 0.8 10^3/uL (0.2-0.9); Monocytes % 9.7 %; Neutrophils # 4.22 10^3/uL (1.8-7.7); Neutrophils % 53.6 %; Nucleated Red Blood Cells % 0 %; Platelet Count 405 10^3/cmm (130-400); Red Blood Count 4.77 10^6/uL (4.1-5.3); Red Cell Distribution Width 12.9 % (12.1-15.1); White Blood Count 7.9 10^3/uL (4.0-10.0)
[2021-10-14 10:54] LABS: Alanine Aminotransferase 57 U/L (0-33); Albumin Level 4.5 g/dL (3.5-5.2); Alkaline Phosphatase 89 IU/L (35-105); Anion Gap 15.1 (5-19); Aspartate Amino Transferase 63 U/L (0-32); Blood Urea Nitrogen 8 mg/dL (8-23); Calcium 9.7 mg/dL (8.5-10.5); Carbon Dioxide 28 mmol/L (22-29); Chloride 102 mmol/L (98-107); Glomerular Filtration Rate 99.4 mL/min (90-130); Glucose 113 mg/dL (65-115); Osmolality Calculated 289 mOsm/kg (285-295); Potassium 5.1 mmol/L (3.5-5.1); Sodium 140 mmol/L (136-145); Total Bilirubin 0.5 mg/dL (0.15-1.2); Total Protein 7.5 g/dL (6.6-8.7)
[2021-10-14] MEDS: acetaminophen 325 mg Tablet 650 MG PO (11:55)
[2021-10-14] MEDS: diphenhydrAMINE 25 mg Capsule PO (11:55)
[2021-10-14] MEDS: sodium chloride 0.9% 250 ML 75 ML IV (11:55)
== END 2021-11-01 23:59 | disposition home or self-care (01) ==
LOC: ONCMED 06:33
PROVIDERS: PCP Family Medicine; Visit Provider Nurse Practitioner Family
DX: Z51.11 Encounter for antineoplastic chemotherapy (principal); C50.812 Malignant neoplasm of overlapping sites of left female breast; Z17.0 Estrogen receptor positive status [ER+]; Z79.899 Other long term (current) drug therapy; Z87.2 Personal history of diseases of the skin and subcutaneous tissue
CPT/HCPCS: 80053; 85025; 96413; 96415; 99215; J7050; J9355

== ENCOUNTER 2021-11-04 10:50 | Outpatient (RCR) | payer MEDICARE, BC, SELFPAY ==
[2021-11-04 11:30] LABS: Basophils # 0.1 10^3/uL (0.0-0.1); Basophils % 1.1 %; Eosinophils # 0.4 10^3/uL (0.0-0.8); Eosinophils % 4.2 %; Hematocrit 42.9 % (37.0-47.0); Hemoglobin 14.1 g/dL (11.5-15.3); Lymphocytes # 2.4 10^3/uL (0.8-4.8); Mean Corpuscular HGB Conc 32.9 g/dL (30.0-36.0); Mean Corpuscular Hemoglobin 30.2 pg (28.0-34.0); Mean Corpuscular Volume 91.9 fl (81-99); Mean Platelet Volume 10.6 fL (7.4-10.4); Monocytes # 0.7 10^3/uL (0.2-0.9); Neutrophils # 5.17 10^3/uL (1.8-7.7); Neutrophils % 59.5 %; Nucleated Red Blood Cells % 0 %; Platelet Count 387 10^3/cmm (130-400); Red Blood Count 4.67 10^6/uL (4.1-5.3); Red Cell Distribution Width 13.1 % (12.1-15.1); White Blood Count 8.7 10^3/uL (4.0-10.0)
[2021-11-04] MEDS: sodium chloride 0.9% 250 ML 75 ML IV (12:10)
[2021-11-04] MEDS: acetaminophen 325 mg Tablet 650 MG PO (12:10)
[2021-11-04] MEDS: diphenhydrAMINE 25 mg Capsule PO (12:10)
[2021-11-04 12:45] LABS: Alanine Aminotransferase 64 U/L (0-33); Albumin Level 4.2 g/dL (3.5-5.2); Alkaline Phosphatase 83 IU/L (35-105); Anion Gap 18.9 (5-19); Aspartate Amino Transferase 70 U/L (0-32); Blood Urea Nitrogen 7 mg/dL (8-23); Calcium 9.4 mg/dL (8.5-10.5); Carbon Dioxide 22 mmol/L (22-29); Chloride 102 mmol/L (98-107); Globulin 2.8 g/dL (1.3-4.6); Glomerular Filtration Rate 99.4 mL/min (90-130); Glucose 132 mg/dL (65-115); Osmolality Calculated 288 mOsm/kg (285-295); Potassium 3.9 mmol/L (3.5-5.1); Sodium 139 mmol/L (136-145); Total Bilirubin 0.4 mg/dL (0.15-1.2)
== END 2021-12-02 23:59 | disposition home or self-care (01) ==
LOC: ONCMED 10:50
PROVIDERS: PCP Family Medicine; Visit Provider Internal Medicine Medical Oncology
DX: Z51.11 Encounter for antineoplastic chemotherapy (principal); C50.112 Malignant neoplasm of central portion of left female breast; Z17.0 Estrogen receptor positive status [ER+]; C77.0 Secondary and unspecified malignant neoplasm of lymph nodes of head, face and neck; C79.89 Secondary malignant neoplasm of other specified sites; Z79.899 Other long term (current) drug therapy
CPT/HCPCS: 80053; 85025; 96413; J7050; J9355

== ENCOUNTER 2021-12-23 09:09 | Outpatient (RCR) | payer MEDICARE, BC, SELFPAY ==
[2021-12-23 09:29] LABS: Basophils # 0.1 10^3/uL (0.0-0.1); Eosinophils # 0.4 10^3/uL (0.0-0.8); Eosinophils % 4.1 %; Hematocrit 41.9 % (37.0-47.0); Hemoglobin 13.7 g/dL (11.5-15.3); Lymphocytes # 2.5 10^3/uL (0.8-4.8); Lymphocytes % 28.1 %; Mean Corpuscular HGB Conc 32.7 g/dL (30.0-36.0); Mean Corpuscular Volume 91.9 fl (81-99); Mean Platelet Volume 10.9 fL (7.4-10.4); Monocytes # 0.8 10^3/uL (0.2-0.9); Monocytes % 9.4 %; Neutrophils # 5.03 10^3/uL (1.8-7.7); Neutrophils % 57.2 %; Nucleated Red Blood Cells % 0 %; Platelet Count 369 10^3/cmm (130-400); Red Blood Count 4.56 10^6/uL (4.1-5.3); Red Cell Distribution Width 13.6 % (12.1-15.1); White Blood Count 8.8 10^3/uL (4.0-10.0)
[2021-12-23 10:09] LABS: Alanine Aminotransferase 65 U/L (0-33); Albumin Level 4.3 g/dL (3.5-5.2); Alkaline Phosphatase 81 IU/L (35-105); Anion Gap 15.9 (5-19); Aspartate Amino Transferase 53 U/L (0-32); Blood Urea Nitrogen 11 mg/dL (8-23); Calcium 9.9 mg/dL (8.5-10.5); Carbon Dioxide 25 mmol/L (22-29); Chloride 103 mmol/L (98-107); Globulin 3.1 g/dL (1.3-4.6); Glomerular Filtration Rate 122.7 mL/min (90-130); Glucose 113 mg/dL (65-115); Osmolality Calculated 290 mOsm/kg (285-295); Potassium 3.9 mmol/L (3.5-5.1); Sodium 140 mmol/L (136-145); Total Bilirubin 0.5 mg/dL (0.15-1.2); Total Protein 7.4 g/dL (6.6-8.7)
--- NOTE | 2021-12-23 17:37 | ONC FU_ITS ---
Dr. Oconnell Patient Follow-Up Note Patient: Татьяна Morris Unit #: [id number]: 1955 Dicatated By: Salvador Oconnell M.D.Date of Visit:Dec 23, 2021 Onc Med Follow-up/Prog Note Chief Complaint: Breast cancer. History of Present Illness: This is a 66 year-old woman with grade 3 infiltrating ductal carcinoma of the left breast, ER positive/UT negative and HER-2/mary positive, by clinical evaluation stage IIB (T2, N1, M0) at initial diagnosis in October 2016. She had subsequent progression to stage IV (M1), with biopsy-proven recurrence in left supraclavicular lymph nodes. She had presented in September 2016 with palpable mass in the left breast. Mammogram showed a 2.7 cm mass in the deep central portion of the left breast with questionable left axillary lymphadenopathy. Ultrasound confirmed a 2.8 cm breast mass with involved axillary lymph nodes. Biopsy of the breast mass showed grade 3 infiltrating ductal carcinoma which was ER positive/UT negative and HER-2/mary positive. Left axillary lymph node biopsy also was positive. She was then given neoadjuvant chemotherapy with 6 cycles of TCH-P from November 2016 through January 2017. 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 She underwent bilateral mastectomy with left axillary lymph node dissection on 04/01/2017. Pathology showed residual tumor in the breast measuring 0.3 cm and involvement in 1/13 lymph nodes. She was given postoperative chest wall radiation, and she then began adjuvant hormonal therapy with letrozole in July 2017. In October 2018 she was noted to have a left supraclavicular lymph node, and a subsequent PET/CT showed a large left axillary and supraclavicular lymphadenopathy. There was no evidence of other metastatic disease. Excisional biopsy of the left subclavicular lymph node showed metastatic breast cancer, ER/UT negative and HER-2/mary positive. In November 2018 she began further chemotherapy with 4 cycles of dose dense Adriamycin/cyclophosphamide followed by q3 week Taxol/Herceptin. In March 2019, following completion of her 4th cycle of Taxol/Herceptin, she began treatment with single agent Herceptin for 1 year. Her restaging PET/CT on 03/09/2019 showed decrease in size and resolution of FDG activity of the left supraclavicular and left axillary lymph nodes. There was no evidence of metabolically active disease on that study. She was seen here initially in July 2019, as she was planning to relocate to this area from [place]. However, she did opt to continue her treatment with single agent Herceptin in [place]. She completed her full year of treatment in December 2019. Her restaging PET/CT on 04/26/2020 showed a small focus of hyper metabolic activity in the soft tissues along the lateral margin of the left scapula, maximum SUV 2. Her repeat PET/CT on 11/15/2020 again showed mild hypermetabolic activity adjacent to the left subscapularis muscle. Further evaluation with MRI on 11/28/2020 showed an ill-defined high T2 signal and enhancement involving the superficial fascia and adjacent muscle belly at the site of previously identified hypermetabolic activity along the superficial fascia of the subscapularis. It measured 18 x 15 x 17 mm. An additional focus of hyperenhancement and high T2 signal was noted at the lower margin of the scapula measuring 9 x 20 x 18 mm. This appeared consistent with soft tissue metastasis. In the supraclavicular region there were sites of nodularity likely representing lymph nodes or soft tissue implants which were noted to show enhancement and high T2 signal. These measured in the range of 8 to 9 mm. An additional nonspecific focus of nodularity was noted along the anterior margin of the deltoid muscle belly measuring 8 mm. In December 2020 she began on treatment with Herceptin at a 3-week dosing interval together with letrozole 2.5 mg daily. As of 03/04/2021 she had completed her 5th cycle of Herceptin on a 3-week dosing schedule. Her restaging PET/CT on 03/21/2021 showed small hypermetabolic nodular foci around the left shoulder girdle musculature including a lesion along the deep margin of the subscapularis muscle, maximum SUV 3.6, presumed to be metastatic foci. Minimal peripheral nodularity involving the upper lobe lungs bilaterally were too small to characterize by PET. A subtle small focus of relative hypermetabolic activity was noted along the inferior endplate of the T2 vertebral body to the left of the midline, maximum SUV 3.1. Left upper chest punch biopsy on 03/27/2021 showed invasive carcinoma with morphologic and immunophenotypic profile compatible with breast primary. On 04/02/2021 she began further palliative treatment with cycle 1 of Taxol/Herceptin/Perjeta administered at a 3-week dosing interval. She has no medical illnesses other than the breast cancer. Her baseline DEXA scan in 2016 reportedly showed evidence of osteopenia. Her only other surgery was a cholecystectomy in 1971. She is a nonsmoker. INTERIM HISTORY: On 04/29/2021 she returned here for cycle 2 of Taxol/Herceptin/Perjeta. She has experienced significant side effects with the 1st cycle, including nausea, fatigue, musculoskeletal pain, and neuropathy. As such, I opted to try administering the Taxol weekly. That treatment was complicated by severe anaphylactic type reaction to the Perjeta. She recovered with appropriate treatment measures, and the following day she returned to begin weekly Taxol/Herceptin. She tolerated it well, and she continued with her week 2 treatment on 05/07/2021. Her week 3 treatment was then deferred due to neutropenia, ANC 700. She recovered uneventfully with Neupogen. She was then seen for follow-up on 05/20/2021. At that point she proceeded with cycle 3 of Taxol/Herceptin. She opted to go back to the 3-week dosing schedule. She was neutropenic at day 15 with ANC 680. She again recovered uneventfully with Neupogen, and she continued with cycle 4 on 06/10/2021, administered with Neulasta prophylactically. Her further clinical course was complicated by development of a herpes zoster skin eruption on her right lower back, treated with acyclovir. She then continued with cycle 5 of Taxol/Herceptin on 07/01/2021 and with cycle 6 on 07/22/2021. She then had followup with Dr. Solomon Edmonds in [facility] and her repeat PET/CT on 08/08/2021 showed no areas of abnormal uptake. There was resolution of hypermetabolic metastatic nodularity involving the left shoulder musculature and resolution of hypermetabolic uptake within the T2 vertebral body. FDG negative sclerotic focus within the T2 vertebral body appeared consistent with treated metastatic disease. Also noted was resolution of previously seen small pulmonary nodules. Her echocardiogram showed normal left ventricular systolic function with ejection fraction 56%. At that point her treatment was transitioned to Herceptin monotherapy, though she also continued hormonal therapy with letrozole 2.5 mg daily. At her follow-up visit with Dr. Montemayor in November 2021, her restaging PET/CT showed no hypermetabolic lymphadenopathy or metabolically active metastatic disease. She did receive another infusion of Herceptin on 11/25/2021, but at that point it was recommended that her further treatment be limited to hormonal therapy with letrozole, as she had completed a year of Herceptin therapy. She is seen for a follow-up visit. She has been feeling good generally, but she does complain of having developed a new skin eruption in the left chest wall area within the past month. It is not itchy or otherwise symptomatic. She says she has been getting more energy, and her activity now is pretty much back to normal. ECOG score is 0. Her appetite is not as good as it had been, and she does have some early satiety. Her weight, though, is stable. She does not have fever, night sweats, or hot flashes. She has not had sore mouth or throat, and she does not complain of cough. She has some mild exertional dyspnea. She does not complain of chest pain. Her stomach is still sometimes queasy. Her acid reflux is managed with cimetidine. Bowel and bladder function have been okay. She currently has no significant joint or bone pain. She does not complain of headache or dizziness. She still has neuropathy in her feet and to a lesser extent in her hands. Medications: Cimetidine (200 mg) Tablet Oral daily, Gabapentin 1 Tablet (of 300 mg) Capsule Oral at bedtime, Letrozole (2.5 mg) Tablet Oral daily, Magnesium (250 mg) Tablet Oral daily, Potassium Chloride Crystals daily, Prochlorperazine Maleate 1 Tablet (of 10 mg) Oral PRN, Zofran 1 Tablet (of 8 mg) Oral PRN Allergies: sulfa Vital Signs: Performed on Dec 23, 2021 10:35 Height - 64.00 in Weight - 174.2 lbs (LOW) BSA - 1.84 sq.m BMI - 29.90 Temperature - 97.4 F (LOW) Pulse - 83 /min Respiration - 16 /min BP - 159/84 mm(hg) (HIGH) O2 Sat - 95 % (LOW) Pain - 0 Fatigue - 2 Physical Examination: Constitutional - She looks pretty good generally, Eyes - Sclerae nonicteric. Conjunctivae clear, ENMT - No lesions noted in the oral cavity, Hematologic/Lymphatic - There are some tiny nodules palpable in the left supraclavicular fossa, Respiratory - Lungs sound clear with good air movement bilaterally, Cardiovascular - Heart rhythm is regular. There is no murmur, gallop, or rub noted, Breasts - There is blanching erythema over the left chest wall and extending into the left upper quadrant abdominal wall. There is a small area of eczematous change in the mid chest wall and there are multiple telangiectasias, but there are no suspicious chest wall lesions noted. There is no axillary adenopathy noted, Abdomen - Soft. Liver and spleen are not enlarged. There is no abdominal mass or ascites noted and there is no inguinal adenopathy, Extremities - There is mild lymphedema of the left arm. There is no associated erythema. There is no lower extremity edema, Neurologic - No focal neurologic deficits noted. Lab/Imaging: Test performed on Dec 23, 2021 09:20 Sodium 140 mmol/L Potassium 3.9 mmol/L Chloride 103 mmol/L CO2 25 mmol/L Anion Gap 15.9 BUN 11 mg/dL Creatinine 0.5 mg/dL Cr Clearance (Est) 134.4800 mL/min eGFR 122.7 mL/min Glucose 113 mg/dL Osmolality - Calculated 290 mOsm/kg Calcium 9.9 mg/dL Protein, Total 7.4 g/dL Albumin 4.3 g/dL Globulin 3.1 g/dL Bilirubin, Total 0.5 mg/dL ALT (SGPT) 65 U/L AST (SGOT) 53 U/L Alkaline Phosphatase 81 IU/L WBC 8.8 10 3/uL RBC 4.56 10 6/uL HGB 13.7 g/dL HCT 41.9 % MCV 91.9 fl MCH 30.0 pg MCHC 32.7 g/dL RDW 13.6 % Platelet Count 369 10 3/cmm MPV 10.9 fL Neutrophils 5.03 10 3/uL Lymphocytes 2.5 10 3/uL Monocytes 0.8 10 3/uL Eosinophils 0.4 10 3/uL Basophils 0.1 10 3/uL Neutrophil % 57.2 % Lymphocyte % 28.1 % Monocyte % 9.4 % Eosinophil % 4.1 % Basophils % 1.0 % NRBC % 0 % Problem List: 1. Grade 3 infiltrating ductal carcinoma of the left breast, ER positive/UT negative and HER-2/mary positive at initial diagnosis in October 2018. By clinical evaluation her disease was stage IIB (T2, N1, M0). Her initial treatment included neoadjuvant chemotherapy with 6 cycles of TCH-P followed by bilateral mastectomy/left axillary lymph node dissection and postop chest wall radiation and adjuvant hormonal therapy with letrozole in July 2017. 2. In October 2018 she had progression to stage IV (M1) with FDG avid left supraclavicular and left axillary lymph nodes by PET/CT and with biopsy-proven left supraclavicular lymph node involvement, deemed unresectable. Pathology showed metastatic breast cancer, ER/UT negative and HER-2/mary postive. Problems Addressed with this Encounter and Plan: 1. Patient with grade 3 infiltrating ductal carcinoma of the left breast, ER positive/UT negative and HER-2/mary positive at initial diagnosis in October 2018. By clinical evaluation her disease was stage IIB (T2, N1, M0). Her treatment included neoadjuvant chemotherapy with 6 cycles of TCH-P followed by bilateral mastectomy/left axillary lymph node dissection and postop chest wall radiation. She began adjuvant hormonal therapy with letrozole in July 2017. In October 2018 she had progression to stage IV (M1) with FDG avid left supraclavicular and left axillary lymph nodes by PET/CT and with biopsy-proven left supraclavicular lymph node involvement, deemed unresectable. Pathology showed metastatic breast cancer, ER/UT negative and HER-2/mary postive. She was then given further chemotherapy with 4 cycles of dose dense Adriamycin/cyclophosphamide followed by 4 cycles of q3 week Taxol/Herceptin, completed in March 2019. Restaging PET/CT on 03/09/2019 showed no evidence of metabolically active metastatic disease. She then began treatment with single agent Herceptin. As of December 2019 she had completed a full year of treatment. In November 2020 she was found on PET/CT and MRI to have further recurrence in the form of soft tissue metastatic lesions in the area of the left shoulder/scapula. With those findings she began treatment with Herceptin and a 3-week dosing interval together with letrozole 2.5 mg daily. As of 03/04/2021 she had completed her 5th cycle of Herceptin. Restaging PET/CT on 03/21/2021 showed hypermetabolic soft tissue nodularity in the left shoulder area, suspicious for metastatic involvement. Tiny peripheral nodules involving the upper lobes bilaterally were too small to characterize. A subtle focus of mild uptake was noted in the inferior endplate of the T2 vertebral body. Left upper chest punch biopsy on 03/27/2021 showed invasive carcinoma with morphologic and immunophenotypic profile compatible with breast primary. On 04/02/2021 she continue further palliative therapy with cycle 1 Taxol/Herceptin/Perjeta administered on a 3-week dosing schedule. Toxicities included musculoskeletal pain, fatigue, nausea, and peripheral neuropathy. She returned here for cycle 2 on 04/29/2021. Given the side effects she had experienced, I had opted to change to Taxol to weekly administration schedule. She had a severe anaphylactic type reaction to the Perjeta. She recovered with appropriate treatment measures. She went on to complete her 2nd cycle with Taxol/Herceptin administered weekly. She did require growth factor support with Neupogen. She then continued with cycle 3 on 05/22/2021, administered at a 3-week dosing schedule, and she tolerated it well, though she again required growth factor support with Neupogen. She continued with cycle 4 of Taxol/Herceptin on 06/10/2021, administered with Neulasta prophylactically. She again tolerated the treatment well, though she did require treatment with acyclovir for herpes zoster skin eruption in the lower thoracic/upper lumbar distribution on the right side. She then continued with cycle 5 on 07/01/2021 and with cycle 6 on 07/22/2021. Her restaging PET/CT on 08/08/2021 showed no areas of abnormal FDG uptake, consistent with complete response to treatment. With that finding, she was recommended to transition her treatment to Herceptin monotherapy. She also continued hormonal therapy with letrozole. Her repeat PET/CT on 11/21/2021 showed no hypermetabolic lymphadenopathy or other active metastatic disease. She received an additional infusion of Herceptin on 11/25/2021. It was recommended that she limit further treatment to hormonal therapy with letrozole, as she had completed a year of Herceptin therapy. At this point she appears to be doing well clinically. She has a new skin eruption on the left chest wall which extends into the left upper quadrant abdominal wall. It appears to be most consistent with cellulitis, and she will be given empiric antibiotic therapy with Levaquin. If it does not resolve, I will arrange for referral to a solar business developer. In the meantime, she continues letrozole 2.5 mg daily. 2. As of October 2021 she had developed mild transaminitis. Her comprehensive metabolic profile today shows just slightly elevated SGOT and SGPT levels. I will continue to monitor this monthly. Signed By: Salvador Oconnell M.D. <<Signature on File>>
== END 2021-12-30 23:59 | disposition home or self-care (01) ==
LOC: ONCMED 09:09
PROVIDERS: PCP Family Medicine; Visit Provider Internal Medicine Medical Oncology
DX: C50.812 Malignant neoplasm of overlapping sites of left female breast (principal); Z17.0 Estrogen receptor positive status [ER+]; Z90.13 Acquired absence of bilateral breasts and nipples; C77.8 Secondary and unspecified malignant neoplasm of lymph nodes of multiple regions; Z79.818 Long term (current) use of other agents affecting estrogen receptors and estrogen levels; Z92.21 Personal history of antineoplastic chemotherapy; Z79.899 Other long term (current) drug therapy
CPT/HCPCS: 36591; 80053; 85025; 99214

== ENCOUNTER 2022-01-27 11:47 | Outpatient (RCR) | payer MEDICARE, BC, SELFPAY ==
[2022-01-27 12:14] LABS: Basophils # 0.1 10^3/uL (0.0-0.1); Eosinophils # 0.2 10^3/uL (0.0-0.8); Eosinophils % 2.7 %; Hematocrit 42.9 % (37.0-47.0); Lymphocytes # 2.9 10^3/uL (0.8-4.8); Lymphocytes % 34.7 %; Mean Corpuscular HGB Conc 32.6 g/dL (30.0-36.0); Mean Corpuscular Hemoglobin 30.5 pg (28.0-34.0); Mean Corpuscular Volume 93.5 fl (81-99); Mean Platelet Volume 10.4 fL (7.4-10.4); Monocytes # 0.8 10^3/uL (0.2-0.9); Monocytes % 9.9 %; Neutrophils # 4.27 10^3/uL (1.8-7.7); Neutrophils % 51.5 %; Nucleated Red Blood Cells % 0 %; Platelet Count 402 10^3/cmm (130-400); Red Blood Count 4.59 10^6/uL (4.1-5.3); Red Cell Distribution Width 12.9 % (12.1-15.1); White Blood Count 8.3 10^3/uL (4.0-10.0)
[2022-01-27 12:50] LABS: Alanine Aminotransferase 51 U/L (0-33); Albumin Level 4.3 g/dL (3.5-5.2); Alkaline Phosphatase 69 IU/L (35-105); Anion Gap 15.7 (5-19); Aspartate Amino Transferase 48 U/L (0-32); Blood Urea Nitrogen 6 mg/dL (8-23); Calcium 10.1 mg/dL (8.5-10.5); Carbon Dioxide 25 mmol/L (22-29); Chloride 99 mmol/L (98-107); Globulin 2.7 g/dL (1.3-4.6); Glomerular Filtration Rate 99.4 mL/min (90-130); Glucose 110 mg/dL (65-115); Osmolality Calculated 280 mOsm/kg (285-295); Potassium 3.7 mmol/L (3.5-5.1); Sodium 136 mmol/L (136-145); Total Bilirubin 0.6 mg/dL (0.15-1.2)
--- NOTE | 2022-01-27 16:51 | ONC FU_ITS ---
Dr. Oconnell Patient Follow-Up Note Patient: Татьяна Morris Unit #: [id number]: 1955 Dicatated By: Salvador Oconnell M.D.Date of Visit:Jan 27, 2022 Onc Med Follow-up/Prog Note Chief Complaint: Breast cancer. History of Present Illness: This is a 66 year-old woman with grade 3 infiltrating ductal carcinoma of the left breast, ER positive/SC negative and HER-2/mary positive, by clinical evaluation stage IIB (T2, N1, M0) at initial diagnosis in October 2016. She had subsequent progression to stage IV (M1), with biopsy-proven recurrence in left supraclavicular lymph nodes. She had presented in September 2016 with palpable mass in the left breast. Mammogram showed a 2.7 cm mass in the deep central portion of the left breast with questionable left axillary lymphadenopathy. Ultrasound confirmed a 2.8 cm breast mass with involved axillary lymph nodes. Biopsy of the breast mass showed grade 3 infiltrating ductal carcinoma which was ER positive/SC negative and HER-2/mary positive. Left axillary lymph node biopsy also was positive. She was then given neoadjuvant chemotherapy with 6 cycles of TCH-P from November 2016 through January 2017. 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 She underwent bilateral mastectomy with left axillary lymph node dissection on 04/01/2017. Pathology showed residual tumor in the breast measuring 0.3 cm and involvement in 1/13 lymph nodes. She was given postoperative chest wall radiation, and she then began adjuvant hormonal therapy with letrozole in July 2017. In October 2018 she was noted to have a left supraclavicular lymph node, and a subsequent PET/CT showed a large left axillary and supraclavicular lymphadenopathy. There was no evidence of other metastatic disease. Excisional biopsy of the left subclavicular lymph node showed metastatic breast cancer, ER/SC negative and HER-2/mary positive. In November 2018 she began further chemotherapy with 4 cycles of dose dense Adriamycin/cyclophosphamide followed by q3 week Taxol/Herceptin. In March 2019, following completion of her 4th cycle of Taxol/Herceptin, she began treatment with single agent Herceptin for 1 year. Her restaging PET/CT on 03/09/2019 showed decrease in size and resolution of FDG activity of the left supraclavicular and left axillary lymph nodes. There was no evidence of metabolically active disease on that study. She was seen here initially in July 2019, as she was planning to relocate to this area from [place]. However, she did opt to continue her treatment with single agent Herceptin in [place]. She completed her full year of treatment in December 2019. Her restaging PET/CT on 04/26/2020 showed a small focus of hyper metabolic activity in the soft tissues along the lateral margin of the left scapula, maximum SUV 2. Her repeat PET/CT on 11/15/2020 again showed mild hypermetabolic activity adjacent to the left subscapularis muscle. Further evaluation with MRI on 11/28/2020 showed an ill-defined high T2 signal and enhancement involving the superficial fascia and adjacent muscle belly at the site of previously identified hypermetabolic activity along the superficial fascia of the subscapularis. It measured 18 x 15 x 17 mm. An additional focus of hyperenhancement and high T2 signal was noted at the lower margin of the scapula measuring 9 x 20 x 18 mm. This appeared consistent with soft tissue metastasis. In the supraclavicular region there were sites of nodularity likely representing lymph nodes or soft tissue implants which were noted to show enhancement and high T2 signal. These measured in the range of 8 to 9 mm. An additional nonspecific focus of nodularity was noted along the anterior margin of the deltoid muscle belly measuring 8 mm. In December 2020 she began on treatment with Herceptin at a 3-week dosing interval together with letrozole 2.5 mg daily. As of 03/04/2021 she had completed her 5th cycle of Herceptin on a 3-week dosing schedule. Her restaging PET/CT on 03/21/2021 showed small hypermetabolic nodular foci around the left shoulder girdle musculature including a lesion along the deep margin of the subscapularis muscle, maximum SUV 3.6, presumed to be metastatic foci. Minimal peripheral nodularity involving the upper lobe lungs bilaterally were too small to characterize by PET. A subtle small focus of relative hypermetabolic activity was noted along the inferior endplate of the T2 vertebral body to the left of the midline, maximum SUV 3.1. Left upper chest punch biopsy on 03/27/2021 showed invasive carcinoma with morphologic and immunophenotypic profile compatible with breast primary. On 04/02/2021 she began further palliative treatment with cycle 1 of Taxol/Herceptin/Perjeta administered at a 3-week dosing interval. She has no medical illnesses other than the breast cancer. Her baseline DEXA scan in 2016 reportedly showed evidence of osteopenia. Her only other surgery was a cholecystectomy in 1971. She is a nonsmoker. INTERIM HISTORY: On 04/29/2021 she returned here for cycle 2 of Taxol/Herceptin/Perjeta. She has experienced significant side effects with the 1st cycle, including nausea, fatigue, musculoskeletal pain, and neuropathy. As such, I opted to try administering the Taxol weekly. That treatment was complicated by severe anaphylactic type reaction to the Perjeta. She recovered with appropriate treatment measures, and the following day she returned to begin weekly Taxol/Herceptin. She tolerated it well, and she continued with her week 2 treatment on 05/07/2021. Her week 3 treatment was then deferred due to neutropenia, ANC 700. She recovered uneventfully with Neupogen. She was then seen for follow-up on 05/20/2021. At that point she proceeded with cycle 3 of Taxol/Herceptin. She opted to go back to the 3-week dosing schedule. She was neutropenic at day 15 with ANC 680. She again recovered uneventfully with Neupogen, and she continued with cycle 4 on 06/10/2021, administered with Neulasta prophylactically. Her further clinical course was complicated by development of a herpes zoster skin eruption on her right lower back, treated with acyclovir. She then continued with cycle 5 of Taxol/Herceptin on 07/01/2021 and with cycle 6 on 07/22/2021. She then had followup with Dr. Solomon Edmonds in [facility] and her repeat PET/CT on 08/08/2021 showed no areas of abnormal uptake. There was resolution of hypermetabolic metastatic nodularity involving the left shoulder musculature and resolution of hypermetabolic uptake within the T2 vertebral body. FDG negative sclerotic focus within the T2 vertebral body appeared consistent with treated metastatic disease. Also noted was resolution of previously seen small pulmonary nodules. Her echocardiogram showed normal left ventricular systolic function with ejection fraction 56%. At that point her treatment was transitioned to Herceptin monotherapy, though she also continued hormonal therapy with letrozole 2.5 mg daily. At her follow-up visit with Dr. Montemayor in November 2021, her restaging PET/CT showed no hypermetabolic lymphadenopathy or metabolically active metastatic disease. She did receive another infusion of Herceptin on 11/25/2021, but at that point it was recommended that her further treatment be limited to hormonal therapy with letrozole, as she had completed a year of Herceptin therapy. As of her follow-up visit on 12/23/2021 she developed a new skin eruption on the left chest wall and left upper quadrant abdominal wall. The appearance initially was suspicious for cellulitis. However, it continued to worsen. She then had dermatology consultation with Dr. 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 The tumor was reported to be ER positive (50% weak positivity) and SC positive (25% strong expression). A HER-2/mary study has been requested, but those results are not yet available. She is seen for a follow-up visit. She says she feels pretty good, though she does have somewhat limited activity. ECOG score is 1. Appetite is so-so. She does not have fever, night sweats, or hot flashes. Her main complaint is that her left chest wall is very itchy. She is getting some benefit with topical triamcinolone ointment. She has not had sore mouth or throat. She has occasional cough associated with a tickle in her throat. She does not complain of shortness of breath or chest pain. She has been a little more nauseated. Her acid reflux is adequately managed with cimetidine. Bowel and bladder function has been okay. She has no significant joint or bone pain. She does not complain of headache or dizziness. She says her neuropathy is the same. Medications: Cimetidine (200 mg) Tablet Oral daily, Gabapentin 1 Tablet (of 300 mg) Capsule Oral at bedtime, Letrozole (2.5 mg) Tablet Oral daily, Magnesium (250 mg) Tablet Oral daily, Mupirocin Ointment Topical PRN, Potassium Chloride Crystals daily, Prochlorperazine Maleate 1 Tablet (of 10 mg) Oral PRN, Triamcinolone Acetonide Cream Topical PRN, Zofran 1 Tablet (of 8 mg) Oral PRN Allergies: sulfa Vital Signs: Performed on Jan 27, 2022 14:16 Height - 64.00 in Weight - 175.4 lbs (HIGH) BSA - 1.85 sq.m BMI - 30.11 (HIGH) Temperature - 98.1 F (LOW) Pulse - 118 /min (HIGH) Respiration - 18 /min BP - 143/79 mm(hg) (HIGH) O2 Sat - 96 % Pain - 0 Fatigue - 2 Physical Examination: Constitutional - She looks pretty good generally, Eyes - Sclerae nonicteric. Conjunctivae clear, ENMT - No lesions noted in the oral cavity, Hematologic/Lymphatic - There are some tiny nodules palpable in the left supraclavicular fossa, unchanged, Respiratory - Lungs sound clear with good air movement bilaterally, Cardiovascular - Heart rhythm is regular. There is no murmur, gallop, or rub noted, Breasts - There is an extensive erythematous eruption over the left chest wall extending to the left upper quadrant abdominal wall. The appearance has changed in that it is more darkly erythematous now, nonblanching, and slightly raised/palpable. There is no axillary adenopathy noted, Abdomen - Soft. Liver and spleen are not enlarged. There is no abdominal mass or ascites noted and there is no inguinal adenopathy, Extremities - There is mild lymphedema of the left arm. There is no lower extremity edema, Neurologic - No focal neurologic deficits noted. Lab/Imaging: Test performed on Jan 27, 2022 12:04 Sodium 136 mmol/L Potassium 3.7 mmol/L Chloride 99 mmol/L CO2 25 mmol/L Anion Gap 15.7 BUN 6 mg/dL Creatinine 0.6 mg/dL Cr Clearance (Est) 112.0700 mL/min eGFR 99.4 mL/min Glucose 110 mg/dL Osmolality - Calculated 280 mOsm/kg Calcium 10.1 mg/dL Protein, Total 7.0 g/dL Albumin 4.3 g/dL Globulin 2.7 g/dL Bilirubin, Total 0.6 mg/dL ALT (SGPT) 51 U/L AST (SGOT) 48 U/L Alkaline Phosphatase 69 IU/L WBC 8.3 10 3/uL RBC 4.59 10 6/uL HGB 14.0 g/dL HCT 42.9 % MCV 93.5 fl MCH 30.5 pg MCHC 32.6 g/dL RDW 12.9 % Platelet Count 402 10 3/cmm MPV 10.4 fL Neutrophils 4.27 10 3/uL Lymphocytes 2.9 10 3/uL Monocytes 0.8 10 3/uL Eosinophils 0.2 10 3/uL Basophils 0.1 10 3/uL Neutrophil % 51.5 % Lymphocyte % 34.7 % Monocyte % 9.9 % Eosinophil % 2.7 % Basophils % 1.0 % NRBC % 0 % Problem List: 1. Grade 3 infiltrating ductal carcinoma of the left breast, ER positive/SC negative and HER-2/mary positive at initial diagnosis in October 2018. By clinical evaluation her disease was stage IIB (T2, N1, M0). Her initial treatment included neoadjuvant chemotherapy with 6 cycles of TCH-P followed by bilateral mastectomy/left axillary lymph node dissection and postop chest wall radiation and adjuvant hormonal therapy with letrozole in July 2017. 2. In October 2018 she had progression to stage IV (M1) with FDG avid left supraclavicular and left axillary lymph nodes by PET/CT and with biopsy-proven left supraclavicular lymph node involvement, deemed unresectable. Pathology showed metastatic breast cancer, ER/SC negative and HER-2/mary postive. Problems Addressed with this Encounter and Plan: 1. Patient with grade 3 infiltrating ductal carcinoma of the left breast, ER positive/SC negative and HER-2/mary positive at initial diagnosis in October 2018. By clinical evaluation her disease was stage IIB (T2, N1, M0). Her treatment included neoadjuvant chemotherapy with 6 cycles of TCH-P followed by bilateral mastectomy/left axillary lymph node dissection and postop chest wall radiation. She began adjuvant hormonal therapy with letrozole in July 2017. In October 2018 she had progression to stage IV (M1) with FDG avid left supraclavicular and left axillary lymph nodes by PET/CT and with biopsy-proven left supraclavicular lymph node involvement, deemed unresectable. Pathology showed metastatic breast cancer, ER/SC negative and HER-2/mary postive. She was then given further chemotherapy with 4 cycles of dose dense Adriamycin/cyclophosphamide followed by 4 cycles of q3 week Taxol/Herceptin, completed in March 2019. Restaging PET/CT on 03/09/2019 showed no evidence of metabolically active metastatic disease. She then began treatment with single agent Herceptin. As of December 2019 she had completed a full year of treatment. In November 2020 she was found on PET/CT and MRI to have further recurrence in the form of soft tissue metastatic lesions in the area of the left shoulder/scapula. With those findings she began treatment with Herceptin and a 3-week dosing interval together with letrozole 2.5 mg daily. As of 03/04/2021 she had completed her 5th cycle of Herceptin. Restaging PET/CT on 03/21/2021 showed hypermetabolic soft tissue nodularity in the left shoulder area, suspicious for metastatic involvement. Tiny peripheral nodules involving the upper lobes bilaterally were too small to characterize. A subtle focus of mild uptake was noted in the inferior endplate of the T2 vertebral body. Left upper chest punch biopsy on 03/27/2021 showed invasive carcinoma with morphologic and immunophenotypic profile compatible with breast primary. On 04/02/2021 she continue further palliative therapy with cycle 1 Taxol/Herceptin/Perjeta administered on a 3-week dosing schedule. Toxicities included musculoskeletal pain, fatigue, nausea, and peripheral neuropathy. She returned here for cycle 2 on 04/29/2021. Given the side effects she had experienced, I had opted to change to Taxol to weekly administration schedule. She had a severe anaphylactic type reaction to the Perjeta. She recovered with appropriate treatment measures. She went on to complete her 2nd cycle with Taxol/Herceptin administered weekly. She did require growth factor support with Neupogen. She then continued with cycle 3 on 05/22/2021, administered at a 3-week dosing schedule, and she tolerated it well, though she again required growth factor support with Neupogen. She continued with cycle 4 of Taxol/Herceptin on 06/10/2021, administered with Neulasta prophylactically. She again tolerated the treatment well, though she did require treatment with acyclovir for herpes zoster skin eruption in the lower thoracic/upper lumbar distribution on the right side. She then continued with cycle 5 on 07/01/2021 and with cycle 6 on 07/22/2021. Her restaging PET/CT on 08/08/2021 showed no areas of abnormal FDG uptake, consistent with complete response to treatment. With that finding, she was recommended to transition her treatment to Herceptin monotherapy. She also continued hormonal therapy with letrozole. Her repeat PET/CT on 11/21/2021 showed no hypermetabolic lymphadenopathy or other active metastatic disease. She received an additional infusion of Herceptin on 11/25/2021. It was recommended that she limit further treatment to hormonal therapy with letrozole, as she had completed a year of Herceptin therapy. At her follow-up visit on 12/23/2021 she had presented with a new skin eruption left chest wall and upper abdominal wall. This is now confirmed to be recurrent/metastatic breast cancer, ER/SC positive. A HER-2/mary study on the biopsy has been requested, but the results are still pending. Her treatment currently remains on hold pending outcome of that study. If it is HER-2/mary positive, she will most likely proceed to second line treatment with trastuzumab deruxtecan. I will, however, wait for recommendations from Dr. Edmonds. In the meantime, she will be given a prescription for prednisone to try and help with the itching. Signed By: Salvador Oconnell M.D. <<Signature on File>>
== END 2022-01-30 23:59 | disposition home or self-care (01) ==
LOC: ONCMED 11:47
PROVIDERS: PCP Family Medicine; Visit Provider Internal Medicine Medical Oncology
DX: C50.812 Malignant neoplasm of overlapping sites of left female breast (principal); C50.811 Malignant neoplasm of overlapping sites of right female breast; Z17.0 Estrogen receptor positive status [ER+]; Z90.13 Acquired absence of bilateral breasts and nipples; Z79.52 Long term (current) use of systemic steroids; Z79.818 Long term (current) use of other agents affecting estrogen receptors and estrogen levels; Z92.21 Personal history of antineoplastic chemotherapy; Z92.3 Personal history of irradiation
CPT/HCPCS: 36591; 80053; 85025; 99214

== ENCOUNTER → 2022-03-25 10:04 | Outpatient (BNVA) | payer MEDICARE, BC, SELFPAY | PROVIDERS: PCP Family Medicine; Visit Provider Emergency Medicine | DX: I96 Gangrene, not elsewhere classified (principal); L98.492 Non-pressure chronic ulcer of skin of other sites with fat layer exposed | CPT/HCPCS: 11043; 11046; 99202; 99212 ==

== ENCOUNTER → 2022-04-01 09:02 | Outpatient (BNVA) | payer MEDICARE, BC, SELFPAY | PROVIDERS: PCP Family Medicine; Visit Provider Nurse Practitioner Family | DX: I96 Gangrene, not elsewhere classified (principal); L98.492 Non-pressure chronic ulcer of skin of other sites with fat layer exposed | CPT/HCPCS: 11042; 11045; 87070; 87077; 87176; 87186; 87205 ==

== ENCOUNTER → 2022-04-08 08:58 | Outpatient (BNVA) | payer MEDICARE, BC, SELFPAY | PROVIDERS: PCP Family Medicine; Visit Provider Nurse Practitioner Family | DX: I96 Gangrene, not elsewhere classified (principal); T81.89XA Other complications of procedures, not elsewhere classified, initial encounter; Y83.8 Other surgical procedures as the cause of abnormal reaction of the patient, or of later complication, without mention of misadventure at the time of the procedure | CPT/HCPCS: 99213; A6197 ==

== ENCOUNTER 2022-04-14 08:32 | Oncology outpatient (recurring) (ONCR) | payer MEDICARE, BC, SELFPAY ==
[2022-04-14] MEDS: alteplase 1 mg/mL SDV 2 mL 2 MG INTRACATH (08:56)
[2022-04-14 09:11] LABS: Basophils # 0.2 10^3/uL (0.0-0.1); Basophils % 2.1 %; Eosinophils # 0.2 10^3/uL (0.0-0.8); Eosinophils % 2.3 %; Hematocrit 42.2 % (37.0-47.0); Lymphocytes # 2.3 10^3/uL (0.8-4.8); Lymphocytes % 26.7 %; Mean Corpuscular HGB Conc 33.2 g/dL (30.0-36.0); Mean Corpuscular Hemoglobin 30.8 pg (28.0-34.0); Mean Platelet Volume 9.5 fL (7.4-10.4); Monocytes # 1.5 10^3/uL (0.2-0.9); Monocytes % 16.6 %; Neutrophils # 4.51 10^3/uL (1.8-7.7); Neutrophils % 51.7 %; Nucleated Red Blood Cells % 0 %; Platelet Count 633 10^3/cmm (130-400); Red Blood Count 4.54 10^6/uL (4.1-5.3); Red Cell Distribution Width 14.3 % (12.1-15.1); White Blood Count 8.7 10^3/uL (4.0-10.0)
[2022-04-14 09:26] LABS: Alanine Aminotransferase 19 U/L (0-33); Albumin Level 3.5 g/dL (3.5-5.2); Alkaline Phosphatase 69 IU/L (35-105); Blood Urea Nitrogen 6 mg/dL (8-23); Calcium 9.3 mg/dL (8.5-10.5); Carbon Dioxide 29 mmol/L (22-29); Chloride 101 mmol/L (98-107); Glomerular Filtration Rate 122.3 mL/min (90-130); Glucose 106 mg/dL (65-115); Osmolality Calculated 290 mOsm/kg (285-295); Sodium 141 mmol/L (136-145); Total Bilirubin 0.3 mg/dL (0.15-1.2); Total Protein 6.5 g/dL (6.6-8.7)
[2022-04-14 09:28] LABS: Anion Gap 15.7 (5-19); Aspartate Amino Transferase 48 U/L (0-32); Potassium 4.7 mmol/L (3.5-5.1)
[2022-04-14] MEDS: dextrose 5% 250 ML 75 ML IV (11:01)
[2022-04-14] MEDS: palonosetron 0.25 mg/5 mL SDV IVP (11:01)
[2022-04-14] MEDS: DEXTROSE 5% IV (11:31)
[2022-04-14] MEDS: [UNRECOGNIZED DRUG - OTHER] IV (11:31)
[2022-04-14 13:09] VITALS: BP 126/77; PULSE 79; RESP 16; TEMP 36.2; O2SAT 94
== END 2022-04-18 10:04 | disposition home or self-care (01) ==
PROVIDERS: PCP Family Medicine; Visit Provider Internal Medicine Medical Oncology
DX: Z51.12 Encounter for antineoplastic immunotherapy (principal); C50.812 Malignant neoplasm of overlapping sites of left female breast; Z17.0 Estrogen receptor positive status [ER+]; C77.8 Secondary and unspecified malignant neoplasm of lymph nodes of multiple regions; C79.51 Secondary malignant neoplasm of bone; C79.89 Secondary malignant neoplasm of other specified sites; Z79.818 Long term (current) use of other agents affecting estrogen receptors and estrogen levels; Z79.899 Other long term (current) drug therapy
CPT/HCPCS: 36593; 80053; 85025; 96367; 96375; 96413; 96415; 99215; J1100; J2469; J2997; J9358

== ENCOUNTER 2022-04-28 10:30 | Oncology outpatient (recurring) (ONCR) | payer MEDICARE, BC, SELFPAY ==
[2022-04-21 10:49] VITALS: BP 119/75; PULSE 102; RESP 18; TEMP 35.9; O2SAT 95
[2022-04-21 11:26] LABS: Alanine Aminotransferase 59 U/L (0-33); Albumin Level 3.6 g/dL (3.5-5.2); Alkaline Phosphatase 78 IU/L (35-105); Anion Gap 16.4 (5-19); Aspartate Amino Transferase 103 U/L (0-32); Blood Urea Nitrogen 7 mg/dL (8-23); Calcium 9.4 mg/dL (8.5-10.5); Carbon Dioxide 25 mmol/L (22-29); Chloride 94 mmol/L (98-107); Glomerular Filtration Rate 99.1 mL/min (90-130); Glucose 125 mg/dL (65-115); Osmolality Calculated 273 mOsm/kg (285-295); Potassium 3.4 mmol/L (3.5-5.1); Sodium 132 mmol/L (136-145); Total Bilirubin 0.8 mg/dL (0.15-1.2); Total Protein 6.6 g/dL (6.6-8.7)
[2022-04-21 11:31] LABS: Basophils # 0.1 10^3/uL (0.0-0.1); Basophils % 0.7 %; Eosinophils # 0.3 10^3/uL (0.0-0.8); Eosinophils % 3.1 %; Hematocrit 40.8 % (37.0-47.0); Hemoglobin 13.8 g/dL (11.5-15.3); Lymphocytes # 1.2 10^3/uL (0.8-4.8); Lymphocytes % 12.4 %; Mean Corpuscular HGB Conc 33.8 g/dL (30.0-36.0); Mean Corpuscular Hemoglobin 30.7 pg (28.0-34.0); Mean Corpuscular Volume 90.7 fl (81-99); Mean Platelet Volume 10.7 fL (7.4-10.4); Monocytes # 0.5 10^3/uL (0.2-0.9); Monocytes % 4.8 %; Neutrophils % 78.5 %; Nucleated Red Blood Cells % 0 %; Platelet Count 244 10^3/cmm (130-400); Red Cell Distribution Width 13.4 % (12.1-15.1); White Blood Count 9.4 10^3/uL (4.0-10.0)
[2022-04-28 10:38] VITALS: BP 116/73; PULSE 91; RESP 16; TEMP 35.9; O2SAT 94
[2022-04-28] MEDS: alteplase 1 mg/mL SDV 2 mL 2 MG INTRACATH (10:57)
[2022-04-28 11:29] LABS: Basophils % 0.5 %; Eosinophils # 0.7 10^3/uL (0.0-0.8); Eosinophils % 8.1 %; Hematocrit 37.6 % (37.0-47.0); Hemoglobin 13.1 g/dL (11.5-15.3); Lymphocytes % 24.8 %; Mean Corpuscular HGB Conc 34.8 g/dL (30.0-36.0); Mean Corpuscular Hemoglobin 31.3 pg (28.0-34.0); Mean Platelet Volume 9.8 fL (7.4-10.4); Monocytes # 0.9 10^3/uL (0.2-0.9); Monocytes % 11.4 %; Neutrophils # 4.49 10^3/uL (1.8-7.7); Nucleated Red Blood Cells % 0 %; Platelet Count 605 10^3/cmm (130-400); Red Blood Count 4.18 10^6/uL (4.1-5.3); Red Cell Distribution Width 13.8 % (12.1-15.1); White Blood Count 8.2 10^3/uL (4.0-10.0)
[2022-04-28 11:36] LABS: Alanine Aminotransferase 39 U/L (0-33); Albumin Level 3.6 g/dL (3.5-5.2); Alkaline Phosphatase 72 IU/L (35-105); Anion Gap 15.2 (5-19); Aspartate Amino Transferase 77 U/L (0-32); Blood Urea Nitrogen 4 mg/dL (8-23); Calcium 8.9 mg/dL (8.5-10.5); Carbon Dioxide 29 mmol/L (22-29); Chloride 98 mmol/L (98-107); Glomerular Filtration Rate 122.3 mL/min (90-130); Glucose 148 mg/dL (65-115); Osmolality Calculated 288 mOsm/kg (285-295); Potassium 3.2 mmol/L (3.5-5.1); Sodium 139 mmol/L (136-145); Total Bilirubin 0.6 mg/dL (0.15-1.2); Total Protein 6.6 g/dL (6.6-8.7)
== END 2022-05-01 23:59 | disposition home or self-care (01) ==
PROVIDERS: PCP Family Medicine; Visit Provider Internal Medicine Medical Oncology
DX: C50.112 Malignant neoplasm of central portion of left female breast (principal); Z45.2 Encounter for adjustment and management of vascular access device
CPT/HCPCS: 36415; 36591; 36593; 80053; 85025; 96523; J2997

== ENCOUNTER 2022-05-27 09:00 | Oncology outpatient (recurring) (ONCR) | payer MEDICARE, BC, SELFPAY ==
[2022-05-06 09:07] LABS: Basophils # 0.1 10^3/uL (0.0-0.1); Basophils % 1.2 %; Eosinophils # 0.6 10^3/uL (0.0-0.8); Eosinophils % 7.9 %; Hematocrit 40.7 % (37.0-47.0); Hemoglobin 13.6 g/dL (11.5-15.3); Lymphocytes % 26.3 %; Mean Corpuscular HGB Conc 33.4 g/dL (30.0-36.0); Mean Corpuscular Hemoglobin 31.7 pg (28.0-34.0); Mean Corpuscular Volume 94.9 fl (81-99); Mean Platelet Volume 9.9 fL (7.4-10.4); Monocytes # 1.3 10^3/uL (0.2-0.9); Monocytes % 17.2 %; Neutrophils # 3.64 10^3/uL (1.8-7.7); Nucleated Red Blood Cells % 0 %; Platelet Count 631 10^3/cmm (130-400); Red Blood Count 4.29 10^6/uL (4.1-5.3); Red Cell Distribution Width 15.7 % (12.1-15.1); White Blood Count 7.7 10^3/uL (4.0-10.0)
[2022-05-06 09:28] LABS: Alanine Aminotransferase 20 U/L (0-33); Albumin Level 3.5 g/dL (3.5-5.2); Alkaline Phosphatase 80 IU/L (35-105); Anion Gap 16.4 (5-19); Aspartate Amino Transferase 42 U/L (0-32); Blood Urea Nitrogen 4 mg/dL (8-23); Calcium 9.1 mg/dL (8.5-10.5); Carbon Dioxide 27 mmol/L (22-29); Chloride 99 mmol/L (98-107); Globulin 2.8 g/dL (1.3-4.6); Glomerular Filtration Rate 122.3 mL/min (90-130); Glucose 159 mg/dL (65-115); Osmolality Calculated 288 mOsm/kg (285-295); Potassium 3.4 mmol/L (3.5-5.1); Sodium 139 mmol/L (136-145); Total Bilirubin 0.5 mg/dL (0.15-1.2); Total Protein 6.3 g/dL (6.6-8.7)
[2022-05-06] MEDS: dextrose 5% 250 ML 75 ML IV (11:04)
[2022-05-06] MEDS: palonosetron 0.25 mg/5 mL SDV IVP (11:07)
[2022-05-06 12:25] VITALS: BP 121/68; PULSE 86; RESP 16; TEMP 36.6; O2SAT 94
--- NOTE | 2022-05-15 12:43 | USCV_ITS ---
Татьяна Morris Age: 67 Gender: F : 1955 Exam Date: 05/15/2022 12:57 Ordering Phys: Salvador Oconnell MD Technologist: Exam Location: [facility] [place]_ Indication: high risk meds follow up BP: 126 / 74 HR: 155 Rhythm: Sinus Technical Quality: Adequate MEASUREMENTS (Male / Female) Normal Values 2D ECHO LV Diastolic Diameter PLAX 3.3 cm 4.2 - 5.9 / 3.9 - 5.3 cm LV Systolic Diameter PLAX 2.3 cm IVS Diastolic Thickness 1.1 cm 0.6 - 1.0 / 0.6 - 0.9 cm IVS Systolic Thickness 1.2 cm LVPW Diastolic Thickness 1.2 cm 0.6 - 1.0 / 0.6 - 0.9 cm LVPW Systolic Thickness 1.1 cm LVOT Diameter 2.0 cm LV Ejection Fraction 2D Teich 62.1 % LV Ejection Fraction MOD 2C 62.7 % LV Ejection Fraction 2C AL 63.8 % LA Diameter 3.1 cm Aorta at Sinotubular Diameter 2.5 cm M-MODE Aortic Annulus Diameter 2.7 cm LA Ao Ratio MM 1.3 MV E Point Septal Separation 1.0 cm FINDINGS Left Ventricle Normal left ventricular size and systolic function, EF 64 %. No regional wall motion abnormalities. Right Ventricle Possibly of normal size Right Atrium Possibly of normal size Left Atrium Possibly of normal size Mitral Valve No gross abnormalities noted Aortic Valve No gross abnormalities noted Tricuspid Valve Tricuspid valve not well visualized. Pulmonic Valve Pulmonic valve not well visualized. Pericardium No pericardial effusion. Aorta Normal aortic annulus size. IVC Normal inferior vena cava. CONCLUSIONS Normal left ventricular size and systolic function, EF 64 %. No regional wall motion abnormalities. Possibly normal cardiac chamber sizes. No significant stenotic or regurgitant lesions. There is no pericardial effusion. There are no intracardiac masses. Dr Roldan Sierra MD FAC (Electronically Signed) Final Date: 15 May 2022 23:15 S
[2022-05-27] MEDS: alteplase 1 mg/mL SDV 2 mL 2 MG INTRACATH (09:15)
[2022-05-27 09:44] LABS: Basophils # 0.1 10^3/uL (0.0-0.1); Basophils % 2.3 %; Eosinophils # 0.5 10^3/uL (0.0-0.8); Eosinophils % 8.2 %; Hematocrit 38.6 % (37.0-47.0); Hemoglobin 12.6 g/dL (11.5-15.3); Lymphocytes # 1.5 10^3/uL (0.8-4.8); Mean Corpuscular HGB Conc 32.6 g/dL (30.0-36.0); Mean Corpuscular Hemoglobin 32.6 pg (28.0-34.0); Mean Platelet Volume 10.5 fL (7.4-10.4); Monocytes # 1.1 10^3/uL (0.2-0.9); Monocytes % 20.3 %; Neutrophils # 2.42 10^3/uL (1.8-7.7); Nucleated Red Blood Cells % 0 %; Platelet Count 530 10^3/cmm (130-400); Red Blood Count 3.86 10^6/uL (4.1-5.3); Red Cell Distribution Width 15.9 % (12.1-15.1); White Blood Count 5.6 10^3/uL (4.0-10.0)
[2022-05-27 10:13] LABS: Alanine Aminotransferase 20 U/L (0-33); Albumin Level 3.6 g/dL (3.5-5.2); Alkaline Phosphatase 83 IU/L (35-105); Anion Gap 12.7 (5-19); Aspartate Amino Transferase 36 U/L (0-32); Blood Urea Nitrogen 3 mg/dL (8-23); Calcium 9.5 mg/dL (8.5-10.5); Carbon Dioxide 32 mmol/L (22-29); Chloride 98 mmol/L (98-107); Globulin 2.5 g/dL (1.3-4.6); Glomerular Filtration Rate 99.1 mL/min (90-130); Glucose 117 mg/dL (65-115); Osmolality Calculated 286 mOsm/kg (285-295); Potassium 3.7 mmol/L (3.5-5.1); Sodium 139 mmol/L (136-145); Total Bilirubin 0.8 mg/dL (0.15-1.2); Total Protein 6.1 g/dL (6.6-8.7)
[2022-05-27] MEDS: dextrose 5% 250 ML 75 ML IV (11:45)
[2022-05-27] MEDS: palonosetron 0.25 mg/5 mL SDV IVP (11:49)
[2022-05-27 13:00] VITALS: BP 118/71; PULSE 79; RESP 16; TEMP 35.9; O2SAT 94
== END 2022-05-28 11:24 | disposition home or self-care (01) ==
PROVIDERS: PCP Family Medicine; Visit Provider Internal Medicine Medical Oncology
DX: Z51.11 Encounter for antineoplastic chemotherapy (principal); C77.0 Secondary and unspecified malignant neoplasm of lymph nodes of head, face and neck; C50.112 Malignant neoplasm of central portion of left female breast; Z79.52 Long term (current) use of systemic steroids
CPT/HCPCS: 36593; 80053; 85025; 93308; 96367; 96375; 96413; 99215; J1100; J2469; J2997; J9358

== ENCOUNTER 2022-07-08 08:00 | Oncology outpatient (recurring) (ONCR) | payer MEDICARE, BC, SELFPAY ==
[2022-07-08 08:59] LABS: Basophils # 0.2 10^3/uL (0.0-0.1); Basophils % 2.6 %; Eosinophils # 0.4 10^3/uL (0.0-0.8); Eosinophils % 6.3 %; Hematocrit 38.4 % (37.0-47.0); Hemoglobin 12.8 g/dL (11.5-15.3); Lymphocytes # 1.8 10^3/uL (0.8-4.8); Lymphocytes % 26.9 %; Mean Corpuscular HGB Conc 33.3 g/dL (30.0-36.0); Mean Corpuscular Hemoglobin 33.4 pg (28.0-34.0); Mean Corpuscular Volume 100.3 fl (81-99); Mean Platelet Volume 9.9 fL (7.4-10.4); Monocytes # 1.6 10^3/uL (0.2-0.9); Monocytes % 23.6 %; Neutrophils # 2.67 10^3/uL (1.8-7.7); Neutrophils % 40.3 %; Nucleated Red Blood Cells % 0 %; Platelet Count 503 10^3/cmm (130-400); Red Blood Count 3.83 10^6/uL (4.1-5.3); Red Cell Distribution Width 18.1 % (12.1-15.1); White Blood Count 6.6 10^3/uL (4.0-10.0)
[2022-07-08] MEDS: alteplase 1 mg/mL SDV 2 mL 2 MG INTRACATH (09:04)
[2022-07-08 09:28] LABS: Alanine Aminotransferase 14 U/L (0-33); Albumin Level 3.2 g/dL (3.5-5.2); Alkaline Phosphatase 128 U/L (35-105); Anion Gap 14.9 (5-19); Aspartate Amino Transferase 46 U/L (0-32); Blood Urea Nitrogen 4 mg/dL (8-23); Calcium 8.5 mg/dL (8.5-10.5); Carbon Dioxide 29 mmol/L (22-29); Chloride 101 mmol/L (98-107); Globulin 2.4 g/dL (1.3-4.6); Glomerular Filtration Rate 158.3 mL/min (90-130); Glucose 101 mg/dL (65-115); Osmolality Calculated 291 mOsm/kg (285-295); Sodium 142 mmol/L (136-145); Total Bilirubin 0.9 mg/dL (0.15-1.2); Total Protein 5.6 g/dL (6.6-8.7)
[2022-07-08 09:48] LABS: Potassium 2.9 mmol/L (3.5-5.1)
[2022-07-08] MEDS: dextrose 5% 250 ML 100 ML IV (10:10)
[2022-07-08] MEDS: palonosetron 0.25 mg/5 mL SDV IVP (10:11)
[2022-07-08] MEDS: [UNRECOGNIZED DRUG - OTHER] IV (11:13)
[2022-07-08] MEDS: DEXTROSE 5% IV (11:13)
[2022-07-08] MEDS: potassium chloride premix 100 ML 50 MEQ IV (11:49)
[2022-07-08 14:26] VITALS: BP 114/67; PULSE 92; RESP 16; TEMP 36.3; O2SAT 94
[2022-07-08 14:38] LABS: Magnesium 1.2 mg/dL (1.7-2.3)
== END 2022-07-09 09:49 | disposition home or self-care (01) ==
PROVIDERS: Nurse Practitioner; PCP Family Medicine; Visit Provider Internal Medicine Medical Oncology
DX: C77.0 Secondary and unspecified malignant neoplasm of lymph nodes of head, face and neck (principal); C50.112 Malignant neoplasm of central portion of left female breast; Z51.12 Encounter for antineoplastic immunotherapy; C50.812 Malignant neoplasm of overlapping sites of left female breast; Z17.0 Estrogen receptor positive status [ER+]; C77.8 Secondary and unspecified malignant neoplasm of lymph nodes of multiple regions; C79.89 Secondary malignant neoplasm of other specified sites; Z79.818 Long term (current) use of other agents affecting estrogen receptors and estrogen levels; Z90.12 Acquired absence of left breast and nipple; E87.6 Hypokalemia; Z79.52 Long term (current) use of systemic steroids; Z79.899 Other long term (current) drug therapy
CPT/HCPCS: 36415; 80053; 83735; 85025; 96366; 96367; 96375; 96413; 99214; J1100; J2469; J2997; J3480; J9358

== ENCOUNTER 2022-07-29 08:09 | Oncology outpatient (recurring) (ONCR) | payer MEDICARE, BC, SELFPAY ==
[2022-07-29] MEDS: alteplase 1 mg/mL SDV 2 mL 2 MG INTRACATH (08:37)
[2022-07-29 09:10] LABS: Basophils # 0.2 10^3/uL (0.0-0.1); Basophils % 2.5 %; Eosinophils # 0.3 10^3/uL (0.0-0.8); Eosinophils % 5.2 %; Hemoglobin 12.7 g/dL (11.5-15.3); Lymphocytes # 1.8 10^3/uL (0.8-4.8); Mean Corpuscular HGB Conc 32.6 g/dL (30.0-36.0); Mean Corpuscular Hemoglobin 34.6 pg (28.0-34.0); Mean Corpuscular Volume 106.3 fl (81-99); Mean Platelet Volume 9.6 fL (7.4-10.4); Monocytes # 1.4 10^3/uL (0.2-0.9); Monocytes % 21.5 %; Neutrophils # 2.83 10^3/uL (1.8-7.7); Neutrophils % 43.5 %; Nucleated Red Blood Cells % 0 %; Platelet Count 561 10^3/cmm (130-400); Red Blood Count 3.67 10^6/uL (4.1-5.3); Red Cell Distribution Width 19.1 % (12.1-15.1); White Blood Count 6.5 10^3/uL (4.0-10.0)
[2022-07-29 09:24] LABS: Magnesium 1.4 mg/dL (1.7-2.3)
[2022-07-29 09:26] LABS: Alanine Aminotransferase 20 U/L (0-33); Alkaline Phosphatase 186 U/L (35-105); Anion Gap 17.7 (5-19); Aspartate Amino Transferase 57 U/L (0-32); Blood Urea Nitrogen 3 mg/dL (8-23); Calcium 9.2 mg/dL (8.5-10.5); Carbon Dioxide 22 mmol/L (22-29); Chloride 102 mmol/L (98-107); Globulin 2.9 g/dL (1.3-4.6); Glomerular Filtration Rate 122.3 mL/min (90-130); Glucose 118 mg/dL (65-115); Osmolality Calculated 284 mOsm/kg (285-295); Potassium 3.7 mmol/L (3.5-5.1); Sodium 138 mmol/L (136-145); Total Protein 5.9 g/dL (6.6-8.7)
[2022-07-29] MEDS: dextrose 5% 250 ML 75 ML IV (10:00)
[2022-07-29] MEDS: palonosetron 0.25 mg/5 mL SDV IVP (10:01)
[2022-07-29 11:08] VITALS: BP 110/67; PULSE 96; TEMP 36.6; O2SAT 94
== END 2022-08-01 23:59 | disposition home or self-care (01) ==
PROVIDERS: PCP Family Medicine; Visit Provider Internal Medicine Medical Oncology
DX: C77.0 Secondary and unspecified malignant neoplasm of lymph nodes of head, face and neck (principal); C50.112 Malignant neoplasm of central portion of left female breast; Z51.12 Encounter for antineoplastic immunotherapy; C50.812 Malignant neoplasm of overlapping sites of left female breast; Z17.0 Estrogen receptor positive status [ER+]; C77.8 Secondary and unspecified malignant neoplasm of lymph nodes of multiple regions; C79.89 Secondary malignant neoplasm of other specified sites; Z79.818 Long term (current) use of other agents affecting estrogen receptors and estrogen levels
CPT/HCPCS: 36593; 80053; 83735; 85025; 96367; 96375; 96413; 99214; J1100; J2469; J2997; J9358

== ENCOUNTER 2022-08-19 08:12 | Oncology outpatient (recurring) (ONCR) | payer MEDICARE, BC, SELFPAY ==
[2022-08-19] MEDS: alteplase 1 mg/mL SDV 2 mL 2 MG INTRACATH (08:43)
[2022-08-19 08:55] LABS: Basophils # 0.1 10^3/uL (0.0-0.1); Basophils % 1.3 %; Eosinophils # 0.4 10^3/uL (0.0-0.8); Eosinophils % 5.1 %; Hematocrit 33.8 % (37.0-47.0); Hemoglobin 11.7 g/dL (11.5-15.3); Lymphocytes # 2.3 10^3/uL (0.8-4.8); Lymphocytes % 31.2 %; Mean Corpuscular HGB Conc 34.6 g/dL (30.0-36.0); Mean Corpuscular Hemoglobin 36.2 pg (28.0-34.0); Mean Corpuscular Volume 104.6 fl (81-99); Mean Platelet Volume 9.6 fL (7.4-10.4); Monocytes # 1.6 10^3/uL (0.2-0.9); Monocytes % 21.7 %; Neutrophils # 3.03 10^3/uL (1.8-7.7); Neutrophils % 40.3 %; Nucleated Red Blood Cells % 0.3 %; Platelet Count 586 10^3/cmm (130-400); Red Blood Count 3.23 10^6/uL (4.1-5.3); White Blood Count 7.5 10^3/uL (4.0-10.0)
[2022-08-19 09:32] LABS: CA 15-3 49.6 U/mL (0-25)
[2022-08-19 09:46] LABS: Alanine Aminotransferase 15 U/L (0-33); Albumin Level 2.8 g/dL (3.5-5.2); Alkaline Phosphatase 156 U/L (35-105); Anion Gap 14.2 (5-19); Aspartate Amino Transferase 39 U/L (0-32); Blood Urea Nitrogen 4 mg/dL (8-23); Calcium 8.9 mg/dL (8.5-10.5); Carbon Dioxide 23 mmol/L (22-29); Chloride 102 mmol/L (98-107); Globulin 2.8 g/dL (1.3-4.6); Glomerular Filtration Rate 158.3 mL/min (90-130); Glucose 103 mg/dL (65-115); Osmolality Calculated 279 mOsm/kg (285-295); Potassium 3.2 mmol/L (3.5-5.1); Sodium 136 mmol/L (136-145); Total Bilirubin 1.2 mg/dL (0.15-1.2); Total Protein 5.6 g/dL (6.6-8.7)
[2022-08-19] MEDS: dextrose 5% 250 ML 75 ML IV (10:41)
[2022-08-19] MEDS: palonosetron 0.25 mg/5 mL SDV IVP (10:42)
[2022-08-19] MEDS: [UNRECOGNIZED DRUG - OTHER] IV (11:10)
[2022-08-19] MEDS: DEXTROSE 5% IV (11:10)
[2022-08-19 11:45] VITALS: BP 119/74; PULSE 85; RESP 16; TEMP 37.3; O2SAT 96
== END 2022-09-01 23:59 | disposition home or self-care (01) ==
PROVIDERS: PCP Family Medicine; Visit Provider Internal Medicine Medical Oncology
DX: Z51.11 Encounter for antineoplastic chemotherapy; C50.812 Malignant neoplasm of overlapping sites of left female breast; Z17.0 Estrogen receptor positive status [ER+]; Z90.13 Acquired absence of bilateral breasts and nipples; C77.8 Secondary and unspecified malignant neoplasm of lymph nodes of multiple regions; C79.89 Secondary malignant neoplasm of other specified sites; R53.0 Neoplastic (malignant) related fatigue; R63.0 Anorexia; Z68.26 Body mass index [BMI] 26.0-26.9, adult; Z79.899 Other long term (current) drug therapy
CPT/HCPCS: 80053; 85025; 86300; 96367; 96375; 96413; 99214; J1100; J2469; J2997; J9358

== ENCOUNTER 2022-09-10 10:00 | Oncology outpatient (recurring) (ONCR) | payer MEDICARE, BC, SELFPAY ==
[2022-09-03] MEDS: alteplase 1 mg/mL SDV 2 mL 2 MG INTRACATH ×2 (09:01→10:30)
[2022-09-03 09:23] VITALS: BP 108/65; PULSE 99; RESP 16; TEMP 36.7; O2SAT 94
[2022-09-03 10:52] LABS: Basophils % 0.6 %; Hematocrit 28.5 % (37.0-47.0); Hemoglobin 10.6 g/dL (11.5-15.3); Lymphocytes # 0.9 10^3/uL (0.8-4.8); Lymphocytes % 18.2 %; Mean Corpuscular HGB Conc 37.2 g/dL (30.0-36.0); Mean Corpuscular Hemoglobin 36.8 pg (28.0-34.0); Monocytes # 0.8 10^3/uL (0.2-0.9); Monocytes % 15.5 %; Neutrophils # 3.31 10^3/uL (1.8-7.7); Neutrophils % 64.9 %; Nucleated Red Blood Cells % 0.4 %; Platelet Count 486 10^3/cmm (130-400); Red Blood Count 2.88 10^6/uL (4.1-5.3); Red Cell Distribution Width 17.6 % (12.1-15.1); White Blood Count 5.1 10^3/uL (4.0-10.0)
[2022-09-03 11:19] LABS: Slide Review Slide Review Perform
[2022-09-03 11:21] LABS: Alanine Aminotransferase 25 U/L (0-33); Albumin Level 3.2 g/dL (3.5-5.2); Alkaline Phosphatase 233 U/L (35-105); Anion Gap 14.7 (5-19); Aspartate Amino Transferase 46 U/L (0-32); Blood Urea Nitrogen 5 mg/dL (8-23); Calcium 8.9 mg/dL (8.5-10.5); Carbon Dioxide 24 mmol/L (22-29); Chloride 93 mmol/L (98-107); Globulin 2.2 g/dL (1.3-4.6); Glomerular Filtration Rate 158.3 mL/min (90-130); Glucose 107 mg/dL (65-115); Osmolality Calculated 266 mOsm/kg (285-295); Sodium 129 mmol/L (136-145); Total Protein 5.4 g/dL (6.6-8.7)
[2022-09-03 11:24] LABS: Potassium 2.7 mmol/L (3.5-5.1)
[2022-09-03] MEDS: sodium chlor 0.9% + KCl 40 mEq 40 MEQ/1,000 ML BAG 500 MEQ IV (11:46)
[2022-09-03 14:29] VITALS: BP 100/66; PULSE 106; RESP 18; TEMP 36.3; O2SAT 92
[2022-09-03 14:36] LABS: Glucose Urine UA Norm (Normal); Protein Urine 2+ (Negative); Specific Gravity, Urine 1.015 (1.005-1.030); Urine Appearance Clear (CLEAR); Urine Color Yellow (Yellow); pH Urine 6 (5-7)
[2022-09-03 14:37] LABS: Bacteria Urine 4+ /hpf; Bilirubin Urine 1+ (Negative); Blood Urine 3+ (Negative); Ketones Urine 1+ (Negative); Leukocyte Esterase Urine 2+ (Negative); Nitrate Urine Positive (Negative); Squamous Epithelial Cell Urine 0-4 /hpf (0-5); Urobilinogen Urine 1 mg/dL (Negative); WBC Urine 40-55 /hpf (0-5)
[2022-09-03 14:38] LABS: Add Urine Culture? Yes
[2022-09-09 09:37] LABS: Basophils % 0.4 %; Eosinophils # 0.3 10^3/uL (0.0-0.8); Hematocrit 30.6 % (37.0-47.0); Hemoglobin 10.3 g/dL (11.5-15.3); Lymphocytes # 1.9 10^3/uL (0.8-4.8); Lymphocytes % 27.8 %; Mean Corpuscular HGB Conc 33.7 g/dL (30.0-36.0); Mean Corpuscular Hemoglobin 35.6 pg (28.0-34.0); Mean Corpuscular Volume 105.9 fl (81-99); Mean Platelet Volume 9.4 fL (7.4-10.4); Monocytes # 1.4 10^3/uL (0.2-0.9); Monocytes % 20.9 %; Neutrophils # 3.16 10^3/uL (1.8-7.7); Neutrophils % 46.5 %; Nucleated Red Blood Cells % 0.4 %; Platelet Count 399 10^3/cmm (130-400); Red Blood Count 2.89 10^6/uL (4.1-5.3); Red Cell Distribution Width 20.1 % (12.1-15.1); White Blood Count 6.8 10^3/uL (4.0-10.0)
[2022-09-09] MEDS: sodium chloride 0.9% 500 ML IV (09:44)
[2022-09-09 09:50] LABS: Alanine Aminotransferase 19 U/L (0-33); Alkaline Phosphatase 240 U/L (35-105); Anion Gap 14.3 (5-19); Aspartate Amino Transferase 47 U/L (0-32); Blood Urea Nitrogen 4 mg/dL (8-23); Calcium 8.7 mg/dL (8.5-10.5); Carbon Dioxide 21 mmol/L (22-29); Chloride 100 mmol/L (98-107); Globulin 2.6 g/dL (1.3-4.6); Glomerular Filtration Rate 122.3 mL/min (90-130); Glucose 123 mg/dL (65-115); Osmolality Calculated 272 mOsm/kg (285-295); Potassium 3.3 mmol/L (3.5-5.1); Sodium 132 mmol/L (136-145); Total Bilirubin 1.5 mg/dL (0.15-1.2); Total Protein 5.6 g/dL (6.6-8.7)
--- NOTE | 2022-09-09 10:10 | PC.NURSE ---
patient states she does not feel like having treatment today. she would like to see the physician. Pt appt made for 09/10 as provider is ooo today. pt made aware and agrees. pt requested IV hydration, approved by providers office. labs reviewed with pt and family. no further orders at this time.
[2022-09-09 11:00] VITALS: BP 121/72; PULSE 101; RESP 16; TEMP 37.2; O2SAT 96
== END 2022-10-01 23:59 | disposition home or self-care (01) ==
PROVIDERS: PCP Family Medicine; Visit Provider Internal Medicine Medical Oncology
DX: C50.112 Malignant neoplasm of central portion of left female breast (principal); Z17.0 Estrogen receptor positive status [ER+]; Z90.13 Acquired absence of bilateral breasts and nipples; C77.8 Secondary and unspecified malignant neoplasm of lymph nodes of multiple regions; C79.51 Secondary malignant neoplasm of bone; C78.01 Secondary malignant neoplasm of right lung; C78.02 Secondary malignant neoplasm of left lung; L27.0 Generalized skin eruption due to drugs and medicaments taken internally; T45.1X5A Adverse effect of antineoplastic and immunosuppressive drugs, initial encounter; R11.0 Nausea; R53.0 Neoplastic (malignant) related fatigue; M62.81 Muscle weakness (generalized); Z79.891 Long term (current) use of opiate analgesic; Z79.899 Other long term (current) drug therapy
CPT/HCPCS: 36593; 80053; 81001; 85025; 87077; 87086; 87186; 96365; 96366; 99214; 99215; J2997; J7040

== ENCOUNTER 2022-10-20 10:58 | Oncology outpatient (recurring) (ONCR) | payer MEDICARE, BC, SELFPAY ==
[2022-10-20 11:41] LABS: Basophils # 0.1 10^3/uL (0.0-0.1); Basophils % 1.6 %; Eosinophils # 0.2 10^3/uL (0.0-0.8); Eosinophils % 2.6 %; Hematocrit 38.4 % (37.0-47.0); Hemoglobin 12.5 g/dL (11.5-15.3); Lymphocytes # 2.4 10^3/uL (0.8-4.8); Lymphocytes % 29.7 %; Mean Corpuscular HGB Conc 32.6 g/dL (30.0-36.0); Mean Corpuscular Hemoglobin 33.9 pg (28.0-34.0); Mean Corpuscular Volume 104.1 fl (81-99); Monocytes % 12.9 %; Neutrophils # 4.24 10^3/uL (1.8-7.7); Nucleated Red Blood Cells % 0 %; Platelet Count 360 10^3/cmm (130-400); Red Blood Count 3.69 10^6/uL (4.1-5.3); Red Cell Distribution Width 14.2 % (12.1-15.1)
[2022-10-20 12:02] LABS: Alanine Aminotransferase 18 U/L (0-33); Alkaline Phosphatase 256 U/L (35-105); Anion Gap 14.7 (5-19); Aspartate Amino Transferase 98 U/L (0-32); Blood Urea Nitrogen 4 mg/dL (8-23); Calcium 9.1 mg/dL (8.5-10.5); Carbon Dioxide 24 mmol/L (22-29); Chloride 101 mmol/L (98-107); Globulin 3.6 g/dL (1.3-4.6); Glomerular Filtration Rate 122.3 mL/min (90-130); Glucose 114 mg/dL (65-115); Osmolality Calculated 280 mOsm/kg (285-295); Potassium 3.7 mmol/L (3.5-5.1); Sodium 136 mmol/L (136-145); Total Bilirubin 1.4 mg/dL (0.15-1.2); Total Protein 6.6 g/dL (6.6-8.7)
== END 2022-11-01 23:59 | disposition home or self-care (01) ==
PROVIDERS: PCP Family Medicine; Visit Provider Internal Medicine Medical Oncology
DX: C50.112 Malignant neoplasm of central portion of left female breast (principal); Z17.0 Estrogen receptor positive status [ER+]; Z90.13 Acquired absence of bilateral breasts and nipples; C77.8 Secondary and unspecified malignant neoplasm of lymph nodes of multiple regions; C79.51 Secondary malignant neoplasm of bone; C79.89 Secondary malignant neoplasm of other specified sites; Z79.899 Other long term (current) drug therapy; Z79.891 Long term (current) use of opiate analgesic
CPT/HCPCS: 36591; 80053; 85025; 99214

== ENCOUNTER 2022-11-25 09:00 | Oncology outpatient (recurring) (ONCR) | payer MEDICARE, BC, SELFPAY ==
[2022-11-04] MEDS: alteplase 1 mg/mL SDV 2 mL 2 MG INTRACATH (08:30)
[2022-11-04 08:54] LABS: Basophils # 0.1 10^3/uL (0.0-0.1); Basophils % 1.8 %; Eosinophils # 0.2 10^3/uL (0.0-0.8); Eosinophils % 2.8 %; Hematocrit 42.2 % (37.0-47.0); Hemoglobin 13.7 g/dL (11.5-15.3); Lymphocytes # 1.8 10^3/uL (0.8-4.8); Lymphocytes % 27.3 %; Mean Corpuscular HGB Conc 32.5 g/dL (30.0-36.0); Mean Corpuscular Volume 101.7 fl (81-99); Mean Platelet Volume 10.3 fL (7.4-10.4); Monocytes # 0.7 10^3/uL (0.2-0.9); Monocytes % 10.3 %; Neutrophils # 3.76 10^3/uL (1.8-7.7); Neutrophils % 57.5 %; Nucleated Red Blood Cells % 0 %; Platelet Count 352 10^3/cmm (130-400); Red Blood Count 4.15 10^6/uL (4.1-5.3); Red Cell Distribution Width 14.3 % (12.1-15.1); White Blood Count 6.5 10^3/uL (4.0-10.0)
[2022-11-04 09:15] LABS: Alanine Aminotransferase 17 U/L (0-33); Albumin Level 3.3 g/dL (3.5-5.2); Alkaline Phosphatase 254 U/L (35-105); Anion Gap 13.9 (5-19); Aspartate Amino Transferase 86 U/L (0-32); Blood Urea Nitrogen 4 mg/dL (8-23); Calcium 9.1 mg/dL (8.5-10.5); Carbon Dioxide 24 mmol/L (22-29); Chloride 105 mmol/L (98-107); Globulin 3.7 g/dL (1.3-4.6); Glomerular Filtration Rate 158.3 mL/min (90-130); Glucose 103 mg/dL (65-115); Osmolality Calculated 285 mOsm/kg (285-295); Potassium 3.9 mmol/L (3.5-5.1); Sodium 139 mmol/L (136-145); Total Bilirubin 1.3 mg/dL (0.15-1.2)
[2022-11-04 10:08] LABS: CA 15-3 30.7 U/mL (0-25)
[2022-11-04] MEDS: palonosetron 0.25 mg/5 mL SDV IVP (10:18)
[2022-11-04] MEDS: dextrose 5% 250 ML 75 ML IV (10:20)
[2022-11-04 11:29] VITALS: BP 127/94; PULSE 94; RESP 16; TEMP 36.3; O2SAT 94
[2022-11-25 09:00] VITALS: BMI 24.9
[2022-11-25] MEDS: alteplase 1 mg/mL SDV 2 mL 2 MG INTRACATH (09:22)
[2022-11-25 09:24] LABS: Basophils # 0.1 10^3/uL (0.0-0.1); Basophils % 1.6 %; Eosinophils # 0.3 10^3/uL (0.0-0.8); Eosinophils % 4.8 %; Hematocrit 43.1 % (37.0-47.0); Hemoglobin 13.9 g/dL (11.5-15.3); Lymphocytes # 2.1 10^3/uL (0.8-4.8); Lymphocytes % 41.3 %; Mean Corpuscular HGB Conc 32.3 g/dL (30.0-36.0); Mean Corpuscular Hemoglobin 32.4 pg (28.0-34.0); Mean Corpuscular Volume 100.5 fl (81-99); Mean Platelet Volume 10.2 fL (7.4-10.4); Monocytes # 0.8 10^3/uL (0.2-0.9); Monocytes % 14.5 %; Neutrophils # 1.94 10^3/uL (1.8-7.7); Neutrophils % 37.6 %; Nucleated Red Blood Cells % 0 %; Platelet Count 451 10^3/cmm (130-400); Red Blood Count 4.29 10^6/uL (4.1-5.3); Red Cell Distribution Width 14.9 % (12.1-15.1); White Blood Count 5.2 10^3/uL (4.0-10.0)
[2022-11-25 10:08] LABS: Alanine Aminotransferase 26 U/L (0-33); Albumin Level 3.6 g/dL (3.5-5.2); Alkaline Phosphatase 312 U/L (35-105); Anion Gap 16.6 (5-19); Aspartate Amino Transferase 92 U/L (0-32); Blood Urea Nitrogen 4 mg/dL (8-23); CA 15-3 30.5 U/mL (0-25); Calcium 9.8 mg/dL (8.5-10.5); Carbon Dioxide 26 mmol/L (22-29); Chloride 105 mmol/L (98-107); Creatinine Clr Calc Pharmacy 61.9514; Globulin 3.2 g/dL (1.3-4.6); Glomerular Filtration Rate 99.1 mL/min (90-130); Glucose 112 mg/dL (65-115); Osmolality Calculated 296 mOsm/kg (285-295); Potassium 3.6 mmol/L (3.5-5.1); Sodium 144 mmol/L (136-145); Total Bilirubin 1.3 mg/dL (0.15-1.2); Total Protein 6.8 g/dL (6.6-8.7)
[2022-11-25] MEDS: dextrose 5% 250 ML 75 ML IV (11:18)
[2022-11-25] MEDS: palonosetron 0.25 mg/5 mL SDV IVP (11:20)
[2022-11-25 12:25] VITALS: BP 123/85; PULSE 87; RESP 18; TEMP 36.9; O2SAT 93
== END 2022-11-27 10:47 | disposition home or self-care (01) ==
PROVIDERS: PCP Family Medicine; Visit Provider Internal Medicine Medical Oncology
DX: Z51.11 Encounter for antineoplastic chemotherapy; C50.812 Malignant neoplasm of overlapping sites of left female breast; Z17.0 Estrogen receptor positive status [ER+]; Z90.13 Acquired absence of bilateral breasts and nipples; C77.8 Secondary and unspecified malignant neoplasm of lymph nodes of multiple regions; C79.81 Secondary malignant neoplasm of breast; Z17.1 Estrogen receptor negative status [ER-]; C79.51 Secondary malignant neoplasm of bone; R11.0 Nausea; R53.0 Neoplastic (malignant) related fatigue; R10.84 Generalized abdominal pain; R74.01 Elevation of levels of liver transaminase levels; E80.6 Other disorders of bilirubin metabolism; Z79.899 Other long term (current) drug therapy
CPT/HCPCS: 36593; 80053; 85025; 86300; 96367; 96375; 96413; 99214; J1100; J2469; J2997; J7060; J9358

== ENCOUNTER 2022-12-17 08:34 | Oncology outpatient (recurring) (ONCR) | payer MEDICARE, BC, SELFPAY ==
[2022-12-17 09:07] LABS: Basophils # 0.2 10^3/uL (0.0-0.1); Eosinophils # 0.7 10^3/uL (0.0-0.8); Eosinophils % 8.8 %; Hematocrit 36.8 % (37.0-47.0); Lymphocytes # 2.1 10^3/uL (0.8-4.8); Mean Corpuscular HGB Conc 32.6 g/dL (30.0-36.0); Mean Corpuscular Hemoglobin 32.2 pg (28.0-34.0); Mean Corpuscular Volume 98.7 fl (81-99); Mean Platelet Volume 10.3 fL (7.4-10.4); Monocytes # 1.1 10^3/uL (0.2-0.9); Monocytes % 14.3 %; Neutrophils # 3.56 10^3/uL (1.8-7.7); Neutrophils % 46.6 %; Nucleated Red Blood Cells % 0 %; Platelet Count 422 10^3/cmm (130-400); Red Blood Count 3.73 10^6/uL (4.1-5.3); White Blood Count 7.6 10^3/uL (4.0-10.0)
[2022-12-17 10:11] LABS: Alanine Aminotransferase 24 U/L (0-33); Albumin Level 3.6 g/dL (3.5-5.2); Anion Gap 15.5 (5-19); Calcium 9.3 mg/dL (8.5-10.5); Carbon Dioxide 25 mmol/L (22-29); Chloride 104 mmol/L (98-107); Globulin 2.7 g/dL (1.3-4.6); Glucose 100 mg/dL (65-115); Osmolality Calculated 289 mOsm/kg (285-295); Potassium 3.5 mmol/L (3.5-5.1); Sodium 141 mmol/L (136-145)
[2022-12-17 10:12] LABS: Blood Urea Nitrogen 3 mg/dL (8-23); Glomerular Filtration Rate 158.3 mL/min (90-130)
[2022-12-17 10:13] LABS: Aspartate Amino Transferase 71 U/L (0-32); Total Bilirubin 1.4 mg/dL (0.15-1.2); Total Protein 6.3 g/dL (6.6-8.7)
[2022-12-17 10:17] LABS: Alkaline Phosphatase 250 U/L (35-105)
[2022-12-17] MEDS: alteplase 1 mg/mL SDV 2 mL 2 MG INTRACATH (12:02)
[2022-12-17] MEDS: dextrose 5% 250 ML 75 ML IV (12:31)
[2022-12-17] MEDS: palonosetron 0.25 mg/5 mL SDV IVP (12:33)
[2022-12-17 13:30] VITALS: BP 136/73; PULSE 96; RESP 16; TEMP 37.2; O2SAT 98
== END 2022-12-30 23:59 | disposition home or self-care (01) ==
PROVIDERS: PCP Family Medicine; Visit Provider Internal Medicine Medical Oncology
DX: C50.112 Malignant neoplasm of central portion of left female breast (principal); Z17.1 Estrogen receptor negative status [ER-]; Z90.13 Acquired absence of bilateral breasts and nipples; C77.8 Secondary and unspecified malignant neoplasm of lymph nodes of multiple regions; C79.51 Secondary malignant neoplasm of bone; C78.01 Secondary malignant neoplasm of right lung; C78.02 Secondary malignant neoplasm of left lung; L27.0 Generalized skin eruption due to drugs and medicaments taken internally; T45.1X5A Adverse effect of antineoplastic and immunosuppressive drugs, initial encounter; R11.0 Nausea; R53.0 Neoplastic (malignant) related fatigue; M62.81 Muscle weakness (generalized); R10.84 Generalized abdominal pain; R74.01 Elevation of levels of liver transaminase levels; Z51.12 Encounter for antineoplastic immunotherapy; Z79.891 Long term (current) use of opiate analgesic; Z79.899 Other long term (current) drug therapy
CPT/HCPCS: 80053; 85025; 99214; J1100; J2469; J2997; J7060; J9358

== ENCOUNTER 2023-01-28 07:58 | Oncology outpatient (recurring) (ONCR) | payer MEDICARE, BC, SELFPAY ==
[2023-01-28 08:33] LABS: Basophils # 0.1 10^3/uL (0.0-0.1); Basophils % 1.4 %; Eosinophils # 0.6 10^3/uL (0.0-0.8); Eosinophils % 7.8 %; Hematocrit 35.2 % (37.0-47.0); Hemoglobin 11.4 g/dL (11.5-15.3); Lymphocytes # 2.1 10^3/uL (0.8-4.8); Lymphocytes % 27.8 %; Mean Corpuscular HGB Conc 32.4 g/dL (30.0-36.0); Mean Corpuscular Hemoglobin 34.3 pg (28.0-34.0); Mean Platelet Volume 10.3 fL (7.4-10.4); Monocytes # 1.1 10^3/uL (0.2-0.9); Neutrophils # 3.73 10^3/uL (1.8-7.7); Neutrophils % 48.5 %; Nucleated Red Blood Cells % 0 %; Platelet Count 368 10^3/cmm (130-400); Red Blood Count 3.32 10^6/uL (4.1-5.3); Red Cell Distribution Width 18.2 % (12.1-15.1); White Blood Count 7.7 10^3/uL (4.0-10.0)
[2023-01-28 08:34] VITALS: BP 150/82; PULSE 76; TEMP 36.7; O2SAT 98
[2023-01-28 08:59] LABS: Alanine Aminotransferase 12 U/L (0-33); Albumin Level 3.3 g/dL (3.5-5.2); Alkaline Phosphatase 216 U/L (35-105); Anion Gap 13.9 (5-19); Aspartate Amino Transferase 40 U/L (0-32); Blood Urea Nitrogen 3 mg/dL (8-23); Calcium 9.1 mg/dL (8.5-10.5); Carbon Dioxide 25 mmol/L (22-29); Chloride 106 mmol/L (98-107); Globulin 2.5 g/dL (1.3-4.6); Glomerular Filtration Rate 122.3 mL/min (90-130); Glucose 107 mg/dL (65-115); Osmolality Calculated 289 mOsm/kg (285-295); Potassium 3.9 mmol/L (3.5-5.1); Sodium 141 mmol/L (136-145); Total Bilirubin 1.5 mg/dL (0.15-1.2); Total Protein 5.8 g/dL (6.6-8.7)
[2023-01-28] MEDS: dextrose 5% 250 ML 100 ML IV (11:16)
[2023-01-28] MEDS: palonosetron 0.25 mg/5 mL SDV IVP (11:17)
[2023-01-28 12:30] VITALS: BP 133/74; PULSE 79; TEMP 37.2; O2SAT 94
== END 2023-01-30 23:59 | disposition home or self-care (01) ==
PROVIDERS: Nurse Practitioner Family; PCP Family Medicine; Visit Provider Internal Medicine Medical Oncology
DX: Z51.12 Encounter for antineoplastic immunotherapy (principal); C50.112 Malignant neoplasm of central portion of left female breast; Z17.1 Estrogen receptor negative status [ER-]; Z90.13 Acquired absence of bilateral breasts and nipples; C77.8 Secondary and unspecified malignant neoplasm of lymph nodes of multiple regions; C79.51 Secondary malignant neoplasm of bone; C78.01 Secondary malignant neoplasm of right lung; C78.02 Secondary malignant neoplasm of left lung; Z79.891 Long term (current) use of opiate analgesic; Z79.899 Other long term (current) drug therapy
CPT/HCPCS: 80053; 85025; 96375; 96413; 99214; J1100; J2469; J7060; J9358

== ENCOUNTER 2023-02-18 13:53 | Oncology outpatient (recurring) (ONCR) | payer MEDICARE, BC, SELFPAY ==
[2023-02-18 14:15] VITALS: BP 120/65; PULSE 104; TEMP 37.1; O2SAT 96
[2023-02-18 14:36] LABS: Basophils # 0.1 10^3/uL (0.0-0.1); Basophils % 1.2 %; Eosinophils # 0.3 10^3/uL (0.0-0.8); Eosinophils % 3.9 %; Hematocrit 35.5 % (37.0-47.0); Hemoglobin 11.8 g/dL (11.5-15.3); Lymphocytes # 1.8 10^3/uL (0.8-4.8); Lymphocytes % 22.1 %; Mean Corpuscular HGB Conc 33.2 g/dL (30.0-36.0); Mean Corpuscular Volume 105.3 fl (81-99); Mean Platelet Volume 10.4 fL (7.4-10.4); Neutrophils # 5.02 10^3/uL (1.8-7.7); Neutrophils % 60.4 %; Nucleated Red Blood Cells % 0 %; Platelet Count 341 10^3/cmm (130-400); Red Blood Count 3.37 10^6/uL (4.1-5.3); Red Cell Distribution Width 16.7 % (12.1-15.1); White Blood Count 8.3 10^3/uL (4.0-10.0)
[2023-02-18 15:07] LABS: Alanine Aminotransferase 13 U/L (0-33); Albumin Level 3.6 g/dL (3.5-5.2); Alkaline Phosphatase 199 U/L (35-105); Anion Gap 15.8 (5-19); Aspartate Amino Transferase 46 U/L (0-32); Blood Urea Nitrogen 4 mg/dL (8-23); Calcium 9.1 mg/dL (8.5-10.5); Carbon Dioxide 26 mmol/L (22-29); Chloride 102 mmol/L (98-107); Globulin 2.4 g/dL (1.3-4.6); Glomerular Filtration Rate 158.3 mL/min (90-130); Glucose 132 mg/dL (65-115); Osmolality Calculated 291 mOsm/kg (285-295); Sodium 141 mmol/L (136-145)
[2023-02-18 15:18] LABS: Potassium 2.8 mmol/L (3.5-5.1)
== END 2023-03-01 23:59 | disposition home or self-care (01) ==
PROVIDERS: PCP Family Medicine; Visit Provider Internal Medicine Medical Oncology
DX: C50.112 Malignant neoplasm of central portion of left female breast; Z17.1 Estrogen receptor negative status [ER-]; Z90.13 Acquired absence of bilateral breasts and nipples; C77.8 Secondary and unspecified malignant neoplasm of lymph nodes of multiple regions; C79.51 Secondary malignant neoplasm of bone; C78.01 Secondary malignant neoplasm of right lung; C78.02 Secondary malignant neoplasm of left lung; L27.0 Generalized skin eruption due to drugs and medicaments taken internally; T45.1X5A Adverse effect of antineoplastic and immunosuppressive drugs, initial encounter; R53.0 Neoplastic (malignant) related fatigue; M62.81 Muscle weakness (generalized); E87.6 Hypokalemia; Z79.891 Long term (current) use of opiate analgesic; Z79.899 Other long term (current) drug therapy
CPT/HCPCS: 80053; 85025; 86300; 99214

== ENCOUNTER 2023-03-19 12:17 | Oncology outpatient (recurring) (ONCR) | payer MEDICARE, BC, SELFPAY ==
[2023-03-19 13:05] VITALS: BP 127/71; PULSE 82; RESP 18; TEMP 36.3; O2SAT 94
== END 2023-04-01 23:59 | disposition home or self-care (01) ==
PROVIDERS: PCP Family Medicine; Visit Provider Internal Medicine Medical Oncology
DX: Z45.2 Encounter for adjustment and management of vascular access device (principal)

== ENCOUNTER 2023-03-26 09:26 | Outpatient (CLI) | payer MEDICARE, BC, SELFPAY ==
--- NOTE | 2023-03-26 10:14 | US_ITS ---
WS: [id number] ULTRASOUND SOFT TISSUES RIGHT chest wall HISTORY: hx of breast ca, new lump in right breast, bilateral mastectomies COMPARISON: None available. TECHNIQUE: 2-D and color Doppler imaging is submitted. Palpable area along the anterior RIGHT chest wall corresponds to a very tiny hypoechoic nodule measur ing 3 x 2 x 3 mm. This is subcutaneous in position and probably represents an epidermoid cyst or seba ceous cyst. No additional abnormalities. US/US soft tissue/extremity [id number] IMPRESSION: Very small superficial hypoechoic mass in the RIGHT chest wall corresponding to the palpable abnormality. Probably sebaceous cyst or epidermoid cyst. No addit ional imaging at this time. If this mass increases in size it can be reevaluate d by ultrasound.
== END 2023-03-26 09:27 | disposition home or self-care (01) ==
PROVIDERS: PCP Family Medicine; Visit Provider Internal Medicine Medical Oncology
DX: N63.0 Unspecified lump in unspecified breast (principal); Z85.3 Personal history of malignant neoplasm of breast; Z90.13 Acquired absence of bilateral breasts and nipples
CPT/HCPCS: 76882

== ENCOUNTER 2023-05-22 11:27 | Oncology outpatient (recurring) (ONCR) | payer MEDICARE, BC, SELFPAY | END 2023-06-01 23:59 | disposition home or self-care (01) | PROVIDERS: PCP Family Medicine; Visit Provider Internal Medicine Medical Oncology | DX: Z51.12 Encounter for antineoplastic immunotherapy (principal); C50.112 Malignant neoplasm of central portion of left female breast; Z17.1 Estrogen receptor negative status [ER-]; Z90.13 Acquired absence of bilateral breasts and nipples; C77.8 Secondary and unspecified malignant neoplasm of lymph nodes of multiple regions; C79.51 Secondary malignant neoplasm of bone; C78.01 Secondary malignant neoplasm of right lung; C78.02 Secondary malignant neoplasm of left lung; L27.0 Generalized skin eruption due to drugs and medicaments taken internally; T45.1X5A Adverse effect of antineoplastic and immunosuppressive drugs, initial encounter; R11.0 Nausea; R53.0 Neoplastic (malignant) related fatigue; M62.81 Muscle weakness (generalized); R10.84 Generalized abdominal pain; R74.01 Elevation of levels of liver transaminase levels; Z79.891 Long term (current) use of opiate analgesic; Z79.899 Other long term (current) drug therapy; C79.2 Secondary malignant neoplasm of skin; R53.83 Other fatigue; G62.9 Polyneuropathy, unspecified | CPT/HCPCS: 99214 ==

== ENCOUNTER 2023-06-29 08:30 | Oncology outpatient (recurring) (ONCR) | payer MEDICARE, BC, SELFPAY ==
[2023-06-08 08:45] VITALS: BP 130/83; PULSE 97; RESP 16; TEMP 37.2; O2SAT 93
[2023-06-08 09:14] LABS: Basophils # 0.1 10^3/uL (0.0-0.1); Basophils % 1.8 %; Eosinophils # 0.4 10^3/uL (0.0-0.8); Eosinophils % 6.8 %; Hematocrit 42.7 % (37.0-47.0); Hemoglobin 14.2 g/dL (11.5-15.3); Lymphocytes # 2.2 10^3/uL (0.8-4.8); Lymphocytes % 42.9 %; Mean Corpuscular HGB Conc 33.3 g/dL (30.0-36.0); Mean Corpuscular Hemoglobin 31.7 pg (28.0-34.0); Mean Corpuscular Volume 95.3 fl (81-99); Mean Platelet Volume 10.6 fL (7.4-10.4); Monocytes # 0.6 10^3/uL (0.2-0.9); Monocytes % 11.9 %; Neutrophils # 1.87 10^3/uL (1.8-7.7); Neutrophils % 36.4 %; Nucleated Red Blood Cells % 0 %; Platelet Count 254 10^3/cmm (130-400); Red Blood Count 4.48 10^6/uL (4.1-5.3); Red Cell Distribution Width 14.2 % (12.1-15.1); White Blood Count 5.1 10^3/uL (4.0-10.0)
[2023-06-08 09:44] LABS: Alanine Aminotransferase 9 U/L (0-33); Albumin Level 3.5 g/dL (3.5-5.2); Alkaline Phosphatase 178 U/L (35-105); Anion Gap 14.6 (5-19); Aspartate Amino Transferase 35 U/L (0-32); Blood Urea Nitrogen 5 mg/dL (8-23); Calcium 9.7 mg/dL (8.5-10.5); Carbon Dioxide 25 mmol/L (22-29); Chloride 106 mmol/L (98-107); Globulin 3.1 g/dL (1.3-4.6); Glucose 100 mg/dL (65-115); Osmolality Calculated 291 mOsm/kg (285-295); Potassium 3.6 mmol/L (3.5-5.1); Sodium 142 mmol/L (136-145); Total Bilirubin 1.6 mg/dL (0.15-1.2); Total Protein 6.6 g/dL (6.6-8.7)
[2023-06-08] MEDS: dextrose 5% 250 ML 75 ML IV (10:08)
[2023-06-08] MEDS: palonosetron 0.25 mg/5 mL SDV IVP (10:08)
[2023-06-08 12:24] VITALS: BP 140/70; PULSE 78; RESP 18; TEMP 36.5; O2SAT 93
[2023-06-29 08:30] LABS: Basophils # 0.1 10^3/uL (0.0-0.1); Basophils % 1.4 %; Eosinophils # 0.5 10^3/uL (0.0-0.8); Eosinophils % 7.7 %; Lymphocytes # 2.2 10^3/uL (0.8-4.8); Lymphocytes % 37.5 %; Mean Corpuscular HGB Conc 32.6 g/dL (30-55); Mean Corpuscular Hemoglobin 31.7 pg (27-33); Mean Corpuscular Volume 97.3 fl (85-98); Mean Platelet Volume 10.1 fL (7.4-10.4); Monocytes % 16.4 %; Neutrophils # 2.15 10^3/uL (1.8-7.7); Neutrophils % 36.8 %; Nucleated Red Blood Cells % 0 %; Platelet Count 263 10^3/cmm (157-399); Red Blood Count 4.01 10^6/uL (3.85-5.65); Red Cell Distribution Width 15.2 % (12.1-15.1); White Blood Count 5.84 10^3/uL (3.29-11.43)
[2023-06-29 09:02] LABS: Alanine Aminotransferase 7 U/L (0-33); Albumin Level 3.6 g/dL (3.5-5.2); Alkaline Phosphatase 211 U/L (35-105); Anion Gap 12.8 (5-19); Aspartate Amino Transferase 27 U/L (0-32); Blood Urea Nitrogen 4 mg/dL (8-23); CA 15-3 23.7 U/mL (0-25); Calcium 9.2 mg/dL (8.5-10.5); Carbon Dioxide 28 mmol/L (22-29); Chloride 103 mmol/L (98-107); Globulin 2.7 g/dL (1.3-4.6); Glucose 127 mg/dL (65-115); Osmolality Calculated 288 mOsm/kg (285-295); Potassium 3.8 mmol/L (3.5-5.1); Sodium 140 mmol/L (136-145); Total Bilirubin 1.3 mg/dL (0.15-1.2); Total Protein 6.3 g/dL (6.6-8.7)
[2023-06-29 10:22] VITALS: BMI 24.9
[2023-06-29] MEDS: dextrose 5% 250 ML 100 ML IV (10:41)
[2023-06-29] MEDS: palonosetron 0.25 mg/5 mL SDV IVP (10:41)
[2023-06-29 12:13] VITALS: BP 137/73; PULSE 80; RESP 18; TEMP 36; O2SAT 95
== END 2023-06-29 23:59 | disposition home or self-care (01) ==
PROVIDERS: PCP Family Medicine; Visit Provider Internal Medicine Medical Oncology
DX: Z51.11 Encounter for antineoplastic chemotherapy (principal); C50.112 Malignant neoplasm of central portion of left female breast; Z17.0 Estrogen receptor positive status [ER+]; Z90.13 Acquired absence of bilateral breasts and nipples; Z79.899 Other long term (current) drug therapy
CPT/HCPCS: 80053; 85025; 86300; 96365; 96367; 96375; 96413; 96415; 99214; J1100; J1642; J2469; J7060; J9358

== ENCOUNTER 2023-07-20 07:26 | Oncology outpatient (recurring) (ONCR) | payer MEDICARE, BC, SELFPAY ==
[2023-07-20 07:37] VITALS: BP 148/71; PULSE 75; RESP 16; TEMP 36.8; O2SAT 94
[2023-07-20 08:01] LABS: Basophils # 0.1 10^3/uL (0.0-0.1); Basophils % 1.4 %; Eosinophils # 0.6 10^3/uL (0.0-0.8); Eosinophils % 10.2 %; Hematocrit 40.3 % (36-47); Lymphocytes % 34.8 %; Mean Corpuscular Hemoglobin 31.8 pg (27-33); Mean Corpuscular Volume 96.4 fl (85-98); Mean Platelet Volume 10.3 fL (7.4-10.4); Monocytes # 0.8 10^3/uL (0.2-0.9); Monocytes % 14.2 %; Neutrophils % 39.2 %; Nucleated Red Blood Cells % 0 %; Platelet Count 258 10^3/cmm (157-399); Red Blood Count 4.18 10^6/uL (3.85-5.65); Red Cell Distribution Width 16.9 % (12.1-15.1); White Blood Count 5.86 10^3/uL (3.29-11.43)
[2023-07-20 08:25] LABS: Alanine Aminotransferase 12 U/L (0-33); Alkaline Phosphatase 221 U/L (35-105); Anion Gap 12.7 (5-19); Aspartate Amino Transferase 35 U/L (0-32); Blood Urea Nitrogen 5 mg/dL (8-23); Calcium 9.6 mg/dL (8.5-10.5); Carbon Dioxide 26 mmol/L (22-29); Chloride 105 mmol/L (98-107); Globulin 2.4 g/dL (1.3-4.6); Glucose 147 mg/dL (65-115); Osmolality Calculated 290 mOsm/kg (285-295); Potassium 3.7 mmol/L (3.5-5.1); Sodium 140 mmol/L (136-145); Total Bilirubin 1.6 mg/dL (0.15-1.2); Total Protein 6.4 g/dL (6.6-8.7)
[2023-07-20 08:50] LABS: CA 15-3 25.9 U/mL (0-25)
[2023-07-20] MEDS: dextrose 5% 250 ML 75 ML IV (09:40)
[2023-07-20] MEDS: palonosetron 0.25 mg/5 mL SDV IVP (09:43)
[2023-07-20 11:04] VITALS: BP 129/60; PULSE 72; RESP 16; TEMP 35.8; O2SAT 94
== END 2023-08-01 23:59 | disposition home or self-care (01) ==
PROVIDERS: Nurse Practitioner Family; PCP Family Medicine; Visit Provider Internal Medicine Medical Oncology
DX: Z51.11 Encounter for antineoplastic chemotherapy (principal); C50.112 Malignant neoplasm of central portion of left female breast; C77.0 Secondary and unspecified malignant neoplasm of lymph nodes of head, face and neck; Z79.899 Other long term (current) drug therapy; Z53.9 Procedure and treatment not carried out, unspecified reason
CPT/HCPCS: 80053; 81001; 85025; 86300; 87086; 96367; 96375; 96413; 99214; J1100; J1642; J2469; J7060; J9358

== ENCOUNTER 2023-08-24 09:45 | Oncology outpatient (recurring) (ONCR) | payer MEDICARE, BC, SELFPAY ==
[2023-08-03 09:48] LABS: Blood Urine Trace (Negative); Glucose Urine UA Norm (Normal); Ketones Urine Negative (Negative); Nitrate Urine Positive (Negative); Protein Urine 1+ (Negative); Urine Appearance Hazy (CLEAR); Urine Color Orange (Yellow); pH Urine 5 (5-7)
[2023-08-03 09:49] LABS: Add Urine Culture? Yes; Add Urine Microscopic? YES; Bacteria Urine 2+ /hpf; Bilirubin Urine 1+ (Negative); Leukocyte Esterase Urine 2+ (Negative); Mucus Urine 1+ /hpf; Squamous Epithelial Cell Urine 0-4 /hpf (0-5); Urobilinogen Urine 8 mg/dL (Negative); WBC Urine >100 /hpf (0-5)
[2023-08-24 09:52] VITALS: BP 148/74; PULSE 93; RESP 16; TEMP 36.8; O2SAT 97
[2023-08-24 10:07] LABS: Basophils # 0.1 10^3/uL (0.0-0.1); Basophils % 2.4 %; Eosinophils # 0.4 10^3/uL (0.0-0.8); Eosinophils % 8.8 %; Lymphocytes # 1.4 10^3/uL (0.8-4.8); Mean Corpuscular HGB Conc 32.9 g/dL (30-55); Mean Corpuscular Hemoglobin 32.2 pg (27-33); Mean Corpuscular Volume 97.9 fl (85-98); Mean Platelet Volume 10.4 fL (7.4-10.4); Monocytes # 0.7 10^3/uL (0.2-0.9); Monocytes % 14.7 %; Neutrophils # 2.04 10^3/uL (1.8-7.7); Neutrophils % 43.9 %; Nucleated Red Blood Cells % 0 %; Platelet Count 270 10^3/cmm (157-399); Red Blood Count 4.19 10^6/uL (3.85-5.65); Red Cell Distribution Width 16.9 % (12.1-15.1); White Blood Count 4.64 10^3/uL (3.29-11.43)
[2023-08-24 10:45] LABS: Alanine Aminotransferase 10 U/L (0-33); Albumin Level 3.5 g/dL (3.5-5.2); Alkaline Phosphatase 196 U/L (35-105); Anion Gap 12.8 (5-19); Aspartate Amino Transferase 33 U/L (0-32); Blood Urea Nitrogen 5 mg/dL (8-23); CA 15-3 29.2 U/mL (0-25); Calcium 9.3 mg/dL (8.5-10.5); Carbon Dioxide 26 mmol/L (22-29); Chloride 106 mmol/L (98-107); Globulin 2.9 g/dL (1.3-4.6); Glucose 150 mg/dL (65-115); Osmolality Calculated 292 mOsm/kg (285-295); Potassium 3.8 mmol/L (3.5-5.1); Sodium 141 mmol/L (136-145); Total Bilirubin 2.2 mg/dL (0.15-1.2); Total Protein 6.4 g/dL (6.6-8.7)
[2023-08-24] MEDS: dextrose 5% 250 ML 75 ML IV (12:36)
[2023-08-24] MEDS: palonosetron 0.25 mg/5 mL SDV IVP (12:40)
[2023-08-24 14:00] VITALS: BP 149/75; PULSE 88; RESP 17; TEMP 37.1; O2SAT 95
== END 2023-09-01 23:59 | disposition home or self-care (01) ==
PROVIDERS: Nurse Practitioner Family; PCP Family Medicine; Visit Provider Internal Medicine Medical Oncology
DX: Z51.11 Encounter for antineoplastic chemotherapy (principal); C50.112 Malignant neoplasm of central portion of left female breast; C77.0 Secondary and unspecified malignant neoplasm of lymph nodes of head, face and neck; R35.0 Frequency of micturition; R39.15 Urgency of urination; R30.9 Painful micturition, unspecified
CPT/HCPCS: 80053; 81001; 85025; 86300; 87077; 87086; 87186; 96367; 96375; 96413; 99214; J1100; J1642; J2469; J7060; J9358

== ENCOUNTER 2023-09-01 14:39 | Outpatient (CLI) | payer MEDICARE, BC, SELFPAY ==
--- NOTE | 2023-09-01 14:30 | USCV_ITS ---
Татьяна Morris Age: 68 Gender: F : 1955 Exam Date: 09/01/2023 15:18 Ordering Phys: Princess Talley APRN Technologist: Exam Location: [facility] [place]_ Indication: high risk meds BP: 124 / 73 HR: 76 Rhythm: Sinus Technical Quality: Good MEASUREMENTS (Male / Female) Normal Values 2D ECHO LV Ejection Fraction MOD 2C 56.2 % LV Ejection Fraction 2C AL 56.3 % LA Diameter 4.2 cm M-MODE Aortic Annulus Diameter 3.1 cm LA Ao Ratio MM 1.4 MV E Point Septal Separation 0.8 cm FINDINGS Left Ventricle Right Ventricle Right Atrium Left Atrium Mitral Valve Aortic Valve Tricuspid Valve Pulmonic Valve Pericardium Aorta IVC CONCLUSIONS Limited quality echocardiogram LV systolic function is normal with EF of 55-60%. No regional wall motion abnormalities. Compared to prior echocardiogram from 09/2022, no significant changes are seen. Prince Samuels MD (Electronically Signed) Final Date: 02 September 2023 08:20 S
== END 2023-09-01 14:40 | disposition home or self-care (01) ==
LOC: RAD 14:39
PROVIDERS: PCP Family Medicine; Visit Provider Nurse Practitioner Family
DX: Z79.899 Other long term (current) drug therapy (principal)
CPT/HCPCS: 93308

== ENCOUNTER 2023-09-14 10:01 | Oncology outpatient (recurring) (ONCR) | payer MEDICARE, BC, SELFPAY ==
[2023-09-14 10:07] VITALS: BP 130/72; PULSE 101; RESP 16; TEMP 37.2; O2SAT 91
[2023-09-14 10:22] LABS: Basophils # 0.1 10^3/uL (0.0-0.1); Basophils % 1.5 %; Eosinophils # 0.7 10^3/uL (0.0-0.8); Eosinophils % 11.4 %; Hematocrit 40.8 % (36-47); Lymphocytes # 2.8 10^3/uL (0.8-4.8); Lymphocytes % 47.8 %; Mean Corpuscular HGB Conc 32.6 g/dL (30-55); Mean Corpuscular Hemoglobin 32.4 pg (27-33); Mean Corpuscular Volume 99.5 fl (85-98); Mean Platelet Volume 10.2 fL (7.4-10.4); Monocytes % 16.4 %; Neutrophils # 1.32 10^3/uL (1.8-7.7); Neutrophils % 22.7 %; Nucleated Red Blood Cells % 0 %; Platelet Count 298 10^3/cmm (157-399); Red Cell Distribution Width 15.1 % (12.1-15.1); White Blood Count 5.81 10^3/uL (3.29-11.43)
[2023-09-14 10:55] LABS: Alanine Aminotransferase 9 U/L (0-33); Albumin Level 3.7 g/dL (3.5-5.2); Alkaline Phosphatase 183 U/L (35-105); Anion Gap 13.1 (5-19); Aspartate Amino Transferase 28 U/L (0-32); Blood Urea Nitrogen 4 mg/dL (8-23); CA 15-3 30.4 U/mL (0-25); Calcium 9.4 mg/dL (8.5-10.5); Carbon Dioxide 27 mmol/L (22-29); Chloride 106 mmol/L (98-107); Globulin 2.6 g/dL (1.3-4.6); Glomerular Filtration Rate 98.8 mL/min (90-130); Glucose 100 mg/dL (65-115); Osmolality Calculated 291 mOsm/kg (285-295); Potassium 4.1 mmol/L (3.5-5.1); Sodium 142 mmol/L (136-145); Total Bilirubin 1.4 mg/dL (0.15-1.2); Total Protein 6.3 g/dL (6.6-8.7)
[2023-09-14] MEDS: dextrose 5% 250 ML 75 ML IV (12:11)
[2023-09-14] MEDS: palonosetron 0.25 mg/5 mL SDV IVP (12:13)
[2023-09-14 13:43] VITALS: BP 146/73; PULSE 78; RESP 16; TEMP 36.9; O2SAT 91
== END 2023-10-01 23:59 | disposition home or self-care (01) ==
PROVIDERS: Nurse Practitioner Family; PCP Family Medicine; Visit Provider Internal Medicine Medical Oncology
DX: Z51.11 Encounter for antineoplastic chemotherapy (principal); C50.112 Malignant neoplasm of central portion of left female breast; C77.0 Secondary and unspecified malignant neoplasm of lymph nodes of head, face and neck; R35.0 Frequency of micturition; R39.15 Urgency of urination; R30.9 Painful micturition, unspecified; Z79.899 Other long term (current) drug therapy
CPT/HCPCS: 80053; 85025; 86300; 96367; 96375; 96413; 99215; J1100; J1642; J2469; J7060; J9358

== ENCOUNTER 2023-09-29 14:10 | Outpatient (CLI) | payer MEDICARE, BC, SELFPAY ==
--- NOTE | 2023-09-29 14:12 | XRR_ITS ---
PROCEDURE INFORMATION: Exam: XR Lumbosacral Spine Exam date and time: 09/29/2023 2:25 PM Age: 68 years old Clinical indication: Injury or trauma; Other: Lifting injury; Sprain or strain, lumbar ligaments; Injury date: Week ago; Patient HX: HX of breast cancer; Additional info: Acute low back pain TECHNIQUE: Imaging protocol: Radiologic exam of the lumbosacral spine. Views: 2 or 3 views. COMPARISON: No relevant prior studies available. FINDINGS: Bones/joints: There is a mild superior endplate scalloped compression deformity of the L2 vertebral body. Acuity is uncertain. Vertebral bodies and disc space heights are otherwise normal. There is minimal anterolisthesis of L4 on L5 probably due to facet arthropathy. Sagittal alignment is otherwise normal. There is a minimal thoracolumbar levocurvature. Soft tissues: Unremarkable. XR/XR lumbar spine 2-3V* [id number] IMPRESSION: 1. There is a mild superior endplate scalloped compression deformity of the L2 vertebral body. Acuity is uncertain. 2. Other nonacute findings as above.
== END 2023-09-29 14:11 | disposition home or self-care (01) ==
LOC: RAD 14:11
PROVIDERS: PCP Family Medicine; Visit Provider Family Medicine
DX: M43.8X6 Other specified deforming dorsopathies, lumbar region (principal); M54.50 Low back pain, unspecified
CPT/HCPCS: 72100

== ENCOUNTER 2023-10-05 09:22 | Oncology outpatient (recurring) (ONCR) | payer MEDICARE, BC, SELFPAY ==
[2023-10-05 09:36] VITALS: BP 155/74; PULSE 97; RESP 16; TEMP 37.1; O2SAT 91
[2023-10-05 09:52] LABS: Basophils # 0.1 10^3/uL (0.0-0.1); Basophils % 1.5 %; Eosinophils # 0.7 10^3/uL (0.0-0.8); Eosinophils % 12.1 %; Hematocrit 39.5 % (36-47); Lymphocytes # 1.7 10^3/uL (0.8-4.8); Lymphocytes % 28.8 %; Mean Corpuscular HGB Conc 32.7 g/dL (30-55); Mean Corpuscular Hemoglobin 32.4 pg (27-33); Mean Corpuscular Volume 99.2 fl (85-98); Mean Platelet Volume 9.3 fL (7.4-10.4); Monocytes # 1.1 10^3/uL (0.2-0.9); Monocytes % 18.8 %; Neutrophils # 2.25 10^3/uL (1.8-7.7); Neutrophils % 38.5 %; Nucleated Red Blood Cells % 0 %; Platelet Count 322 10^3/cmm (157-399); Red Blood Count 3.98 10^6/uL (3.85-5.65); Red Cell Distribution Width 15.3 % (12.1-15.1); White Blood Count 5.86 10^3/uL (3.29-11.43)
[2023-10-05 10:20] LABS: Alanine Aminotransferase 6 U/L (0-33); Albumin Level 3.8 g/dL (3.5-5.2); Alkaline Phosphatase 283 U/L (35-105); Anion Gap 17.7 (5-19); Aspartate Amino Transferase 23 U/L (0-32); Blood Urea Nitrogen 4 mg/dL (8-23); CA 15-3 32.4 U/mL (0-25); Calcium 9.3 mg/dL (8.5-10.5); Carbon Dioxide 22 mmol/L (22-29); Chloride 103 mmol/L (98-107); Globulin 2.5 g/dL (1.3-4.6); Glucose 111 mg/dL (65-115); Osmolality Calculated 286 mOsm/kg (285-295); Potassium 3.7 mmol/L (3.5-5.1); Sodium 139 mmol/L (136-145); Total Bilirubin 1.7 mg/dL (0.15-1.2); Total Protein 6.3 g/dL (6.6-8.7)
[2023-10-05] MEDS: dextrose 5% 250 ML 75 ML IV (12:15)
[2023-10-05] MEDS: palonosetron 0.25 mg/5 mL SDV IVP (12:16)
== END 2023-11-01 23:59 | disposition home or self-care (01) ==
PROVIDERS: Internal Medicine; PCP Family Medicine; Visit Provider Internal Medicine Medical Oncology
DX: Z51.11 Encounter for antineoplastic chemotherapy (principal); C50.112 Malignant neoplasm of central portion of left female breast; C77.0 Secondary and unspecified malignant neoplasm of lymph nodes of head, face and neck; R35.0 Frequency of micturition; R39.15 Urgency of urination; R30.9 Painful micturition, unspecified; Z79.899 Other long term (current) drug therapy
CPT/HCPCS: 80053; 85025; 86300; 96367; 96375; 96413; J1100; J1642; J2469; J7060; J9358

== ENCOUNTER 2023-10-05 13:43 | Outpatient (CLI) | payer MEDICARE, BC, SELFPAY ==
--- NOTE | 2023-10-05 14:30 | MR_ITS ---
WS: [id number] MRI LUMBAR SPINE NONCONTRAST TECHNIQUE: Sagittal T1, T2 and STIR imaging. Axial T1 and T2 imaging. CLINICAL INFORMATION: compression fracture of L2 COMPARISON: None. FINDINGS: Mild lumbar curve. Compression fracture superior endplate L2 with loss of approximate 20% vertebral b darell height and associated edema compatible with acute compression. Minimal retropulsion of the [employer] ior superior cortex. No other acute appearing compression fractures. L1-L2: Mild annular bulging with slight effacement of the ventral thecal sac. Mild narrowing of the s ubarticular recess bilaterally. Mild facet arthropathy. Mild LEFT foraminal narrowing. RIGHT foramen is patent. L2-L3: Mild annular bulging. Narrowing of the RIGHT subarticular recess. Mild RIGHT foraminal narrowi ng. Mild facet arthropathy. L3-L4: Mild annular bulging with slight narrowing of the RIGHT subarticular recess. Mild facet arthro steven. Spinal canal and foramen are patent. L4-L5: Mild annular bulging. Narrowing of the RIGHT subarticular recess. Moderate arthropathy. Mild R IGHT and no significant LEFT foraminal narrowing. Slight impingement traversing L5 nerve roots. L5-S1: Mild annular bulging with slight effacement of the ventral thecal sac. Mild facet arthropathy. Spine canal and foramen are patent. Visualized pelvic bony structures: Normal. Paravertebral soft tissues: Normal. Horseshoe kidneys. IMPRESSION: 1. Mild acute compression superior endplate L2 with associated edema and loss of approximately 20% v ertebral body height. Minimal retropulsion of the posterior superior cortex with slight effacement of the ventral thecal sac. 2. Mild annular bulging L4-5 with slight impingement RIGHT subarticular recess and traversing RIGHT L5 nerve root. Mild RIGHT L4-5 foraminal narrowing. 3. Mild facet arthropathy L3-L5. 4. Horseshoe kidneys. 5. Mild central canal stenosis in the cervical spine founder president and ce[employer] imaging due to disc osteophyte protrusion s at C4-C6 with mild central canal stenosis. This could be further evaluated with cervical spine MRI.
== END 2023-10-05 13:44 | disposition home or self-care (01) ==
LOC: RAD 13:43
PROVIDERS: PCP Family Medicine; Visit Provider Family Medicine
DX: S32.020A Wedge compression fracture of second lumbar vertebra, initial encounter for closed fracture (principal); X58.XXXA Exposure to other specified factors, initial encounter; C50.112 Malignant neoplasm of central portion of left female breast; Z17.0 Estrogen receptor positive status [ER+]; Z79.899 Other long term (current) drug therapy; Z92.3 Personal history of irradiation; M51.36 Other intervertebral disc degeneration, lumbar region; M47.816 Spondylosis without myelopathy or radiculopathy, lumbar region; M48.02 Spinal stenosis, cervical region; M25.78 Osteophyte, vertebrae
CPT/HCPCS: 72148; 99205

== ENCOUNTER 2023-10-08 14:22 | Outpatient (CLI) | payer MEDICARE, BC, SELFPAY ==
--- NOTE | 2023-10-08 14:30 | XR_ITS ---
WS: [id number] DEXA (DUAL ENERGY X-RAY ABSORPTIOMETRY) Bone mineral density was performed using a [employer] machine. HISTORY: postmenopausal COMPARISON: None available. Lumbar spine BMD (L1-L4): 0.851 g/cm2 T score: -2.7 Z score: -1.1 Total hip BMD: Left: 0.804 g/cm2. T score: -1.6 Z score: -0.1 Right: 0.895 g/cm2. T score: -0.9 Z score: 0.6 10 year probability of a major osteoporotic fracture is 12.4%. IMPRESSION: OSTEOPOROSIS based upon the WHO classification for females.
== END 2023-10-08 14:23 | disposition home or self-care (01) ==
LOC: RAD 14:23
PROVIDERS: PCP Family Medicine; Visit Provider Family Medicine
DX: Z78.0 Asymptomatic menopausal state (principal); M81.0 Age-related osteoporosis without current pathological fracture
CPT/HCPCS: 77080

== ENCOUNTER 2023-11-30 08:32 | Oncology outpatient (recurring) (ONCR) | payer MEDICARE, BC, SELFPAY ==
[2023-11-30 09:39] VITALS: BP 159/81; PULSE 84; RESP 17; TEMP 36.9; O2SAT 93
[2023-11-30 09:41] LABS: Basophils # 0.1 10^3/uL (0.0-0.1); Basophils % 1.7 %; Eosinophils # 0.4 10^3/uL (0.0-0.8); Eosinophils % 6.8 %; Hematocrit 42.9 % (36-47); Lymphocytes # 1.6 10^3/uL (0.8-4.8); Lymphocytes % 27.1 %; Mean Corpuscular HGB Conc 33.1 g/dL (30-55); Mean Corpuscular Hemoglobin 32.3 pg (27-33); Mean Corpuscular Volume 97.7 fl (85-98); Mean Platelet Volume 9.2 fL (7.4-10.4); Monocytes % 16.2 %; Neutrophils # 2.84 10^3/uL (1.8-7.7); Nucleated Red Blood Cells % 0 %; Platelet Count 380 10^3/cmm (157-399); Red Blood Count 4.39 10^6/uL (3.85-5.65); Red Cell Distribution Width 14.3 % (12.1-15.1); White Blood Count 5.91 10^3/uL (3.29-11.43)
[2023-11-30 10:12] LABS: Alanine Aminotransferase 8 U/L (0-33); Albumin Level 3.3 g/dL (3.5-5.2); Alkaline Phosphatase 225 U/L (35-105); Anion Gap 13.6 (5-19); Aspartate Amino Transferase 27 U/L (0-32); Blood Urea Nitrogen 4 mg/dL (8-23); CA 15-3 26.5 U/mL (0-25); Calcium 8.9 mg/dL (8.5-10.5); Carbon Dioxide 27 mmol/L (22-29); Chloride 103 mmol/L (98-107); Globulin 3.6 g/dL (1.3-4.6); Glomerular Filtration Rate 157.8 mL/min (90-130); Glucose 114 mg/dL (65-115); Osmolality Calculated 288 mOsm/kg (285-295); Potassium 3.6 mmol/L (3.5-5.1); Sodium 140 mmol/L (136-145); Total Bilirubin 1.6 mg/dL (0.15-1.2); Total Protein 6.9 g/dL (6.6-8.7)
== END 2023-12-02 23:59 | disposition home or self-care (01) ==
PROVIDERS: Internal Medicine; PCP Family Medicine; Visit Provider Internal Medicine Medical Oncology
DX: C50.112 Malignant neoplasm of central portion of left female breast; C77.0 Secondary and unspecified malignant neoplasm of lymph nodes of head, face and neck; R35.0 Frequency of micturition; R39.15 Urgency of urination; R30.9 Painful micturition, unspecified; Z79.899 Other long term (current) drug therapy
CPT/HCPCS: 36415; 80053; 85025; 86300; 99214; J1642

== ENCOUNTER 2023-12-15 09:22 | Oncology outpatient (recurring) (ONCR) | payer MEDICARE, BC, SELFPAY ==
[2023-12-15 10:53] LABS: Alanine Aminotransferase 6 U/L (0-33); Albumin Level 3.7 g/dL (3.5-5.2); Alkaline Phosphatase 195 U/L (35-105); Anion Gap 13.7 (5-19); Aspartate Amino Transferase 25 U/L (0-32); Basophils # 0.1 10^3/uL (0.0-0.1); Basophils % 1.8 %; Blood Urea Nitrogen 4 mg/dL (8-23); Calcium 8.6 mg/dL (8.5-10.5); Carbon Dioxide 25 mmol/L (22-29); Chloride 103 mmol/L (98-107); Creatinine Clr Calc Pharmacy 61.4536; Eosinophils # 0.5 10^3/uL (0.0-0.8); Eosinophils % 8.1 %; Globulin 3.3 g/dL (1.3-4.6); Glomerular Filtration Rate 157.8 mL/min (90-130); Glucose 113 mg/dL (65-115); Hematocrit 43.5 % (36-47); Lymphocytes # 1.7 10^3/uL (0.8-4.8); Lymphocytes % 29.9 %; Mean Corpuscular HGB Conc 32.4 g/dL (30-55); Mean Corpuscular Hemoglobin 32.1 pg (27-33); Mean Corpuscular Volume 99.1 fl (85-98); Mean Platelet Volume 10.3 fL (7.4-10.4); Monocytes # 0.9 10^3/uL (0.2-0.9); Monocytes % 15.3 %; Neutrophils # 2.54 10^3/uL (1.8-7.7); Neutrophils % 44.7 %; Nucleated Red Blood Cells % 0 %; Osmolality Calculated 284 mOsm/kg (285-295); Platelet Count 285 10^3/cmm (157-399); Potassium 3.7 mmol/L (3.5-5.1); Red Blood Count 4.39 10^6/uL (3.85-5.65); Red Cell Distribution Width 13.2 % (12.1-15.1); Sodium 138 mmol/L (136-145); Total Bilirubin 1.4 mg/dL (0.15-1.2); White Blood Count 5.68 10^3/uL (3.29-11.43)
== END 2023-12-31 23:59 | disposition home or self-care (01) ==
PROVIDERS: PCP Family Medicine; Visit Provider Internal Medicine Medical Oncology
DX: C50.112 Malignant neoplasm of central portion of left female breast (principal); Z17.0 Estrogen receptor positive status [ER+]; C79.2 Secondary malignant neoplasm of skin; Z79.622 Long term (current) use of Janus kinase inhibitor
CPT/HCPCS: 36591; 80053; 85025; 99214; J1642

== ENCOUNTER 2024-01-19 14:21 | Oncology outpatient (recurring) (ONCR) | payer MEDICARE, BC, SELFPAY ==
[2024-01-19 14:59] LABS: Basophils % 0.1 %; Eosinophils % 0.2 %; Hematocrit 41.1 % (36-47); Lymphocytes % 8.9 %; Mean Corpuscular HGB Conc 33.3 g/dL (30-55); Mean Corpuscular Hemoglobin 31.6 pg (27-33); Mean Corpuscular Volume 94.9 fl (85-98); Mean Platelet Volume 9.9 fL (7.4-10.4); Monocytes # 1.3 10^3/uL (0.2-0.9); Monocytes % 11.3 %; Neutrophils # 9.14 10^3/uL (1.8-7.7); Neutrophils % 78.6 %; Nucleated Red Blood Cells % 0 %; Platelet Count 215 10^3/cmm (157-399); Red Blood Count 4.33 10^6/uL (3.85-5.65); Red Cell Distribution Width 14.3 % (12.1-15.1); White Blood Count 11.62 10^3/uL (3.29-11.43)
[2024-01-19 15:19] LABS: Alanine Aminotransferase 22 U/L (0-33); Albumin Level 3.4 g/dL (3.5-5.2); Alkaline Phosphatase 199 U/L (35-105); Anion Gap 13.1 (5-19); Aspartate Amino Transferase 29 U/L (0-32); Blood Urea Nitrogen 11 mg/dL (8-23); Calcium 8.8 mg/dL (8.5-10.5); Carbon Dioxide 28 mmol/L (22-29); Chloride 104 mmol/L (98-107); Globulin 2.1 g/dL (1.3-4.6); Glomerular Filtration Rate 157.8 mL/min (90-130); Glucose 105 mg/dL (65-115); Osmolality Calculated 292 mOsm/kg (285-295); Potassium 4.1 mmol/L (3.5-5.1); Sodium 141 mmol/L (136-145); Total Bilirubin 1.7 mg/dL (0.15-1.2); Total Protein 5.5 g/dL (6.6-8.7)
== END 2024-01-31 23:59 | disposition home or self-care (01) ==
LOC: ONCMED 14:22
PROVIDERS: PCP Family Medicine; Visit Provider Internal Medicine Medical Oncology
DX: C50.112 Malignant neoplasm of central portion of left female breast (principal); C77.0 Secondary and unspecified malignant neoplasm of lymph nodes of head, face and neck; C79.89 Secondary malignant neoplasm of other specified sites; Z95.828 Presence of other vascular implants and grafts; Z17.0 Estrogen receptor positive status [ER+]; Z90.13 Acquired absence of bilateral breasts and nipples; Z92.21 Personal history of antineoplastic chemotherapy; Z79.899 Other long term (current) drug therapy
CPT/HCPCS: 36591; 80053; 85025; 99214; J1642

== ENCOUNTER 2024-03-30 11:45 | Oncology outpatient (recurring) (ONCR) | payer MEDICARE, BC, SELFPAY ==
[2024-03-15 13:18] LABS: Basophils # 0.1 10^3/uL (0.0-0.1); Basophils % 1.1 %; Eosinophils # 0.4 10^3/uL (0.0-0.8); Eosinophils % 5.2 %; Hematocrit 41.2 % (36-47); Lymphocytes # 1.9 10^3/uL (0.8-4.8); Lymphocytes % 25.9 %; Mean Corpuscular Hemoglobin 31.9 pg (27-33); Mean Corpuscular Volume 96.7 fl (85-98); Mean Platelet Volume 9.8 fL (7.4-10.4); Neutrophils # 4.06 10^3/uL (1.8-7.7); Neutrophils % 54.4 %; Nucleated Red Blood Cells % 0 %; Platelet Count 244 10^3/cmm (157-399); Red Blood Count 4.26 10^6/uL (3.85-5.65); Red Cell Distribution Width 16.4 % (12.1-15.1); White Blood Count 7.46 10^3/uL (3.29-11.43)
[2024-03-15 14:34] LABS: Alanine Aminotransferase 6 U/L (0-33); Albumin Level 3.5 g/dL (3.5-5.2); Alkaline Phosphatase 135 U/L (35-105); Anion Gap 15.9 (5-19); Aspartate Amino Transferase 23 U/L (0-32); Blood Urea Nitrogen 7 mg/dL (8-23); Calcium 9.2 mg/dL (8.5-10.5); Carbon Dioxide 24 mmol/L (22-29); Chloride 106 mmol/L (98-107); Globulin 2.5 g/dL (1.3-4.6); Glucose 105 mg/dL (65-115); Osmolality Calculated 290 mOsm/kg (285-295); Potassium 4.9 mmol/L (3.5-5.1); Sodium 141 mmol/L (136-145); Total Bilirubin 1.4 mg/dL (0.15-1.2)
[2024-03-30 11:48] LABS: Basophils # 0.1 10^3/uL (0.0-0.1); Basophils % 1.2 %; Eosinophils # 0.3 10^3/uL (0.0-0.8); Eosinophils % 6.6 %; Lymphocytes # 1.5 10^3/uL (0.8-4.8); Lymphocytes % 29.4 %; Mean Corpuscular HGB Conc 33.8 g/dL (30-55); Mean Corpuscular Hemoglobin 32.9 pg (27-33); Mean Corpuscular Volume 97.3 fl (85-98); Mean Platelet Volume 9.6 fL (7.4-10.4); Monocytes # 0.8 10^3/uL (0.2-0.9); Monocytes % 16.1 %; Neutrophils # 2.39 10^3/uL (1.8-7.7); Neutrophils % 46.5 %; Nucleated Red Blood Cells % 0 %; Platelet Count 212 10^3/cmm (157-399); Red Blood Count 4.01 10^6/uL (3.85-5.65); Red Cell Distribution Width 16.2 % (12.1-15.1); White Blood Count 5.14 10^3/uL (3.29-11.43)
[2024-03-30 12:05] LABS: Alanine Aminotransferase 6 U/L (0-33); Albumin Level 3.5 g/dL (3.5-5.2); Alkaline Phosphatase 114 U/L (35-105); Anion Gap 13.2 (5-19); Aspartate Amino Transferase 24 U/L (0-32); Blood Urea Nitrogen 5 mg/dL (8-23); Calcium 8.3 mg/dL (8.5-10.5); Carbon Dioxide 25 mmol/L (22-29); Chloride 105 mmol/L (98-107); Globulin 2.5 g/dL (1.3-4.6); Glucose 133 mg/dL (65-115); Osmolality Calculated 287 mOsm/kg (285-295); Potassium 4.2 mmol/L (3.5-5.1); Sodium 139 mmol/L (136-145); Total Bilirubin 1.8 mg/dL (0.15-1.2)
== END 2024-04-01 23:59 | disposition home or self-care (01) ==
PROVIDERS: PCP Family Medicine; Visit Provider Internal Medicine Medical Oncology
DX: Z53.9 Procedure and treatment not carried out, unspecified reason; C50.919 Malignant neoplasm of unspecified site of unspecified female breast; C77.0 Secondary and unspecified malignant neoplasm of lymph nodes of head, face and neck
CPT/HCPCS: 36591; 80053; 85025; 99214

== ENCOUNTER 2024-04-27 15:00 | Oncology outpatient (recurring) (ONCR) | payer MEDICARE, BC, SELFPAY ==
[2024-04-27 15:29] LABS: Basophils # 0.1 10^3/uL (0.0-0.1); Basophils % 1.1 %; Eosinophils # 0.3 10^3/uL (0.0-0.8); Eosinophils % 6.1 %; Hematocrit 38.6 % (36-47); Lymphocytes # 1.5 10^3/uL (0.8-4.8); Lymphocytes % 28.1 %; Mean Corpuscular HGB Conc 32.9 g/dL (30-55); Mean Corpuscular Hemoglobin 32.8 pg (27-33); Mean Corpuscular Volume 99.7 fl (85-98); Monocytes # 0.8 10^3/uL (0.2-0.9); Neutrophils # 2.61 10^3/uL (1.8-7.7); Neutrophils % 49.5 %; Nucleated Red Blood Cells % 0 %; Platelet Count 227 10^3/cmm (157-399); Red Blood Count 3.87 10^6/uL (3.85-5.65); Red Cell Distribution Width 16.6 % (12.1-15.1); White Blood Count 5.27 10^3/uL (3.29-11.43)
[2024-04-27 15:48] LABS: Alanine Aminotransferase < 5 U/L (0-33); Albumin Level 3.5 g/dL (3.5-5.2); Alkaline Phosphatase 124 U/L (35-105); Aspartate Amino Transferase 20 U/L (0-32); Blood Urea Nitrogen 5 mg/dL (8-23); Calcium 8.9 mg/dL (8.5-10.5); Carbon Dioxide 27 mmol/L (22-29); Chloride 101 mmol/L (98-107); Globulin 2.4 g/dL (1.3-4.6); Glucose 107 mg/dL (65-115); Osmolality Calculated 282 mOsm/kg (285-295); Sodium 137 mmol/L (136-145); Total Bilirubin 1.2 mg/dL (0.15-1.2); Total Protein 5.9 g/dL (6.6-8.7)
== END 2024-05-01 23:59 | disposition home or self-care (01) ==
PROVIDERS: Internal Medicine; PCP Family Medicine; Visit Provider Internal Medicine Medical Oncology
DX: Z53.9 Procedure and treatment not carried out, unspecified reason (principal); C50.919 Malignant neoplasm of unspecified site of unspecified female breast
CPT/HCPCS: 36591; 80053; 85025; 96523

== ENCOUNTER 2024-06-13 13:26 | Oncology outpatient (recurring) (ONCR) | payer MEDICARE, BC, SELFPAY ==
[2024-06-13 14:21] LABS: Basophils # 0.1 10^3/uL (0.0-0.1); Basophils % 1.5 %; Eosinophils # 0.4 10^3/uL (0.0-0.8); Eosinophils % 7.5 %; Lymphocytes # 1.6 10^3/uL (0.8-4.8); Lymphocytes % 30.8 %; Mean Corpuscular HGB Conc 32.9 g/dL (30-55); Mean Corpuscular Hemoglobin 32.8 pg (27-33); Mean Corpuscular Volume 99.7 fl (85-98); Mean Platelet Volume 9.4 fL (7.4-10.4); Monocytes # 0.7 10^3/uL (0.2-0.9); Monocytes % 12.6 %; Neutrophils # 2.53 10^3/uL (1.8-7.7); Neutrophils % 47.4 %; Nucleated Red Blood Cells % 0 %; Platelet Count 324 10^3/cmm (157-399); Red Blood Count 3.81 10^6/uL (3.85-5.65); Red Cell Distribution Width 16.8 % (12.1-15.1); White Blood Count 5.33 10^3/uL (3.29-11.43)
[2024-06-13 14:57] LABS: Alanine Aminotransferase 8 U/L (0-33); Albumin Level 3.7 g/dL (3.5-5.2); Alkaline Phosphatase 132 U/L (35-105); Anion Gap 14.1 (5-19); Aspartate Amino Transferase 26 U/L (0-32); Blood Urea Nitrogen 6 mg/dL (8-23); Calcium 8.9 mg/dL (8.5-10.5); Carbon Dioxide 26 mmol/L (22-29); Chloride 100 mmol/L (98-107); Creatinine Clr Calc Pharmacy 61.8688; Globulin 2.9 g/dL (1.3-4.6); Glucose 108 mg/dL (65-115); Osmolality Calculated 280 mOsm/kg (285-295); Potassium 4.1 mmol/L (3.5-5.1); Sodium 136 mmol/L (136-145); Total Bilirubin 0.8 mg/dL (0.15-1.2); Total Protein 6.6 g/dL (6.6-8.7)
== END 2024-07-02 23:59 | disposition home or self-care (01) ==
PROVIDERS: PCP Family Medicine; Visit Provider Internal Medicine Medical Oncology
DX: C50.112 Malignant neoplasm of central portion of left female breast (principal); C77.0 Secondary and unspecified malignant neoplasm of lymph nodes of head, face and neck; Z17.0 Estrogen receptor positive status [ER+]; Z90.13 Acquired absence of bilateral breasts and nipples; Z92.3 Personal history of irradiation; Z79.69 Long term (current) use of other immunomodulators and immunosuppressants; Z79.899 Other long term (current) drug therapy; C79.89 Secondary malignant neoplasm of other specified sites
CPT/HCPCS: 36591; 80053; 85025; 99214

== ENCOUNTER 2024-07-11 13:54 | Oncology outpatient (recurring) (ONCR) | payer MEDICARE, BC, SELFPAY ==
[2024-07-11 14:31] LABS: Basophils # 0.1 10^3/uL (0.0-0.1); Basophils % 0.8 %; Eosinophils # 0.3 10^3/uL (0.0-0.8); Hematocrit 41.4 % (36-47); Lymphocytes # 1.7 10^3/uL (0.8-4.8); Lymphocytes % 22.2 %; Mean Corpuscular HGB Conc 33.8 g/dL (30-55); Mean Corpuscular Hemoglobin 33.7 pg (27-33); Mean Corpuscular Volume 99.8 fl (85-98); Monocytes # 0.8 10^3/uL (0.2-0.9); Monocytes % 10.2 %; Neutrophils % 62.4 %; Nucleated Red Blood Cells % 0 %; Platelet Count 284 10^3/cmm (157-399); Red Blood Count 4.15 10^6/uL (3.85-5.65); Red Cell Distribution Width 15.9 % (12.1-15.1); White Blood Count 7.84 10^3/uL (3.29-11.43)
[2024-07-11 15:24] LABS: Alanine Aminotransferase 8 U/L (0-33); Albumin Level 4.2 g/dL (3.5-5.2); Alkaline Phosphatase 118 U/L (35-105); Aspartate Amino Transferase 25 U/L (0-32); Blood Urea Nitrogen 10 mg/dL (8-23); Calcium 9.7 mg/dL (8.5-10.5); Carbon Dioxide 23 mmol/L (22-29); Chloride 101 mmol/L (98-107); Globulin 2.7 g/dL (1.3-4.6); Glucose 107 mg/dL (65-115); Osmolality Calculated 286 mOsm/kg (285-295); Sodium 138 mmol/L (136-145); Total Bilirubin 1.4 mg/dL (0.15-1.2); Total Protein 6.9 g/dL (6.6-8.7)
[2024-07-11 18:13] LABS: CA 15-3 26.4 U/mL (0-25)
== END 2024-08-01 23:59 | disposition home or self-care (01) ==
PROVIDERS: Nurse Practitioner Family; PCP Family Medicine; Visit Provider Internal Medicine Medical Oncology
DX: C50.112 Malignant neoplasm of central portion of left female breast (principal); Z17.0 Estrogen receptor positive status [ER+]; C77.0 Secondary and unspecified malignant neoplasm of lymph nodes of head, face and neck; Z90.13 Acquired absence of bilateral breasts and nipples; Z92.3 Personal history of irradiation; Z79.69 Long term (current) use of other immunomodulators and immunosuppressants; Z79.899 Other long term (current) drug therapy; Z95.828 Presence of other vascular implants and grafts; Z92.21 Personal history of antineoplastic chemotherapy; C78.6 Secondary malignant neoplasm of retroperitoneum and peritoneum
CPT/HCPCS: 36591; 80053; 85025; 86300; 99214

== ENCOUNTER 2024-08-31 09:26 | Oncology outpatient (recurring) (ONCR) | payer MEDICARE, BC, SELFPAY ==
[2024-08-31 09:59] LABS: Basophils # 0.1 10^3/uL (0.0-0.1); Basophils % 1.9 %; Eosinophils # 0.4 10^3/uL (0.0-0.8); Eosinophils % 8.3 %; Hematocrit 38.6 % (36-47); Lymphocytes # 1.7 10^3/uL (0.8-4.8); Lymphocytes % 31.7 %; Mean Corpuscular HGB Conc 33.4 g/dL (30-55); Mean Corpuscular Hemoglobin 32.7 pg (27-33); Mean Corpuscular Volume 97.7 fl (85-98); Mean Platelet Volume 9.8 fL (7.4-10.4); Monocytes # 0.6 10^3/uL (0.2-0.9); Monocytes % 11.9 %; Nucleated Red Blood Cells % 0 %; Platelet Count 216 10^3/cmm (157-399); Red Blood Count 3.95 10^6/uL (3.85-5.65); Red Cell Distribution Width 15.4 % (12.1-15.1); White Blood Count 5.21 10^3/uL (3.29-11.43)
[2024-08-31 10:25] LABS: Alanine Aminotransferase 10 U/L (0-33); Albumin Level 3.7 g/dL (3.5-5.2); Alkaline Phosphatase 144 U/L (35-105); Anion Gap 12.6 (5-19); Aspartate Amino Transferase 29 U/L (0-32); Blood Urea Nitrogen 5 mg/dL (8-23); Calcium 9.3 mg/dL (8.5-10.5); Carbon Dioxide 29 mmol/L (22-29); Chloride 100 mmol/L (98-107); Globulin 2.5 g/dL (1.3-4.6); Glucose 95 mg/dL (65-115); Osmolality Calculated 283 mOsm/kg (285-295); Potassium 3.6 mmol/L (3.5-5.1); Sodium 138 mmol/L (136-145); Total Protein 6.2 g/dL (6.6-8.7)
== END 2024-09-01 23:59 | disposition home or self-care (01) ==
LOC: ONCMED 09:27
PROVIDERS: Nurse Practitioner Family; PCP Family Medicine; Visit Provider Internal Medicine Hematology & Oncology
DX: C50.112 Malignant neoplasm of central portion of left female breast (principal); Z17.0 Estrogen receptor positive status [ER+]; C77.0 Secondary and unspecified malignant neoplasm of lymph nodes of head, face and neck; Z90.13 Acquired absence of bilateral breasts and nipples; Z92.3 Personal history of irradiation; Z79.69 Long term (current) use of other immunomodulators and immunosuppressants; Z79.899 Other long term (current) drug therapy; Z95.828 Presence of other vascular implants and grafts; Z92.21 Personal history of antineoplastic chemotherapy; C78.6 Secondary malignant neoplasm of retroperitoneum and peritoneum
CPT/HCPCS: 36591; 80053; 85025; 86300

== ENCOUNTER 2024-09-06 09:18 | Oncology outpatient (recurring) (ONCR) | payer MEDICARE, BC, SELFPAY ==
[2024-09-06 10:00] LABS: Basophils # 0.1 10^3/uL (0.0-0.1); Basophils % 1.5 %; Eosinophils # 0.4 10^3/uL (0.0-0.8); Eosinophils % 6.8 %; Hematocrit 41.1 % (36-47); Lymphocytes # 1.9 10^3/uL (0.8-4.8); Lymphocytes % 31.1 %; Mean Corpuscular HGB Conc 33.1 g/dL (30-55); Mean Corpuscular Hemoglobin 31.9 pg (27-33); Mean Corpuscular Volume 96.3 fl (85-98); Monocytes # 0.7 10^3/uL (0.2-0.9); Monocytes % 11.7 %; Neutrophils # 2.99 10^3/uL (1.8-7.7); Neutrophils % 48.6 %; Nucleated Red Blood Cells % 0 %; Platelet Count 323 10^3/cmm (157-399); Red Blood Count 4.27 10^6/uL (3.85-5.65); Red Cell Distribution Width 14.9 % (12.1-15.1); White Blood Count 6.15 10^3/uL (3.29-11.43)
[2024-09-06 10:35] LABS: Alanine Aminotransferase 12 U/L (0-33); Albumin Level 4.1 g/dL (3.5-5.2); Alkaline Phosphatase 145 U/L (35-105); Anion Gap 14.5 (5-19); Aspartate Amino Transferase 28 U/L (0-32); Blood Urea Nitrogen 4 mg/dL (8-23); Carbon Dioxide 27 mmol/L (22-29); Chloride 95 mmol/L (98-107); Glucose 138 mg/dL (65-115); Osmolality Calculated 275 mOsm/kg (285-295); Potassium 3.5 mmol/L (3.5-5.1); Sodium 133 mmol/L (136-145); Total Bilirubin 1.1 mg/dL (0.15-1.2); Total Protein 6.1 g/dL (6.6-8.7)
[2024-09-06] MEDS: ADO TRASTUZUMAB EMTANSINE IV (11:08)
[2024-09-06] MEDS: [UNRECOGNIZED DRUG - OTHER] IV (11:08)
== END 2024-09-06 23:59 | disposition home or self-care (01) ==
PROVIDERS: Nurse Practitioner Family; PCP Family Medicine; Visit Provider Internal Medicine Hematology & Oncology
DX: Z53.9 Procedure and treatment not carried out, unspecified reason; Z51.11 Encounter for antineoplastic chemotherapy; C50.112 Malignant neoplasm of central portion of left female breast; C77.0 Secondary and unspecified malignant neoplasm of lymph nodes of head, face and neck; Z17.0 Estrogen receptor positive status [ER+]; Z90.13 Acquired absence of bilateral breasts and nipples; Z92.3 Personal history of irradiation; Z79.899 Other long term (current) drug therapy
CPT/HCPCS: 36415; 80053; 85025; 96413; 99214; J7050; J9354

== ENCOUNTER 2024-09-13 09:32 | Oncology outpatient (recurring) (ONCR) | payer MEDICARE, BC, SELFPAY ==
[2024-09-13 10:34] LABS: Basophils # 0.1 10^3/uL (0.0-0.1); Basophils % 1.6 %; Eosinophils # 0.1 10^3/uL (0.0-0.8); Eosinophils % 1.6 %; Hematocrit 41.6 % (36-47); Lymphocytes # 1.7 10^3/uL (0.8-4.8); Lymphocytes % 27.4 %; Mean Corpuscular HGB Conc 32.9 g/dL (30-55); Mean Corpuscular Volume 94.1 fl (85-98); Mean Platelet Volume 9.9 fL (7.4-10.4); Monocytes # 1.2 10^3/uL (0.2-0.9); Monocytes % 19.2 %; Neutrophils # 3.05 10^3/uL (1.8-7.7); Neutrophils % 49.9 %; Nucleated Red Blood Cells % 0 %; Platelet Count 330 10^3/cmm (157-399); Red Blood Count 4.42 10^6/uL (3.85-5.65); Red Cell Distribution Width 14.6 % (12.1-15.1); White Blood Count 6.13 10^3/uL (3.29-11.43)
[2024-09-13 10:48] LABS: Alanine Aminotransferase 12 U/L (0-33); Alkaline Phosphatase 153 U/L (35-105); Anion Gap 15.6 (5-19); Aspartate Amino Transferase 38 U/L (0-32); Blood Urea Nitrogen 4 mg/dL (8-23); Calcium 9.5 mg/dL (8.5-10.5); Carbon Dioxide 28 mmol/L (22-29); Chloride 97 mmol/L (98-107); Globulin 2.5 g/dL (1.3-4.6); Glucose 102 mg/dL (65-115); Osmolality Calculated 281 mOsm/kg (285-295); Potassium 3.6 mmol/L (3.5-5.1); Sodium 137 mmol/L (136-145); Total Bilirubin 1.4 mg/dL (0.15-1.2); Total Protein 6.5 g/dL (6.6-8.7)
== END 2024-10-01 23:59 | disposition home or self-care (01) ==
LOC: ONCMED 09:32
PROVIDERS: Nurse Practitioner Family; PCP Family Medicine; Visit Provider Internal Medicine Hematology & Oncology
DX: C50.112 Malignant neoplasm of central portion of left female breast (principal)
CPT/HCPCS: 36591; 80053; 85025

== ENCOUNTER 2024-10-03 11:41 | Oncology outpatient (recurring) (ONCR) | payer MEDICARE, BC, SELFPAY ==
[2024-10-03 12:13] LABS: Basophils # 0.1 10^3/uL (0.0-0.1); Basophils % 1.2 %; Eosinophils # 0.2 10^3/uL (0.0-0.8); Eosinophils % 2.4 %; Hematocrit 41.7 % (36-47); Lymphocytes # 2.3 10^3/uL (0.8-4.8); Lymphocytes % 26.4 %; Mean Corpuscular HGB Conc 31.9 g/dL (30-55); Mean Corpuscular Hemoglobin 30.1 pg (27-33); Mean Corpuscular Volume 94.3 fl (85-98); Mean Platelet Volume 9.6 fL (7.4-10.4); Monocytes % 11.7 %; Neutrophils # 5.17 10^3/uL (1.8-7.7); Neutrophils % 58.2 %; Nucleated Red Blood Cells % 0 %; Platelet Count 300 10^3/cmm (157-399); Red Blood Count 4.42 10^6/uL (3.85-5.65); Red Cell Distribution Width 16.1 % (12.1-15.1); White Blood Count 8.88 10^3/uL (3.29-11.43)
[2024-10-03 12:39] LABS: Alanine Aminotransferase 14 U/L (0-33); Albumin Level 3.7 g/dL (3.5-5.2); Alkaline Phosphatase 176 U/L (35-105); Anion Gap 12.2 (5-19); Aspartate Amino Transferase 43 U/L (0-32); Blood Urea Nitrogen 5 mg/dL (8-23); Calcium 9.9 mg/dL (8.5-10.5); Carbon Dioxide 30 mmol/L (22-29); Chloride 101 mmol/L (98-107); Creatinine Clr Calc Pharmacy 61.6843; Globulin 3.4 g/dL (1.3-4.6); Glucose 95 mg/dL (65-115); Osmolality Calculated 287 mOsm/kg (285-295); Potassium 3.2 mmol/L (3.5-5.1); Sodium 140 mmol/L (136-145); Total Bilirubin 1.8 mg/dL (0.15-1.2); Total Protein 7.1 g/dL (6.6-8.7)
[2024-10-03] MEDS: [UNRECOGNIZED DRUG - OTHER] IV (14:25)
[2024-10-03] MEDS: SODIUM CHLORIDE 0.9% IV (14:25)
[2024-10-03 15:04] VITALS: BP 177/79; PULSE 102; RESP 15; TEMP 36.6; O2SAT 90
== END 2024-10-03 23:59 | disposition home or self-care (01) ==
PROVIDERS: Nurse Practitioner Family; PCP Family Medicine; Visit Provider Internal Medicine Hematology & Oncology
DX: C50.112 Malignant neoplasm of central portion of left female breast (principal); Z53.9 Procedure and treatment not carried out, unspecified reason; Z51.11 Encounter for antineoplastic chemotherapy; Z17.0 Estrogen receptor positive status [ER+]
CPT/HCPCS: 80053; 85025; 86300; 96413; 99214; J7050; J9354

== ENCOUNTER 2024-10-24 08:43 | Oncology outpatient (recurring) (ONCR) | payer MEDICARE, BC, SELFPAY ==
[2024-10-24 09:15] LABS: Basophils # 0.1 10^3/uL (0.0-0.1); Basophils % 1.4 %; Eosinophils # 0.4 10^3/uL (0.0-0.8); Eosinophils % 5.6 %; Lymphocytes # 2.5 10^3/uL (0.8-4.8); Mean Corpuscular HGB Conc 31.5 g/dL (30-55); Mean Corpuscular Hemoglobin 29.1 pg (27-33); Mean Corpuscular Volume 92.4 fl (85-98); Mean Platelet Volume 10.3 fL (7.4-10.4); Monocytes # 1.2 10^3/uL (0.2-0.9); Monocytes % 16.1 %; Neutrophils # 3.14 10^3/uL (1.8-7.7); Neutrophils % 42.8 %; Nucleated Red Blood Cells % 0 %; Platelet Count 256 10^3/cmm (157-399); Red Blood Count 4.33 10^6/uL (3.85-5.65); Red Cell Distribution Width 15.9 % (12.1-15.1); White Blood Count 7.33 10^3/uL (3.29-11.43)
[2024-10-24 10:08] LABS: Alanine Aminotransferase 17 U/L (0-33); Albumin Level 3.4 g/dL (3.5-5.2); Alkaline Phosphatase 175 U/L (35-105); Anion Gap 13.2 (5-19); Aspartate Amino Transferase 54 U/L (0-32); Blood Urea Nitrogen 5 mg/dL (8-23); CA 15-3 26.3 U/mL (0-25); Calcium 9.1 mg/dL (8.5-10.5); Carbon Dioxide 28 mmol/L (22-29); Chloride 105 mmol/L (98-107); Globulin 3.6 g/dL (1.3-4.6); Glucose 106 mg/dL (65-115); Osmolality Calculated 292 mOsm/kg (285-295); Potassium 4.2 mmol/L (3.5-5.1); Sodium 142 mmol/L (136-145)
[2024-10-24] MEDS: [UNRECOGNIZED DRUG - OTHER] IV (10:53)
[2024-10-24] MEDS: SODIUM CHLORIDE 0.9% IV (10:53)
[2024-10-24 11:50] VITALS: BP 155/83; PULSE 85; RESP 16; TEMP 37.3; O2SAT 91
== END 2024-10-24 23:59 | disposition home or self-care (01) ==
PROVIDERS: PCP Family Medicine; Visit Provider Internal Medicine Medical Oncology
DX: C50.112 Malignant neoplasm of central portion of left female breast (principal); Z51.11 Encounter for antineoplastic chemotherapy; Z17.0 Estrogen receptor positive status [ER+]; Z95.828 Presence of other vascular implants and grafts; C79.89 Secondary malignant neoplasm of other specified sites; Z79.811 Long term (current) use of aromatase inhibitors; G89.3 Neoplasm related pain (acute) (chronic); E87.6 Hypokalemia; Z90.13 Acquired absence of bilateral breasts and nipples; C77.0 Secondary and unspecified malignant neoplasm of lymph nodes of head, face and neck
CPT/HCPCS: 80053; 85025; 86300; 96413; 99214; J7050; J9354

== ENCOUNTER 2024-11-14 08:45 | Oncology outpatient (recurring) (ONCR) | payer MEDICARE, BC, SELFPAY ==
[2024-11-14 09:07] LABS: Basophils # 0.1 10^3/uL (0.0-0.1); Basophils % 1.7 %; Eosinophils # 0.4 10^3/uL (0.0-0.8); Eosinophils % 5.1 %; Hematocrit 40.4 % (36-47); Lymphocytes # 2.2 10^3/uL (0.8-4.8); Lymphocytes % 29.2 %; Mean Corpuscular HGB Conc 31.9 g/dL (30-55); Mean Corpuscular Hemoglobin 28.4 pg (27-33); Mean Corpuscular Volume 88.8 fl (85-98); Mean Platelet Volume 9.4 fL (7.4-10.4); Monocytes # 1.3 10^3/uL (0.2-0.9); Monocytes % 17.6 %; Neutrophils # 3.52 10^3/uL (1.8-7.7); Neutrophils % 46.1 %; Nucleated Red Blood Cells % 0 %; Platelet Count 382 10^3/cmm (157-399); Red Blood Count 4.55 10^6/uL (3.85-5.65); Red Cell Distribution Width 16.5 % (12.1-15.1); White Blood Count 7.63 10^3/uL (3.29-11.43)
[2024-11-14 09:36] LABS: Alanine Aminotransferase 16 U/L (0-33); Albumin Level 3.7 g/dL (3.5-5.2); Alkaline Phosphatase 176 U/L (35-105); Anion Gap 14.1 (5-19); Aspartate Amino Transferase 53 U/L (0-32); Blood Urea Nitrogen 6 mg/dL (8-23); CA 15-3 26.4 U/mL (0-25); Calcium 9.3 mg/dL (8.5-10.5); Carbon Dioxide 25 mmol/L (22-29); Chloride 102 mmol/L (98-107); Creatinine Clr Calc Pharmacy 60.0214; Glucose 96 mg/dL (65-115); Osmolality Calculated 281 mOsm/kg (285-295); Potassium 4.1 mmol/L (3.5-5.1); Sodium 137 mmol/L (136-145); Total Bilirubin 2.1 mg/dL (0.15-1.2); Total Protein 7.7 g/dL (6.6-8.7)
[2024-11-14] MEDS: [UNRECOGNIZED DRUG - OTHER] IV (11:37)
[2024-11-14] MEDS: SODIUM CHLORIDE 0.9% IV (11:37)
== END 2024-11-14 23:59 | disposition home or self-care (01) ==
PROVIDERS: PCP Family Medicine; Visit Provider Internal Medicine Medical Oncology
DX: C50.112 Malignant neoplasm of central portion of left female breast (principal); Z51.11 Encounter for antineoplastic chemotherapy; Z17.0 Estrogen receptor positive status [ER+]; Z79.899 Other long term (current) drug therapy; C77.0 Secondary and unspecified malignant neoplasm of lymph nodes of head, face and neck
CPT/HCPCS: 80053; 85025; 86300; 96413; 99214; J7050; J9354

== ENCOUNTER 2025-02-27 10:24 | Oncology outpatient (recurring) (ONCR) | payer MEDICARE, BC, SELFPAY | END 2025-03-01 23:59 | disposition home or self-care (01) | LOC: ONCMED 10:24 | PROVIDERS: PCP Family Medicine; Visit Provider Internal Medicine Medical Oncology | DX: C50.112 Malignant neoplasm of central portion of left female breast (principal); Z17.0 Estrogen receptor positive status [ER+]; C79.89 Secondary malignant neoplasm of other specified sites; G89.3 Neoplasm related pain (acute) (chronic); E87.6 Hypokalemia; Z79.899 Other long term (current) drug therapy | CPT/HCPCS: 99214 ==

== ENCOUNTER 2025-03-14 07:14 | Oncology outpatient (recurring) (ONCR) | payer MEDICARE, BC, SELFPAY ==
[2025-03-14 07:42] LABS: Basophils # 0.2 10^3/uL (0.0-0.1); Basophils % 2.1 %; Eosinophils # 0.5 10^3/uL (0.0-0.8); Eosinophils % 6.2 %; Hematocrit 36.4 % (36-47); Lymphocytes # 1.7 10^3/uL (0.8-4.8); Lymphocytes % 20.3 %; Mean Corpuscular HGB Conc 32.1 g/dL (30-55); Mean Corpuscular Hemoglobin 32.2 pg (27-33); Mean Corpuscular Volume 100.3 fl (85-98); Mean Platelet Volume 10.5 fL (7.4-10.4); Monocytes # 1.7 10^3/uL (0.2-0.9); Neutrophils # 4.13 10^3/uL (1.8-7.7); Neutrophils % 49.9 %; Nucleated Red Blood Cells % 0 %; Platelet Count 234 10^3/cmm (157-399); Red Blood Count 3.63 10^6/uL (3.85-5.65); Red Cell Distribution Width 18.8 % (12.1-15.1); White Blood Count 8.27 10^3/uL (3.29-11.43)
[2025-03-14 08:01] LABS: Alanine Aminotransferase 11 U/L (0-33); Albumin Level 3.5 g/dL (3.5-5.2); Alkaline Phosphatase 193 U/L (35-105); Anion Gap 14.7 (5-19); Aspartate Amino Transferase 37 U/L (0-32); Blood Urea Nitrogen 6 mg/dL (8-23); CA 15-3 27.1 U/mL (0-25); Calcium 9.1 mg/dL (8.5-10.5); Carbon Dioxide 23 mmol/L (22-29); Chloride 103 mmol/L (98-107); Globulin 3.3 g/dL (1.3-4.6); Glucose 132 mg/dL (65-115); Osmolality Calculated 283 mOsm/kg (285-295); Potassium 3.7 mmol/L (3.5-5.1); Sodium 137 mmol/L (136-145); Total Bilirubin 2.4 mg/dL (0.15-1.2); Total Protein 6.8 g/dL (6.6-8.7)
[2025-03-14] MEDS: sodium chloride 0.9% 250 ML 75 ML IV (09:59)
[2025-03-14] MEDS: diphenhydrAMINE 25 mg Capsule PO (10:00)
[2025-03-14] MEDS: acetaminophen 325 mg Tablet 650 MG PO (10:00)
[2025-03-14] MEDS: famotidine 20 mg/2 mL INJ IVP (10:04)
[2025-03-14] MEDS: ondansetron 2 mg/ML SDV 2 mL 8 MG IVP (10:07)
[2025-03-14] MEDS: gemcitabine 1,700 MG in sodium chloride 0.9% (100 ml) 100 ML 289.42 MG IV (10:51)
[2025-03-14] MEDS: [UNRECOGNIZED DRUG - OTHER] IV (11:37)
[2025-03-14] MEDS: SODIUM CHLORIDE 0.9% IV (11:37)
[2025-03-14 12:12] VITALS: BP 119/72; PULSE 80; RESP 16; TEMP 37.4; O2SAT 90
== END 2025-03-14 23:59 | disposition home or self-care (01) ==
PROVIDERS: Nurse Practitioner; PCP Family Medicine; Visit Provider Internal Medicine
DX: Z51.12 Encounter for antineoplastic immunotherapy (principal); Z51.11 Encounter for antineoplastic chemotherapy; C50.112 Malignant neoplasm of central portion of left female breast; Z17.0 Estrogen receptor positive status [ER+]; Z95.828 Presence of other vascular implants and grafts; Z90.13 Acquired absence of bilateral breasts and nipples; G89.3 Neoplasm related pain (acute) (chronic); E87.6 Hypokalemia; C79.89 Secondary malignant neoplasm of other specified sites; I08.1 Rheumatic disorders of both mitral and tricuspid valves; Z79.899 Other long term (current) drug therapy
CPT/HCPCS: 80053; 85025; 86300; 96374; 96375; 96413; 96417; 99215; A4222; J2405; J3490; J7050; J9201; J9353; J9999

== ENCOUNTER 2025-03-21 08:05 | Oncology outpatient (recurring) (ONCR) | payer MEDICARE, BC, SELFPAY ==
[2025-03-21 08:25] LABS: Basophils # 0.1 10^3/uL (0.0-0.1); Basophils % 2.4 %; Eosinophils # 0.2 10^3/uL (0.0-0.8); Eosinophils % 5.9 %; Hematocrit 32.4 % (36-47); Lymphocytes # 1.5 10^3/uL (0.8-4.8); Lymphocytes % 41.2 %; Mean Corpuscular HGB Conc 32.4 g/dL (30-55); Mean Corpuscular Hemoglobin 32.3 pg (27-33); Mean Corpuscular Volume 99.7 fl (85-98); Mean Platelet Volume 10.3 fL (7.4-10.4); Monocytes # 0.8 10^3/uL (0.2-0.9); Monocytes % 20.3 %; Neutrophils # 1.12 10^3/uL (1.8-7.7); Neutrophils % 29.9 %; Nucleated Red Blood Cells % 0 %; Platelet Count 106 10^3/cmm (157-399); Red Blood Count 3.25 10^6/uL (3.85-5.65); Red Cell Distribution Width 17.7 % (12.1-15.1); White Blood Count 3.74 10^3/uL (3.29-11.43)
[2025-03-21 08:42] LABS: Alanine Aminotransferase 11 U/L (0-33); Albumin Level 3.3 g/dL (3.5-5.2); Alkaline Phosphatase 218 U/L (35-105); Anion Gap 14.6 (5-19); Aspartate Amino Transferase 33 U/L (0-32); Blood Urea Nitrogen 4 mg/dL (8-23); Calcium 9.3 mg/dL (8.5-10.5); Carbon Dioxide 24 mmol/L (22-29); Chloride 103 mmol/L (98-107); Creatinine Clr Calc Pharmacy 59.3337; Globulin 3.2 g/dL (1.3-4.6); Glucose 104 mg/dL (65-115); Osmolality Calculated 283 mOsm/kg (285-295); Potassium 3.6 mmol/L (3.5-5.1); Sodium 138 mmol/L (136-145); Total Bilirubin 2.1 mg/dL (0.15-1.2); Total Protein 6.5 g/dL (6.6-8.7)
== END 2025-04-01 23:59 | disposition home or self-care (01) ==
PROVIDERS: Nurse Practitioner; PCP Family Medicine; Visit Provider Internal Medicine Medical Oncology
DX: C50.112 Malignant neoplasm of central portion of left female breast (principal); Z17.0 Estrogen receptor positive status [ER+]; R03.0 Elevated blood-pressure reading, without diagnosis of hypertension; G89.3 Neoplasm related pain (acute) (chronic); E87.6 Hypokalemia
CPT/HCPCS: 80053; 85025; 99214

== ENCOUNTER 2025-04-04 11:23 | Oncology outpatient (recurring) (ONCR) | payer MEDICARE, BC, SELFPAY ==
[2025-04-04 11:43] LABS: Basophils # 0.1 10^3/uL (0.0-0.1); Basophils % 1.1 %; Eosinophils # 0.3 10^3/uL (0.0-0.8); Eosinophils % 4.1 %; Hematocrit 33.6 % (36-47); Lymphocytes # 2.1 10^3/uL (0.8-4.8); Mean Corpuscular HGB Conc 32.4 g/dL (30-55); Mean Corpuscular Hemoglobin 32.1 pg (27-33); Mean Corpuscular Volume 98.8 fl (85-98); Mean Platelet Volume 9.6 fL (7.4-10.4); Monocytes # 1.6 10^3/uL (0.2-0.9); Neutrophils % 44.7 %; Nucleated Red Blood Cells % 0 %; Platelet Count 324 10^3/cmm (157-399); Red Cell Distribution Width 16.8 % (12.1-15.1); White Blood Count 7.38 10^3/uL (3.29-11.43)
[2025-04-04 12:00] LABS: Alanine Aminotransferase 11 U/L (0-33); Albumin Level 3.4 g/dL (3.5-5.2); Alkaline Phosphatase 200 U/L (35-105); Anion Gap 13.8 (5-19); Aspartate Amino Transferase 43 U/L (0-32); Blood Urea Nitrogen 6 mg/dL (8-23); Calcium 8.6 mg/dL (8.5-10.5); Carbon Dioxide 27 mmol/L (22-29); Chloride 99 mmol/L (98-107); Creatinine Clr Calc Pharmacy 59.1515; Globulin 3.5 g/dL (1.3-4.6); Glucose 125 mg/dL (65-115); Osmolality Calculated 281 mOsm/kg (285-295); Potassium 3.8 mmol/L (3.5-5.1); Sodium 136 mmol/L (136-145); Total Bilirubin 1.7 mg/dL (0.15-1.2); Total Protein 6.9 g/dL (6.6-8.7)
[2025-04-04] MEDS: sodium chloride 0.9% 250 ML 75 ML IV (13:44)
[2025-04-04] MEDS: acetaminophen 325 mg Tablet 650 MG PO (13:45)
[2025-04-04] MEDS: diphenhydrAMINE 25 mg Capsule PO (13:46)
[2025-04-04] MEDS: famotidine 20 mg/2 mL INJ IVP (13:47)
[2025-04-04] MEDS: ondansetron 2 mg/ML SDV 2 mL 8 MG IVP (13:49)
[2025-04-04] MEDS: gemcitabine 1,700 MG in sodium chloride 0.9% (100 ml) 100 ML 289.42 MG IV (14:22)
[2025-04-04] MEDS: SODIUM CHLORIDE 0.9% IV (14:58)
[2025-04-04] MEDS: [UNRECOGNIZED DRUG - OTHER] IV (14:58)
[2025-04-04 15:47] VITALS: BP 124/70; PULSE 80; RESP 16; TEMP 37.2; O2SAT 92
== END 2025-04-04 23:59 | disposition home or self-care (01) ==
PROVIDERS: Nurse Practitioner; PCP Family Medicine; Visit Provider Internal Medicine Medical Oncology
DX: Z51.11 Encounter for antineoplastic chemotherapy (principal); C50.112 Malignant neoplasm of central portion of left female breast; Z17.0 Estrogen receptor positive status [ER+]; R03.0 Elevated blood-pressure reading, without diagnosis of hypertension; G89.3 Neoplasm related pain (acute) (chronic); E87.6 Hypokalemia; Z79.899 Other long term (current) drug therapy
CPT/HCPCS: 80053; 85025; 96375; 96413; 96417; 99214; A4222; J2405; J3490; J7050; J9201; J9353; J9999

== ENCOUNTER 2025-04-25 08:45 | Oncology outpatient (recurring) (ONCR) | payer MEDICARE, BC, SELFPAY ==
[2025-04-11 09:59] LABS: Basophils % 0.9 %; Eosinophils % 0.5 %; Hematocrit 32.9 % (36-47); Lymphocytes # 1.7 10^3/uL (0.8-4.8); Mean Corpuscular HGB Conc 32.8 g/dL (30-55); Mean Corpuscular Hemoglobin 32.2 pg (27-33); Mean Corpuscular Volume 98.2 fl (85-98); Mean Platelet Volume 9.3 fL (7.4-10.4); Monocytes # 0.9 10^3/uL (0.2-0.9); Monocytes % 20.1 %; Neutrophils # 1.64 10^3/uL (1.8-7.7); Neutrophils % 38.3 %; Nucleated Red Blood Cells % 0 %; Platelet Count 167 10^3/cmm (157-399); Red Blood Count 3.35 10^6/uL (3.85-5.65); Red Cell Distribution Width 16.7 % (12.1-15.1); White Blood Count 4.28 10^3/uL (3.29-11.43)
[2025-04-11 10:34] LABS: 25 Hydroxy Vitamin D 14 ng/mL (30-100); Alanine Aminotransferase 10 U/L (0-33); Albumin Level 3.3 g/dL (3.5-5.2); Alkaline Phosphatase 199 U/L (35-105); Anion Gap 14.1 (5-19); Aspartate Amino Transferase 36 U/L (0-32); Blood Urea Nitrogen 4 mg/dL (8-23); Calcium 8.7 mg/dL (8.5-10.5); Carbon Dioxide 24 mmol/L (22-29); Chloride 103 mmol/L (98-107); Creatinine Clr Calc Pharmacy 59.3337; Globulin 3.3 g/dL (1.3-4.6); Glucose 103 mg/dL (65-115); Osmolality Calculated 281 mOsm/kg (285-295); Potassium 4.1 mmol/L (3.5-5.1); Sodium 137 mmol/L (136-145); Total Protein 6.6 g/dL (6.6-8.7)
[2025-04-11 10:41] LABS: Total Bilirubin 1.9 mg/dL (0.15-1.2)
[2025-04-11] MEDS: sodium chloride 0.9% 250 ML IV (11:17)
[2025-04-11] MEDS: ondansetron 2 mg/ML SDV 2 mL 8 MG IVP (11:21)
[2025-04-11] MEDS: gemcitabine 1,700 MG in sodium chloride 0.9% (100 ml) 100 ML 289.42 MG IV (11:53)
[2025-04-11 12:52] VITALS: BP 135/76; PULSE 82; RESP 17; TEMP 37.1; O2SAT 93
[2025-04-25 09:08] LABS: Basophils % 0.5 %; Eosinophils # 0.3 10^3/uL (0.0-0.8); Eosinophils % 4.7 %; Hematocrit 31.1 % (36-47); Lymphocytes # 1.8 10^3/uL (0.8-4.8); Mean Corpuscular HGB Conc 33.1 g/dL (30-55); Mean Corpuscular Hemoglobin 33.7 pg (27-33); Mean Corpuscular Volume 101.6 fl (85-98); Mean Platelet Volume 8.9 fL (7.4-10.4); Monocytes # 1.5 10^3/uL (0.2-0.9); Monocytes % 24.6 %; Neutrophils % 39.9 %; Nucleated Red Blood Cells % 0 %; Platelet Count 561 10^3/cmm (157-399); Red Blood Count 3.06 10^6/uL (3.85-5.65); Red Cell Distribution Width 19.2 % (12.1-15.1); White Blood Count 6.01 10^3/uL (3.29-11.43)
[2025-04-25 09:40] LABS: Alanine Aminotransferase 11 U/L (0-33); Albumin Level 3.1 g/dL (3.5-5.2); Alkaline Phosphatase 206 U/L (35-105); Anion Gap 13.8 (5-19); Aspartate Amino Transferase 30 U/L (0-32); Blood Urea Nitrogen 8 mg/dL (8-23); Carbon Dioxide 26 mmol/L (22-29); Chloride 99 mmol/L (98-107); Creatinine Clr Calc Pharmacy 59.3337; Globulin 3.6 g/dL (1.3-4.6); Glucose 101 mg/dL (65-115); Osmolality Calculated 278 mOsm/kg (285-295); Potassium 3.8 mmol/L (3.5-5.1); Sodium 135 mmol/L (136-145); Total Bilirubin 2.1 mg/dL (0.15-1.2); Total Protein 6.7 g/dL (6.6-8.7)
[2025-04-25] MEDS: acetaminophen 325 mg Tablet 650 MG PO (11:11)
[2025-04-25] MEDS: sodium chloride 0.9% 250 ML 75 ML IV (11:11)
[2025-04-25] MEDS: ondansetron 2 mg/ML SDV 2 mL 8 MG IVP (11:12)
[2025-04-25] MEDS: diphenhydrAMINE 25 mg Capsule PO (11:12)
[2025-04-25] MEDS: famotidine 20 mg/2 mL INJ IVP (11:12)
[2025-04-25] MEDS: gemcitabine 1,700 MG in sodium chloride 0.9% (100 ml) 100 ML 289.42 MG IV (11:43)
[2025-04-25] MEDS: SODIUM CHLORIDE 0.9% IV (12:30)
[2025-04-25] MEDS: [UNRECOGNIZED DRUG - OTHER] IV (12:30)
[2025-04-25 13:26] VITALS: BP 122/65; PULSE 93; RESP 16; TEMP 37.2; O2SAT 90
== END 2025-04-25 23:59 | disposition home or self-care (01) ==
PROVIDERS: Nurse Practitioner; PCP Family Medicine; Visit Provider Internal Medicine Medical Oncology
DX: Z53.9 Procedure and treatment not carried out, unspecified reason; Z51.11 Encounter for antineoplastic chemotherapy; C50.112 Malignant neoplasm of central portion of left female breast; Z17.0 Estrogen receptor positive status [ER+]; R03.0 Elevated blood-pressure reading, without diagnosis of hypertension; D64.9 Anemia, unspecified; S21.102A Unspecified open wound of left front wall of thorax without penetration into thoracic cavity, initial encounter; X58.XXXA Exposure to other specified factors, initial encounter; G89.3 Neoplasm related pain (acute) (chronic); E87.6 Hypokalemia; Z79.899 Other long term (current) drug therapy
CPT/HCPCS: 80053; 82306; 85025; 86300; 96375; 96413; 96417; 99213; 99214; A4222; J2405; J3490; J7050; J9201; J9353; J9999

== ENCOUNTER 2025-05-16 08:00 | Oncology outpatient (recurring) (ONCR) | payer MEDICARE, BC, SELFPAY ==
[2025-05-02 09:06] LABS: Hematocrit 30.2 % (36-47); Hemoglobin 9.80 g/dL (11.27-16.99); Mean Corpuscular HGB Conc 32.5 g/dL (30-55); Mean Corpuscular Hemoglobin 32.7 pg (27-33); Mean Corpuscular Volume 100.7 fl (85-98); Nucleated Red Blood Cells % 0.8 %; Platelet Count 515 10^3/cmm (157-399); Red Blood Count 3.00 10^6/uL (3.85-5.65); White Blood Count 3.97 10^3/uL (3.29-11.43)
[2025-05-02 09:20] LABS: Alanine Aminotransferase 13 U/L (0-33); Albumin Level 3.2 g/dL (3.5-5.2); Alkaline Phosphatase 230 U/L (35-105); Anion Gap 14.8 (5-19); Aspartate Amino Transferase 38 U/L (0-32); Blood Urea Nitrogen 5 mg/dL (8-23); Calcium 8.7 mg/dL (8.5-10.5); Carbon Dioxide 24 mmol/L (22-29); Chloride 100 mmol/L (98-107); Creatinine Clr Calc Pharmacy 59.8800; Globulin 3.7 g/dL (1.3-4.6); Glucose 97 mg/dL (65-115); Osmolality Calculated 277 mOsm/kg (285-295); Potassium 3.8 mmol/L (3.5-5.1); Sodium 135 mmol/L (136-145); Total Protein 6.9 g/dL (6.6-8.7)
[2025-05-02] MEDS: ondansetron 2 mg/ML SDV 2 mL 8 MG IVP (10:29)
[2025-05-02] MEDS: gemcitabine 1,400 MG in sodium chloride 0.9% (100 ml) 100 ML 273.64 MG IV (11:05)
[2025-05-02 11:40] VITALS: BP 147/75; PULSE 82; O2SAT 91
[2025-05-16 08:18] LABS: Hematocrit 29.4 % (36-47); Hemoglobin 9.70 g/dL (11.27-16.99); Mean Corpuscular HGB Conc 33.0 g/dL (30-55); Mean Corpuscular Hemoglobin 34.0 pg (27-33); Mean Corpuscular Volume 103.2 fl (85-98); Nucleated Red Blood Cells % 0 %; Platelet Count 322 10^3/cmm (157-399); Red Blood Count 2.85 10^6/uL (3.85-5.65); White Blood Count 6.67 10^3/uL (3.29-11.43)
[2025-05-16 08:40] LABS: Alanine Aminotransferase 11 U/L (0-33); Albumin Level 3.0 g/dL (3.5-5.2); Alkaline Phosphatase 214 U/L (35-105); Anion Gap 13.4 (5-19); Aspartate Amino Transferase 36 U/L (0-32); Blood Urea Nitrogen 7 mg/dL (8-23); Calcium 8.9 mg/dL (8.5-10.5); Carbon Dioxide 25 mmol/L (22-29); Chloride 103 mmol/L (98-107); Creatinine Clr Calc Pharmacy 60.7903; Ferritin 101 ng/mL (15-150); Globulin 3.5 g/dL (1.3-4.6); Glucose 114 mg/dL (65-115); Iron 41 ug/dL (37-145); Osmolality Calculated 285 mOsm/kg (285-295); Potassium 3.4 mmol/L (3.5-5.1); Sodium 138 mmol/L (136-145); Total Iron Binding Capacity 222 mcg/dl; Total Protein 6.5 g/dL (6.6-8.7); Unsaturated Iron Binding 181 ug/dL (112-347)
[2025-05-16 08:54] LABS: Vitamin B12 978 pg/mL (232-1245)
[2025-05-16] MEDS: ondansetron 2 mg/ML SDV 2 mL 8 MG IVP (09:18)
[2025-05-16] MEDS: gemcitabine 1,800 MG in sodium chloride 0.9% (100 ml) 100 ML 294.68 MG IV (09:44)
[2025-05-16] MEDS: [UNRECOGNIZED DRUG - OTHER] IV (10:27)
[2025-05-16] MEDS: SODIUM CHLORIDE 0.9% IV (10:27)
[2025-05-16 11:00] VITALS: BP 131/72; PULSE 71; RESP 16; TEMP 36.4; O2SAT 97
== END 2025-05-16 23:59 | disposition home or self-care (01) ==
PROVIDERS: Internal Medicine; PCP Family Medicine; Visit Provider Internal Medicine Medical Oncology
DX: Z53.9 Procedure and treatment not carried out, unspecified reason (principal); Z51.11 Encounter for antineoplastic chemotherapy; C50.112 Malignant neoplasm of central portion of left female breast; Z17.0 Estrogen receptor positive status [ER+]; R03.0 Elevated blood-pressure reading, without diagnosis of hypertension; Z79.899 Other long term (current) drug therapy; G89.3 Neoplasm related pain (acute) (chronic); E87.6 Hypokalemia
CPT/HCPCS: 80053; 82607; 82728; 82746; 83010; 83540; 83550; 83615; 85025; 85045; 96375; 96413; 96417; 99214; A4222; J2405; J3490; J7050; J9201; J9353; J9999

== ENCOUNTER 2025-05-23 08:10 | Oncology outpatient (recurring) (ONCR) | payer MEDICARE, BC, SELFPAY ==
[2025-05-23 08:30] LABS: Hematocrit 28.3 % (36-47); Hemoglobin 9.30 g/dL (11.27-16.99); Mean Corpuscular HGB Conc 32.9 g/dL (30-55); Mean Corpuscular Hemoglobin 33.9 pg (27-33); Mean Corpuscular Volume 103.3 fl (85-98); Nucleated Red Blood Cells % 1.3 %; Platelet Count 334 10^3/cmm (157-399); Red Blood Count 2.74 10^6/uL (3.85-5.65); White Blood Count 3.97 10^3/uL (3.29-11.43)
[2025-05-23 08:58] LABS: Alanine Aminotransferase 10 U/L (0-33); Albumin Level 3.0 g/dL (3.5-5.2); Alkaline Phosphatase 263 U/L (35-105); Anion Gap 14.6 (5-19); Aspartate Amino Transferase 37 U/L (0-32); Blood Urea Nitrogen 5 mg/dL (8-23); CA 15-3 28.8 U/mL (0-25); Calcium 8.6 mg/dL (8.5-10.5); Carbon Dioxide 24 mmol/L (22-29); Chloride 100 mmol/L (98-107); Creatinine Clr Calc Pharmacy 61.1544; Globulin 3.5 g/dL (1.3-4.6); Glucose 138 mg/dL (65-115); Osmolality Calculated 279 mOsm/kg (285-295); Potassium 3.6 mmol/L (3.5-5.1); Sodium 135 mmol/L (136-145); Total Protein 6.5 g/dL (6.6-8.7)
[2025-05-23] MEDS: ondansetron 2 mg/ML SDV 2 mL 8 MG IVP (10:37)
[2025-05-23] MEDS: gemcitabine 1,800 MG in sodium chloride 0.9% (100 ml) 100 ML 294.68 MG IV (11:02)
[2025-05-23 12:00] VITALS: BP 153/71; PULSE 93; RESP 17; TEMP 36.8; O2SAT 93
== END 2025-06-01 23:59 | disposition home or self-care (01) ==
PROVIDERS: PCP Family Medicine; Visit Provider Internal Medicine Medical Oncology
DX: Z51.11 Encounter for antineoplastic chemotherapy (principal); C50.112 Malignant neoplasm of central portion of left female breast; Z17.0 Estrogen receptor positive status [ER+]; Z79.899 Other long term (current) drug therapy; R03.0 Elevated blood-pressure reading, without diagnosis of hypertension; R60.9 Edema, unspecified; G89.3 Neoplasm related pain (acute) (chronic)
CPT/HCPCS: 80053; 85025; 86300; 96375; 96413; 99214; J2405; J7050; J9201

== ENCOUNTER 2025-05-27 22:43 | Emergency (ER) | payer MEDICARE, BC, SELFPAY ==
[2025-05-27 22:48] VITALS: BP 112/47; PULSE 104; RESP 17; TEMP 37.8; O2SAT 93; BMI 27.4
--- OUTSIDE RECORDS SUMMARY | 2025-05-27 22:51 | XMS_ITS | Patient Health Record ---
Author Organization [facility] Address [address] [place] [address] Care Team Providers Care Gas Operations Superintendent Name Role Phone AUGUSTINE LAN, YOLETTE Primary Care Provider UnavailNAHUM Mitchell Unavailable [phone] CARLITOS WALTERS MD Unavailable Unavailable Allergies Allergen (clinical drug ingredient) Drug/Non Drug Allergy documented on EMR Reaction Allergy Type Onset Date Status Sulfa Unknown Drug Allergy Active Reason For Referral No Information Medications Medication SIG (Take, Route, Frequency, Duration) Notes Start Date End Date Status Estrogens Conjugated 1.25 MG 1 tablet Orally Daily for Three Weeks, 1 Week off Active Prempro Not-Taking Progesterone Micronized 0.5 1 capsule at bedtime Orally Once a day Active Social History Tobacco Use: Social History Observation Description Date Details (start date - stop date) Never Smoker NA - NA Tobacco Question Answer Notes Smoking status: Nonsmoker Other tobacco products: No Plan Of Treatment No Information Insurance Providers Payer Name Payer Address Payer Phone Subscriber Number Group Number Insured Name Patient Relationship to Insured Coverage Start Date Coverage End Date [employer] [address] [address] [place] [address] [phone] [id number] CHRISSIE HERNANDEZ Self - patient is the insured Medical (General) History Surgical History Surgery Date(Month/Year) gall bladder age 18 oral surgery Hospitalization History Reason Date(Month/Year) surgery
--- NOTE | 2025-05-27 23:31 | XRR_ITS ---
PROCEDURE INFORMATION: Exam: XR Chest Exam date and time: 05/27/2025 11:37 PM Age: 70 years old Clinical indication: Prior surgery; Surgery date: 6+ months; Surgery type: Port a cath. Bilat mastectomy. Gb; Fever with general weakness. Currently on chemo for metastatic breast cancer. ; Additional info: Fever cancer patient TECHNIQUE: Imaging protocol: Radiologic exam of the chest. Views: 1 view. COMPARISON: CR XR chest 1V [id number] 10/22/2018 4:00 PM FINDINGS: Tubes, catheters and devices: Left-sided port in place, tip in the right atrium. Lungs: Mild central vascular congestion is suggested along with some chronic interstitial coarsening. Linear opacities in lung bases favor atelectasis or scar. No new airspace consolidation. Pleural spaces: No significant pleural effusion. No pneumothorax. Heart/Mediastinum: Stable cardiomediastinal contours. Bones/joints: No acute osseous findings. XR/XR chest 1V portable [id number] IMPRESSION: Mild central vascular congestion, but no acute consolidation.
--- NOTE | 2025-05-27 23:37 | ED_ITS ---
HPI - Recheck/Abnormal Lab/Rx 2 General: Chief Complaint: Recheck/Abnormal Lab/Rx Stated Complaint: Weakness,Jaundice, N/V Chemo 05/23/25 Time Seen by Provider: 05/27/25 23:07 History of Present Illness: 70-year-old female with a history of sta ge IV metastatic breast cancer and active chemotherapy. She presents with generalized weakness, fever to 101 at home, and fatigue. No significant mental status changes or confusion. No increased pain. No dysuria. No significant cough or sputum production. She has had an increase in jaundice, with scleral icterus as well. Related Data Home Medications ?Medication ?Instructions ?Recorded ?Confirmed letrozole 2.5 mg tablet 2.5 mg PO DAILY 01/20/22 ado-trastuzumab emtansine 100 mg IV .Q3 weeks 08/31/24 05/23/25 intravenous solution ([place]) cholecalciferol (vitamin D3) 125 125 mcg PO DAILY 03/2505/23/25 mcg (5,000 unit) capsule cimetidine 400 mg tablet 400 mg PO .daily with meals PRN 09/06/24 05/23/25 dicyclomine 20 mg tablet mg PO 11/14/24 05/23/25 Previous Rx's ?Medication ?Instructions ?Recorded manual wheelchair #1 ea 09/23/22 lorazepam 1 mg tablet 0.5 - 1 mg (0.5 - 1 x 1 mg) PO Q6H 09/06/24 PRN severe nausea #30 tabs diphenoxylate-atropine 2.5 2 tab PO QID PRN diarrhea # 60 tabs 02/27/25 mg-0.025 mg tablet (Lomotil) prochlorperazine maleate 10 mg 10 mg PO Q4H PRN mild n ausea #30 02/27/25 tablet (Compazine) tabs gabapentin 600 mg tablet 600 mg PO TID #90 tabs 03/21 ondansetron HCl 4 mg tablet 4 mg PO Q6H PRN nausea and 05/16/25 vomiting #30 tabs hydrochlorothiazide 25 mg tablet 25 mg PO QAM PRN tavares a #30 tabs 05/23/25 oxycodone 5 mg tablet 5 mg PO Q6H PRN pain 30 days #120 07/22/25 tabs potassium chloride 20 mEq 20 meq PO BID #90 tabs 05/23 tablet,extended release Allergies Allergy/AdvReac Type Severity Reaction Status Date / Time pertuzumab (From [facility]) Allergy Severe ALGY-Anaphy Verified 05/23/25 08:36 laxis Sulfa (Sulfonamide AdvReac Mild vomiting Verified 05/23/25 08:36 Antibiotics) PFSH ED 2 PFSH: Medical History Metastatic breast cancer History of vitamin D deficiency History of colon polyps Surgical History Port-A-Cath in place S/P lymph node biopsy (10/22/18) Excisional biopsy of left supraclavicular lymph node Status post colonoscopy with polypectomy (08/23/20) History of cholecystectomy S/P mastectomy, bilateral (04/01/17) Bilateral mastectomy with left axillary lymph node dissection Family History Brother Anesthesia complication Father Cancer prostate Stroke Mother Dementia Other Atrial fibrillation CAD (coronary artery disease) Hyperlipidemia Hypertension Denies family history of Diabetes Clotting disorder Psychiatric illness Chronic kidney disease (CKD) Suicide Bleeding disorder Lung disease Social History Smoking and tobacco/nicotine status: never used tobacco/nicotine Alcohol intake: current Alcohol intake frequency: holidays/special occasions only Substance/Drug Use: never Physical Exam 2 Const: GENERAL APPEARANCE: cooperative and ill appearing O RIENTATION/CONSCIOUSNESS: Yes awake, Yes oriented to person, Yes oriented to place and Yes oriented to time HENMT: COMMON NORMALS: normocephalic, atraumatic and Normal external nose present HEAD & SCALP: normocephalic and atraumatic FACE & SINUS: face symmetric; no edema NOSE: Normal external nose present Eye: COMMON NORMALS: Equal, round and reactive pupils present and EOMs intact bilaterally SCLERA: scleral abnormal Laterality of scleral abnormality: positive bilateral scleral icterus PUPIL: Yes Equal, round and reactive pupils present Chest: CHEST: Yes Symmetrical chest wall rise Resp: COMMON NORMALS: clear to auscultation bilaterally EFFORT & INSPECTION: Yes tachypneic and No respiratory distress AUSCULTATION: clear to auscultation bilaterally Cardio: COMMON NORMALS: regular rhythm RATE: tachycardic RHYTHM: regular rhythm GI: COMMON NORMALS: Soft to palpation PALPATION: Yes Soft to palpation and Yes Tenderness to palpation present (GI) (Epigastric) Neuro: SENSORIUM/ORIENTATION: Yes oriented to person, Yes oriented to place and Yes oriented to time Skin: NARRATIVE SKIN EXAM: Chronic skin ulceration to the anterior chest wall. No significant cellulitis, streaking, drainage. Good granulation tissue present Course 2 Vital Signs: Vital signs: Vital Signs Temperature 100.1 F H 05/27/25 22:48 Pulse Rate 102 H 05/28/25 03:40 Respiratory Rate 23 H 05/28/25 03:40 Blood Pressure 117/61 05/28/25 03:40 Pulse Oximetry 95 05/28/25 03:40 Oxygen Delivery Me thod Room Air 05/27/25 22:48 MDM - Recheck/Abnormal Lab/Rx Medical Decision Making This is a chemotherapy patient with a temperature of 100.1. She has been normotensive here, but slightly tachycardic. Her lactic acid is 3.4. She is given over 2400 mL of fluid for a sepsis bolus including the fluid boluses associated with antibiotics. She is given vancomycin and Zosyn for coverage after blood cultures. Her hemoglobin is 8. This is a significant decrease from prior. Her sodium level is 128. Creatinine is 0.7. Chest x-ray shows mild, vascular congestion. CTA of the chest shows a right axillary 2 x 1.6 cm enlarged lymph node. There also however bilateral lower lobe consolidations consistent with pneumonia. CT of the abdomen reveals moderate dilatation of the intrahepatic and extrahepatic biliary ducts. In the body of the pancreas there is a 9 x 8 mm hypodense lesion as well. Her bilirubin is 11. Other liver enzymes are normal. Respiratory swab is negative for detection of respiratory virus as a source of fever. Urinalysis is negative. Lactic acid is fallen to 2.9 following fluid bolus. With evidence of biliary outlet obstruction by CT, MRCP versus ERCP is suggested. She has significant hyperbilirubinemia. She appears septic. We have no gastroenterology available at our facility. No beds are available at nearby facilities. I spoke with [facility]. They are agreeing to take the patient in transfer to their ICU given her critical status. Due to time critical nature of transfer to definitive treatment, lack of ground ambulance availability, long distance to the facility, and critical clinical status, the patient will be transferred by air if possible. Lab Data 05/27/25 23:17 05/27/25 23:17 Radiology Impressions Chest X-Ray 05/27/25 23:31 IMPRESSION: Mild central vascular congestion, but no acute consolidation. Chest/Abdomen/Pelvis CT 05/28/25 00:30 IMPRESSION: 1. Bilateral lower lobe areas of consolidation, worse on the right, favored to represent pneumonia, such as aspiration related. 2. Prior bilateral mastectomies. 3. In the right axilla, there is a 2 x 1.6 cm, enlarged lymph node, best seen on image 20 of axial series 4. 4. A small right pleural fluid collection. IMPRESSION: 1. Moderate dilatation of the intrahepatic and extrahepatic biliary ducts that may be secondary to the patient's post cholecystectomy state. However, ampullary dysfunction may present a similar picture. An ampullary lesion may be considered although not visualized on this examination. MRI/MRCP may be helpful for further characterization. 2. In the body of the pancreas, there is a 9 x 8 mm hypodense lesion that may represent a dilated pancreatic duct or nodule. 3. Mild peripancreatic stranding raises the question of pancreatitis. Consider correlation with pancreatic enzymes. 4. There is moderate fecal burden throughout the colon suggestive of constipation. 5. There is wall thickening of the rectosigmoid consistent with stercoral proctocolitis. 6. Prominent stranding in the subcutaneous adipose tissue of the upper abdomen bilaterally. This may represent postoperative or postradiation scarring, edema or cellulitis. ADDENDUM: 05/28/25 0230 Findings were discussed with ADRIA FRANKS at 05/28/2025 2:28 AM CDT. Laboratory Results WBC 10.32 10^3/uL (3.29-11.43) 05/27/25 23:17 RBC 2.35 10^6/uL (3.85-5.65) L 05/27/25 23:17 Hgb 8.00 g/dL (11.27-16.99) L 05/27/25 23:17 Hct 23.4 % (36-47) L 05/27/25 23:17 MCV 99.6 fl (85-98) H 05/27/25 23:17 MCH 34.0 pg (27-33) H 05/27/25 23:17 MCHC 34.2 g/dL (30-55) 05/27/25 23:17 RDW 20.8 % (12.1-15.1) H 05/27/25 23:17 Plt Count 165 10^3/cmm (157-399) 05/27/25 23:17 MPV 9.7 fL (7.4-10.4) 05/27/25 23:17 Neut % (Auto) 91.3 % 05/27/25 23:17 Lymph % (Auto) 5.3 % 05/27/25 23:17 [place] % (Auto) 0.8 % 05/27/25 23:17 Eos % (Auto) 0.5 % 05/27/25 23:17 Baso % (Auto) 0.4 % 05/27/25 23:17 Neut # (Auto) 9.42 10^3/uL (1.8-7.7) H 05/27/25 23:17 Lymph # (Auto) 0.6 10^3/uL (0.8-4.8) L 05/27/25 23:17 [place] # (Auto) 0.1 10^3/uL (0.2-0.9) L 05/27/25 23:17 Eos # (Auto) 0.1 10^3/uL (0.0-0.8) 05/27/25 23:17 Baso # (Auto) 0.0 10^3/uL (0.0-0.1) 05/27/25 23:17 Nucleated RBC % (auto) 0 % 05/27/25 23:17 Nucleated RBCs # 0.0 /100WBC 05/27/25 23:17 PT 20.50 SECONDS (12.1-14.9) H 05/27/25 23:17 INR 1.64 (0.8-1.2) H 05/27/25 23:17 APTT > 250.0 SECONDS (23.9-36.7) H* 05/27/25 23:17 Sodium 128 mmol/L (136-145) L 05/27/25 23:17 Potassium 4.6 mmol/L (3.5-5.1) 05/27/25 23:17 Chloride 92 mmol/L (98-107) L 05/27/25 23:17 Carbon Dioxide 22 mmol/L (22-29) 05/27/25 23:17 Anion Gap 18.6 (5-19) 05/27/25 23:17 BUN 19 mg/dL (8-23) 05/27/25 23:17 Creatinine 0.7 mg/dL (0.5-0.9) 05/27/25 23:17 GFR Calculation Not Reportable 05/27/25 23:17 Glucose 101 mg/dL (65-115) 05/27/25 23:17 Calculated Osmolality 268 mOsm/kg (285-295) L 05/27/25 23:17 Lactic Acid 3.4 mmol/L (0.5-2.2) H 05/27/25 23:17 Lactic Acid (Sepsis) 2.9 mmol/L (0.5-2.2) H 05/28/25 02:20 Calcium 9.4 mg/dL (8.5-10.5) 05/27/25 23:17 Total Bilirubin 11.1 mg/dL (0.15-1.2) H* 05/27/25 23:17 AST 42 U/L (0-32) H 05/27/25 23:17 ALT 13 U/L (0-33) 05/27/25 23:17 Alkaline Phosphatase 349 U/L (35-105) H 05/27/25 23:17 Ammonia 51 umol/L (11-51) 05/27/25 23:17 C-Reactive Protein 70.4 mg/L (0.0-4.9) H 05/27/25 23:17 Total Protein 6.5 g/dL (6.6-8.7) L 05/27/25 23:17 Albumin 3.0 g/dL (3.5-5.2) L 05/27/25 23:17 Globulin 3.5 g/dL (1.3-4.6) 05/27/25 23:17 Procalcitonin 0.85 ng/mL (0-0.5) H 05/27/25 23:17 Urine Color Dark yellow (Yellow) A 05/28/25 01:26 Urine Appearance Clear (CLEAR) 05/28/25 01:26 Urine pH 5.0 (5-7) 05/28/25 01:26 Ur Specific [place] 1.029 (1.005-1.030) 05/28/25 01:26 Urine Protein Negative (Negative) 05/28/25 01:26 Urine Glucose (UA) Negative (Normal) 05/28/25 01:26 Urine Ketones Negative (Negative) 05/28/25 01:26 Urine Blood Negative (Negative) 05/28/25 01:26 Urine Nitrate Negative (Negative) 05/28/25 01:26 Urine Bilirubin Negative (Negative) 05/28/25 01:26 Urine Urobilinogen 1.0 mg/dL (Negative) 05/28/25 01:26 Ur Leukocyte Esterase Trace (Negative) A 05/28/25 01:26 Urine RBC 0-2 /hpf (0-2) 05/28/25 01:26 Urine WBC 0-5 /hpf (0-5) 05/28/25 01:26 Ur Squamous Epith Cells 0-5 /hpf (0-5) 05/28/25 01:26 Amorphous Sediment Not Reportable 05/28/25 01:26 Urine Bacteria None seen /hpf (NONE) 05/28/25 01:26 Hyaline Casts 2.05 /lpf 05/28/25 01:26 Adenovirus (PCR) Not detected (NOT DETECT) 05/28/25 00:08 C. pneumoniae DNA (PCR) Not detected (NOT DETECT) 05/28/25 00:08 Coronavirus 229E (PCR) Not detected (NOT DETECT) 05/28/25 00:08 Human Metapneumovir PCR Not detected (NOT DETECT) 05/28/25 00:08 Influenza A (H1) PCR Not detected (NOT DETECT) 05/28/25 00:08 Influ A (H1/09) PCR Not detected (NOT DETECT) 05/28/25 00:08 Influenza A (H3) PCR Not detected (NOT DETECT) 05/28/25 00:08 Influenza Type A (PCR) Not detected (NOT DETECT) 05/28/25 00:08 Influenza Type B (PCR) Not detected (NOT DETECT) 05/28/25 00:08 M. pneumoniae (PCR) Not detected (NOT DETECT) 05/28/25 00:08 Parainfluenza 1 (PCR) Not detected (NOT DETECT) 05/28/25 00:08 Parainfluenza 2 (PCR) Not detected (NOT DETECT) 05/28/25 00:08 Parainfluenza 3 (PCR) Not detected (NOT DETECT) 05/28/25 00:08 Parainfluenza 4 (PCR) Not detected (NOT DETECT) 05/28/25 00:08 RSV Type A (PCR) Not detected (NOT DETECT) 05/28/25 00:08 RSV Type B (PCR) Not detected (NOT DETECT) 05/28/25 00:08 Entero/Rhino (PCR) Not detected (NOT DETECT) 05/28/25 00:08 SARS-CoV-2 (PCR) Not detected (NOT DETECT) 05/28/25 00:08 All radiology interpretation(s) finalized by discharge Critical Care Time 2 Critical Care Time: Critical Care Time: Yes Total Critical Care Time: 0 Attestation: This case had a high probability of a clinically significant, sudden, or life threatening deterioration of this patient's condition which required my full and direct attention, intervention and personal management. Time is independent of any procedures performed. Discharge Plan Discharge Patient Disposition: Xfer Short-Term Hosp Clinical Impression: Acquired hyperbilirubinemia, Biliary obstruction, Sepsis, Bilateral interstitial pneumonia Condition: Critical Referrals: Татьяна Gomez DO [Primary Care Provider, Family Practice] Print Language: Luxembourgish Coding Level of Care Code ED Environmental Journalist for Reggie Gonzalez
[2025-05-27 23:57] LABS: Hematocrit 23.4 % (36-47); Hemoglobin 8.00 g/dL (11.27-16.99); Mean Corpuscular HGB Conc 34.2 g/dL (30-55); Mean Corpuscular Hemoglobin 34.0 pg (27-33); Mean Corpuscular Volume 99.6 fl (85-98); Nucleated Red Blood Cells % 0 %; Platelet Count 165 10^3/cmm (157-399); Red Blood Count 2.35 10^6/uL (3.85-5.65); White Blood Count 10.32 10^3/uL (3.29-11.43)
[2025-05-27] MEDS: piperacillin-tazobactam 4.5 GM in sodium chloride 0.9% (plus) 50 ML IV (23:59)
[2025-05-28] VITALS (34 sets, daily range): BP systolic 98–137; BP diastolic 37–61; PULSE 93–102; RESP 11–23; O2SAT 89–97
[2025-05-28 00:01] LABS: Alanine Aminotransferase 13 U/L (0-33); Anion Gap 18.6 (5-19); Blood Urea Nitrogen 19 mg/dL (8-23); Calcium 9.4 mg/dL (8.5-10.5); Carbon Dioxide 22 mmol/L (22-29); Creatinine Clr Calc Pharmacy 62.0648; Globulin 3.5 g/dL (1.3-4.6); Glucose 101 mg/dL (65-115); Potassium 4.6 mmol/L (3.5-5.1)
[2025-05-28 00:02] LABS: INR 1.64 (0.8-1.2); Lactic Sepsis W/Reflex 3.4 mmol/L (0.5-2.2); Prothrombin Time 20.50 SECONDS (12.1-14.9)
[2025-05-28 00:04] LABS: Reflex Lactate Order REFLEX LACTIC ORDERD
[2025-05-28 00:07] LABS: Albumin Level 3.0 g/dL (3.5-5.2); Alkaline Phosphatase 349 U/L (35-105); Aspartate Amino Transferase 42 U/L (0-32); Chloride 92 mmol/L (98-107); Osmolality Calculated 268 mOsm/kg (285-295); Sodium 128 mmol/L (136-145); Total Protein 6.5 g/dL (6.6-8.7)
[2025-05-28 00:08] LABS: Procalcitonin 0.85 ng/mL (0-0.5)
[2025-05-28 00:16] LABS: Ammonia 51 umol/L (11-51)
[2025-05-28 00:19] LABS: Partial Thromboplastin Time > 250.0 SECONDS (23.9-36.7)
--- NOTE | 2025-05-28 00:30 | CTR_ITS ---
PROCEDURE INFORMATION: Exam: CT Chest With Contrast; Diagnostic Exam date and time: 05/28/2025 12:50 AM Age: 70 years old Clinical indication: Abnormal findings; Abnormal lab test; Elevated liver enzymes and other: Bilirubin 11.1; Other: N/a; Prior surgery; Surgery date: 6+ months; Surgery type: Port a cath. Gb. Bilat mastectomy; Fever with elevated liver enzymes and bilirubin of 11.1. History of metastatic breast cancer. ; Additional info: Elevated liver enzymes, fever, HX of metastatic breast canc TECHNIQUE: Imaging protocol: Diagnostic computed tomography of the chest with contrast. Radiation optimization: All CT scans at this facility use at least one of these dose optimization techniques: automated exposure control; mA and/or kV adjustment per patient size (includes targeted exams where dose is matched to clinical indication); or iterative reconstruction. Contrast material: OMNI 350; Contrast volume: 80 ml; Contrast route: INTRAVENOUS (IV); COMPARISON: CR (CHEST, ) 27/05/2025 23:37 RADIATION DOSE METRICS: Total DLP (mGy-cm): 866.52 FINDINGS: Tubes, catheters and devices: There is an accessed chest port catheter in the left infraclavicular fossa with the catheter tip in the superior vena cava. Lungs: Bilateral lower lobe areas of consolidation, worse on the right, favored to represent pneumonia, such as aspiration related. Pleural spaces: A small right pleural fluid collection. No pneumothorax. Heart: The heart is normal in size. There are no pericardial fluid collections. Esophagus: No esophageal thickening. Mediastinal space: There are no enlarged mediastinal lymph nodes or masses. Lymph nodes: See Soft tissues finding. Vasculature: Unremarkable. No aortic aneurysm. Liver: No enhancing masses are seen. Bones/joints: Unremarkable. No acute fracture. Soft tissues: Prior bilateral mastectomies. In the right axilla, there is a 2 x 1.6 cm, enlarged lymph node, best seen on image 20 of axial series 4. PROCEDURE INFORMATION: Exam: CT Abdomen And Pelvis With Contrast Exam date and time: 05/28/2025 12:50 AM Age: 70 years old Clinical indication: Abnormal findings; Abnormal lab test; Elevated liver enzymes and other: Bilirubin 11.1; Other: N/a; Prior surgery; Surgery date: 6+ months; Surgery type: Port a cath. Gb. Bilat mastectomy; Fever with elevated liver enzymes and bilirubin of 11.1. History of metastatic breast cancer. ; Additional info: Elevated liver enzymes, fever, HX of metastatic breast canc TECHNIQUE: Imaging protocol: Computed tomography of the abdomen and pelvis with contrast. Radiation optimization: All CT scans at this facility use at least one of these dose optimization techniques: automated exposure control; mA and/or kV adjustment per patient size (includes targeted exams where dose is matched to clinical indication); or iterative reconstruction. Contrast material: OMNI 350; Contrast volume: 80 ml; Contrast route: INTRAVENOUS (IV); COMPARISON: PT PET skull to thigh INIT [id number] 15/11/2020 08:36 RADIATION DOSE METRICS: Total DLP (mGy-cm): 866.52 FINDINGS: Lungs: No consolidation in the visualized lung bases. Liver: The liver is normal in size. No liver masses identified. There is mild dilatation of the intrahepatic and extrahepatic biliary ducts. Gallbladder and biliary ducts: There has been a cholecystectomy. There is moderate dilatation of the common bile duct and mild intrahepatic biliary dilatation. Pancreas: In the body of the pancreas, there is a 9 x 8 mm hypodense lesion that may represent a dilated pancreatic duct or nodule. Mild stranding around the pancreatic head raising the question of pancreatitis. There are no fluid collections. Spleen: Normal. No splenomegaly. Adrenal glands: Normal. No mass. Kidneys and ureters: There is no hydronephrosis. No renal or obstructing ureteral calculi. Stomach and bowel: There are no abnormally dilated loops of bowel. There is moderate fecal burden throughout the colon suggestive of constipation. There is wall thickening of the rectosigmoid consistent with stercoral proctocolitis. Appendix: No evidence of appendicitis. Intraperitoneal space: No free air. No significant fluid collection. Vasculature: There is no abdominal aortic aneurysm. Lymph nodes: No enlarged retroperitoneal or mesenteric lymph nodes. Urinary bladder: The bladder shows a normal contour and is free of calcific opacities. Reproductive: Unremarkable as visualized. Bones/joints: No evidence of metastatic disease to bone. Moderate chronic burst fracture of L2 with minimal retropulsion. Mild chronic superior endplate compression fracture of L5. Grade 1 anterolisthesis of L4 without associated fracture and presumed to be related to degenerative changes. Soft tissues: Prominent stranding in the subcutaneous adipose tissue of the upper abdomen bilaterally. CT/CT chest abdpel w/*[id number] IMPRESSION: 1. Bilateral lower lobe areas of consolidation, worse on the right, favored to represent pneumonia, such as aspiration related. 2. Prior bilateral mastectomies. 3. In the right axilla, there is a 2 x 1.6 cm, enlarged lymph node, best seen on image 20 of axial series 4. 4. A small right pleural fluid collection. IMPRESSION: 1. Moderate dilatation of the intrahepatic and extrahepatic biliary ducts that may be secondary to the patient's post cholecystectomy state. However, ampullary dysfunction may present a similar picture. An ampullary lesion may be considered although not visualized on this examination. MRI/MRCP may be helpful for further characterization. 2. In the body of the pancreas, there is a 9 x 8 mm hypodense lesion that may represent a dilated pancreatic duct or nodule. 3. Mild peripancreatic stranding raises the question of pancreatitis. Consider correlation with pancreatic enzymes. 4. There is moderate fecal burden throughout the colon suggestive of constipation. 5. There is wall thickening of the rectosigmoid consistent with stercoral proctocolitis. 6. Prominent stranding in the subcutaneous adipose tissue of the upper abdomen bilaterally. This may represent postoperative or postradiation scarring, edema or cellulitis.
[2025-05-28] MEDS: iohexol 350 mg/mL 500 mL Btl (per mL) IV (00:52)
[2025-05-28 01:34] LABS: Glucose Urine UA Negative (Normal); Nitrate Urine Negative (Negative); Specific Gravity, Urine 1.029 (1.005-1.030)
[2025-05-28 01:40] LABS: Add Urine Microscopic? YES
[2025-05-28 02:00] LABS: Coronavirus 229E,HKU1,NL63,OC4 Not Detected (NOT DETECT); Parainfluenza Virus Type 1 Not Detected (NOT DETECT); Parainfluenza Virus Type 2 Not Detected (NOT DETECT); Parainfluenza Virus Type 3 Not Detected (NOT DETECT); Parainfluenza Virus Type 4 Not Detected (NOT DETECT); SARS-COV-2 Not Detected (NOT DETECT)
[2025-05-28] MEDS: ondansetron 2 mg/ML SDV 2 mL 4 MG IVP (02:36)
[2025-05-28] MEDS: morphine 4 mg/mL SDV 1 mL IVP (02:36)
[2025-05-28 02:50] LABS: Lactic Acid level (Lactate) 2.9 mmol/L (0.5-2.2)
--- NOTE | 2025-05-28 10:04 | ECG_ITS ---
[facility] Test Date: 2025-05-27 Pat Name: Татьяна Morris Department: Room: Gender: Female Government Clerk: RADHA : [id number] Requested By: Adria Irwin Order Number: [id number] Josh MD: Matt Blackmon M.D. Measurements Intervals [place] Rate: 101 P: 55 SD: 174 QRS: 47 QRSD: 90 T: 57 QT: 355 QTc: 462 Interpretive Statements SINUS TACHYCARDIA LOW QRS VOLTAGE IN PRECORDIAL LEADS [QRS DEFLECTION < 1.0 mV IN CHEST LEADS] POSSIBLE ANTERIOR MYOCARDIAL INFARCTION , PROBABLY OLD [30 ms Q WAVE IN V3/V4, OR R < 0.2 mV IN V4] ABNORMAL ECG Compared to ECG 04/29/2021 13:35:33 Low QRS voltage now present Myocardial infarct finding still present Electronically Signed On 05-28-2025 16:00:09 CDT by Neymar [email or web address] [id number]
== END 2025-05-28 08:02 | disposition short-term general hospital (02) ==
PROVIDERS: Emergency Provider Emergency Medicine; PCP Family Medicine
DX: E80.6 Other disorders of bilirubin metabolism (principal); K83.1 Obstruction of bile duct; A41.9 Sepsis, unspecified organism; J84.9 Interstitial pulmonary disease, unspecified; Z11.52 Encounter for screening for COVID-19; Z85.3 Personal history of malignant neoplasm of breast
CPT/HCPCS: 36415; 71045; 71260; 74177; 80053; 81001; 82140; 83605; 84145; 85025; 85610; 85730; 86140; 87040; 87150; 87205; 87486; 87581; 87633; 93005; 96361; 96365; 96375; 99285; 99291; J1885; J2270; J2405; J2543; J3373; J7030; J7050